=== PATIENT | female | born 1955 | race Hispanic/Latino ===

== ENCOUNTER 2017-02-28 07:44 | Inpatient (IN) | payer MEDICAID, OTHER ==
--- NOTE | 2017-02-28 08:20 | ED PDOC ---
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 Patient reports she has been experiencing intermittent vision changes in right eye for the past 2 weeks. Patient describes it as her vision getting dark and seeing "flashing lights". States that she has been under a great deal of stress taking care of her mother and vision "comes and goes". Only states to right eye. Denies trauma. Denies pain with eye movements. DENIES PAIN. Denies nausea or vomiting. Denies "floaters". Patient denies any eye pain, fever, chills, nausea, vomiting, diarrhea, abdominal pain, urinary symptoms, chest pain , shortness of breath or any other complaints. Patient reports she has not been compliant with her medication for the past few weeks. PMD: Dr. Barrow 02/28/17 18:14 Time/Duration: Other (2 weeks) Symptom Course: Worsening (this morning) Quality: Other Context: Home Past Medical History - Provider Review Nursing Documentation Reviewed: Yes - Tetanus Immunization Tetanus Immunization: Unknown - Cardiac Hx Hypertension: Yes - Endocrine/Metabolic Hx Hypothyroidism: Yes - Integumentary Other/Comment: redness around right eye and swelling, hematoma right skull, bruising swelling nose/face, abrasion and bruises right knee, multiple small bruises to back and arms - Musculoskeletal/Rheumatological Hx Falls: No - Psychiatric Hx Substance Use: No - Surgical History Hx Orthopedic Surgery: Yes (pin in pelvis) Family/Social History - Physician Review Nursing Documentation Reviewed: Yes Family/Social History: No Known Family HX Smoking Status: Never Smoked Hx Alcohol Use: Yes Hx Substance Use: No Allergies/Home Meds Allergies/Adverse Reactions: Allergies fruit Allergy (Uncoded 02/28/17 07:51) ITCHING Review of Systems - Review of Systems Constitutional: absent: Fatigue, Fevers, Night Sweats Eyes: Vision Changes. absent: Eye Pain ENT: absent: Hearing Changes, Sore Throat Respiratory: absent: SOB Cardiovascular: absent: Chest Pain Gastrointestinal: absent: Abdominal Pain, Diarrhea, Nausea, Vomiting Genitourinary Female: absent: Dysuria, Frequency, Hematuria, Urine Output Changes Musculoskeletal: absent: Back Pain Neurological: absent: Headache, Dizziness, Focal Weakness Endocrine: absent: Polyuria, Polydipsia Hemo/Lymphatic: absent: Easy Bleeding Physical Exam - Physical Exam Narrative Physical Exam (Text): Head: Atraumatic. Normocephalic. Eyes: Normal light reflex. Pupils are equal round and reactive to light. Visual acuity diminished to right eye, is able to distinguish light, intact corneal reflex. She is able to move her eyes in all directions. No proptosis. No pain with eye movements. Intraocular pressure is 16 in right eye, 18 in left eye. Visual acuity intact in left eye. No lid lag. Fundoscopic exam with no obvious hemorrhage. ENT: Mucous membranes are moist and intact. Oropharynx is clear and symmetric. Neck: Supple. Full ROM. No JVD. No lymphadenopathy. Cardiovascular: Regular rate. Regular rhythm. No murmurs, rubs, or gallops. Distal pulses are 2+ and symmetric. Pulmonary/Chest: No evidence of respiratory distress. Clear to auscultation bilaterally. No wheezing, rales or rhonchi. Abdominal: Soft and non-distended. There is no tenderness. No rebound, guarding, or rigidity. No organomegaly. Good bowel sounds. Back: No CVA tenderness. Extremities: No edema. No cyanosis. No clubbing. Full range of motion in all extremities. No calf tenderness. Skin: Skin is warm and dry. No petechiae. No purpura. Neurological: Alert, awake, and oriented. Motor and sensory exam reveals no facial droop, no pronator drift. No motor or sensory deficits. Psychiatric: Reports anxiety and "stress". Denies suicidal or homicidal ideation. 02/28/17 18:07 Vital Signs Temp Pulse Resp BP Pulse Ox 02/28/17 09:50 78 18 149/91 H 98 02/28/17 08:50 82 18 151/88 H 98 02/28/17 07:58 97.8 F 71 16 154/94 H 100 Appearance: Positive for: Well-Appearing, Non-Toxic, Comfortable Pain Distress: None Mental Status: Positive for: Alert and Oriented X 3 Medical Decision Making ED Course and Treatment: 02/28/17 07:58 Impression: a 61 year old female with vision loss in right eye. Patient reports she has been experiencing intermittent vision in changes in right eye for 2 weeks. She denies pain. She denies fever. Differential Diagnosis included but are not limited to: Intracranial hemorrhage vs. CVA vs. Hysterical blindness vs. Retinal detachment vs. Optic neuritis vs. Glaucoma Plan: -- Head CT -- Chest xray -- EKG -- Labs -- Urinalysis -- Reassess and disposition Progress Notes: Patient reports "hysterical blindness" in past. She states it has been several years but cannot specify being evaluated by medical laboratory scientist when this occurs, stating that "my vision usually comes back" and is associated with stress. Based on diminished visual acuity on exam, for SEVERAL WEEKS, I am suspicious of underyling opthalmic disease, ddx retinal detachment, optic nerve disorder, glacoma, hemorrhage. On-call opthamology consulted based on initial exam, case d /w Dr. Isael Moore. She has history of head injury in October of this year. CT head ordered to evaluate for neurologic pathology. Report Date : 02/28/2017 09:11:03 PROCEDURE: CT HEAD WITHOUT CONTRAST. Dictator : Rico Velázquez MD IMPRESSION: No intracranial mass, hemorrhage or evidence of acute infarct. Report Date : 02/28/2017 09:13:24 PROCEDURE: CHEST RADIOGRAPH, 1 VIEW Dictator : Rico Velázquez MD IMPRESSION: No active disease. 02/28/17 09:44 Patient noted to be hyponatremic. Etiology unclear at this point. Cannot exclude this as possible etiology of symptoms although no headache or change in mental status noted, no focal neuro deficits. Hypertonic saline ordered to correct hyponatremia as symptomatic hyponatremia considered. Will admit to ICU for serial exams and monitoring of symptoms, visual symptoms, and sodium levels. Patient with elevated etoh level but alert and oriented with no slurred speech. Although component of anxiety/stress, suspicion for underyling opthalmic issue. Patient to be admitted to ICU for serial exams and monitoring of symptoms as etoh level improves and electrolyte disturbance corrected. Dr. Moore updated on patient's disposition to ICU and associated exam and lab findings, as well as persistence of symptoms. Aware of consultation and admission. Patient endorsed to ICU team for further follow-up of symptoms. 02/28/17 09:[address] Que Shaw, who accepts patient admission under her service. - Lab Interpretations Lab Results: 02/28/17 08:26 02/28/17 08:26 Lab Results 02/28/17 08:30: Serum Osmolality 285 02/28/17 08:26: PT 10.0, INR 0.93, APTT 27.6 02/28/17 08:26: WBC 4.3 L, RBC 4.07, Hgb 12.9, Hct 35.4 L, MCV 87.0, MCH 31.7, MCHC 36.4, RDW 11.7, Plt Count 217, MPV 8.0, Gran % 61.5, Lymph % (Auto) 19.9 L , [place] % (Auto) 13.3 H, Eos % (Auto) 3.7, Baso % (Auto) 1.6, Gran # 2.62, Lymph # 0.9 L, [place] # 0.6, Eos # 0.2, Baso # 0.07 02/28/17 08:26: Acetaminophen < 10.0 L 02/28/17 08:26: Alcohol, Quantitative 163 H 02/28/17 08:26: Sodium 119 L*, Potassium 3.8, Chloride 83 L D, Carbon Dioxide 23 , Anion Gap 17, BUN 9, Creatinine 0.6, Est GFR ( Amer) > 60, Est GFR (Non -Af Amer) > 60, Random Glucose 83, Calcium 8.9, Total Bilirubin 0.7, AST 136 H, ALT 64 H, Alkaline Phosphatase 111, Lactate Dehydrogenase 313 L, Total Creatine Kinase 402 H, CK-MB (CK-2) 9.5 H, CK-MB (CK-2) % 2.4 L, Troponin I < 0.01, Total Protein 7.3, Albumin 4.2, Globulin 3.1, Albumin/Globulin Ratio 1.4 02/28/17 08:25: POC Glucose (mg/dL) 71 I have reviewed the lab results: Yes - RAD Interpretation Radiology Orders: 02/28/17 08:01 HEAD W/O CONTRAST [CT] Stat 02/28/17 08:02 CHEST ONE VIEW [RAD] Stat - EKG Interpretation EKG Interpretation (Text): 02/28/17 18:10 EKG at 08:18 normal sinus rhythm rate of [address] elevations Interpreted by ED Physician: Yes Type: 12 lead EKG - Medication Orders Current Medication Orders: Enoxaparin Sodium (Lovenox) 40 mg SC DAILY [facility] PRN Reason: Protocol Famotidine (Pepcid) 20 mg PO DAILY [facility] Folic Acid (Folic Acid) 1 mg PO DAILY [facility] Last Admin: 02/28/17 14:41 Dose: 1 mg Sodium Chloride (Sodium Chloride 0.9%) 1,000 mls @ 50 mls/hr IV .Q20H [facility] Last Admin: 02/28/17 14:41 Dose: 50 mls/hr Lorazepam (Ativan) 1 mg IVP Q6H PRN; Protocol PRN Reason: Anxiety Multivitamins/Minerals (Therapeutic-M Tab) 1 tab PO DAILY [facility] Last Admin: 02/28/17 14:41 Dose: 1 tab Ondansetron HCl (Zofran Inj) 4 mg IVP Q6H PRN PRN Reason: Nausea/Vomiting Thiamine HCl (Vitamin B1 Tab) 100 mg PO DAILY [facility] Last Admin: 02/28/17 14:41 Dose: 100 mg Discontinued Medications Sodium Chloride (Hypertonic Saline 3%) 75 mls @ 75 mls/hr IV ONCE ONE Stop: 02/28/17 11:14 Last Admin: 02/28/17 10:18 Dose: 75 mls/hr Sodium Chloride (Sodium Chloride 0.9%) 100 mls @ 100 mls/hr IV .Q1H JOSSE Sodium Chloride (Sodium Chloride 0.9%) 1,000 mls @ 100 mls/hr IV .Q10H [facility] Last Admin: 02/28/17 14:11 Dose: 100 mls/hr Sodium Chloride (Hypertonic Saline 3%) 75 ml IV STAT STA Stop: 02/28/17 09:59 Last Admin: 02/28/17 14:11 Dose: - Scribe Statement The provider has reviewed the documentation as recorded by the José Miguel Manning Provider Scribe Attestation: All medical record entries made by the Scribe were at my direction and personally dictated by me. I have reviewed the chart and agree that the record accurately reflects my personal performance of the history, physical exam, medical decision making, and the department course for this patient. I have also personally directed, reviewed, and agree with the discharge instructions and disposition. Disposition/Present on Arrival - Present on Arrival Any Indicators Present on Arrival: No History of DVT/PE: No History of Uncontrolled Diabetes: No Urinary Catheter: No History of Decub. Ulcer: No History Surgical Site Infection Following: None - Disposition Have Diagnosis and Disposition been Completed?: Yes Diagnosis: Visual disturbance, Hyponatremia, Alcohol intoxication Disposition: HOSPITALIZED Disposition Time: 10:35 Patient Plan: Admission Patient Problems: Current Active Problems Problem Status Onset Alcohol intoxication Acute Hyponatremia Acute Visual disturbance Acute Condition: CRITICAL
[2017-02-28 08:27] LABS: ADD MANUAL DIFF? NO
[2017-02-28 08:41] LABS: BASO # 0.07 K/mm3 (0.0-2.0); BASO % 1.6 % (0.0-3.0); EOS # 0.2 (0.0-0.7); EOS % 3.7 % (1.5-5.0); GRAN # 2.62 (1.4-6.5); GRAN % 61.5 % (50.0-68.0); HEMATOCRIT 35.4 % (36.0-48.0); LYMPH # 0.9 (1.2-3.4); LYMPH % 19.9 % (22.0-35.0); MEAN CORPUSCULAR HEMOGLOBIN 31.7 pg (25.0-35.0); MEAN CORPUSCULAR HGB CONC 36.4 g/dl (31.0-37.0); MONO # 0.6 (0.1-0.6); MONO % 13.3 % (1.0-6.0); PLATELET COUNT 217 10^3/uL (120.0-450.0); RED CELL DISTRIBUTION WIDTH 11.7 % (11.5-14.5); WHITE BLOOD COUNT 4.3 10^3/ul (4.5-11.0)
[2017-02-28 08:55] LABS: ALB/GLOB RATIO 1.4 (1.1-1.8); ALKALINE PHOSPHATASE 111 U/L (38-133); ALT/SGPT 64 U/L (7-56); AST/SGOT 136 U/L (15-39); BILIRUBIN,TOTAL 0.7 mg/dL (0.2-1.3); BLOOD UREA NITROGEN 9 mg/dL (7-21); CALCIUM 8.9 mg/dL (8.4-10.5); CARBON DIOXIDE 23 mmol/L (21-33); CHLORIDE 83 mmol/L (98-107); GFR AFRICAN-AMERICAN > 60; GLUCOSE,RANDOM 83 mg/dL (70-110); POTASSIUM 3.8 mmol/L (3.6-5.0); TOTAL PROTEIN 7.3 g/dL (5.8-8.3)
[2017-02-28 08:57] LABS: INR 0.93 (0.93-1.08); PARTIAL THROMBOPLASTIN TIME 27.6 Seconds (23.7-30.8)
[2017-02-28 09:04] LABS: SODIUM 119 mmol/L (132-148)
[2017-02-28 09:11] LABS: TROPONIN I < 0.01 ng/mL
--- NOTE | 2017-02-28 09:12 | CT ---
PROCEDURE: CT HEAD WITHOUT CONTRAST. HISTORY: hx of ICH COMPARISON: None available. TECHNIQUE: Axial computed tomography images were obtained through the head/brain without intravenous contrast. Radiation dose: Total exam DLP = 2043.98 mGy-cm. This CT exam was performed using one or more of the following dose reduction techniques: Automated exposure control, adjustment of the mA and/or kV according to patient size, and/or use of iterative reconstruction technique. FINDINGS: HEMORRHAGE: No intracranial hemorrhage. BRAIN: No mass effect or edema. Mild periventricular white matter lucency consistent with chronic microvascular ischemic change. No evidence of acute infarct. VENTRICLES: Unremarkable. No hydrocephalus. CALVARIUM: Unremarkable. PARANASAL SINUSES: Unremarkable as visualized. No significant inflammatory changes. MASTOID AIR CELLS: Unremarkable as visualized. No inflammatory changes. OTHER FINDINGS: None. IMPRESSION: No intracranial mass, hemorrhage or evidence of acute infarct.
--- NOTE | 2017-02-28 09:14 | RAD ---
PROCEDURE: CHEST RADIOGRAPH, 1 VIEW HISTORY: ams COMPARISON: 10/27/2016 FINDINGS: LUNGS: Clear. PLEURA: No pneumothorax or pleural fluid seen. CARDIOVASCULAR: Normal. OSSEOUS STRUCTURES: No significant abnormalities. VISUALIZED UPPER ABDOMEN: Normal. OTHER FINDINGS: None. IMPRESSION: No active disease.
[2017-02-28] MEDS ORDERED: Sodium Chloride 0.9% 500 ML IV STA (09:35)
[2017-02-28] MEDS ORDERED: SODIUM CHLORIDE 3% IV ONE (10:15)
--- NOTE | 2017-02-28 11:55 | CP.PCM.HP ---
Addendum entered and electronically signed by Francoise Crews DO 02/28/17 13:57: Called patient's pharmacy ([facility] in [facility]) for patient's home medications. Patient's home meds include: Paxil 10 mg po QD last filled on Feb 15 2017 and Toprol 25 mg PO QD last filled on 01/27/17. Patient denies taking any regular home medications though. Patient also denies using ETOH regularly. She states that she used ot drink heavily in past. If patient does take the Paxil, hyponatremia may be a side effect of the medication. Original Note: <Francoise Crews - Last Filed: 02/28/17 13:28> History of Present Illness - History of Present Illness History of Present Illness: CC: right eye blindness 61 year old female with past medical history of hyperthyroidism, subdural hemorrhage in 10/2016 and retinal hemorrhage 10/2016 presents to hospital after experiencing blindness in right eye. Patient states that in last 2 weeks, patient had 2 episodes of vision changes in her right eye. She states that there was a "darkness" that came over her right eye and improved within 15 minutes. Both times, she states that she was not doing anything specific. Both times, she did not do anything specific to help her vision. Patient states that about 30 years ago, she experienced B/L vision blindness that resolved within an hour after placing cold compresses over her eyes. At that time she was stressed about her new born son. Now, she states that she is stressed about living with her mother. She moved back in with her mother about 14 months ago though. On blood work done in ED, patient is found to be hyponatremic at 119. Patient states that she has been restricting her salt intake due to having high blood pressure. Patient denies having any CP, SOB, abd pain, D/C, dysuria. Patient does state that she feels nauseous and has felt this way since her hospital admission in October. PMHx: stated above Sx: Pelvic sx after pelvic trauma with metal object in place NKDA Social: former ETOH abuse, occasional smoker. No drug use PMD: Dr. Lopes Present on Admission - Present on Admission Any Indicators Present on Admission: No Review of Systems - Review of Systems All systems: reviewed and no additional remarkable complaints except Past Patient History - Tetanus Immunizations Tetanus Immunization: Unknown - Past Medical History & Family History Past Medical History?: Yes - Past Social History Smoking Status: Light Smoker < 10 Cigarettes Daily Chewing Tobacco Use: No Cigar Use: No Alcohol: Occasional Drugs: Denies Home Situation {Lives}: With Family - CARDIAC Hx Hypertension: Yes - ENDOCRINE/METABOLIC Hx Hypothyroidism: Yes - INTEGUMENTARY Other/Comment: redness around right eye and swelling, hematoma right skull, bruising swelling nose/face, abrasion and bruises right knee, multiple small bruises to back and arms - MUSCULOSKELETAL/RHEUMATOLOGICAL Hx Falls: No - PSYCHIATRIC Hx Substance Use: No - SURGICAL HISTORY Hx Orthopedic Surgery: Yes (pin in pelvis) Meds Allergies/Adverse Reactions: Allergies Allergy/AdvReac Type Severity Reaction Status Date / Time fruit Allergy ITCHING Uncoded 02/28/17 07:51 Physical Exam - Constitutional Appears: Non-toxic, No Acute Distress - Head Exam Head Exam: ATRAUMATIC - Eye Exam Additional comments: decreased vision in right eye. Barely able to make out number of fingers. Normal vision in left eye - ENT Exam ENT Exam: Mucous Membranes Moist - Respiratory Exam Respiratory Exam: Clear to Auscultation Bilateral, NORMAL BREATHING PATTERN. absent: Rales, Rhonchi, Wheezes - Cardiovascular Exam Cardiovascular Exam: REGULAR RHYTHM, +S1, +S2. absent: Diastolic murmur, Gallop , Rubs, Systolic Murmur - GI/Abdominal Exam GI & Abdominal Exam: Normal Bowel Sounds, Soft. absent: Distended, Firm, Guarding, Rigid, Tenderness - Extremities Exam Extremities exam: Negative for: pedal edema, tenderness - Neurological Exam Neurological exam: Alert, CN II-XII Intact, Oriented x3, Reflexes Normal - Psychiatric Exam Psychiatric exam: Normal Affect, Normal Mood - Skin Skin Exam: Dry, Intact, Normal Color, Warm Results - Vital Signs Recent Vital Signs: Last Vital Signs Temp 97.8 F 02/28/17 07:58 Pulse 78 02/28/17 09:50 Resp 18 02/28/17 09:50 BP 149/91 H 02/28/17 09:50 Pulse Ox 98 02/28/17 09:50 - Labs Result Diagrams: 02/28/17 08:26 02/28/17 08:26 - EKG Data EKG Interpreted by: Myself EKG shows normal: Sinus rhythm Assessment & Plan - Assessment and Plan (Free Text) Assessment: 61 year old female with past medical history of hyperthyroidism, subdural hemorrhage and retinal hemorrhage is admitted for right eye vision loss and hyponatremia. On admission, Na is 119. Patient is given 1 bolus of hypertonic saline 3% 75mL. CT of head is negative. EKG showed NSR with QT of 464 and left atrial enlargement 1. Hyponatremia - Patient will be started on NS .9% at 100 cc/hr with goal of correction of Na to be no faster than .5/hr -Will check urine osmolarity, serum osmolarity, urine electrolytes, lipid panel , uric acid level. - Will do BMP q 4 hours 2. Right eye blindness - Ophthomology, Dr. Hobson is consulted -Will continue to monitor 3. ETOH abuse - ETOH level is 163 - [facility] protocol - Ativan 1 mg q6 prn - UDS ordered - Will get ECHO 4. Transaminitis - AST 136, ALT 64 - Will check hep panel - will get abdominal US Prophylaxis Pepcid SCDs, Lovenox Case discussed with attending, Dr. Shaw - Date & Time Date: 02/28/17 Time: 13:37 <Que Shaw - Last Filed: 03/01/17 17:10> Results - Vital Signs Recent Vital Signs: Last Vital Signs Temp 98.6 F 03/01/17 12:00 Pulse 62 03/01/17 12:00 Resp 18 03/01/17 12:00 BP 154/91 H 03/01/17 12:00 Pulse Ox 95 03/01/17 06:00 - Labs Result Diagrams: 03/01/17 08:00 03/01/17 16:28 Labs: Laboratory Results - last 24 hr 02/28/17 02/28/17 02/28/17 11:50 12:25 14:00 WBC RBC Hgb Hct MCV MCH MCHC RDW Plt Count MPV Gran % Lymph % (Auto) [place] % (Auto) Eos % (Auto) Baso % (Auto) Gran # Lymph # [place] # Eos # Baso # APTT Sodium Potassium Chloride Carbon Dioxide Anion Gap BUN Creatinine Est GFR ( Amer) Est GFR (Non-Af Amer) POC Glucose (mg/dL) Random Glucose Uric Acid Calcium Phosphorus Magnesium Total Bilirubin AST ALT Alkaline Phosphatase Total Protein Albumin Globulin Albumin/Globulin Ratio Triglycerides Cholesterol LDL Cholesterol Direct HDL Cholesterol Free T4 TSH 3rd Generation Cortisol AM Sample 17.3 Ur Random Sodium 5 Ur Random Potassium 9.3 Hepatitis A IgM Ab Negative Hep Bs Antigen Negative Hep B Core IgM Ab Negative Hepatitis C Antibody Negative 02/28/17 02/28/17 03/01/17 15:46 21:53 01:00 WBC RBC Hgb Hct MCV MCH MCHC RDW Plt Count MPV Gran % Lymph % (Auto) [place] % (Auto) Eos % (Auto) Baso % (Auto) Gran # Lymph # [place] # Eos # Baso # APTT Sodium 122 L 124 L Potassium 4.3 4.2 Chloride 90 L 94 L Carbon Dioxide 22 22 Anion Gap 14 12 BUN 7 13 Creatinine 0.6 0.6 Est GFR ( Amer) > 60 > 60 Est GFR (Non-Af Amer) > 60 > 60 POC Glucose (mg/dL) 88 Random Glucose 84 79 Uric Acid Calcium 9.3 8.8 Phosphorus Magnesium Total Bilirubin AST ALT Alkaline Phosphatase Total Protein Albumin Globulin Albumin/Globulin Ratio Triglycerides Cholesterol LDL Cholesterol Direct HDL Cholesterol Free T4 TSH 3rd Generation Cortisol AM Sample Ur Random Sodium Ur Random Potassium Hepatitis A IgM Ab Hep Bs Antigen Hep B Core IgM Ab Hepatitis C Antibody 03/01/17 03/01/17 03/01/17 08:00 08:00 08:00 WBC 3.0 L D RBC 3.93 Hgb 12.4 Hct 35.2 L MCV 89.6 MCH 31.6 MCHC 35.2 RDW 12.0 Plt Count 182 MPV 8.1 Gran % 54.4 Lymph % (Auto) 27.7 [place] % (Auto) 14.2 H Eos % (Auto) 3.0 Baso % (Auto) 0.7 Gran # 1.61 Lymph # 0.8 L [place] # 0.4 Eos # 0.1 Baso # 0.02 APTT 26.3 Sodium 128 L Potassium 4.0 Chloride 95 L Carbon Dioxide 27 Anion Gap 10 BUN 12 Creatinine 0.7 Est GFR ( Amer) > 60 Est GFR (Non-Af Amer) > 60 POC Glucose (mg/dL) Random Glucose 94 Uric Acid 4.1 Calcium 9.1 Phosphorus 3.8 Magnesium 1.7 Total Bilirubin 1.3 AST 88 H ALT 56 Alkaline Phosphatase 93 Total Protein 6.4 Albumin 3.7 Globulin 2.7 Albumin/Globulin Ratio 1.4 Triglycerides 36 Cholesterol 162 LDL Cholesterol Direct 55 HDL Cholesterol 91 H Free T4 TSH 3rd Generation Cortisol AM Sample Ur Random Sodium Ur Random Potassium Hepatitis A IgM Ab Hep Bs Antigen Hep B Core IgM Ab Hepatitis C Antibody 03/01/17 08:00 WBC RBC Hgb Hct MCV MCH MCHC RDW Plt Count MPV Gran % Lymph % (Auto) [place] % (Auto) Eos % (Auto) Baso % (Auto) Gran # Lymph # [place] # Eos # Baso # APTT Sodium Potassium Chloride Carbon Dioxide Anion Gap BUN Creatinine Est GFR ( Amer) Est GFR (Non-Af Amer) POC Glucose (mg/dL) Random Glucose Uric Acid Calcium Phosphorus Magnesium Total Bilirubin AST ALT Alkaline Phosphatase Total Protein Albumin Globulin Albumin/Globulin Ratio Triglycerides Cholesterol LDL Cholesterol Direct HDL Cholesterol Free T4 1.08 TSH 3rd Generation 0.58 Cortisol AM Sample Ur Random Sodium Ur Random Potassium Hepatitis A IgM Ab Hep Bs Antigen Hep B Core IgM Ab Hepatitis C Antibody Attending/Attestation - Attestation I have personally seen and examined this patient.: Yes I have fully participated in the care of the patient.: Yes I have reviewed all pertinent clinical information: Yes Notes (Text): I have seen and examined patient at bedside. Agree with the above note with the following additions/ exceptions: Briefly this is 61 year old female with history of hyperthyroidism, SDH (10/2016) due to trauma, retinal hemorrhage in 2016 who got admitted for sudden loss of vision in her right eye. Upon admission , also found to have hyponatremia and transaminitis. There is no pain, redness or neurological deficits. No signs of increased IOP or trauma to eye or head. There is no erythema, tearing, light sensitivity, ptsosis or proptosis. EOMI intact. She feels that there is darkness that came over the eye. CT scan negative. Will consult neuro and opthalmologist. Hyponatremia can be due to alcohol abuse vs paxil or any other cause. Na 119. Work up ordered including urine/serum osmolarity, urine sodium, lipid panel, uric acid, BAL and UDS. In the ED, hypertonic NS was started. Will start CIWA protocol and ativan prn. Will check echo. Patient will be closely monitored in ICU. Will consult nephro. For transaminitis, will check hep panel and liver ultrasound. Upon discharge patient will follow up with Dr Hogan. Dr Que Shaw
[2017-02-28 12:10] LABS: URINE APPEARANCE CLEAR (CLEAR); URINE BILIRUBIN NEGATIVE (NEGATIVE); URINE BLOOD TRACE-LYSED (NEGATIVE); URINE COLOR YELLOW (YELLOW); URINE GLUCOSE (UA) NEGATIVE (NEGATIVE); URINE KETONE NEGATIVE (NEGATIVE); URINE LEUKOCYTE ESTERASE NEGATIVE Leu/uL (NEGATIVE); URINE PROTEIN NEGATIVE mg/dL (<30 mg/dL); URINE UROBILINOGEN 0.2 E.U./dL (<1 E.U./dL)
[2017-02-28 12:19] LABS: URINE BACTERIA FEW (NEG); URINE EPITHELIAL CELLS 0 - 2 /hpf (0-5); URINE RBC 0 - 2 /hpf (0-2); URINE WBC 0 - 2 /hpf (0-6)
--- NOTE | 2017-02-28 12:38 | CARD ---
APPROVED REPORT EKG Measurement Heart [id number] <Conclusion> Normal sinus rhythm Possible Left atrial enlargement Borderline ECG
--- NOTE | 2017-02-28 13:15 | CON ---
DATE: 02/28/2017 This is a 61-year-old lady with history of alcohol abuse and retinal hemorrhage in the past, who presented this time with a chief complaint of blindness in the right eye. The patient stated that these findings were fluctuating in severity over the time she has been in Emergency Room and at the same time, she was found to have sodium 119. ER doctor suspected that fluctuating sightseeing acuity of her right eye could be related to symptomatic hyponatremia and gave a 75 mL bolus of hypertonic saline. ICU was called and accepted patient to the unit. No nausea, no vomiting, no diarrhea, no constipation. The patient is alert, awake, comfortable and no clinical signs of seizures. Of note, patient is on Paxil and has a history of hyperthyroidism, which was treated in the past with PTU. PAST MEDICAL HISTORY: Hyperthyroidism, subdural hemorrhage, retinal hemorrhage , hypertension, depression. FAMILY HISTORY: Noncontributory. SOCIAL HISTORY: History of alcohol abuse and tobacco smoking. No illicit drug abuse. MEDICATIONS AT HOME: Thiamine, nitrofurantoin, multivitamin, folic acid, eyedrops. REVIEW OF SYSTEMS: Review of 12 organ systems, other than mentioned in history of present illness, is negative. PHYSICAL EXAMINATION: VITAL SIGNS: Blood pressure 150/94, heart rate 68, oxygen saturation 98%, respiratory rate 18. HEAD AND NECK: Atraumatic. LUNGS: Clear to auscultation bilaterally. HEART: Regular rate and rhythm. S1, S2 normal. ABDOMEN: Soft, nontender, nondistended. MUSCULOSKELETAL: No C/C/E. NEUROLOGIC: The patient moves all extremities spontaneously. SKIN: Moist. PSYCHIATRIC: The patient is alert and oriented x 3. LABORATORIES: WBC 4.3, hemoglobin 12.9, platelet count 217. INR 0.93. Sodium 119, potassium 3.8, chloride 83, carbon dioxide 23, BUN 9, creatinine 0.6, glucose 83. Serum osmolarity 285. Troponin less than 0.01. AST 136, ALT 64. Alcohol level 163. Otherwise, U-tox screen is negative. Head CT showed no intracranial mass, no hemorrhage, and no evidence of acute or subacute infarct. EKG showed no signs of acute ischemia. Chest x-ray showed no acute pulmonary disease. ASSESSMENT AND PLAN: This is a 61-year-old lady who presented with hyponatremia which thought to be symptomatic by ER physician. The patient received a bolus of 3% hypertonic saline. At present time, we are waiting for another sodium level. We will not exceed 6 mEq per liter increment of Na over the first 24 hours. The patient does not have clinical seizures and she appears to be asymptomatic from that regard. We will get urine and serum osmolarity. We will get urine sodium. If na osm low and Na urine low--will proceed with NS and BMP q4h. I will also get TSH, T4 level. I will get echocardiogram and proBNP. LFTs slightly elevated and liver insufficiency let alone end-stage liver disease may be an etiology for hyponatremia as well. The patient making urine and she has normal creatinine level, which argues against nephrotic syndrome. Will stop SSRI. Also, urine is negative for protein and gross blood. We will continue to target euvolemia, euglycemia, normothermia and oxygen saturation more than 90%. We will continue with deep venous thrombosis and gastrointestinal prophylaxis. We will get nephrology consult. Ophthalmology, Dr. Moore, was consulted and is aware about the patient. Addendum: Na returned 121, Uosm 131, Na 5-->will continue NS at 50 cc/hr and BMP q 6 hrs. Nephro and neuro consult were called. Ophthalmo consult was called by ER ccm time 40 min Shravan Gorman MD cc: [id number] TT: 02/28/2017 13:15:10 Confirmation # [id number] Dictation # [id number] en MTDD
[2017-02-28 13:28] LABS: BLOOD UREA NITROGEN 8 mg/dL (7-21); CALCIUM 9.1 mg/dL (8.4-10.5); CARBON DIOXIDE 22 mmol/L (21-33); CHLORIDE 90 mmol/L (95-110); GFR AFRICAN-AMERICAN > 60; GLUCOSE,RANDOM 84 mg/dL (70-110); POTASSIUM 5.3 mmol/L (3.6-5.0); SODIUM 121 mmol/L (132-148)
[2017-02-28] MEDS ORDERED: Sodium Chloride 0.9% 100 ML IV SCH (13:38)
[2017-02-28] MEDS ORDERED: Sodium Chloride 0.9% 1,000 ML IV SCH (14:00)
[2017-02-28] MEDS: Sodium Chloride 0.9% 1,000 ML IV SCH (14:41)
[2017-02-28] MEDS: Multivitamin With Minerals Tab PO SCH (14:41)
[2017-02-28 15:56] VITALS: BMI 21.3
[2017-02-28 15:59] LABS: BLOOD UREA NITROGEN 7 mg/dL (7-21); CALCIUM 9.3 mg/dL (8.4-10.5); CARBON DIOXIDE 22 mmol/L (21-33); CHLORIDE 90 mmol/L (98-107); GFR AFRICAN-AMERICAN > 60; GLUCOSE,RANDOM 84 mg/dL (70-110); POTASSIUM 4.3 mmol/L (3.6-5.0); SODIUM 122 mmol/L (132-148)
[2017-03-01 01:34] LABS: BLOOD UREA NITROGEN 13 mg/dL (7-21); CALCIUM 8.8 mg/dL (8.4-10.5); CARBON DIOXIDE 22 mmol/L (21-33); CHLORIDE 94 mmol/L (95-110); GFR AFRICAN-AMERICAN > 60; GLUCOSE,RANDOM 79 mg/dL (70-110); POTASSIUM 4.2 mmol/L (3.6-5.0); SODIUM 124 mmol/L (132-148)
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
--- NOTE | 2017-03-01 08:15 | CON ---
DATE: 02/28/2017 This is a 61-year-old female with a past medical history of alcohol abuse and retinal hemorrhage, who presented with a complaint of right eye vision loss and the findings have been fluctuating. In the ER, sodium was found to be 119 and light comes and goes, and called to evaluate the patient. PAST MEDICAL HISTORY: Hypothyroidism, subdural and retinal hemorrhage, hypertension, depression. SOCIAL HISTORY: Alcohol abuse, smokes. REVIEW OF SYSTEMS: A 10-point was negative except as noted above. PHYSICAL EXAMINATION: VITAL SIGNS: Blood pressure 150/94. HEENT: Normocephalic, atraumatic. NECK: Supple. NEUROLOGIC: Alert, awake, oriented x 3. No aphasia. Cranial nerves II-XII were tested. Pupils kahlil ctive. EOM intact. Visual merritt full. No facial asymmetry. Tongue midline. Motor examination: Moves all the extremities equally. Tone normal. Deep tendon reflexes 1+. Both plantars are downgoi ng. Sensory appears intact. Cerebellar, gait deferred. IMPRESSION: Sudden visual loss in the right eye and is a 61-year-old who presented to the hospital w [facility] hyponatremia and patient received bolus of 3% hypersaline and workup in progress and we will find out and will do the MRI and MRA and ophthalmology consult. Will follow up. Parker Matos MD cc: [id number] TT: 03/01/2017 08:14:33 Confirmation # [id number] Dictation # [id number]
[2017-03-01 08:37] LABS: ADD MANUAL DIFF? NO
[2017-03-01 08:41] LABS: BASO # 0.02 K/mm3 (0.0-2.0); BASO % 0.7 % (0.0-3.0); EOS # 0.1 (0.0-0.7); GRAN # 1.61 (1.4-6.5); GRAN % 54.4 % (50.0-68.0); HEMATOCRIT 35.2 % (36.0-48.0); LYMPH # 0.8 (1.2-3.4); LYMPH % 27.7 % (22.0-35.0); MEAN CELL VOLUME 89.6 fL (80.0-105.0); MEAN CORPUSCULAR HEMOGLOBIN 31.6 pg (25.0-35.0); MEAN CORPUSCULAR HGB CONC 35.2 g/dl (31.0-37.0); MEAN PLATELET VOLUME 8.1 fl (7.0-11.0); MONO # 0.4 (0.1-0.6); MONO % 14.2 % (1.0-6.0); PLATELET COUNT 182 10^3/uL (120.0-450.0)
[2017-03-01 08:55] LABS: ALB/GLOB RATIO 1.4 (1.1-1.8); ALKALINE PHOSPHATASE 93 U/L (38-133); ALT/SGPT 56 U/L (7-56); AST/SGOT 88 U/L (15-39); BILIRUBIN,TOTAL 1.3 mg/dL (0.2-1.3); BLOOD UREA NITROGEN 12 mg/dL (7-21); CALCIUM 9.1 mg/dL (8.4-10.5); CARBON DIOXIDE 27 mmol/L (21-33); CHLORIDE 95 mmol/L (98-107); CHOLESTEROL 162 mg/dL (130-200); GFR AFRICAN-AMERICAN > 60; GLUCOSE,RANDOM 94 mg/dL (70-110); MAGNESIUM 1.7 mg/dL (1.7-2.2); PHOSPHOROUS 3.8 mg/dL (2.5-4.5); SODIUM 128 mmol/L (132-148); TOTAL PROTEIN 6.4 g/dL (5.8-8.3); URIC ACID 4.1 mg/dL (2.5-6.2)
[2017-03-01 09:15] LABS: FREE T4 1.08 ng/dL (0.78-2.19)
[2017-03-01 09:29] LABS: THYROID STIMULATING HORMONE 0.58 mIU/mL (0.46-4.68)
[2017-03-01] MEDS ORDERED: Phenylephrine 10% Opht (5 ml) OU ONE (10:00)
[2017-03-01] MEDS ORDERED: Tropicamide 1% Opht SOLUTION OU ONE (10:00)
[2017-03-01] MEDS: Sodium Chloride 0.9% 1,000 ML IV SCH (10:04)
[2017-03-01] MEDS: Enoxaparin 40 mg Syringe SC SCH (10:04)
[2017-03-01] MEDS: Multivitamin With Minerals Tab PO SCH (10:04)
--- NOTE | 2017-03-01 11:45 | US ---
HISTORY: transaminitis COMPARISON: None available. TECHNIQUE: Sonographic evaluation of the abdomen. FINDINGS: LIVER: Measures 12.6 cm in sagittal dimension. Echogenic liver may be seen in setting of hepatic parenchymal disease or fatty infiltration. The main portal vein appears patent with normal directional flow. No intrahepatic bile duct dilatation. GALLBLADDER: No gallstones. No gallbladder wall thickening. Negative sonographic Reese's sign as assessed by the energy trader. COMMON BILE DUCT: Measures 3 mm. PANCREAS: Not well visualized. RIGHT KIDNEY: Measures 10.3 x 4.4 x 5.1cm. No obstructing calculus or hydronephrosis identified. LEFT KIDNEY: Measures 9.4 x 5.5 x 5.1cm. No obstructing calculus or hydronephrosis identified. 1.9 x 1.8 x 1.3 cm probable cyst. SPLEEN: Measures approximately 8.7 cm. AORTA: Limited views appear unremarkable. IVC: Limited views appear unremarkable. OTHER FINDINGS: None. IMPRESSION: Echogenic liver may be seen in setting of hepatic parenchymal disease or fatty infiltration. 1.9 cm probable left renal cyst.
[2017-03-01 12:03] LABS: CORTISOL AM 17.3 ug/dL (4.46-22.7)
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
[2017-03-01 16:53] LABS: BLOOD UREA NITROGEN 15 mg/dL (7-21); CARBON DIOXIDE 24 mmol/L (21-33); CHLORIDE 96 mmol/L (95-110); GFR AFRICAN-AMERICAN > 60; GLUCOSE,RANDOM 117 mg/dL (70-110); SODIUM 126 mmol/L (132-148)
--- NOTE | 2017-03-01 19:37 | CON ---
DATE: 03/01/2017 The patient is a 61-year-old white female admitted to the [facility] for sudden loss of vision in her right eye. PHYSICAL EXAMINATION: Her visual acuity is count fingers at 2 feet in the right eye, 20/60 in the le ft eye. Corneal exam is normal. Lens exam is normal. Dilated fundus exam reveals an optic neuritis in the right eye with optic nerve pallor. The rest of the exam is normal. My assessment is that th e patient has optic neuritis in the right eye. I spoke to the hospitalist and I recommended a course of steroid treatment. I put her on prednisone 20 mg one 3 times a day. I instructed the patient to come see me when she is discharged. Fitz Moore MD cc: [id number] TT: 03/01/2017 19:36:38 Confirmation # [id number] Dictation # [id number] ln
[2017-03-01 22:59] LABS: BLOOD UREA NITROGEN 15 mg/dL (7-21); CALCIUM 8.8 mg/dL (8.4-10.5); CARBON DIOXIDE 23 mmol/L (21-33); CHLORIDE 98 mmol/L (98-107); GFR AFRICAN-AMERICAN > 60; GLUCOSE,RANDOM 176 mg/dL (70-110); POTASSIUM 4.2 mmol/L (3.6-5.0); SODIUM 127 mmol/L (132-148)
[2017-03-02 06:33] LABS: ADD MANUAL DIFF? NO
[2017-03-02 06:49] LABS: BASO # 0.01 K/mm3 (0.0-2.0); BASO % 0.3 % (0.0-3.0); EOS % 0.3 % (1.5-5.0); GRAN # 2.45 (1.4-6.5); GRAN % 65.1 % (50.0-68.0); HEMATOCRIT 32.7 % (36.0-48.0); LYMPH # 0.8 (1.2-3.4); LYMPH % 21.3 % (22.0-35.0); MEAN CELL VOLUME 90.8 fL (80.0-105.0); MEAN CORPUSCULAR HEMOGLOBIN 31.9 pg (25.0-35.0); MEAN CORPUSCULAR HGB CONC 35.2 g/dl (31.0-37.0); MEAN PLATELET VOLUME 8.8 fl (7.0-11.0); MONO # 0.5 (0.1-0.6); PLATELET COUNT 184 10^3/uL (120.0-450.0); WHITE BLOOD COUNT 3.8 10^3/ul (4.5-11.0)
[2017-03-02 07:15] LABS: BLOOD UREA NITROGEN 12 mg/dL (7-21); CALCIUM 9.1 mg/dL (8.4-10.5); CARBON DIOXIDE 23 mmol/L (21-33); CHLORIDE 101 mmol/L (98-107); GFR AFRICAN-AMERICAN > 60; GLUCOSE,RANDOM 104 mg/dL (70-110); SODIUM 130 mmol/L (132-148)
[2017-03-02] MEDS: Sodium Chloride 0.9% 1,000 ML IV SCH (09:25)
[2017-03-02] MEDS: Enoxaparin 40 mg Syringe SC SCH (09:27)
[2017-03-02] MEDS: Multivitamin With Minerals Tab PO SCH (09:29)
--- NOTE | 2017-03-02 14:42 | CP.PCM.PN ---
Addendum entered and electronically signed by Francoise Crews DO 03/02/17 14:42: Assessment: HTN. Patient is started on Lisinopril 5 mg po qd Original Note: <Francoise Crews - Last Filed: 03/02/17 14:37> Subjective - Date & Time of Evaluation Date of Evaluation: 03/02/17 Time of Evaluation: 14:37 - Subjective Subjective: hHOSPITALISTS PROGRESS NOTE Pt is seen and examined at bedside. No acute events overnight. Patient states that there is no vision change in right eye since time of admission. She denies having any change in vision on left eye. She denies having any CP, SOB, abd pain, N/V/D/C, dyrusia. Objective - Vital Signs/Intake and Output Vital Signs (last 24 hours): Temp Pulse Resp BP Pulse Ox 98 F 66 20 175/103 H 99 03/02/17 12:00 03/02/17 13:33 03/02/17 12:00 03/02/17 13:33 03/02/17 06:00 Intake and Output: 03/02/17 03/02/17 06:59 18:59 Intake Total 900 Output Total 500 Balance 400 - Medications Medications: Current Medications Enoxaparin Sodium (Lovenox) 40 mg SC DAILY [facility] PRN Reason: Protocol Last Admin: 03/02/17 09:27 Dose: 40 mg Famotidine (Pepcid) 40 mg PO DAILY [facility] Last Admin: 03/02/17 09:21 Dose: 40 mg Folic Acid (Folic Acid) 1 mg PO DAILY [facility] Last Admin: 03/02/17 09:21 Dose: 1 mg Sodium Chloride (Sodium Chloride 0.9%) 1,000 mls @ 50 mls/hr IV .Q20H [facility] Last Admin: 03/02/17 09:25 Dose: 50 mls/hr Lisinopril (Zestril) 5 mg PO DAILY [facility] Last Admin: 03/02/17 13:33 Dose: 5 mg Lorazepam (Ativan) 1 mg IVP Q6H PRN; Protocol PRN Reason: Anxiety Last Admin: 03/01/17 18:26 Dose: 1 mg Multivitamins/Minerals (Therapeutic-M Tab) 1 tab PO DAILY [facility] Last Admin: 03/02/17 09:29 Dose: 1 tab Ondansetron HCl (Zofran Inj) 4 mg IVP Q6H PRN PRN Reason: Nausea/Vomiting Last Admin: 02/28/17 20:10 Dose: 4 mg Prednisone (Prednisone Tab) 60 mg PO DAILY [facility] Last Admin: 03/02/17 09:30 Dose: Not Given Prednisone (Prednisone Tab) 20 mg PO TID [facility] Last Admin: 03/02/17 13:38 Dose: 20 mg Thiamine HCl (Vitamin B1 Tab) 100 mg PO DAILY [facility] Last Admin: 03/02/17 09:21 Dose: 100 mg - Labs Labs: 03/02/17 05:30 03/02/17 05:30 PT 10.0 Seconds (9.9-11.8) 02/28/17 08:26 INR 0.93 (0.93-1.08) 02/28/17 08:26 APTT 26.3 Seconds (23.7-30.8) 03/01/17 08:00 - Constitutional Appears: Non-toxic, No Acute Distress - Head Exam Head Exam: ATRAUMATIC - Eye Exam Eye Exam: EOMI - ENT Exam ENT Exam: Mucous Membranes Moist - Respiratory Exam Respiratory Exam: Clear to Ausculation Bilateral. absent: Rales, Rhonchi, Wheezes - Cardiovascular Exam Cardiovascular Exam: REGULAR RHYTHM, +S1, +S2. absent: Gallop, Rubs, Murmur - GI/Abdominal Exam GI & Abdominal Exam: Soft, Normal Bowel Sounds. absent: Distended, Firm, Guarding, Rigid, Tenderness - Extremities Exam Extremities Exam: absent: Pedal Edema, Tenderness - Neurological Exam Neurological Exam: Alert, Awake, Oriented x3 - Psychiatric Exam Psychiatric exam: Normal Affect, Normal Mood - Skin Skin Exam: Dry, Intact, Normal Color, Warm Assessment and Plan - Assessment and Plan (Free Text) Assessment: 61 year old female with past medical history of hyperthyroidism, subdural hemorrhage and retinal hemorrhage is admitted for right eye vision loss and hyponatremia. CT of head is negative. EKG showed NSR with QT of 464 and left atrial enlargement 1. Hyponatremia - Pt is a symptomatic - Na is slowly improving -Will continue NS 50 cc and will continue to monitor 2. Right eye blindness - Patient will have MRI/MRA today - Prednisone 60 mg po qd for 10 days - Ophthomology, Dr. Hobson is consulted - Will continue to monitor 3. ETOH abuse - ETOH level is 163 - CIWA protocol - Ativan 1 mg q6 prn - UDS is negative 4. Transaminitis - Trending down - Hep panel negative - Abd US showed echogenic liver and left renal cyst Prophylaxis Pepcid SCDs, Lovenox Case discussed with attending, Dr. Shaw <Que Shaw B - Last Filed: 03/02/17 17:23> Objective - Vital Signs/Intake and Output Vital Signs (last 24 hours): Temp Pulse Resp BP Pulse Ox 98 F 66 20 173/103 H 99 03/02/17 12:00 03/02/17 13:33 03/02/17 12:00 03/02/17 15:46 03/02/17 06:00 Intake and Output: 03/02/17 03/02/17 06:59 18:59 Intake Total 900 Output Total 500 Balance 400 - Medications Medications: Current Medications Enoxaparin Sodium (Lovenox) 40 mg SC DAILY [facility] PRN Reason: Protocol Last Admin: 03/02/17 09:27 Dose: 40 mg Famotidine (Pepcid) 40 mg PO DAILY [facility] Last Admin: 03/02/17 09:21 Dose: 40 mg Folic Acid (Folic Acid) 1 mg PO DAILY [facility] Last Admin: 03/02/17 09:21 Dose: 1 mg Hydralazine HCl (Apresoline) 25 mg PO Q6 PRN PRN Reason: Other Last Admin: 03/02/17 15:46 Dose: 25 mg Sodium Chloride (Sodium Chloride 0.9%) 1,000 mls @ 50 mls/hr IV .Q20H [facility] Last Admin: 03/02/17 09:25 Dose: 50 mls/hr Lisinopril (Zestril) 5 mg PO DAILY [facility] Last Admin: 03/02/17 13:33 Dose: 5 mg Lorazepam (Ativan) 1 mg IVP Q6H PRN; Protocol PRN Reason: Anxiety Last Admin: 03/01/17 18:26 Dose: 1 mg Multivitamins/Minerals (Therapeutic-M Tab) 1 tab PO DAILY [facility] Last Admin: 03/02/17 09:29 Dose: 1 tab Ondansetron HCl (Zofran Inj) 4 mg IVP Q6H PRN PRN Reason: Nausea/Vomiting Last Admin: 05/23/17 20:10 Dose: 4 mg Prednisone (Prednisone Tab) 60 mg PO DAILY [facility] Last Admin: 03/02/17 09:30 Dose: Not Given Prednisone (Prednisone Tab) 20 mg PO TID [facility] Last Admin: 03/02/17 13:38 Dose: 20 mg Thiamine HCl (Vitamin B1 Tab) 100 mg PO DAILY [facility] Last Admin: 03/02/17 09:21 Dose: 100 mg - Labs Labs: 03/02/17 05:30 03/02/17 05:30 PT 10.0 Seconds (9.9-11.8) 02/28/17 08:26 INR 0.93 (0.93-1.08) 02/28/17 08:26 APTT 26.3 Seconds (23.7-30.8) 03/01/17 08:00 Attending/Attestation - Attestation I have personally seen and examined this patient.: Yes I have fully participated in the care of the patient.: Yes I have reviewed all pertinent clinical information, including history, physical exam and plan: Yes Notes (Text): I have seen and examined patient at bedside. Agree with the above note with the following additions/ exceptions: Briefly this is 61 year old female with history of hyperthyroidism, SDH (10/2016) due to trauma, retinal hemorrhage in 2016 who got admitted for acute persistent loss of vision in her right eye. Upon admission, also found to have hyponatremia and transaminitis. There is no pain, redness or neurological deficits. No signs of increased IOP or trauma to eye or head. There is no erythema, tearing, light sensitivity, ptsosis or proptosis. EOMI intact. She feels that there is darkness that came over the eye. CT scan head is negative. Neuro recommended MRI/MRA which is pending at this time. Service Superintendent examined and thinks that she has optic neuritis and recommended prednisone 60 mg daily for atleast 10 days. She also needs to follow up with him in his office. MS needs to be ruled out given diagnosis of optic neuritis. Hyponatremia is most likely due to alcohol abuse. Paxil stopped. Uosm 134 ruled out primary polydipsia. Serum osm is 285. Usama is 5 suggestive of hypovolemic hyponatremia which can be due to chronic alcohol use and low dietary intake. Sodium 130. Echo pending. For transaminitis, hep panel is negative. Liver ultrasound revealed fatty liver. Upon discharge patient will follow up with Dr Hogan. Dr Que Shaw
--- NOTE | 2017-03-02 15:22 | CP.PCM.PN ---
Subjective - Date & Time of Evaluation Date of Evaluation: 03/02/17 Time of Evaluation: 11:55 - Subjective Subjective: Follow up Nephrology Consultation: Assessment: Hypo-osmolar hyponatremia, euvolemia: likely beer potomania, excess water intake and low solute intake as evident by hypotonic dilute urine and low urine Na elevated BP Optic Neuritis Plan Na improved with IVF and hypertonic saline february d/c IVF pt to limit oral water intake monitor BP: started on lisinopril and prn hydralazine abstain from alcohol pt started on steroids for optic neuritis. seen by opthal and neuro. Further work up for vision impairment as per primary team Thanks for allowing me to participate in care of your patient. Will follow patient with you. Please call if any Qs Dr Sean Mejia Office: [phone] ROS: denies chest pain/SOB/nausea. reports visual impairment. Physical Examination: General Appearance: Comfortable, in no acute respiratory distress, co-operative . Vitals reviewed and noted as below Lungs: Normal respiratory rate/effort. Breath sounds bilateral equal and clear Heart: Normal rate. s1s2 normal. No rub or gallop. Extremities: no edema. No varicose veins Neurological: Patient is alert, awake and oriented to person, place and time. No focal deficit. Strength bilateral appropriate and equal Skin: Warm and dry. Normal turgor. No rash. Palpitation: Normal elasticity for age Abdomen: Abdomen is soft. Bowel sounds +. There is no abdominal tenderness, no guarding/rigidity or organomegaly : kidney or bladder not palpable Labs/imaging reviewed. Past medical history, past surgical history, family history, social history, allergy reviewed work up: Srum osmo 275, previous normal due to Etoh level 163 triglyeride 36 TSH 0.5 BNP 80 UA: SG <1.005 Na 5 osmol 134 Objective - Vital Signs/Intake and Output Vital Signs (last 24 hours): Temp Pulse Resp BP Pulse Ox 98 F 66 20 175/103 H 99 03/02/17 12:00 03/02/17 13:33 03/02/17 12:00 03/02/17 13:33 03/02/17 06:00 Intake and Output: 03/02/17 03/02/17 06:59 18:59 Intake Total 900 Output Total 500 Balance 400 - Medications Medications: Current Medications Enoxaparin Sodium (Lovenox) 40 mg SC DAILY [facility] PRN Reason: Protocol Last Admin: 03/02/17 09:27 Dose: 40 mg Famotidine (Pepcid) 40 mg PO DAILY [facility] Last Admin: 03/02/17 09:21 Dose: 40 mg Folic Acid (Folic Acid) 1 mg PO DAILY [facility] Last Admin: 03/02/17 09:21 Dose: 1 mg Hydralazine HCl (Apresoline) 25 mg PO Q6 PRN PRN Reason: Other Sodium Chloride (Sodium Chloride 0.9%) 1,000 mls @ 50 mls/hr IV .Q20H [facility] Last Admin: 03/02/17 09:25 Dose: 50 mls/hr Lisinopril (Zestril) 5 mg PO DAILY [facility] Last Admin: 03/02/17 13:33 Dose: 5 mg Lorazepam (Ativan) 1 mg IVP Q6H PRN; Protocol PRN Reason: Anxiety Last Admin: 03/01/17 18:26 Dose: 1 mg Multivitamins/Minerals (Therapeutic-M Tab) 1 tab PO DAILY [facility] Last Admin: 03/02/17 09:29 Dose: 1 tab Ondansetron HCl (Zofran Inj) 4 mg IVP Q6H PRN PRN Reason: Nausea/Vomiting Last Admin: 02/28/17 20:10 Dose: 4 mg Prednisone (Prednisone Tab) 60 mg PO DAILY [facility] Last Admin: 03/02/17 09:30 Dose: Not Given Prednisone (Prednisone Tab) 20 mg PO TID [facility] Last Admin: 03/02/17 13:38 Dose: 20 mg Thiamine HCl (Vitamin B1 Tab) 100 mg PO DAILY [facility] Last Admin: 03/02/17 09:21 Dose: 100 mg - Labs Labs: 03/02/17 05:30 03/02/17 05:30 PT 10.0 Seconds (9.9-11.8) 02/28/17 08:26 INR 0.93 (0.93-1.08) 02/28/17 08:26 APTT 26.3 Seconds (23.7-30.8) 03/01/17 08:00
[2017-03-03 07:27] LABS: ADD MANUAL DIFF? NO
[2017-03-03 07:33] LABS: BASO # 0.01 K/mm3 (0.0-2.0); BASO % 0.2 % (0.0-3.0); EOS % 0.3 % (1.5-5.0); GRAN # 3.88 (1.4-6.5); GRAN % 67.6 % (50.0-68.0); HEMATOCRIT 33.6 % (36.0-48.0); LYMPH # 1.3 (1.2-3.4); LYMPH % 21.8 % (22.0-35.0); MEAN CELL VOLUME 91.8 fL (80.0-105.0); MEAN CORPUSCULAR HEMOGLOBIN 31.4 pg (25.0-35.0); MEAN CORPUSCULAR HGB CONC 34.2 g/dl (31.0-37.0); MEAN PLATELET VOLUME 8.7 fl (7.0-11.0); MONO # 0.6 (0.1-0.6); MONO % 10.1 % (1.0-6.0); PLATELET COUNT 185 10^3/uL (120.0-450.0); RED CELL DISTRIBUTION WIDTH 11.9 % (11.5-14.5); WHITE BLOOD COUNT 5.7 10^3/ul (4.5-11.0)
[2017-03-03 07:39] LABS: BLOOD UREA NITROGEN 15 mg/dL (7-21); CALCIUM 9.2 mg/dL (8.4-10.5); CARBON DIOXIDE 27 mmol/L (21-33); CHLORIDE 99 mmol/L (95-110); GFR AFRICAN-AMERICAN > 60; GLUCOSE,RANDOM 91 mg/dL (70-110); SODIUM 131 mmol/L (132-148)
[2017-03-03] MEDS: Enoxaparin 40 mg Syringe SC SCH (09:17)
[2017-03-03] MEDS: Multivitamin With Minerals Tab PO SCH (09:18)
[2017-03-03] MEDS ORDERED: Gadodiamide 287 MG/ML VIAL (15ML) IV ONE (10:49)
--- NOTE | 2017-03-03 13:00 | MRI ---
PROCEDURE: MRI BRAIN WITH AND WITHOUT CONTRAST HISTORY: right eye visual loss COMPARISON: None. TECHNIQUE: Multiplanar, multisequence MR images of the brain were obtained with and without intravenous contrast enhancement. 15 cc of Omniscan FINDINGS: HEMORRHAGE: None DWI: No evidence of an acute or early subacute infarction. BRAIN PARENCHYMA: No mass,mass effect or edema. No atrophy or chronic microvascular ischemic changes. ENHANCEMENT: No abnormal intracranial enhancement. VENTRICLES: Unremarkable. No hydrocephalus. CRANIUM: Unremarkable. ORBITS: Grossly unremarkable. PARANASAL SINUSES/MASTOIDS: Clear VASCULAR SYSTEM: Skull base flow voids intact. OTHER FINDINGS: None . IMPRESSION: No acute findings
--- NOTE | 2017-03-03 13:02 | MRI ---
PROCEDURE: Magnetic Resonance Angiography Brain HISTORY: right eye visual loss COMPARISON: None available. TECHNIQUE: 3D time of flight MR angiography of the intracranial arteries was performed. Rotating maximum intensity projection images were generated. FINDINGS: INTERNAL CEREBRAL ARTERIES: Unremarkable. The skull base, petrous, cavernous and supraclinoid segments are bilaterally widely patient. ANTERIOR CEREBRAL ARTERIES: Unremarkable. A1 and A2 segments are widely patent. Smaller distal branches unremarkable, as visualized. MIDDLE CEREBRAL ARTERIES: Unremarkable. M1 and M2 segments are widely patent. Perisylvian branches grossly symmetric. POSTERIOR CIRCULATION: Basilar Artery: Unremarkable. Distal Vertebral Arteries: Unremarkable. Posterior Cerebral Arteries: Unremarkable. Posterior Inferior Cerebellar Arteries: Unremarkable. ANEURYSM/ VASCULAR MALFORMATIONS: None. OTHER FINDINGS: None. IMPRESSION: Unremarkable MR angiography of the brain.
--- NOTE | 2017-03-03 13:06 | MRI ---
PROCEDURE: MR Angiography of the neck with and without contrast HISTORY: right eye visual loss COMPARISON: None available. TECHNIQUE: Contrast enhanced and [id number] angiography of the neck was performed. Rotating 3D maximum intensity projection images of the cervical carotid and vertebral arteries were generated. 15 cc of Omniscan FINDINGS: RIGHT CAROTID ARTERIES: Common Carotid Artery: Normal. Carotid Bifurcation: Normal. Internal Carotid Artery:Tortuosity but no stenosis External Carotid Artery (proximal branches): Normal. LEFT CAROTID ARTERIES: Common Carotid Artery: Normal. Carotid Bifurcation: Normal. Internal Carotid Artery:Tortuosity but no stenosis External Carotid Artery (proximal branches): Normal. VERTEBRAL ARTERIES: Right Vertebral Artery: Normal. Left Vertebral Artery: Larger than right side OTHER FINDINGS: None. IMPRESSION: Normal MR Angiography of the neck.
--- NOTE | 2017-03-03 15:31 | CP.PCM.DIS ---
Provider - Provider Date of Admission: 02/28/17 09:51 Attending physician: Que Shaw MD Primary care physician: Melida Lopes MD Consults: Renal: Dr Mejia Neuro: Dr Matos Opth: Dr Moore Time Spent in preparation of Discharge (in minutes): 45 Hospital Course - Lab Results Lab Results: Micro Results 02/28/17 11:00 Nose MRSA Culture (Admit) - Final MRSA NOT DETECTED 02/28/17 13:30 Urine,Random Urine Culture - Final No Growth (<1,000 CFU/ML) Most Recent Lab Values WBC 5.7 10^3/ul (4.5-11.0) D 03/03/17 07:00 RBC 3.66 10^6/uL (3.5-6.1) 03/03/17 07:00 Hgb 11.5 gm/dL (12.0-16.0) L 03/03/17 07:00 Hct 33.6 % (36.0-48.0) L 03/03/17 07:00 MCV 91.8 fL (80.0-105.0) 03/03/17 07:00 MCH 31.4 pg (25.0-35.0) 03/03/17 07:00 MCHC 34.2 g/dl (31.0-37.0) 03/03/17 07:00 RDW 11.9 % (11.5-14.5) 03/03/17 07:00 Plt Count 185 10^3/uL (120.0-450.0) 03/03/17 07:00 MPV 8.7 fl (7.0-11.0) 03/03/17 07:00 Gran % 67.6 % (50.0-68.0) 03/03/17 07:00 Lymph % (Auto) 21.8 % (22.0-35.0) L 03/03/17 07:00 [place] % (Auto) 10.1 % (1.0-6.0) H 03/03/17 07:00 Eos % (Auto) 0.3 % (1.5-5.0) L 03/03/17 07:00 Baso % (Auto) 0.2 % (0.0-3.0) 03/03/17 07:00 Gran # 3.88 (1.4-6.5) 03/03/17 07:00 Lymph # 1.3 (1.2-3.4) 03/03/17 07:00 [place] # 0.6 (0.1-0.6) 03/03/17 07:00 Eos # 0.0 (0.0-0.7) 03/03/17 07:00 Baso # 0.01 K/mm3 (0.0-2.0) 03/03/17 07:00 PT 10.0 Seconds (9.9-11.8) 02/28/17 08:26 INR 0.93 (0.93-1.08) 02/28/17 08:26 APTT 26.3 Seconds (23.7-30.8) 03/01/17 08:00 Sodium 131 mmol/L (132-148) L 03/03/17 07:00 Potassium 4.0 mmol/L (3.6-5.0) 03/03/17 07:00 Chloride 99 mmol/L (95-110) 03/03/17 07:00 Carbon Dioxide 27 mmol/L (21-33) 03/03/17 07:00 Anion Gap 9 (10-20) L 03/03/17 07:00 BUN 15 mg/dL (7-21) 03/03/17 07:00 Creatinine 0.7 mg/dL (0.5-1.4) 03/03/17 07:00 Est GFR ( Amer) > 60 03/03/17 07:00 Est GFR (Non-Af Amer) > 60 03/03/17 07:00 POC Glucose (mg/dL) 83 mg/dL (65-110) 03/03/17 07:26 Random Glucose 91 mg/dL (70-110) 03/03/17 07:00 Serum Osmolality 275 mosm/kg (271-296) 02/28/17 12:25 Uric Acid 4.1 mg/dL (2.5-6.2) 03/01/17 08:00 Calcium 9.2 mg/dL (8.4-10.5) 03/03/17 07:00 Phosphorus 3.8 mg/dL (2.5-4.5) 03/01/17 08:00 Magnesium 1.7 mg/dL (1.7-2.2) 03/01/17 08:00 Total Bilirubin 1.3 mg/dL (0.2-1.3) 03/01/17 08:00 AST 88 U/L (15-39) H 03/01/17 08:00 ALT 56 U/L (7-56) 03/01/17 08:00 Alkaline Phosphatase 93 U/L (38-133) 03/01/17 08:00 Lactate Dehydrogenase 313 U/L (333-699) L 02/28/17 08:26 Total Creatine Kinase 402 U/L (35-230) H 02/28/17 08:26 CK-MB (CK-2) 9.5 ng/mL (0.0-3.6) H 02/28/17 08:26 CK-MB (CK-2) % 2.4 % (2.5-3.0) L 02/28/17 08:26 Troponin I < 0.01 ng/mL 02/28/17 08:26 NT-Pro-B Natriuret Pep 80.8 pg/mL (0-450) 02/28/17 12:25 Total Protein 6.4 g/dL (5.8-8.3) 03/01/17 08:00 Albumin 3.7 g/dL (3.0-4.8) 03/01/17 08:00 Globulin 2.7 gm/dL 03/01/17 08:00 Albumin/Globulin Ratio 1.4 (1.1-1.8) 03/01/17 08:00 Triglycerides 36 mg/dL (35-160) 03/01/17 08:00 Cholesterol 162 mg/dL (130-200) 03/01/17 08:00 LDL Cholesterol Direct 55 mg/dL (0-129) 03/01/17 08:00 HDL Cholesterol 91 mg/dL (29-60) H 03/01/17 08:00 Free T4 1.08 ng/dL (0.78-2.19) 03/01/17 08:00 TSH 3rd Generation 0.58 mIU/mL (0.46-4.68) 03/01/17 08:00 Cortisol AM Sample 17.3 ug/dL (4.46-22.7) 02/28/17 12:25 Urine Color Yellow (YELLOW) 02/28/17 12:00 Urine Appearance Clear (CLEAR) 02/28/17 12:00 Urine pH 6.0 (4.7-8.0) 02/28/17 12:00 Ur Specific [place] <= 1.005 (1.005-1.035) 02/28/17 12:00 Urine Protein Negative mg/dL (<30 mg/dL) 02/28/17 12:00 Urine Glucose (UA) Negative mg/dL (NEGATIVE) 02/28/17 12:00 Urine Ketones Negative mg/dL (NEGATIVE) 02/28/17 12:00 Urine Blood Trace-lysed (NEGATIVE) H 02/28/17 12:00 Urine Nitrate Negative (NEGATIVE) 02/28/17 12:00 Urine Bilirubin Negative (NEGATIVE) 02/28/17 12:00 Urine Urobilinogen 0.2 E.U./dL (<1 E.U./dL) 02/28/17 12:00 Ur Leukocyte Esterase Negative Joseph/uL (NEGATIVE) 02/28/17 12:00 Urine RBC 0 - 2 /hpf (0-2) 02/28/17 12:00 Urine WBC 0 - 2 /hpf (0-6) 02/28/17 12:00 Ur Epithelial Cells 0 - 2 /hpf (0-5) 02/28/17 12:00 Urine Bacteria Few (NEG) 02/28/17 12:00 Urine Osmolality 134 mosm/kg (50-645) 02/28/17 12:00 Ur Random Sodium 166 meq/L 03/03/17 06:15 Ur Random Potassium 9.3 meq/L 02/28/17 11:50 Urine Opiates Screen Negative (NEGATIVE) 02/28/17 12:00 Urine Methadone Screen Negative (NEGATIVE) 02/28/17 12:00 Acetaminophen < 10.0 ug/ml (10.0-20.0) L 02/28/17 08:26 Ur Barbiturates Screen Negative (NEGATIVE) 02/28/17 12:00 Ur Phencyclidine Scrn Negative (NEGATIVE) 02/28/17 12:00 Ur Amphetamines Screen Negative (NEGATIVE) 02/28/17 12:00 U Benzodiazepines Scrn Negative (NEGATIVE) 02/28/17 12:00 U Oth Cocaine Metabols Negative (NEGATIVE) 02/28/17 12:00 U Cannabinoids Screen Negative (NEGATIVE) 02/28/17 12:00 Alcohol, Quantitative 163 mg/dL (0-10) H 02/28/17 08:26 Hepatitis A IgM Ab Negative (NEGATIVE) 02/28/17 14:00 Hep Bs Antigen Negative (NEGATIVE) 02/28/17 14:00 Hep B Core IgM Ab Negative (NEGATIVE) 02/28/17 14:00 Hepatitis C Antibody Negative (NEGATIVE) 02/28/17 14:00 - Hospital Course Hospital Course: I have seen and examined patient at bedside. This is 61 year old female with history of hyperthyroidism, SDH (10/2016) due to trauma, retinal hemorrhage in 2016 who got admitted for acute persistent loss of vision in her right eye. Upon admission, also found to have hyponatremia and transaminitis. There is no pain, redness or neurological deficits. No signs of increased IOP or trauma to eye or head. There is no erythema, tearing, light sensitivity, ptsosis or proptosis. EOMI intact. She feels that there is darkness that came over the eye. CT scan head is negative. Neuro recommended MRI/MRA which is negative. Sustainability Coach examined and thinks that she has optic neuritis and recommended prednisone 20 TID for atleast 10 days. She also needs to follow up with him in his office. Hyponatremia is most likely due to alcohol abuse. Paxil stopped. Uosm 134 ruled out primary polydipsia. Serum osm is 285. Usama is 5 suggestive of hypovolemic hyponatremia which can be due to chronic alcohol use and low dietary intake. Sodium 131. Renal cleared the patient for discharge. She was noted to have hypertension. Lisinopril was started. For transaminitis, hep panel is negative. Liver ultrasound revealed fatty liver. Upon discharge patient will follow up with Dr Hogan, Dr Moore and Dr Mejia. Dr Que Shaw Discharge Exam - Head Exam Head Exam: ATRAUMATIC, NORMAL INSPECTION, NORMOCEPHALIC - Eye Exam Eye Exam: EOMI, Normal appearance - ENT Exam ENT Exam: Mucous Membranes Moist, Normal Oropharynx - Neck Exam Neck exam: Full Rom, Normal Inspection - Respiratory Exam Respiratory Exam: Clear to PA & Lateral, NORMAL BREATHING PATTERN. absent: Accessory Muscle Use, Chest Wall Tenderness, Prolonged Expiratory Phase, Rales, Rhonchi - Cardiovascular Exam Cardiovascular Exam: REGULAR RHYTHM, +S1, +S2 - GI/Abdominal Exam GI & Abdominal Exam: Normal Bowel Sounds, Soft. absent: Distended, Tenderness - Rectal Exam Rectal Exam: Deferred - Extremities Exam Extremities exam: full ROM, normal capillary refill, normal inspection - Back Exam Back exam: FULL ROM, NORMAL INSPECTION. absent: CVA tenderness (L), CVA tenderness (R) - Neurological Exam Neurological exam: Alert, CN II-XII Intact, Normal Gait, Oriented x3, Reflexes Normal - Psychiatric Exam Psychiatric exam: Normal Affect, Normal Mood - Skin Skin Exam: Dry, Intact, Normal Color, Warm Discharge Plan - Discharge Medications Prescriptions: Lisinopril [Zestril] 20 mg PO DAILY #30 tab Pantoprazole Sodium [Protonix] 40 mg PO DAILY #30 ect predniSONE [predniSONE Tab] 20 mg PO TID #30 tab - Follow Up Plan Condition: CRITICAL Disposition: HOME/ ROUTINE Patient education suggested?: Yes Instructions: Hyponatremia (DC) Additional Instructions: Patient is to follow up with PMD melida Lopes upon discharge. Patient is to follow up with Opthomologist, Dr. Moore and Dr Mejia upon discharge. Patient is discharged with the following medication: Lisinopril 5 mg po qd Referrals: Melida Lopes MD [Primary Care Provider] - Fitz Moore MD [Staff Provider] -
--- NOTE | 2017-03-03 16:23 | CP.PCM.PN ---
Subjective - Date & Time of Evaluation Date of Evaluation: 03/03/17 Time of Evaluation: 15:00 - Subjective Subjective: Follow up Nephrology Consultation: Assessment: Hypo-osmolar hyponatremia, euvolemia: likely beer potomania, excess water intake and low solute intake as evident by hypotonic dilute urine and low urine Na elevated BP Optic Neuritis Plan Na improved with IVF and hypertonic saline pt to limit oral fluid intake 40 ounces/day monitor BP: started on lisinopril and prn hydralazine: increase Lisinopril to 20 mg pt to abstain from alcohol pt started on steroids for optic neuritis. seen by opthal and neuro. Further work up for vision impairment as per primary team Thanks for allowing me to participate in care of your patient. pt planned for d/ c. follow up in office post discharge. Please call if any Qs Dr Sean Mejia Office: [phone] ROS: denies chest pain/SOB/nausea. reports visual impairment better. Physical Examination: General Appearance: Comfortable, in no acute respiratory distress, co-operative . Vitals reviewed and noted as below. BP 130/90 when seen bedside Lungs: Normal respiratory rate/effort. Breath sounds bilateral equal and clear Heart: Normal rate. s1s2 normal. No rub or gallop. Extremities: no edema. No varicose veins Neurological: Patient is alert, awake and oriented to person, place and time. No focal deficit. Strength bilateral appropriate and equal Skin: Warm and dry. Normal turgor. No rash. Palpitation: Normal elasticity for age Abdomen: Abdomen is soft. Bowel sounds +. There is no abdominal tenderness, no guarding/rigidity or organomegaly : kidney or bladder not palpable Labs/imaging reviewed. Past medical history, past surgical history, family history, social history, allergy reviewed work up: Srum osmo 275, previous normal due to Etoh level 163 triglyeride 36 TSH 0.5 BNP 80 UA: SG <1.005 Na 5 osmol 134 Objective - Vital Signs/Intake and Output Vital Signs (last 24 hours): Temp Pulse Resp BP Pulse Ox 97 F L 69 18 172/111 H 98 03/03/17 08:10 03/03/17 14:21 03/03/17 08:10 03/03/17 14:21 03/03/17 08:10 Intake and Output: 03/03/17 03/03/17 06:59 18:59 Intake Total 600 573 Balance 600 573 - Medications Medications: Current Medications Enoxaparin Sodium (Lovenox) 40 mg SC DAILY [facility] PRN Reason: Protocol Last Admin: 03/03/17 09:17 Dose: 40 mg Famotidine (Pepcid) 40 mg PO DAILY [facility] Last Admin: 03/03/17 09:18 Dose: 40 mg Folic Acid (Folic Acid) 1 mg PO DAILY [facility] Last Admin: 03/03/17 09:17 Dose: 1 mg Hydralazine HCl (Apresoline) 25 mg PO Q6 PRN PRN Reason: Other Last Admin: 03/03/17 14:21 Dose: 25 mg Lisinopril (Zestril) 20 mg PO DAILY [facility] Last Admin: 03/03/17 12:22 Dose: 20 mg Lorazepam (Ativan) 1 mg IVP Q6H PRN; Protocol PRN Reason: Anxiety Last Admin: 03/01/17 18:26 Dose: 1 mg Multivitamins/Minerals (Therapeutic-M Tab) 1 tab PO DAILY [facility] Last Admin: 03/03/17 09:18 Dose: 1 tab Ondansetron HCl (Zofran Inj) 4 mg IVP Q6H PRN PRN Reason: Nausea/Vomiting Last Admin: 02/28/17 20:10 Dose: 4 mg Prednisone (Prednisone Tab) 20 mg PO TID [facility] Last Admin: 03/03/17 14:09 Dose: 20 mg Thiamine HCl (Vitamin B1 Tab) 100 mg PO DAILY [facility] Last Admin: 03/03/17 09:18 Dose: 100 mg - Labs Labs: 03/03/17 07:00 03/03/17 07:00 PT 10.0 Seconds (9.9-11.8) 02/28/17 08:26 INR 0.93 (0.93-1.08) 02/28/17 08:26 APTT 26.3 Seconds (23.7-30.8) 03/01/17 08:00
[2017-03-03 17:02] VITALS: BP 135/90; PULSE 78; RESP 20; TEMP 98.6; O2SAT 97
== END 2017-03-03 17:38 | disposition home or self-care (01) | DRG 296 ==
LOC: ED 07:44 → ERH 09:51 → CCU 10:34 → 2RNO 03-01 05:30 → 5RSO 03-02 15:05
PROVIDERS: ADMIT Hospitalist; ATTEND Hospitalist
DX: E87.1 Hypo-osmolality and hyponatremia (principal); H46.9 Unspecified optic neuritis; E05.90 Thyrotoxicosis, unspecified without thyrotoxic crisis or storm; F10.129 Alcohol abuse with intoxication, unspecified; Y90.6 Blood alcohol level of 120-199 mg/100 ml; K76.0 Fatty (change of) liver, not elsewhere classified; I10 Essential (primary) hypertension; R74.0 Nonspecific elevation of levels of transaminase and lactic acid dehydrogenase [LDH]; F32.9 Major depressive disorder, single episode, unspecified; N28.1 Cyst of kidney, acquired; F41.9 Anxiety disorder, unspecified; Z91.14 Patient's other noncompliance with medication regimen

== ENCOUNTER 2017-06-08 23:03 | Inpatient (IN) | payer MEDICAID ==
[2017-06-08 23:06] VITALS: BMI 19.8
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
[2017-06-09 00:11] LABS: BASO # 0.01 K/mm3 (0.0-2.0); BASO % 0.2 % (0.0-3.0); EOS # 0.1 (0.0-0.7); EOS % 1.1 % (1.5-5.0); GRAN # 3.03 (1.4-6.5); GRAN % 56.7 % (50.0-68.0); HEMATOCRIT 35.5 % (36.0-48.0); LYMPH # 1.6 (1.2-3.4); LYMPH % 29.9 % (22.0-35.0); MEAN CORPUSCULAR HEMOGLOBIN 31.8 pg (25.0-35.0); MEAN CORPUSCULAR HGB CONC 35.8 g/dl (31.0-37.0); MONO # 0.7 (0.1-0.6); MONO % 12.1 % (1.0-6.0); RED CELL DISTRIBUTION WIDTH 12.1 % (11.5-14.5); WHITE BLOOD COUNT 5.4 10^3/ul (4.5-11.0)
[2017-06-09 00:18] LABS: ALB/GLOB RATIO 1.4 (1.1-1.8); ALKALINE PHOSPHATASE 77 U/L (38-126); ALT/SGPT 40 U/L (7-56); AST/SGOT 73 U/L (14-36); BILIRUBIN,TOTAL 0.4 mg/dL (0.2-1.3); BLOOD UREA NITROGEN 3 mg/dL (7-21); CALCIUM 9.1 mg/dL (8.4-10.5); CARBON DIOXIDE 22 mmol/L (21-33); CHLORIDE 82 mmol/L (98-107); GFR AFRICAN-AMERICAN > 60; GLUCOSE,RANDOM 96 mg/dL (70-110); POTASSIUM 3.5 mmol/L (3.6-5.0); TOTAL PROTEIN 7.3 g/dL (5.8-8.3)
[2017-06-09 00:22] LABS: SODIUM 118 mmol/L (132-148)
[2017-06-09] MEDS ORDERED: Iohexol 350 MG/100 ML VIAL ONE (00:33)
[2017-06-09 00:50] LABS: TROPONIN I < 0.01 ng/mL
[2017-06-09] MEDS ORDERED: Morphine 4 mg/ml ISec IVP STA (00:58)
[2017-06-09] MEDS ORDERED: Sodium Chloride 0.9% 1,000 ML IV STA (00:58)
--- NOTE | 2017-06-09 01:28 | CT ---
EXAM: CT Angiography Chest With Intravenous Contrast CLINICAL HISTORY: 61 years old, female; Pain; Chest pain; Additional info: Cp +ddimer TECHNIQUE: Axial computed tomographic angiography images of the chest with intravenous contrast using pulmonary embolism protocol. All CT scans at this facility use one or more dose reduction techniques, viz.: automated exposure control; ma/kV adjustment per patient size (including targeted exams where dose is matched to indication; i.e. head); or iterative reconstruction technique. MIP reconstructed images were created and reviewed. Coronal and sagittal reformatted images were created and reviewed. CONTRAST: 96 mL of OMNI 350 administered intravenously. COMPARISON: CR - CHEST ONE VIEW 02/28/2017 8:31:44 AM FINDINGS: Pulmonary arteries: No evidence of pulmonary embolism. Aorta: At the level of the main pulmonary artery, the ascending aorta measures 3.8 cm and the descending aorta measures 2.8 cm. Atherosclerosis. Lungs: Nodular apical scarring. Atelectasis. Respiratory motion limits evaluation. Patchy groundglass opacity in the bilateral lung merritt, greatest in the left upper lobe. Nonspecific. Correlate clinically to exclude infection. Pleural space: No significant effusion. No pneumothorax. Heart: No cardiomegaly. No significant pericardial effusion. Bones: Compression deformity of T8 with greater than 50% height loss anteriorly. Multilevel degenerative changes. Lymph nodes: Shotty nodes. Esophageal wall is thickened. Small hiatal hernia. Calcified nodule in the left thyroid lobe measuring approximately 1.8 mm. IMPRESSION: No pulmonary embolism visualized. Subsegmental artery evaluation limited. Nodular apical scarring. Atelectasis. Respiratory motion limits evaluation. Patchy groundglass opacity in the bilateral lung merritt, greatest in the left upper lobe. Nonspecific. Correlate clinically to exclude infection. Esophageal wall is thickened. Small hiatal hernia. Followup evaluation is recommended. Calcified nodule in the left thyroid lobe measuring approximately 1.8 mm. Compression deformity of T8 with greater than 50% height loss anteriorly. Multilevel degenerative changes. At the level of the main pulmonary artery, the ascending aorta measures 3.8 cm and the descending aorta measures 2.8 cm. Atherosclerosis.
[2017-06-09] MEDS ORDERED: Potassium Chloride 20 mEq/15 ml LIQ UD PO STA (03:12)
[2017-06-09] MEDS ORDERED: Sodium Chloride 0.9% 1,000 ML IV SCH ×3 (03:15→20:00)
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
[2017-06-09 04:48] LABS: ALB/GLOB RATIO 1.3 (1.1-1.8); ALKALINE PHOSPHATASE 65 U/L (38-126); ALT/SGPT 35 U/L (7-56); AST/SGOT 59 U/L (14-36); BILIRUBIN,TOTAL 0.3 mg/dL (0.2-1.3); BLOOD UREA NITROGEN 3 mg/dL (7-21); CALCIUM 8.3 mg/dL (8.4-10.5); CARBON DIOXIDE 21 mmol/L (21-33); CHLORIDE 88 mmol/L (98-107); CHOLESTEROL 148 mg/dL (130-200); GFR AFRICAN-AMERICAN > 60; GLUCOSE,RANDOM 78 mg/dL (70-110); POTASSIUM 3.3 mmol/L (3.6-5.0); SODIUM 120 mmol/L (132-148)
[2017-06-09 05:03] LABS: T4 6.2 ug/dL (5.5-11.0)
[2017-06-09 05:17] LABS: THYROID STIMULATING HORMONE 0.31 mIU/mL (0.46-4.68)
[2017-06-09] MEDS: Pantoprazole 40 mg Susp UD PO SCH ×2 (05:42→18:18)
[2017-06-09] MEDS ORDERED: Potassium Chloride 40 mEq/30 ml LIQ UD PO STA (06:00)
[2017-06-09 06:53] LABS: ALB/GLOB RATIO 1.2 (1.1-1.8); ALKALINE PHOSPHATASE 61 U/L (38-126); ALT/SGPT 34 U/L (7-56); AST/SGOT 55 U/L (14-36); BILIRUBIN,TOTAL 0.3 mg/dL (0.2-1.3); BLOOD UREA NITROGEN 4 mg/dL (7-21); CALCIUM 8.5 mg/dL (8.4-10.5); CARBON DIOXIDE 21 mmol/L (21-33); CHLORIDE 93 mmol/L (98-107); GFR AFRICAN-AMERICAN > 60; GLUCOSE,RANDOM 78 mg/dL (70-110); MAGNESIUM 1.3 mg/dL (1.7-2.2); PHOSPHOROUS 3.6 mg/dL (2.5-4.5); POTASSIUM 4.1 mmol/L (3.6-5.0); SODIUM 124 mmol/L (132-148); TOTAL PROTEIN 5.9 g/dL (5.8-8.3)
[2017-06-09 07:29] LABS: TROPONIN I < 0.01 ng/mL
--- NOTE | 2017-06-09 07:54 | RAD ---
HISTORY: cp COMPARISON: Frontal chest radiograph 02/28/2017 FINDINGS: LUNGS: No active pulmonary disease. PLEURA: No significant pleural effusion identified, no pneumothorax apparent. CARDIOVASCULAR: Normal. OSSEOUS STRUCTURES: No significant abnormalities. VISUALIZED UPPER ABDOMEN: Normal. OTHER FINDINGS: None. IMPRESSION: No interval acute cardiopulmonary disease appreciated.
[2017-06-09] MEDS ORDERED: Magnesium Sulfate 2 GM in Sodium Chloride 0.9% 100 ML IVPB ONE (07:58)
[2017-06-09] MEDS ORDERED: Magnesium Oxide 400 mg Tab UD PO ONE (10:00)
[2017-06-09] MEDS: Multi Vitamins 15 mL UD Oral Solution PO SCH (10:43)
[2017-06-09 11:25] LABS: ALB/GLOB RATIO 1.3 (1.1-1.8); ALKALINE PHOSPHATASE 69 U/L (38-126); ALT/SGPT 38 U/L (7-56); AST/SGOT 54 U/L (14-36); BILIRUBIN,TOTAL 0.5 mg/dL (0.2-1.3); BLOOD UREA NITROGEN 6 mg/dL (7-21); CALCIUM 8.7 mg/dL (8.4-10.5); CARBON DIOXIDE 21 mmol/L (21-33); CHLORIDE 96 mmol/L (98-107); GFR AFRICAN-AMERICAN > 60; GLUCOSE,RANDOM 83 mg/dL (70-110); POTASSIUM 5.5 mmol/L (3.6-5.0); SODIUM 125 mmol/L (132-148); TOTAL PROTEIN 6.3 g/dL (5.8-8.3)
--- NOTE | 2017-06-09 11:33 | CARD ---
APPROVED REPORT EKG Measurement Heart [id number] DC [id number] [id number] <Conclusion> Normal sinus rhythm Minimal voltage criteria for LVH, may be normal variant Borderline ECG
[2017-06-09 11:44] LABS: TROPONIN I < 0.01 ng/mL
[2017-06-09] MEDS ORDERED: Sod Polystyrene Sulf 15 gm/60 ml Susp PO ONE (12:09)
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
[2017-06-09 15:38] LABS: BLOOD UREA NITROGEN 7 mg/dL (7-21); GFR AFRICAN-AMERICAN > 60; GLUCOSE,RANDOM 94 mg/dL (70-110)
[2017-06-09 15:39] LABS: ALB/GLOB RATIO 1.2 (1.1-1.8); ALKALINE PHOSPHATASE 60 U/L (38-126); ALT/SGPT 39 U/L (7-56); AST/SGOT 43 U/L (14-36); BILIRUBIN,TOTAL 0.5 mg/dL (0.2-1.3); CALCIUM 8.3 mg/dL (8.4-10.5); CARBON DIOXIDE 20 mmol/L (21-33); CHLORIDE 97 mmol/L (98-107); POTASSIUM 4.8 mmol/L (3.6-5.0); SODIUM 125 mmol/L (132-148); TOTAL PROTEIN 5.7 g/dL (5.8-8.3)
[2017-06-09 18:18] LABS: ALB/GLOB RATIO 1.3 (1.1-1.8); ALKALINE PHOSPHATASE 61 U/L (38-126); ALT/SGPT 37 U/L (7-56); AST/SGOT 50 U/L (14-36); BILIRUBIN,TOTAL 0.4 mg/dL (0.2-1.3); BLOOD UREA NITROGEN 8 mg/dL (7-21); CALCIUM 8.6 mg/dL (8.4-10.5); CARBON DIOXIDE 22 mmol/L (21-33); CHLORIDE 97 mmol/L (98-107); GFR AFRICAN-AMERICAN > 60; GLUCOSE,RANDOM 120 mg/dL (70-110); POTASSIUM 4.5 mmol/L (3.6-5.0); SODIUM 126 mmol/L (132-148)
--- NOTE | 2017-06-09 22:27 | CT ---
EXAM: CT Abdomen and Pelvis Without Intravenous Contrast CLINICAL HISTORY: 61 years old, female; Signs and symptoms; Other: Suspected pancreatitis/ abdominal pain TECHNIQUE: Axial computed tomography images of the abdomen and pelvis without intravenous contrast. Oral contrast was utilized. All CT scans at this facility use one or more dose reduction techniques, viz.: automated exposure control; ma/kV adjustment per patient size (including targeted exams where dose is matched to indication; i.e. head); or iterative reconstruction technique. Coronal and sagittal reformatted images were created and reviewed. COMPARISON: Reference is made to an ultrasound examination of the abdomen performed 02/28/2017 FINDINGS: Lower thorax: Small left-sided pleural effusion, with adjacent compressive atelectasis. ABDOMEN: Liver: Fatty infiltration of the liver is identified, similar to ultrasound examination performed 02/28/2017. Gallbladder and bile ducts: The gallbladder is decompressed, without calcified stones. No intra-extrahepatic biliary ductal dilation. Pancreas: Limited evaluation secondary to the lack of intravenous contrast. Fatty lobulation persists, without surrounding inflammatory change to suspect the presence of acute pancreatitis. Spleen: No acute findings. Adrenals: No acute findings. Kidneys and ureters: No obstructing stones. No hydronephrosis. Rounded focus of decreased attenuation within the left kidney, measuring 18 mm in greatest dimension, consistent with a simple cyst on prior ultrasound examination. PELVIS: Bladder: Opacified with contrast, prior examination is suspected. Reproductive: No acute findings. Appendix: The appendix is of normal caliber (series 2, image 109). ABDOMEN and PELVIS: Stomach and bowel: Oral contrast extends to the level of the colon, without obstruction. Rectosigmoid diverticulosis, without CT evidence of diverticulitis. Peritoneum: No acute findings. Lymph nodes: Limited evaluation without intravenous contrast. Vasculature: No aortic aneurysm. Calcified atherosclerotic disease. Bones: Compression of the superior endplate of L1, with endplate changes and sclerosis, for which chronic finding is suspected. Fixation hardware within the left sacrum. IMPRESSION: Small left-sided pleural effusion with adjacent compressive atelectasis. No findings to suggest the presence of acute pancreatitis, but given the patient's history. Normal appendix. No obstruction. Compression of the superior endplate of L1, for which a chronic finding is suspected.
[2017-06-09 22:37] LABS: ALB/GLOB RATIO 1.2 (1.1-1.8); ALKALINE PHOSPHATASE 64 U/L (38-126); ALT/SGPT 34 U/L (7-56); AST/SGOT 51 U/L (14-36); BILIRUBIN,TOTAL 0.3 mg/dL (0.2-1.3); BLOOD UREA NITROGEN 9 mg/dL (7-21); CALCIUM 8.6 mg/dL (8.4-10.5); CARBON DIOXIDE 22 mmol/L (21-33); CHLORIDE 97 mmol/L (98-107); GFR AFRICAN-AMERICAN > 60; GLUCOSE,RANDOM 123 mg/dL (70-110); SODIUM 127 mmol/L (132-148)
[2017-06-10 01:26] LABS: BLOOD UREA NITROGEN 10 mg/dL (7-21); CALCIUM 8.4 mg/dL (8.4-10.5); CARBON DIOXIDE 23 mmol/L (21-33); CHLORIDE 99 mmol/L (98-107); GFR AFRICAN-AMERICAN > 60; GLUCOSE,RANDOM 100 mg/dL (70-110); SODIUM 128 mmol/L (132-148)
[2017-06-10 03:35] LABS: ALB/GLOB RATIO 1.2 (1.1-1.8); ALKALINE PHOSPHATASE 57 U/L (38-126); ALT/SGPT 32 U/L (7-56); AST/SGOT 40 U/L (14-36); BILIRUBIN,TOTAL 0.3 mg/dL (0.2-1.3); BLOOD UREA NITROGEN 10 mg/dL (7-21); CALCIUM 8.6 mg/dL (8.4-10.5); CARBON DIOXIDE 25 mmol/L (21-33); CHLORIDE 99 mmol/L (98-107); GFR AFRICAN-AMERICAN > 60; GLUCOSE,RANDOM 98 mg/dL (70-110); POTASSIUM 4.5 mmol/L (3.6-5.0); SODIUM 131 mmol/L (132-148); TOTAL PROTEIN 5.6 g/dL (5.8-8.3)
[2017-06-10] MEDS: Pantoprazole 40 mg Susp UD PO SCH (06:35)
--- NOTE | 2017-06-10 09:40 | CP.PCM.PN ---
Subjective - Date & Time of Evaluation Date of Evaluation: 06/10/17 Time of Evaluation: 09:38 - Subjective Subjective: Follow up Nephrology Consultation: Assessment: Stable Hypo-osmolar euvolemic hyponatremia likely due to beer potomania, low solute intake (tea/toast diet as evident by such low BUN) and Polydipsia HTN (I12.9) hx of optic neuritis Hypokalemia, hypomagnesemia Plan Hypertension control with meds as ordered. Patient not on ACEI/ARB but may be added if needed. pt is non compliant to meds Serum Na much improved. pt educated to abstain from alcohol. improved protein diet intake and follow oral fluid restriction 40 ounces/day Glycemic control Further work up/management as per primary team Thanks for allowing me to participate in care of your patient. Pt stable for d/ c from renal perspective. f/up in office 1-2 weeks post d/c Please call if any Qs. Dr Sean Mejia Office: [phone] Chief Complaint; left rib cage pain Reason for consult: hyponatremia HPI: Pt is a 61 y/o F with hx of hypertension but non compliant to meds, optic neuritis, chronic alcohol abuse, hyponatremia due to beer potomania and polydipsia came with left rib cage pain with nausea x 3 weeks and also found to have hyponatremia hence renal consulted for further management Pt says ribcage pain feels better but still there Denies palpitation, shortness of breath, leg swelling Denies blood or bubbles in urine says drank few beers only recently but not usually. she also c/o nausea for last 3 weeks now resolved ROS: Constitutional Symptoms: Denies fever. No chills. No Recent Weight Changes Eyes: denies change in vision, denies watery eyes, denies double vision Ears/Nose/Mouth/Throat: Denies Abnormal Taste. No Bad breath no Bad Taste. Cardiovascular: c/o left rib cage/chest pain. There is no shortness of breath. No palpitations. Pulmonary: No shortness of breath no cough. Gastrointestinal: denies abdominal pain no further c/o nausea. No vomiting. Denies change in bowel habits. Denies Bleeding Genitourinary: No Change in force of strain when urinating. No increase in urinary frequency. No pain while urinating. Denies blood in urine. Neurological: Denies headaches. No dizziness. Denies loss of balance. Denies weakness, denies tingling/numbness Dermatological: No Rash or Bruising or ulcers. Psychiatric: Denies Anxiety. No depression. Denies hallucinations. Rheumatological: No joint pain. Denies Joint swelling Endocrine: Denies tiredness/Fatigue denies Heat/Cold Intolerance. All other negative Physical Examination: General Appearance: Comfortable, in no acute respiratory distress, co-operative . Vitals reviewed and noted as below Head; Atraumatic, normocephalic ENT: no ulcers no thrush. Tongue is midline. Oropharynx: no rash or ulcers. EYES: Pupils are equal, round and reactive to light accommodation. Eye muscles and extraocular movement intact. Sclera is anicteric. Neck; supple no lymphadenopathy, no thyromegaly or bruit Lungs: Normal respiratory rate/effort. Breath sounds bilateral equal and clear Heart: Normal rate. s1s2 normal. No rub or gallop. has left rib cage tenderness Extremities: no edema. No varicose veins Neurological: Patient is alert, awake and oriented to person, place and time. No focal deficit. Strength bilateral appropriate and equal Skin: Warm and dry. Normal turgor. No rash. Palpitation: Normal elasticity for age Abdomen: Abdomen is soft. Bowel sounds +. There is no abdominal tenderness, no guarding/rigidity no organomegaly Psych: normal insight and normal affect/mood MSK: no joint tenderness or swelling. Digits and nails normal, no deformity : kidney or bladder not palpable Labs/imaging/EKG reviewed. Past medical history, past surgical history, family history, social history, allergy reviewed and noted as below Family hx: no hx of CKD. Rest non-contributory Work up: alcohol level 34 uric acid 3 S.omsol 264 TSH 0.3 TGL 63 urina Na 9 urine osmol 203 Objective - Vital Signs/Intake and Output Vital Signs (last 24 hours): Temp Pulse Resp BP Pulse Ox 98.1 F 71 17 149/87 97 06/09/17 17:59 06/09/17 17:59 06/09/17 17:59 06/09/17 17:59 06/09/17 06:00 Intake and Output: 06/10/17 06/10/17 06:59 18:59 Intake Total 420 Balance 420 - Medications Medications: Current Medications Folic Acid (Folic Acid) 1 mg PO DAILY [facility] Last Admin: 06/09/17 10:39 Dose: 1 mg Lorazepam (Ativan) 1 mg IVP Q6H PRN; Protocol PRN Reason: alcohol withdrawal Multivitamins/Vitamin C (Multi-Delyn Liquid) 15 ml PO 0800 [facility] Last Admin: 06/09/17 10:43 Dose: 15 ml Pantoprazole Sodium (Protonix Susp) 40 mg PO 0600,1600 [facility] Last Admin: 06/10/17 06:35 Dose: 40 mg Thiamine HCl (Vitamin B1 Tab) 50 mg PO DAILY [facility] Last Admin: 06/09/17 10:39 Dose: 50 mg Tramadol HCl (Ultram) 50 mg PO Q6H [facility] Last Admin: 06/10/17 04:42 Dose: Not Given - Labs Labs: 06/10/17 03:23
[2017-06-10 09:51] VITALS: BP 150/70; PULSE 69; RESP 21; TEMP 98.6; O2SAT 98
[2017-06-10] MEDS: Multi Vitamins 15 mL UD Oral Solution PO SCH (10:25)
--- NOTE | 2017-06-10 12:22 | CP.PCM.DIS ---
<BROOK MONTOYA - Last Filed: 06/10/17 11:30> Provider - Provider Date of Admission: 06/09/17 01:38 Attending physician: Que Shaw MD Primary care physician: Fe Shah DO Consults: Nephro: Roberto Time Spent in preparation of Discharge (in minutes): 45 Diagnosis - Discharge Diagnosis (1) Alcohol intoxication Status: Acute Priority: Medium (2) Hyponatremia Status: Acute Priority: High (3) Atypical chest pain Status: Acute Priority: High Hospital Course - Lab Results Lab Results: Most Recent Lab Values WBC 5.4 10^3/ul (4.5-11.0) 06/08/17 23:47 RBC 3.99 10^6/uL (3.5-6.1) 06/08/17 23:47 Hgb 12.7 g/dL (12.0-16.0) 06/08/17 23:47 Hct 35.5 % (36.0-48.0) L 06/08/17 23:47 MCV 89.0 fl (80.0-105.0) 06/08/17 23:47 MCH 31.8 pg (25.0-35.0) 06/08/17 23:47 MCHC 35.8 g/dl (31.0-37.0) 06/08/17 23:47 RDW 12.1 % (11.5-14.5) 06/08/17 23:47 Plt Count 282 10^3/uL (120.0-450.0) 06/08/17 23:47 MPV 8.0 fl (7.0-11.0) 06/08/17 23:47 Gran % 56.7 % (50.0-68.0) 06/08/17 23:47 Lymph % (Auto) 29.9 % (22.0-35.0) 06/08/17 23:47 [place] % (Auto) 12.1 % (1.0-6.0) H 06/08/17 23:47 Eos % (Auto) 1.1 % (1.5-5.0) L 06/08/17 23:47 Baso % (Auto) 0.2 % (0.0-3.0) 06/08/17 23:47 Gran # 3.03 (1.4-6.5) 06/08/17 23:47 Lymph # 1.6 (1.2-3.4) 06/08/17 23:47 [place] # 0.7 (0.1-0.6) H 06/08/17 23:47 Eos # 0.1 (0.0-0.7) 06/08/17 23:47 Baso # 0.01 K/mm3 (0.0-2.0) 06/08/17 23:47 D-Dimer, Quantitative 0.69 mg/L FEU (0-0.50) H 06/08/17 23:47 Sodium 131 mmol/L (132-148) L 06/10/17 03:23 Potassium 4.5 mmol/L (3.6-5.0) 06/10/17 03:23 Chloride 99 mmol/L (98-107) 06/10/17 03:23 Carbon Dioxide 25 mmol/L (21-33) 06/10/17 03:23 Anion Gap 12 (10-20) 06/10/17 03:23 BUN 10 mg/dL (7-21) 06/10/17 03:23 Creatinine 0.7 mg/dL (0.5-1.4) 06/10/17 03:23 Est GFR ( Amer) > 60 06/10/17 03:23 Est GFR (Non-Af Amer) > 60 06/10/17 03:23 Random Glucose 98 mg/dL (70-110) 06/10/17 03:23 Serum Osmolality 264 mosm/kg (271-296) L 06/09/17 04:00 Uric Acid 3.0 mg/dL (2.5-6.2) 06/09/17 04:00 Calcium 8.6 mg/dL (8.4-10.5) 06/10/17 03:23 Phosphorus 3.6 mg/dL (2.5-4.5) 06/09/17 05:50 Magnesium 1.3 mg/dL (1.7-2.2) L 06/09/17 05:50 Total Bilirubin 0.3 mg/dL (0.2-1.3) 06/10/17 03:23 AST 40 U/L (14-36) H D 06/10/17 03:23 ALT 32 U/L (7-56) 06/10/17 03:23 Alkaline Phosphatase 57 U/L (38-126) 06/10/17 03:23 Troponin I < 0.01 ng/mL 06/09/17 11:00 Total Protein 5.6 g/dL (5.8-8.3) L 06/10/17 03:23 Albumin 3.0 g/dL (3.0-4.8) 06/10/17 03:23 Globulin 2.6 gm/dL 06/10/17 03:23 Albumin/Globulin Ratio 1.2 (1.1-1.8) 06/10/17 03:23 Triglycerides 63 mg/dL (35-160) 06/09/17 04:00 Cholesterol 148 mg/dL (130-200) 06/09/17 04:00 LDL Cholesterol Direct 84 mg/dL (0-129) 06/09/17 04:00 HDL Cholesterol 62 mg/dL (29-60) H 06/09/17 04:00 Lipase 752 U/L (23-300) H 06/08/17 23:47 Thyroxine (T4) 6.2 ug/dL (5.5-11.0) 06/09/17 04:00 TSH 3rd Generation 0.31 mIU/mL (0.46-4.68) L 06/09/17 04:00 Urine Osmolality 213 mosm/kg (50-645) 06/09/17 08:00 Ur Random Sodium 9 meq/L 06/09/17 08:00 Alcohol, Quantitative 34 mg/dL (0-10) H 06/09/17 04:00 - Hospital Course Hospital Course: 59 yo F with PMH of alcohol abuse and hyperthyroidism initially presented to ER complaining of left sided rib and chest pain for the past three weeks, associated with nausea and diffuse abdominal pain. Also c/o nausea, decreased appetite, poor oral intake (eunice liquids). She had tried mylanta at home with minimal relief. Patient has a history of alcohol abuse, reportedly quit 4 years ago, but admits to drinking 2 beers today. Patient had elevated D-dimer in the ED, but CTA was negative for PE. She was also noted to be hyponatremic, which was corrected slowly with NS, and nephrology was consulted. She had CT abd/pelv yesterday which was negative for signs of acute pancreatitis or obstruction. Small left sided pleural effusion was also noted, and patient was recommended to have outpatient echocardiogram with PMD or wheel braider. Today, patient is no longer nauseous or vomiting, but is still complaining of some left sided back and rib pain, reproducible with palpation and worse with deep inspiration. She denies abdominal pain, diarrhea, or constipation, F/C, CP. Her hyponatremia has improved from 125 on admission to 131, and she is tolerating PO intake. She was strongly encouraged to abstain from alcohol, limit fluid intake to 40oz daily, and to increase protein intake. All medications were discussed, and all questions were answered to her satisfaction , and she was discharged to home. Patient was seen, discussed, and reviewed with attending. Discharge Exam - Head Exam Head Exam: ATRAUMATIC, NORMOCEPHALIC - Eye Exam Eye Exam: EOMI, PERRL - ENT Exam ENT Exam: Mucous Membranes Moist - Neck Exam Neck exam: Normal Inspection - Respiratory Exam Respiratory Exam: NORMAL BREATHING PATTERN. absent: Rales, Rhonchi, Wheezes Additional comments: Point tenderness over ribs 7/8 posteriorly and 5/6 anteriorly. No ecchymoses - Cardiovascular Exam Cardiovascular Exam: RRR, +S1, +S2 - GI/Abdominal Exam GI & Abdominal Exam: Normal Bowel Sounds. absent: Soft, Tenderness - Extremities Exam Extremities exam: full ROM, normal inspection - Neurological Exam Neurological exam: Alert, Oriented x3 - Psychiatric Exam Psychiatric exam: Normal Affect, Normal Mood - Skin Skin Exam: Dry, Intact, Normal Color Discharge Plan - Discharge Medications Prescriptions: Folic Acid 1 mg PO DAILY #30 tab Multivitamin UD 15 mL Oral [Multi-Delyn Liquid] 15 ml PO 0800 30 Days Thiamine [Vitamin B1 Tab] 50 mg PO DAILY #30 tab - Follow Up Plan Condition: GOOD Disposition: HOME/ ROUTINE Instructions: Dehydration (DC), Seasoning Without Salt (DC), Hyponatremia (DC) Additional Instructions: 1. Avoid consuming any alcoholic beverages 2. Continue taking thiamine, folate, and multivitamin as prescribed ( prescriptions sent to [facility] pharmacy) 3. Balance fluid and food intake, limiting fluid intake to 40-50oz daily 4. Follow up with Dr. Mejia as indicated 5. Follow up with PMD Dr. Madera within 1 week 6. For any new or worsening concerns, contact PMD immediately, or return to ER Referrals: Fe Shah DO [Primary Care Provider] - Sean Mejia MD [Staff Provider] - <Yolanda Moore - Last Filed: 06/10/17 18:00> Provider - Provider Date of Admission: 06/09/17 01:38 Attending physician: Que Shaw MD Primary care physician: Fe Shah [facility] Course - Lab Results Lab Results: Most Recent Lab Values WBC 5.4 10^3/ul (4.5-11.0) 06/08/17 23:47 RBC 3.99 10^6/uL (3.5-6.1) 06/08/17 23:47 Hgb 12.7 g/dL (12.0-16.0) 06/08/17 23:47 Hct 35.5 % (36.0-48.0) L 06/08/17 23:47 MCV 89.0 fl (80.0-105.0) 06/08/17 23:47 MCH 31.8 pg (25.0-35.0) 06/08/17 23:47 MCHC 35.8 g/dl (31.0-37.0) 06/08/17 23:47 RDW 12.1 % (11.5-14.5) 06/08/17 23:47 Plt Count 282 10^3/uL (120.0-450.0) 06/08/17 23:47 MPV 8.0 fl (7.0-11.0) 06/08/17 23:47 Gran % 56.7 % (50.0-68.0) 06/08/17 23:47 Lymph % (Auto) 29.9 % (22.0-35.0) 06/08/17 23:47 [place] % (Auto) 12.1 % (1.0-6.0) H 06/08/17 23:47 Eos % (Auto) 1.1 % (1.5-5.0) L 06/08/17 23:47 Baso % (Auto) 0.2 % (0.0-3.0) 06/08/17 23:47 Gran # 3.03 (1.4-6.5) 06/08/17 23:47 Lymph # 1.6 (1.2-3.4) 06/08/17 23:47 [place] # 0.7 (0.1-0.6) H 06/08/17 23:47 Eos # 0.1 (0.0-0.7) 06/08/17 23:47 Baso # 0.01 K/mm3 (0.0-2.0) 06/08/17 23:47 D-Dimer, Quantitative 0.69 mg/L FEU (0-0.50) H 06/08/17 23:47 Sodium 131 mmol/L (132-148) L 06/10/17 12:30 Potassium 3.4 mmol/L (3.6-5.0) L 06/10/17 12:30 Chloride 96 mmol/L (98-107) L 06/10/17 12:30 Carbon Dioxide 24 mmol/L (21-33) 06/10/17 12:30 Anion Gap 14 (10-20) 06/10/17 12:30 BUN 8 mg/dL (7-21) 06/10/17 12:30 Creatinine 0.7 mg/dL (0.5-1.4) 06/10/17 12:30 Est GFR ( Amer) > 60 06/10/17 12:30 Est GFR (Non-Af Amer) > 60 06/10/17 12:30 Random Glucose 83 mg/dL (70-110) 06/10/17 12:30 Serum Osmolality 264 mosm/kg (271-296) L 06/09/17 04:00 Uric Acid 3.0 mg/dL (2.5-6.2) 06/09/17 04:00 Calcium 8.9 mg/dL (8.4-10.5) 06/10/17 12:30 Phosphorus 3.6 mg/dL (2.5-4.5) 06/09/17 05:50 Magnesium 1.3 mg/dL (1.7-2.2) L 06/09/17 05:50 Total Bilirubin 0.3 mg/dL (0.2-1.3) 06/10/17 03:23 AST 40 U/L (14-36) H D 06/10/17 03:23 ALT 32 U/L (7-56) 06/10/17 03:23 Alkaline Phosphatase 57 U/L (38-126) 06/10/17 03:23 Troponin I < 0.01 ng/mL 06/09/17 11:00 Total Protein 5.6 g/dL (5.8-8.3) L 06/10/17 03:23 Albumin 3.0 g/dL (3.0-4.8) 06/10/17 03:23 Globulin 2.6 gm/dL 06/10/17 03:23 Albumin/Globulin Ratio 1.2 (1.1-1.8) 06/10/17 03:23 Triglycerides 63 mg/dL (35-160) 06/09/17 04:00 Cholesterol 148 mg/dL (130-200) 06/09/17 04:00 LDL Cholesterol Direct 84 mg/dL (0-129) 06/09/17 04:00 HDL Cholesterol 62 mg/dL (29-60) H 06/09/17 04:00 Lipase 752 U/L (23-300) H 06/08/17 23:47 Thyroxine (T4) 6.2 ug/dL (5.5-11.0) 06/09/17 04:00 TSH 3rd Generation 0.31 mIU/mL (0.46-4.68) L 06/09/17 04:00 Urine Osmolality 213 mosm/kg (50-645) 06/09/17 08:00 Ur Random Sodium 9 meq/L 06/09/17 08:00 Alcohol, Quantitative 34 mg/dL (0-10) H 06/09/17 04:00 Attending/Attestation - Attestation I have personally seen and examined this patient.: Yes I have fully participated in the care of the patient.: Yes I have reviewed all pertinent clinical information, including history, physical exam and plan: Yes Notes (Text): 06/10/17 17:58 Patient seen and examined at bedside. She feels better with improvement in symptoms and able to tolerate her diet. Imaging unremarkable for acute changes. Sodium levels have improved. Labs, vitals, orders and notes reviewed and agree with the plan of care as outlined by the resident.
[2017-06-10 13:19] LABS: BLOOD UREA NITROGEN 8 mg/dL (7-21); CALCIUM 8.9 mg/dL (8.4-10.5); CARBON DIOXIDE 24 mmol/L (21-33); CHLORIDE 96 mmol/L (98-107); GFR AFRICAN-AMERICAN > 60; GLUCOSE,RANDOM 83 mg/dL (70-110); POTASSIUM 3.4 mmol/L (3.6-5.0); SODIUM 131 mmol/L (132-148)
== END 2017-06-10 14:03 | disposition home or self-care (01) | DRG 296 ==
LOC: ED 23:03 → ERH 06-09 01:38 → 2RNO 06-09 03:01 → 3RNO 06-09 18:52
PROVIDERS: ADMIT Hospitalist; ATTEND Hospitalist
DX: E87.1 Hypo-osmolality and hyponatremia (principal); E05.90 Thyrotoxicosis, unspecified without thyrotoxic crisis or storm; F10.129 Alcohol abuse with intoxication, unspecified; E83.42 Hypomagnesemia; I10 Essential (primary) hypertension; R07.81 Pleurodynia; H54.41 Blindness, right eye, normal vision left eye; E87.6 Hypokalemia; H46.9 Unspecified optic neuritis; Y90.1 Blood alcohol level of 20-39 mg/100 ml; Z91.14 Patient's other noncompliance with medication regimen

== ENCOUNTER 2018-03-28 11:19 | Inpatient (IN) | payer MEDICAID ==
[2018-03-28 11:19] VITALS: BMI 19.8
--- NOTE | 2018-03-28 12:09 | RAD ---
HISTORY: Generalized Weakness COMPARISON: 06/09/2017 FINDINGS: LUNGS: No active pulmonary disease. PLEURA: No significant pleural effusion identified, no pneumothorax apparent. CARDIOVASCULAR: Normal. OSSEOUS STRUCTURES: No significant abnormalities. VISUALIZED UPPER ABDOMEN: Normal. OTHER FINDINGS: None. IMPRESSION: No active disease.
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
[2018-03-28 12:23] LABS: VENOUS BLOOD GAS PO2 67 mm/Hg (30-55); VENOUS BLOOD PH 7.45 (7.32-7.43)
[2018-03-28 12:27] LABS: BASO # 0.03 K/mm3 (0.0-2.0); BASO % 0.7 % (0.0-3.0); GRAN # 3.13 (1.4-6.5); GRAN % 76.2 % (50.0-68.0); HEMOGLOBIN 13.3 g/dL (12.0-16.0); LYMPH # 0.5 (1.2-3.4); LYMPH % 11.4 % (22.0-35.0); MEAN CELL VOLUME 90.8 fl (80.0-105.0); MEAN CORPUSCULAR HEMOGLOBIN 32.9 pg (25.0-35.0); MEAN CORPUSCULAR HGB CONC 36.2 g/dl (31.0-37.0); MEAN PLATELET VOLUME 8.7 fl (7.0-11.0); MONO # 0.5 (0.1-0.6); MONO % 11.7 % (1.0-6.0); RBC 4.04 10^6/uL (3.5-6.1); RED CELL DISTRIBUTION WIDTH 12.4 % (11.5-14.5); WHITE BLOOD COUNT 4.1 10^3/ul (4.5-11.0)
--- NOTE | 2018-03-28 12:41 | CT ---
PROCEDURE: CT HEAD WITHOUT CONTRAST. HISTORY: Frequent Falls, Racoon Eyes COMPARISON: None available. TECHNIQUE: Axial computed tomography images were obtained through the head/brain without intravenous contrast. Radiation dose: Total exam DLP = 947 mGy-cm. This CT exam was performed using one or more of the following dose reduction techniques: Automated exposure control, adjustment of the mA and/or kV according to patient size, and/or use of iterative reconstruction technique. FINDINGS: HEMORRHAGE: There is a large acute hemorrhage in the right basal ganglia measuring 2.3 x 5.1 cm. There is a moderate amount of surrounding edema. BRAIN: There is 6 mm of midline shift VENTRICLES: Unremarkable. No hydrocephalus. CALVARIUM: Unremarkable. PARANASAL SINUSES: Unremarkable as visualized. No significant inflammatory changes. MASTOID AIR CELLS: Unremarkable as visualized. No inflammatory changes. OTHER FINDINGS: Dr. Zaragoza was notified at 12:30 p.m. IMPRESSION: There is a large acute hemorrhage in the right basal ganglia measuring 2.3 x 5.1 cm. There is a moderate amount of surrounding edema. 6 mm of midline shift to the left
--- NOTE | 2018-03-28 12:47 | CT ---
PROCEDURE: CT MAXILLOFACIAL BONES WITHOUT CONTRAST HISTORY: Frequent Falls, Racoon Eyes COMPARISON: None TECHNIQUE: Contiguous axial CT images of the maxillofacial bones were obtained. Coronal and sagittal reformats were generated. Radiation dose: Total exam DLP = 754 mGy-cm. This CT exam was performed using one or more of the following dose reduction techniques: Automated exposure control, adjustment of the mA and/or kV according to patient size, and/or use of iterative reconstruction technique. FINDINGS: NASAL BONES: Unremarkable. ORBITS: Unremarkable. PARANASAL SINUSES/ MASTOIDS: Clear. MAXILLA: Unremarkable. MANDIBLE/ TEMPOROMANDIBULAR JOINTS: Unremarkable. SKULL BASE: Unremarkable. TEMPORAL BONES: Middle ears and mastoid grossly unremarkable. OTHER FINDINGS: Hematoma in the right basal ganglia as noted on head CT IMPRESSION: No evidence of fracture.
[2018-03-28 12:49] LABS: ALB/GLOB RATIO 1.5 (1.1-1.8); ALBUMIN 4.4 g/dL (3.0-4.8); ALT/SGPT 119 U/L (7-56); AST/SGOT 223 U/L (14-36); BLOOD UREA NITROGEN 10 mg/dL (7-21); CALCIUM 9.4 mg/dL (8.4-10.5); GFR NON-AFRICAN AMERICAN > 60; INR 0.94 (0.93-1.08); PROTHROMBIN TIME 10.8 SECONDS (9.4-12.5)
[2018-03-28 13:05] LABS: B-TYPE NATRIURETIC PEPTIDE 763 pg/mL (0-450); CK MB% 1.3 % (2.5-3.0); CK-MB 16.1 ng/mL (0.0-3.6); TROPONIN I 0.16 ng/mL
[2018-03-28 13:48] LABS: URINE BILIRUBIN NEGATIVE (NEGATIVE); URINE BLOOD SMALL (NEGATIVE); URINE GLUCOSE (UA) NEGATIVE (NEGATIVE); URINE LEUKOCYTE ESTERASE SMALL Leu/uL (NEGATIVE); URINE PROTEIN NEGATIVE mg/dL (<30 mg/dL); URINE UROBILINOGEN 0.2 E.U./dL (<1 E.U./dL)
[2018-03-28 13:49] LABS: URINE APPEARANCE TURBID (CLEAR); URINE COLOR YELLOW (YELLOW)
[2018-03-28 13:53] LABS: URINE BACTERIA MANY (NEG)
[2018-03-28 14:11] LABS: BARBITURATES, UR NEGATIVE (NEGATIVE); BENZODIAZEPINES, UR NEGATIVE (NEGATIVE); OPIATES, UR NEGATIVE (NEGATIVE); PHENCYCLIDINE, UR NEGATIVE (NEGATIVE)
[2018-03-28] MEDS ORDERED: Multivitamin (MVI) 10 ML, Thiamine 100 MG, Folic Acid 1 MG in Sodium Chloride 0.9% 1,00... IV ONE (14:15)
[2018-03-28] MEDS ORDERED: cefTRIAXone 2 GM IN NS 2 GM/100 ML BAG IVPB STA (14:26)
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
--- NOTE | 2018-03-28 17:54 | CARD ---
APPROVED REPORT EKG Measurement Heart [id number] FL [id number] [id number] <Conclusion> Normal sinus rhythm Prolonged QT Abnormal ECG
[2018-03-28 20:01] LABS: BLOOD UREA NITROGEN 9 mg/dL (7-21); CALCIUM 8.5 mg/dL (8.4-10.5); GFR NON-AFRICAN AMERICAN > 60
[2018-03-28] MEDS: Dexamethasone 4 mg/1 ml IVP SCH (20:11)
[2018-03-28 20:12] LABS: FREE T4 1.04 ng/dL (0.78-2.19)
[2018-03-28 20:16] LABS: CK MB% 1.2 % (2.5-3.0); CK-MB 10.7 ng/mL (0.0-3.6); TROPONIN I 0.16 ng/mL
[2018-03-28] MEDS: Multivitamin (MVI) 10 ML, Thiamine 100 MG, Folic Acid 1 MG in Sodium Chloride 0.9% 1,00... IV SCH (20:16)
[2018-03-28] MEDS ORDERED: Pneumococcal 23-Valent Vaccine IM ONE (22:24)
[2018-03-29 01:44] LABS: BLOOD UREA NITROGEN 10 mg/dL (7-21); GFR NON-AFRICAN AMERICAN > 60
[2018-03-29 01:55] LABS: TROPONIN I 0.12 ng/mL
[2018-03-29 02:01] LABS: CK MB% 1.1 % (2.5-3.0); CK-MB 8.8 ng/mL (0.0-3.6)
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
[2018-03-29] MEDS: Multivitamin (MVI) 10 ML, Thiamine 100 MG, Folic Acid 1 MG in Sodium Chloride 0.9% 1,00... IV SCH (05:27)
[2018-03-29] MEDS: Dexamethasone 4 mg/1 ml IVP SCH ×2 (06:00→18:01)
[2018-03-29 07:08] LABS: GRAN # 1.19 (1.4-6.5); GRAN % 74.9 % (50.0-68.0); LYMPH # 0.3 (1.2-3.4); LYMPH % 15.7 % (22.0-35.0); MEAN CELL VOLUME 92.6 fl (80.0-105.0); MEAN CORPUSCULAR HEMOGLOBIN 32.7 pg (25.0-35.0); MEAN CORPUSCULAR HGB CONC 35.4 g/dl (31.0-37.0); MEAN PLATELET VOLUME 8.6 fl (7.0-11.0); MONO # 0.2 (0.1-0.6); MONO % 9.4 % (1.0-6.0); RBC 3.36 10^6/uL (3.5-6.1); RED CELL DISTRIBUTION WIDTH 12.5 % (11.5-14.5)
[2018-03-29 07:17] LABS: ALB/GLOB RATIO 1.4 (1.1-1.8); ALBUMIN 3.5 g/dL (3.0-4.8); ALT/SGPT 81 U/L (7-56); AST/SGOT 111 U/L (14-36); BLOOD UREA NITROGEN 9 mg/dL (7-21); CALCIUM 8.5 mg/dL (8.4-10.5); GFR NON-AFRICAN AMERICAN > 60; HDL CHOLESTEROL > 110 mg/dL (29-60)
[2018-03-29 07:27] LABS: INR 0.97 (0.93-1.08); PROTHROMBIN TIME 11.2 SECONDS (9.4-12.5)
[2018-03-29 07:28] LABS: LDL CHOLESTEROL 39 mg/dL (0-129)
[2018-03-29 07:34] LABS: CK MB% 1.1 % (2.5-3.0); CK-MB 6.2 ng/mL (0.0-3.6)
[2018-03-29 07:49] LABS: WHITE BLOOD COUNT 1.6 10^3/ul (4.5-11.0)
--- NOTE | 2018-03-29 08:56 | CT ---
PROCEDURE: CT HEAD WITHOUT CONTRAST. HISTORY: intraparenchymal hemmorhage COMPARISON: 03/28/2018 CT TECHNIQUE: Axial computed tomography images were obtained through the head/brain without intravenous contrast. Radiation dose: Total exam DLP = 833 mGy-cm. This CT exam was performed using one or more of the following dose reduction techniques: Automated exposure control, adjustment of the mA and/or kV according to patient size, and/or use of iterative reconstruction technique. FINDINGS: HEMORRHAGE: There is no change in the appearance of the acute hemorrhage in the right basal ganglia. This measures 2.2 x 4.8 cm. There is a moderate amount of surrounding edema. There is 6 mm of midline shift to the left. BRAIN: As above VENTRICLES: Unremarkable. No hydrocephalus. CALVARIUM: Unremarkable. PARANASAL SINUSES: Unremarkable as visualized. No significant inflammatory changes. MASTOID AIR CELLS: Unremarkable as visualized. No inflammatory changes. OTHER FINDINGS: None. IMPRESSION: There is no change in the appearance of the acute hemorrhage in the right basal ganglia. This measures 2.2 x 4.8 cm. There is a moderate amount of surrounding edema. There is 6 mm of midline shift to the left.
[2018-03-29] MEDS ORDERED: cefTRIAXone 1 gm 1 GM/100 ML BAG IVPB SCH (10:00)
[2018-03-29] MEDS ORDERED: Multivitamin (MVI) 10 ML, Thiamine 100 MG, Folic Acid 1 MG in Sodium Chloride 0.9% 1,00... IV SCH (10:09)
[2018-03-29] MEDS: cefTRIAXone 1 gm 1 GM/100 ML BAG IVPB SCH (11:22)
--- NOTE | 2018-03-29 11:22 | CARD ---
APPROVED REPORT EKG Measurement Heart [id number] <Conclusion> Normal sinus rhythm Prolonged QT Abnormal ECG
--- NOTE | 2018-03-29 11:42 | CP.PCM.PN ---
Subjective - Date & Time of Evaluation Date of Evaluation: 03/29/18 Time of Evaluation: 11:41 - Subjective Subjective: no change in ct further tx as per neurology call if any changes Objective - Vital Signs/Intake and Output Vital Signs (last 24 hours): Temp Pulse Resp BP Pulse Ox 98.3 F 111 H 15 163/101 H 96 03/29/18 08:00 03/29/18 11:23 03/29/18 10:43 03/29/18 11:23 03/29/18 02:40 Intake and Output: 03/29/18 03/29/18 06:59 18:59 Intake Total 1400 Output Total 1670 Balance -270 - Medications Medications: Current Medications Dexamethasone (Decadron Inj) 8 mg IVP Q12H [facility] Last Admin: 03/29/18 06:00 Dose: 8 mg Hydralazine HCl (Apresoline) 10 mg IVP Q4 PRN PRN Reason: Systolic Blood Pressure Last Admin: 03/29/18 08:33 Dose: 10 mg Ceftriaxone Sodium (Rocephin 1 Gram Ivpb) 1 gm in 100 mls @ 100 mls/hr IVPB DAILY JOSSE PRN Reason: Protocol Last Admin: 03/29/18 11:22 Dose: 100 mls/hr Lorazepam (Ativan) 1 mg IVP Q2H PRN; Protocol PRN Reason: Seizure activity Metoprolol Tartrate (Lopressor) 25 mg PO BID [facility] Last Admin: 03/29/18 11:23 Dose: 25 mg Pantoprazole Sodium (Protonix Inj) 40 mg IVP DAILY [facility] Last Admin: 03/29/18 09:07 Dose: 40 mg - Labs Labs: 03/29/18 05:50 03/29/18 05:50 PT 11.2 SECONDS (9.4-12.5) 03/29/18 05:50 INR 0.97 (0.93-1.08) 03/29/18 05:50
[2018-03-29] MEDS ORDERED: Potassium Chloride 40 mEq/30 ml LIQ UD PO ONE (12:15)
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
--- NOTE | 2018-03-29 12:39 | CP.CCUPN ---
<Dustin Savage - Last Filed: 03/29/18 12:28> CCU Subjective - Physician Review Events Since Last Encounter (Free Text): 03/29/18 08:30A Patient seen and examined at bedside. No acute events overnight. Patient states she is feeling better and would like to eat something. Per nursing, patient has passed bedside swallow. CCU Objective - Vital Signs / Intake & Output Vital Signs (Last 4 hours): Vital Signs Pulse Resp BP 03/29/18 11:23 111 H 163/101 H 03/29/18 10:43 102 H 15 163/101 H 03/29/18 10:00 94 H 17 03/29/18 09:00 106 H 35 H 03/29/18 08:33 68 164/113 H Intake and Output (Last 8hrs): Intake & Output 03/28/18 03/29/18 03/29/18 22:59 06:59 14:59 Intake Total 200 1200 Output Total 920 750 Balance -720 450 Weight 58.967 kg 61.19 kg Intake: IV 200 1200 Left Hand 200 banana 1200 Output: Urine 920 750 Urethral (Squires) 920 750 Other: Voiding Method Indwelling Catheter - Physical Exam Head: Positive for: Atraumatic, Normocephalic, Other (Bruising, Raccoon eyes) Pupils: Positive for: PERRL Extroacular Muscles: Positive for: EOMI Conjunctiva: Positive for: Normal Mouth: Positive for: Moist Mucous Membranes Neck: Positive for: Normal Range of Motion Respiratory/Chest: Positive for: Clear to Auscultation, Good Air Exchange. Negative for: Respiratory Distress, Accessory Muscle Use Cardiovascular: Positive for: Regular Rate and Rhythm, Normal S1, S2. Negative for: Murmurs Abdomen: Negative for: Tenderness, Distention, Peritoneal Signs Back: Positive for: Normal Inspection Upper Extremity: Positive for: Normal Inspection. Negative for: Cyanosis, Edema Lower Extremity: Positive for: Normal Inspection. Negative for: Edema Neurological: Positive for: GCS=15, CN II-XII Intact, Speech Normal, Other ( Resting tremors) Skin: Positive for: Warm, Dry, Normal Color. Negative for: Rashes Psychiatric: Positive for: Alert, Oriented x 3, Normal Insight, Normal Concentration - Medications Active Medications: Active Medications Generic Name Dose Route Start Last Admin Trade Name Freq PRN Reason Stop Dose Admin Dexamethasone 8 mg 03/28/18 19:00 03/29/18 06:00 Decadron Inj IVP 8 mg Q12H JOSSE Administration Hydralazine HCl 10 mg 03/28/18 16:22 03/29/18 08:33 Apresoline IVP 10 mg Q4 PRN Administration Systolic Blood Pressure Ceftriaxone Sodium 1 gm in 100 mls @ 100 mls/hr 03/29/18 10:00 03/29/18 11:22 Rocephin 1 Gram Ivpb IVPB 100 mls/hr DAILY JOSSE Administration Protocol Lorazepam 1 mg 03/28/18 15:32 Ativan IVP Q2H PRN Seizure activity Protocol Metoprolol Tartrate 25 mg 03/29/18 11:15 03/29/18 11:23 Lopressor PO 25 mg BID JOSSE Administration Pantoprazole Sodium 40 mg 03/29/18 10:00 03/29/18 09:07 Protonix Inj IVP 40 mg DAILY JOSSE Administration - Patient Studies Lab Studies: Lab Studies 03/29/18 03/29/18 03/29/18 Range/Units 05:50 05:50 05:50 WBC 1.6 L* D (4.5-11.0) 10^3/ul RBC 3.36 L (3.5-6.1) 10^6/uL Hgb 11.0 L D (12.0-16.0) g/dL Hct 31.1 L (36.0-48.0) % MCV 92.6 (80.0-105.0) fl MCH 32.7 (25.0-35.0) pg MCHC 35.4 (31.0-37.0) g/dl RDW 12.5 (11.5-14.5) % Plt Count 131 (120.0-450.0) 10^3/uL MPV 8.6 (7.0-11.0) fl Gran % 74.9 H (50.0-68.0) % Lymph % (Auto) 15.7 L (22.0-35.0) % Ralls % (Auto) 9.4 H (1.0-6.0) % Eos % (Auto) 0.0 L (1.5-5.0) % Baso % (Auto) 0.0 (0.0-3.0) % Gran # 1.19 L (1.4-6.5) Lymph # (Auto) 0.3 L (1.2-3.4) Ralls # (Auto) 0.2 (0.1-0.6) Eos # (Auto) 0.0 (0.0-0.7) Baso # (Auto) 0.00 (0.0-2.0) K/mm3 PT 11.2 (9.4-12.5) SECONDS INR 0.97 (0.93-1.08) Sodium 131 L (132-148) mmol/L Potassium 3.7 (3.6-5.0) mmol/L Chloride 100 (98-107) mmol/L Carbon Dioxide 20 L (21-33) mmol/L Anion Gap 15 (10-20) BUN 9 (7-21) mg/dL Creatinine 0.5 L (0.7-1.2) mg/dl Est GFR ( Amer) > 60 Est GFR (Non-Af Amer) > 60 Random Glucose 108 (70-110) mg/dL Serum Osmolality (272-300) mosm/kg Calcium 8.5 (8.4-10.5) mg/dL Total Bilirubin 0.8 (0.2-1.3) mg/dL AST 111 H D (14-36) U/L ALT 81 H (7-56) U/L Alkaline Phosphatase 61 (38-126) U/L Lactate Dehydrogenase (333-699) U/L Total Creatine Kinase 544 H (35-230) U/L CK-MB (CK-2) 6.2 H (0.0-3.6) ng/mL CK-MB (CK-2) % 1.1 L (2.5-3.0) % Troponin I ng/mL Total Protein 6.0 (5.8-8.3) g/dL Albumin 3.5 (3.0-4.8) g/dL Globulin 2.6 gm/dL Albumin/Globulin Ratio 1.4 (1.1-1.8) Triglycerides 41 (35-160) mg/dL Cholesterol 166 (130-200) mg/dL LDL Cholesterol Direct 39 (0-129) mg/dL HDL Cholesterol > 110 H (29-60) mg/dL Free T4 (0.78-2.19) ng/dL Free T3 pg/mL (2.77-5.27) pg/mL TSH 3rd Generation (0.46-4.68) mIU/mL 03/29/18 03/28/18 03/28/18 Range/Units 01:10 19:03 19:03 WBC (4.5-11.0) 10^3/ul RBC (3.5-6.1) 10^6/uL Hgb (12.0-16.0) g/dL Hct (36.0-48.0) % MCV (80.0-105.0) fl MCH (25.0-35.0) pg MCHC (31.0-37.0) g/dl RDW (11.5-14.5) % Plt Count (120.0-450.0) 10^3/uL MPV (7.0-11.0) fl Gran % (50.0-68.0) % Lymph % (Auto) (22.0-35.0) % Ralls % (Auto) (1.0-6.0) % Eos % (Auto) (1.5-5.0) % Baso % (Auto) (0.0-3.0) % Gran # (1.4-6.5) Lymph # (Auto) (1.2-3.4) Ralls # (Auto) (0.1-0.6) Eos # (Auto) (0.0-0.7) Baso # (Auto) (0.0-2.0) K/mm3 PT (9.4-12.5) SECONDS INR (0.93-1.08) Sodium 132 (132-148) mmol/L Potassium 4.0 (3.6-5.0) mmol/L Chloride 98 (98-107) mmol/L Carbon Dioxide 18 L (21-33) mmol/L Anion Gap 20 (10-20) BUN 10 (7-21) mg/dL Creatinine 0.5 L (0.7-1.2) mg/dl Est GFR ( Amer) > 60 Est GFR (Non-Af Amer) > 60 Random Glucose 108 (70-110) mg/dL Serum Osmolality (272-300) mosm/kg Calcium 9.0 (8.4-10.5) mg/dL Total Bilirubin (0.2-1.3) mg/dL AST (14-36) U/L ALT (7-56) U/L Alkaline Phosphatase (38-126) U/L Lactate Dehydrogenase 383 (333-699) U/L Total Creatine Kinase 783 H (35-230) U/L CK-MB (CK-2) 8.8 H (0.0-3.6) ng/mL CK-MB (CK-2) % 1.1 L (2.5-3.0) % Troponin I 0.12 D ng/mL Total Protein (5.8-8.3) g/dL Albumin (3.0-4.8) g/dL Globulin gm/dL Albumin/Globulin Ratio (1.1-1.8) Triglycerides (35-160) mg/dL Cholesterol (130-200) mg/dL LDL Cholesterol Direct (0-129) mg/dL HDL Cholesterol (29-60) mg/dL Free T4 (0.78-2.19) ng/dL Free T3 pg/mL 2.49 L (2.77-5.27) pg/mL TSH 3rd Generation 0.57 (0.46-4.68) mIU/mL 03/28/18 03/28/18 Range/Units 19:03 19:03 WBC (4.5-11.0) 10^3/ul RBC (3.5-6.1) 10^6/uL Hgb (12.0-16.0) g/dL Hct (36.0-48.0) % MCV (80.0-105.0) fl MCH (25.0-35.0) pg MCHC (31.0-37.0) g/dl RDW (11.5-14.5) % Plt Count (120.0-450.0) 10^3/uL MPV (7.0-11.0) fl Gran % (50.0-68.0) % Lymph % (Auto) (22.0-35.0) % Ralls % (Auto) (1.0-6.0) % Eos % (Auto) (1.5-5.0) % Baso % (Auto) (0.0-3.0) % Gran # (1.4-6.5) Lymph # (Auto) (1.2-3.4) Ralls # (Auto) (0.1-0.6) Eos # (Auto) (0.0-0.7) Baso # (Auto) (0.0-2.0) K/mm3 PT (9.4-12.5) SECONDS INR (0.93-1.08) Sodium 132 (132-148) mmol/L Potassium 3.9 (3.6-5.0) mmol/L Chloride 97 L (98-107) mmol/L Carbon Dioxide 21 (21-33) mmol/L Anion Gap 18 (10-20) BUN 9 (7-21) mg/dL Creatinine 0.5 L (0.7-1.2) mg/dl Est GFR ( Amer) > 60 Est GFR (Non-Af Amer) > 60 Random Glucose 74 (70-110) mg/dL Serum Osmolality 263 L (272-300) mosm/kg Calcium 8.5 (8.4-10.5) mg/dL Total Bilirubin (0.2-1.3) mg/dL AST (14-36) U/L ALT (7-56) U/L Alkaline Phosphatase (38-126) U/L Lactate Dehydrogenase 345 (333-699) U/L Total Creatine Kinase 884 H (35-230) U/L CK-MB (CK-2) 10.7 H (0.0-3.6) ng/mL CK-MB (CK-2) % 1.2 L (2.5-3.0) % Troponin I 0.16 H* ng/mL Total Protein (5.8-8.3) g/dL Albumin (3.0-4.8) g/dL Globulin gm/dL Albumin/Globulin Ratio (1.1-1.8) Triglycerides (35-160) mg/dL Cholesterol (130-200) mg/dL LDL Cholesterol Direct (0-129) mg/dL HDL Cholesterol (29-60) mg/dL Free T4 1.04 (0.78-2.19) ng/dL Free T3 pg/mL (2.77-5.27) pg/mL TSH 3rd Generation (0.46-4.68) mIU/mL Laboratory Results - last 24 hr 03/28/18 03/28/18 03/28/18 19:03 19:03 19:03 WBC RBC Hgb Hct MCV MCH MCHC RDW Plt Count MPV Gran % Lymph % (Auto) Ralls % (Auto) Eos % (Auto) Baso % (Auto) Gran # Lymph # (Auto) Ralls # (Auto) Eos # (Auto) Baso # (Auto) PT INR Sodium 132 Potassium 3.9 Chloride 97 L Carbon Dioxide 21 Anion Gap 18 BUN 9 Creatinine 0.5 L Est GFR ( Amer) > 60 Est GFR (Non-Af Amer) > 60 Random Glucose 74 Serum Osmolality 263 L Calcium 8.5 Total Bilirubin AST ALT Alkaline Phosphatase Lactate Dehydrogenase 345 Total Creatine Kinase 884 H CK-MB (CK-2) 10.7 H CK-MB (CK-2) % 1.2 L Troponin I 0.16 H* Total Protein Albumin Globulin Albumin/Globulin Ratio Triglycerides Cholesterol LDL Cholesterol Direct HDL Cholesterol Free T4 1.04 Free T3 pg/mL TSH 3rd Generation 0.57 03/28/18 03/29/18 03/29/18 19:03 01:10 05:50 WBC 1.6 L* D RBC 3.36 L Hgb 11.0 L D Hct 31.1 L MCV 92.6 MCH 32.7 MCHC 35.4 RDW 12.5 Plt Count 131 MPV 8.6 Gran % 74.9 H Lymph % (Auto) 15.7 L Ralls % (Auto) 9.4 H Eos % (Auto) 0.0 L Baso % (Auto) 0.0 Gran # 1.19 L Lymph # (Auto) 0.3 L Ralls # (Auto) 0.2 Eos # (Auto) 0.0 Baso # (Auto) 0.00 PT INR Sodium 132 Potassium 4.0 Chloride 98 Carbon Dioxide 18 L Anion Gap 20 BUN 10 Creatinine 0.5 L Est GFR ( Amer) > 60 Est GFR (Non-Af Amer) > 60 Random Glucose 108 Serum Osmolality Calcium 9.0 Total Bilirubin AST ALT Alkaline Phosphatase Lactate Dehydrogenase 383 Total Creatine Kinase 783 H CK-MB (CK-2) 8.8 H CK-MB (CK-2) % 1.1 L Troponin I 0.12 D Total Protein Albumin Globulin Albumin/Globulin Ratio Triglycerides Cholesterol LDL Cholesterol Direct HDL Cholesterol Free T4 Free T3 pg/mL 2.49 L TSH 3rd Generation 03/29/18 03/29/18 05:50 05:50 WBC RBC Hgb Hct MCV MCH MCHC RDW Plt Count MPV Gran % Lymph % (Auto) Ralls % (Auto) Eos % (Auto) Baso % (Auto) Gran # Lymph # (Auto) Ralls # (Auto) Eos # (Auto) Baso # (Auto) PT 11.2 INR 0.97 Sodium 131 L Potassium 3.7 Chloride 100 Carbon Dioxide 20 L Anion Gap 15 BUN 9 Creatinine 0.5 L Est GFR ( Amer) > 60 Est GFR (Non-Af Amer) > 60 Random Glucose 108 Serum Osmolality Calcium 8.5 Total Bilirubin 0.8 AST 111 H D ALT 81 H Alkaline Phosphatase 61 Lactate Dehydrogenase Total Creatine Kinase 544 H CK-MB (CK-2) 6.2 H CK-MB (CK-2) % 1.1 L Troponin I Total Protein 6.0 Albumin 3.5 Globulin 2.6 Albumin/Globulin Ratio 1.4 Triglycerides 41 Cholesterol 166 LDL Cholesterol Direct 39 HDL Cholesterol > 110 H Free T4 Free T3 pg/mL TSH 3rd Generation EKG/Cardiology Studies: Cardiology / EKG Studies 03/29/18 EKG [ELECTROCARDIOGRAM] Routine Comment: Reason For Exam: bradycardia, cva Critical Care Progress Note - Nutrition Nutrition: Nutrition Category Date Time Status Heart Healthy Diet [DIET] Diets 03/29/18 Lunch Active Assessment/Plan - Assessment and Plan (Free Text) Assessment: 62 year old female under ICU Management for 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 Cardenas on consult - no further recommendations at this time - Maintain normothermia Cardio - Monitor tropes - Maintain MAP > 65; Maintain SBP < 140 in light of Hemorrhage - Stop all Blood thinners Pulm - Maintain sats > 92%; continue NC PRN - Monitor patient for airway stabilization GI - DVT PPX - pepcid - HHD - Maintain euvolemia - Thiamine, MVI, Folate po; d/c'd Banana Bag ID - Rocephin for gram neg rods Heme - Hold DVT PPX Endo - No home medications for hypothyroidism PPX -DVT prophylaxis with SCD <Arvind Alvarado - Last Filed: 03/29/18 13:03> CCU Objective - Vital Signs / Intake & Output Vital Signs (Last 4 hours): Vital Signs Pulse Resp BP 03/29/18 11:23 111 H 163/101 H 03/29/18 10:43 102 H 15 163/101 H 03/29/18 10:00 94 H 17 Intake and Output (Last 8hrs): Intake & Output 03/28/18 03/29/18 03/29/18 22:59 06:59 14:59 Intake Total 200 1200 Output Total 920 750 Balance -720 450 Weight 130 lb 134 lb 14.4 oz Intake: IV 200 1200 Left Hand 200 banana 1200 Output: Urine 920 750 Urethral (Squires) 920 750 Other: Voiding Method Indwelling Catheter - Medications Active Medications: Active Medications Generic Name Dose Route Start Last Admin Trade Name Freq PRN Reason Stop Dose Admin Dexamethasone 8 mg 03/28/18 19:00 03/29/18 06:00 Decadron Inj IVP 8 mg Q12H JOSSE Administration Hydralazine HCl 10 mg 03/28/18 16:22 03/29/18 08:33 Apresoline IVP 10 mg Q4 PRN Administration Systolic Blood Pressure Ceftriaxone Sodium 1 gm in 100 mls @ 100 mls/hr 03/29/18 10:00 03/29/18 11:22 Rocephin 1 Gram Ivpb IVPB 100 mls/hr DAILY JOSSE Administration Protocol Lorazepam 1 mg 03/28/18 15:32 Ativan IVP Q2H PRN Seizure activity Protocol Metoprolol Tartrate 25 mg 03/29/18 11:15 03/29/18 11:23 Lopressor PO 25 mg BID JOSSE Administration Pantoprazole Sodium 40 mg 03/29/18 10:00 03/29/18 09:07 Protonix Inj IVP 40 mg DAILY JOSSE Administration - Patient Studies Lab Studies: Lab Studies 03/29/18 03/29/18 03/29/18 Range/Units 05:50 05:50 05:50 WBC 1.6 L* D (4.5-11.0) 10^3/ul RBC 3.36 L (3.5-6.1) 10^6/uL Hgb 11.0 L D (12.0-16.0) g/dL Hct 31.1 L (36.0-48.0) % MCV 92.6 (80.0-105.0) fl MCH 32.7 (25.0-35.0) pg MCHC 35.4 (31.0-37.0) g/dl RDW 12.5 (11.5-14.5) % Plt Count 131 (120.0-450.0) 10^3/uL MPV 8.6 (7.0-11.0) fl Gran % 74.9 H (50.0-68.0) % Lymph % (Auto) 15.7 L (22.0-35.0) % Ralls % (Auto) 9.4 H (1.0-6.0) % Eos % (Auto) 0.0 L (1.5-5.0) % Baso % (Auto) 0.0 (0.0-3.0) % Gran # 1.19 L (1.4-6.5) Lymph # (Auto) 0.3 L (1.2-3.4) Ralls # (Auto) 0.2 (0.1-0.6) Eos # (Auto) 0.0 (0.0-0.7) Baso # (Auto) 0.00 (0.0-2.0) K/mm3 PT 11.2 (9.4-12.5) SECONDS INR 0.97 (0.93-1.08) Sodium 131 L (132-148) mmol/L Potassium 3.7 (3.6-5.0) mmol/L Chloride 100 (98-107) mmol/L Carbon Dioxide 20 L (21-33) mmol/L Anion Gap 15 (10-20) BUN 9 (7-21) mg/dL Creatinine 0.5 L (0.7-1.2) mg/dl Est GFR ( Amer) > 60 Est GFR (Non-Af Amer) > 60 Random Glucose 108 (70-110) mg/dL Serum Osmolality (272-300) mosm/kg Calcium 8.5 (8.4-10.5) mg/dL Total Bilirubin 0.8 (0.2-1.3) mg/dL AST 111 H D (14-36) U/L ALT 81 H (7-56) U/L Alkaline Phosphatase 61 (38-126) U/L Lactate Dehydrogenase (333-699) U/L Total Creatine Kinase 544 H (35-230) U/L CK-MB (CK-2) 6.2 H (0.0-3.6) ng/mL CK-MB (CK-2) % 1.1 L (2.5-3.0) % Troponin I ng/mL Total Protein 6.0 (5.8-8.3) g/dL Albumin 3.5 (3.0-4.8) g/dL Globulin 2.6 gm/dL Albumin/Globulin Ratio 1.4 (1.1-1.8) Triglycerides 41 (35-160) mg/dL Cholesterol 166 (130-200) mg/dL LDL Cholesterol Direct 39 (0-129) mg/dL HDL Cholesterol > 110 H (29-60) mg/dL Free T4 (0.78-2.19) ng/dL Free T3 pg/mL (2.77-5.27) pg/mL TSH 3rd Generation (0.46-4.68) mIU/mL 03/29/18 03/28/18 03/28/18 Range/Units 01:10 19:03 19:03 WBC (4.5-11.0) 10^3/ul RBC (3.5-6.1) 10^6/uL Hgb (12.0-16.0) g/dL Hct (36.0-48.0) % MCV (80.0-105.0) fl MCH (25.0-35.0) pg MCHC (31.0-37.0) g/dl RDW (11.5-14.5) % Plt Count (120.0-450.0) 10^3/uL MPV (7.0-11.0) fl Gran % (50.0-68.0) % Lymph % (Auto) (22.0-35.0) % Ralls % (Auto) (1.0-6.0) % Eos % (Auto) (1.5-5.0) % Baso % (Auto) (0.0-3.0) % Gran # (1.4-6.5) Lymph # (Auto) (1.2-3.4) Ralls # (Auto) (0.1-0.6) Eos # (Auto) (0.0-0.7) Baso # (Auto) (0.0-2.0) K/mm3 PT (9.4-12.5) SECONDS INR (0.93-1.08) Sodium 132 (132-148) mmol/L Potassium 4.0 (3.6-5.0) mmol/L Chloride 98 (98-107) mmol/L Carbon Dioxide 18 L (21-33) mmol/L Anion Gap 20 (10-20) BUN 10 (7-21) mg/dL Creatinine 0.5 L (0.7-1.2) mg/dl Est GFR ( Amer) > 60 Est GFR (Non-Af Amer) > 60 Random Glucose 108 (70-110) mg/dL Serum Osmolality (272-300) mosm/kg Calcium 9.0 (8.4-10.5) mg/dL Total Bilirubin (0.2-1.3) mg/dL AST (14-36) U/L ALT (7-56) U/L Alkaline Phosphatase (38-126) U/L Lactate Dehydrogenase 383 (333-699) U/L Total Creatine Kinase 783 H (35-230) U/L CK-MB (CK-2) 8.8 H (0.0-3.6) ng/mL CK-MB (CK-2) % 1.1 L (2.5-3.0) % Troponin I 0.12 D ng/mL Total Protein (5.8-8.3) g/dL Albumin (3.0-4.8) g/dL Globulin gm/dL Albumin/Globulin Ratio (1.1-1.8) Triglycerides (35-160) mg/dL Cholesterol (130-200) mg/dL LDL Cholesterol Direct (0-129) mg/dL HDL Cholesterol (29-60) mg/dL Free T4 (0.78-2.19) ng/dL Free T3 pg/mL 2.49 L (2.77-5.27) pg/mL TSH 3rd Generation 0.57 (0.46-4.68) mIU/mL 03/28/18 03/28/18 Range/Units 19:03 19:03 WBC (4.5-11.0) 10^3/ul RBC (3.5-6.1) 10^6/uL Hgb (12.0-16.0) g/dL Hct (36.0-48.0) % MCV (80.0-105.0) fl MCH (25.0-35.0) pg MCHC (31.0-37.0) g/dl RDW (11.5-14.5) % Plt Count (120.0-450.0) 10^3/uL MPV (7.0-11.0) fl Gran % (50.0-68.0) % Lymph % (Auto) (22.0-35.0) % Ralls % (Auto) (1.0-6.0) % Eos % (Auto) (1.5-5.0) % Baso % (Auto) (0.0-3.0) % Gran # (1.4-6.5) Lymph # (Auto) (1.2-3.4) Ralls # (Auto) (0.1-0.6) Eos # (Auto) (0.0-0.7) Baso # (Auto) (0.0-2.0) K/mm3 PT (9.4-12.5) SECONDS INR (0.93-1.08) Sodium 132 (132-148) mmol/L Potassium 3.9 (3.6-5.0) mmol/L Chloride 97 L (98-107) mmol/L Carbon Dioxide 21 (21-33) mmol/L Anion Gap 18 (10-20) BUN 9 (7-21) mg/dL Creatinine 0.5 L (0.7-1.2) mg/dl Est GFR ( Amer) > 60 Est GFR (Non-Af Amer) > 60 Random Glucose 74 (70-110) mg/dL Serum Osmolality 263 L (272-300) mosm/kg Calcium 8.5 (8.4-10.5) mg/dL Total Bilirubin (0.2-1.3) mg/dL AST (14-36) U/L ALT (7-56) U/L Alkaline Phosphatase (38-126) U/L Lactate Dehydrogenase 345 (333-699) U/L Total Creatine Kinase 884 H (35-230) U/L CK-MB (CK-2) 10.7 H (0.0-3.6) ng/mL CK-MB (CK-2) % 1.2 L (2.5-3.0) % Troponin I 0.16 H* ng/mL Total Protein (5.8-8.3) g/dL Albumin (3.0-4.8) g/dL Globulin gm/dL Albumin/Globulin Ratio (1.1-1.8) Triglycerides (35-160) mg/dL Cholesterol (130-200) mg/dL LDL Cholesterol Direct (0-129) mg/dL HDL Cholesterol (29-60) mg/dL Free T4 1.04 (0.78-2.19) ng/dL Free T3 pg/mL (2.77-5.27) pg/mL TSH 3rd Generation (0.46-4.68) mIU/mL Laboratory Results - last 24 hr 03/28/18 03/28/18 03/28/18 19:03 19:03 19:03 WBC RBC Hgb Hct MCV MCH MCHC RDW Plt Count MPV Gran % Lymph % (Auto) Ralls % (Auto) Eos % (Auto) Baso % (Auto) Gran # Lymph # (Auto) Ralls # (Auto) Eos # (Auto) Baso # (Auto) PT INR Sodium 132 Potassium 3.9 Chloride 97 L Carbon Dioxide 21 Anion Gap 18 BUN 9 Creatinine 0.5 L Est GFR ( Amer) > 60 Est GFR (Non-Af Amer) > 60 Random Glucose 74 Serum Osmolality 263 L Calcium 8.5 Total Bilirubin AST ALT Alkaline Phosphatase Lactate Dehydrogenase 345 Total Creatine Kinase 884 H CK-MB (CK-2) 10.7 H CK-MB (CK-2) % 1.2 L Troponin I 0.16 H* Total Protein Albumin Globulin Albumin/Globulin Ratio Triglycerides Cholesterol LDL Cholesterol Direct HDL Cholesterol Free T4 1.04 Free T3 pg/mL TSH 3rd Generation 0.57 03/28/18 03/29/18 03/29/18 19:03 01:10 05:50 WBC 1.6 L* D RBC 3.36 L Hgb 11.0 L D Hct 31.1 L MCV 92.6 MCH 32.7 MCHC 35.4 RDW 12.5 Plt Count 131 MPV 8.6 Gran % 74.9 H Lymph % (Auto) 15.7 L Ralls % (Auto) 9.4 H Eos % (Auto) 0.0 L Baso % (Auto) 0.0 Gran # 1.19 L Lymph # (Auto) 0.3 L Ralls # (Auto) 0.2 Eos # (Auto) 0.0 Baso # (Auto) 0.00 PT INR Sodium 132 Potassium 4.0 Chloride 98 Carbon Dioxide 18 L Anion Gap 20 BUN 10 Creatinine 0.5 L Est GFR ( Amer) > 60 Est GFR (Non-Af Amer) > 60 Random Glucose 108 Serum Osmolality Calcium 9.0 Total Bilirubin AST ALT Alkaline Phosphatase Lactate Dehydrogenase 383 Total Creatine Kinase 783 H CK-MB (CK-2) 8.8 H CK-MB (CK-2) % 1.1 L Troponin I 0.12 D Total Protein Albumin Globulin Albumin/Globulin Ratio Triglycerides Cholesterol LDL Cholesterol Direct HDL Cholesterol Free T4 Free T3 pg/mL 2.49 L TSH 3rd Generation 03/29/18 03/29/18 05:50 05:50 WBC RBC Hgb Hct MCV MCH MCHC RDW Plt Count MPV Gran % Lymph % (Auto) Ralls % (Auto) Eos % (Auto) Baso % (Auto) Gran # Lymph # (Auto) Ralls # (Auto) Eos # (Auto) Baso # (Auto) PT 11.2 INR 0.97 Sodium 131 L Potassium 3.7 Chloride 100 Carbon Dioxide 20 L Anion Gap 15 BUN 9 Creatinine 0.5 L Est GFR ( Amer) > 60 Est GFR (Non-Af Amer) > 60 Random Glucose 108 Serum Osmolality Calcium 8.5 Total Bilirubin 0.8 AST 111 H D ALT 81 H Alkaline Phosphatase 61 Lactate Dehydrogenase Total Creatine Kinase 544 H CK-MB (CK-2) 6.2 H CK-MB (CK-2) % 1.1 L Troponin I Total Protein 6.0 Albumin 3.5 Globulin 2.6 Albumin/Globulin Ratio 1.4 Triglycerides 41 Cholesterol 166 LDL Cholesterol Direct 39 HDL Cholesterol > 110 H Free T4 Free T3 pg/mL TSH 3rd Generation EKG/Cardiology Studies: Cardiology / EKG Studies 03/29/18 EKG [ELECTROCARDIOGRAM] Routine Comment: Reason For Exam: bradycardia, cva Critical Care Progress Note - Nutrition Nutrition: Nutrition Category Date Time Status Heart Healthy Diet [DIET] Diets 03/29/18 Lunch Active Attending/Attestation - Attestation I have personally seen and examined this patient.: Yes I have fully participated in the care of the patient.: Yes I have reviewed all pertinent clinical information: Yes Notes (Text): 03/29/18 13:01 The patient was seen and examined at the bedside. Patient care was discussed with resident Medical records, lab studies, and imaging were reviewed and management issues were discussed and formulated. Agree with above treatment plans as outlined in 's note with addition of the following: Basal Ganglia Hemorrhage \ Hyponatremia \ Elevated LFT \ Rhabdomyolisis\ UTI \ ho ETOH abuse -hemodynamic monitoring to maintain MAP>65 -o2 supplementation to maintain Spo2>90 Pao2>60; currently comfortable on NC -CT head shows acute right basal ganglia bleed with midline shift; f\u CTA brain -neurosurgery following and recommends no acute interventions at this time -neurology team consult appreciated -continue ABX and f\u cultures -f\u Bun\Cr and U\o; monitor serial Na+ level; f\u CPK -Thiamine, folic acid and MVI; monitor for ETOH withdrawal -PO diet and aspiration precautions; dysphagia eval -f\u serial LFT -PT\OT eval -DVT prophylaxis with SCD CCM time 25min
--- NOTE | 2018-03-29 13:22 | CP.PCM.PN ---
<Robert Lynch - Last Filed: 03/29/18 13:30> Subjective - Date & Time of Evaluation Date of Evaluation: 03/29/18 Time of Evaluation: 07:10 - Subjective Subjective: Skylar Lynch PGY-1: Hospitalist Service Patient seen and examined at bedside in ICU. Patient c/o of inability to sleep overnight; denies any nausea, vomiting, headache, or seizure like activity. No adverse events noted overnight. Objective - Vital Signs/Intake and Output Vital Signs (last 24 hours): Temp Pulse Resp BP Pulse Ox 98.3 F 111 H 15 163/101 H 96 03/29/18 08:00 03/29/18 11:23 03/29/18 10:43 03/29/18 11:23 03/29/18 02:40 Intake and Output: 03/29/18 03/29/18 06:59 18:59 Intake Total 1400 Output Total 1670 Balance -270 - Medications Medications: Current Medications Dexamethasone (Decadron Inj) 8 mg IVP Q12H REPLACED BY [facility] Last Admin: 03/29/18 06:00 Dose: 8 mg Hydralazine HCl (Apresoline) 10 mg IVP Q4 PRN PRN Reason: Systolic Blood Pressure Last Admin: 03/29/18 08:33 Dose: 10 mg Ceftriaxone Sodium (Rocephin 1 Gram Ivpb) 1 gm in 100 mls @ 100 mls/hr IVPB DAILY REPLACED BY [facility] PRN Reason: Protocol Last Admin: 03/29/18 11:22 Dose: 100 mls/hr Lorazepam (Ativan) 1 mg IVP Q2H PRN; Protocol PRN Reason: Seizure activity Metoprolol Tartrate (Lopressor) 25 mg PO BID REPLACED BY [facility] Last Admin: 03/29/18 11:23 Dose: 25 mg Pantoprazole Sodium (Protonix Inj) 40 mg IVP DAILY REPLACED BY [facility] Last Admin: 03/29/18 09:07 Dose: 40 mg - Labs Labs: 03/29/18 05:50 03/29/18 05:50 PT 11.2 SECONDS (9.4-12.5) 03/29/18 05:50 INR 0.97 (0.93-1.08) 03/29/18 05:50 - Constitutional Appears: Chronically Ill - Head Exam Additional comments: racoon eyes, blackened-bruised nose - Eye Exam Additional comments: blind in right eye, left eye normal-constricts to light and EOMI - ENT Exam ENT Exam: Mucous Membranes Moist Additional comments: tongue midline - Respiratory Exam Respiratory Exam: Clear to Ausculation Bilateral, NORMAL BREATHING PATTERN. absent: Accessory Muscle Use - Cardiovascular Exam Cardiovascular Exam: RRR, +S1, +S2 - GI/Abdominal Exam GI & Abdominal Exam: Soft, Normal Bowel Sounds - Extremities Exam Additional comments: legs have multiple abrasions - Neurological Exam Neurological Exam: Awake, Oriented x3 Neuro motor strength exam: Left Upper Extremity: 2/1, Left Lower Extremity: 2/1 , Right Lower Extremity: 5 - Psychiatric Exam Psychiatric exam: Depressed, Flat Affect - Skin Additional comments: racoon eyes, blackened-bruised nose, right lateral arm has 3 inch by 2 inch black bruises, left pelvis has some ecchymosis, bilateral legs have multiple abrasions Assessment and Plan - Assessment and Plan (Free Text) Assessment: 62 year old female with a past medical history of thyroidism, hypertension, alcohol abuse, who presents to [facility] [place] [facility] after sustaining multiple falls in the past ten days and was found by EMS in her residence unable to stand from the couch and with urinary incontinent. CT of the head in the ED revealed an acute 2.3 x 5.1 cm acute hemorrhage in the right basal ganglia with a moderate amount of surrounding edema with 6 mm of midline shift to the left. Plan: 1) Intracranial hemorrhage warranting ICU admission and monitoring - Repeat CT shows there is no change in the appearance of the acute hemorrhage in the right basal ganglia. This measures 2.2 x 4.8 cm. There is a moderate amount of surrounding edema. There is 6 mm of midline shift to the left. - Neurochecks q1h - Fall precautions - Seizure precautions - Speech and swallow evaluation - NPO until patient passes swallow evaluation - HOB at 45 degrees - CIWA protocol - Ativan 1 mg q2h PRN for seizure like activity, not patient's baseline tremor - Neurology, Neurosurgery, Cardiology, and ICU consulted - ICU team has ordered angiography of the head - Dexamethasone 8 mg q12h - Neurosurgery defers any surgical intervention at this time 2) UTI - Ceftriaxone 1 gram daily intravenously 3) Hyponatremia: 131, resolved - Urine creatinine, urine Na, urine osmolality - NS 100 ml/hr - Continue to monitor 4) Rhabdomyolysis with CPK of 1201--> 544 - NS 100 ml/hr - CPK repeat tomorrow 5) Elevated LFT's - 2:1 ratio of AST:ALT, trending down from 223:119 to 111:81 6) History of hypothyroidism - TSH 0.57 - Free T4 1.04 - T3 2.49 7) Elevated troponin - 0.16, 0.16, 0.12 - Echocardiogram ordered - Cardiology consulted, Dr. Browne 8) Potential for Alcohol withdrawal - CIWA protocol - Ativan 1 mg q2h PRN for LISSETTE 9) Hypertension - Hydralazine 10 mg q4h PRN - Metoprolol tartarate 25 mg BID 10) DVT/GI prophylaxis - SCD - Protonix 40 mg IVP Case reviewed and discussed with attending physician, Dr. Coello <Nicole Coello - Last Filed: 03/29/18 17:07> Objective - Vital Signs/Intake and Output Vital Signs (last 24 hours): Temp Pulse Resp BP Pulse Ox 98.1 F 69 25 H 139/80 95 03/29/18 12:00 03/29/18 14:00 03/29/18 14:00 03/29/18 14:00 03/29/18 14:00 Intake and Output: 03/29/18 03/29/18 06:59 18:59 Intake Total 1400 Output Total 1670 Balance -270 - Medications Medications: Current Medications Dexamethasone (Decadron Inj) 8 mg IVP Q12H REPLACED BY [facility] Last Admin: 03/29/18 06:00 Dose: 8 mg Hydralazine HCl (Apresoline) 10 mg IVP Q4 PRN PRN Reason: Systolic Blood Pressure Last Admin: 03/29/18 08:33 Dose: 10 mg Ceftriaxone Sodium (Rocephin 1 Gram Ivpb) 1 gm in 100 mls @ 100 mls/hr IVPB DAILY [facility] PRN Reason: Protocol Last Admin: 03/29/18 11:22 Dose: 100 mls/hr Lorazepam (Ativan) 1 mg IVP Q2H PRN; Protocol PRN Reason: Seizure activity Metoprolol Tartrate (Lopressor) 25 mg PO BID REPLACED BY [facility] Last Admin: 03/29/18 11:23 Dose: 25 mg Pantoprazole Sodium (Protonix Inj) 40 mg IVP DAILY REPLACED BY [facility] Last Admin: 03/29/18 09:07 Dose: 40 mg - Labs Labs: 03/29/18 05:50 03/29/18 05:50 PT 11.2 SECONDS (9.4-12.5) 03/29/18 05:50 INR 0.97 (0.93-1.08) 03/29/18 05:50 Attending/Attestation - Attestation I have personally seen and examined this patient.: Yes I have fully participated in the care of the patient.: Yes I have reviewed all pertinent clinical information, including history, physical exam and plan: Yes Notes (Text): 03/29/18 17:02 62 year old female with past medical history of hyperthyroidism, hypertension, chronic alcohol abuse and chronic hyponatremia who presented with complaint of frequent falls. CT head showed acute hemorrhage in the right basal ganglia with surrounding edema and midline shift. Repeat CT head this morning shows stable findings without acute changes. Neurosurgery is following and recommended close monitoring without acute acute neurosurgical intervention at this time. Neurology evaluation was appreciated as well and CTA head/neck is ordered. She was also found to have hyponatremia and mild troponin elevation which have improved. Nephrology is following and cardiology evaluation was also requested. Echocardiogram is pending. Continue with banana bag and ativan prn. Watch for alcohol withdrawal symptoms. She was counselled on alcohol abstinence. Leukopenia noted this morning; may be secondary to chronic ETOH vs medication ( abx). Will monitor closely for now. She is on ceftriaxone for UTI while awaiting UCx. Elevated LFTs likely secondary to chronic ETOH abuse. Will continue to monitor closely. PT evaluation was also requested which she decline for today. Nicole Coello MD Hospitalist.
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
[2018-03-29] MEDS ORDERED: Iohexol 350 MG/100 ML VIAL ONE ×2 (13:39→14:26)
[2018-03-29] MEDS ORDERED: Sodium Chloride 0.9% 1,000 ML IV SCH (14:30)
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
--- NOTE | 2018-03-30 05:39 | CP.PCM.PN ---
Subjective - Date & Time of Evaluation Date of Evaluation: 03/30/18 Time of Evaluation: 05:36 - Subjective Subjective: Ms. Luther was seen and examined at the bedside in ICU. She is alert, oriented with multiple echymosis noted in her body including bilateral periorbital area. She denies any headache, dizziness. She is able to follow simple commands with left facial droop, left side neglect. left side paraplegia. She claims of symmetrical sensation between her right and left side. She remains with head and neck tremors. There was no untoward events overnight. Objective - Vital Signs/Intake and Output Vital Signs (last 24 hours): Temp Pulse Resp BP Pulse Ox 98.2 F 65 23 137/81 94 L 03/29/18 16:00 03/30/18 02:00 03/30/18 02:00 03/30/18 02:00 03/30/18 02:00 Intake and Output: 03/29/18 03/30/18 18:59 06:59 Intake Total 1120 Output Total 650 Balance 470 - Medications Medications: Current Medications Dexamethasone (Decadron Inj) 8 mg IVP Q12H [facility] Last Admin: 03/29/18 18:01 Dose: 8 mg Hydralazine HCl (Apresoline) 10 mg IVP Q4 PRN PRN Reason: Systolic Blood Pressure Last Admin: 03/30/18 00:20 Dose: 10 mg Ceftriaxone Sodium (Rocephin 1 Gram Ivpb) 1 gm in 100 mls @ 100 mls/hr IVPB DAILY [facility] PRN Reason: Protocol Last Admin: 03/29/18 11:22 Dose: 100 mls/hr Lorazepam (Ativan) 1 mg IVP Q2H PRN; Protocol PRN Reason: Seizure activity Metoprolol Tartrate (Lopressor) 25 mg PO BID [facility] Last Admin: 03/29/18 18:00 Dose: 25 mg Pantoprazole Sodium (Protonix Inj) 40 mg IVP DAILY [facility] Last Admin: 03/29/18 09:07 Dose: 40 mg - Labs Labs: 03/29/18 05:50 03/29/18 05:50 PT 11.2 SECONDS (9.4-12.5) 03/29/18 05:50 INR 0.97 (0.93-1.08) 03/29/18 05:50 - Constitutional Appears: No Acute Distress - Head Exam Additional comments: periorbital ecchymosis - Eye Exam Pupil Exam: Mydriatic, PERRL Additional comments: 4 mm bilaterally. - Neurological Exam Neurological Exam: Alert, Awake, Oriented x3 Neuro motor strength exam: Left Upper Extremity: 0, Right Upper Extremity: 4, Left Lower Extremity: 0, Right Lower Extremity: 4 Additional comments: alert, oriented , follows commands, with left side paraplegia, sensation is intact. Assessment and Plan (1) Intracranial bleed Assessment & Plan: Case discussed with Dr. Cardenas, continue all current medical, physical, occupational, and speech therapies. pending CTA of the head and neck, echocardiogram. Recommend keep head of bed elevated at least 30 degrees, blood pressure control, acute rehab for discharge planning, continue CIWA protocol, treat any underlying electrolyte abnormalities, hematology consult for her low WBC, lipid panel, and HgbA1C. Status: Acute
[2018-03-30 06:57] LABS: GRAN # 3.85 (1.4-6.5); GRAN % 78.6 % (50.0-68.0); HEMOGLOBIN 10.8 g/dL (12.0-16.0); LYMPH # 0.5 (1.2-3.4); MEAN CELL VOLUME 93.8 fl (80.0-105.0); MEAN CORPUSCULAR HEMOGLOBIN 32.1 pg (25.0-35.0); MEAN CORPUSCULAR HGB CONC 34.3 g/dl (31.0-37.0); MEAN PLATELET VOLUME 9.1 fl (7.0-11.0); MONO # 0.6 (0.1-0.6); MONO % 11.4 % (1.0-6.0); RBC 3.36 10^6/uL (3.5-6.1); RED CELL DISTRIBUTION WIDTH 12.6 % (11.5-14.5); WHITE BLOOD COUNT 4.9 10^3/ul (4.5-11.0)
[2018-03-30 07:20] LABS: INR 0.91 (0.93-1.08); PROTHROMBIN TIME 10.4 SECONDS (9.4-12.5)
[2018-03-30 07:22] LABS: HDL CHOLESTEROL 100 mg/dL (29-60)
[2018-03-30 07:24] LABS: ALB/GLOB RATIO 1.2 (1.1-1.8); ALBUMIN 3.3 g/dL (3.0-4.8); ALT/SGPT 67 U/L (7-56); AST/SGOT 73 U/L (14-36); BLOOD UREA NITROGEN 13 mg/dL (7-21); GFR NON-AFRICAN AMERICAN > 60
[2018-03-30 07:33] LABS: LDL CHOLESTEROL 44 mg/dL (0-129)
[2018-03-30] MEDS: Dexamethasone 4 mg/1 ml IVP SCH ×2 (08:12→21:13)
[2018-03-30] MEDS ORDERED: Potassium Chloride 40 mEq/30 ml LIQ UD PO ONE (09:20)
[2018-03-30] MEDS: cefTRIAXone 1 gm 1 GM/100 ML BAG IVPB SCH (09:22)
[2018-03-30] MEDS ORDERED: Potassium Chloride 20 mEq ER Tab PO ONE (09:57)
--- NOTE | 2018-03-30 10:52 | CT ---
PROCEDURE: CT Angiography of the neck with contrast HISTORY: r/o aneursym as cause of hem stroke COMPARISON: None available. TECHNIQUE: Contiguous axial images of the neck were obtained from the level of the skull-base to the superior mediastinum in the arteriographic phase of enhancement. Coronal and sagittal reformats or also generated. IV contrast dose: Radiation Dose - DLP: mGy-cm This CT exam was performed using one or more of the following dose reduction techniques: Automated exposure control, adjustment of the mA and/or kV according to patient size, and/or use of iterative reconstruction technique. FINDINGS: RIGHT CAROTID ARTERIES: There is a large calcified plaque in the right internal carotid artery producing a moderate degree of stenosis LEFT CAROTID ARTERIES: Calcified plaque at the bifurcation without stenosis VERTEBRAL ARTERIES: Right Vertebral Artery: Normal. Left Vertebral Artery: Dominant OTHER FINDINGS: None. IMPRESSION: Large calcified plaque in the right internal carotid producing a moderate degree of stenosis Calcified plaque at the left bifurcation without stenosis CT Angiography of the Brain. HISTORY: r/o aneursym as cause of hem stroke COMPARISON: None available. TECHNIQUE: CT angiography of the intracranial arteries was performed. Coronal and sagittal maximum intensity projection reformated images were generated. This CT exam was performed using one or more of the following dose reduction techniques: Automated exposure control, adjustment of the mA and/or kV according to patient size, and/or use of iterative reconstruction technique. FINDINGS: INTERNAL CEREBRAL ARTERIES: Unremarkable. The skull base, petrous, cavernous and supraclinoid segments are bilaterally widely patent. ANTERIOR CEREBRAL ARTERIES: Unremarkable. A1 and A2 segments are widely patent. Smaller distal branches unremarkable, as visualized. MIDDLE CEREBRAL ARTERIES: Unremarkable. M1 and M2 segments are widely patent. Perisylvian branches grossly symmetric. POSTERIOR CIRCULATION: Basilar Artery: Unremarkable. Distal Vertebral Arteries: Unremarkable. Posterior Cerebral Arteries: Unremarkable. Posterior Inferior Cerebellar Arteries: Unremarkable. ANEURYSM/ VASCULAR MALFORMATIONS: None. OTHER FINDINGS: None. IMPRESSION: No evidence of aneurysm
--- NOTE | 2018-03-30 11:11 | CP.PCM.PN ---
Subjective - Date & Time of Evaluation Date of Evaluation: 03/30/18 Time of Evaluation: 11:09 - Subjective Subjective: Nephrology Consultation Note: Assessment: critical Basal ganglia hemorrhage Hypo-osmolar euvolemic hyponatremia likely due to beer potomania, low solute intake and Polydipsia HTN (I12.9) hx of optic neuritis UTI, fall, rhabdomyolysis, pancytopenia chronic etoh abuse Plan Hypertension control with meds as ordered. Re; targets of BP will defer to neurology and ICU. pt started on norvasc. if BP remains elevated consider to add ACEI or ARB as next choice. avoid thiazide diuretics no need for hypertonic saline at this time from hyponatremia perspective. avoid rise is serum Na >6-8 meq over 24 hrs. pt to abstain from alcohol. improve protein diet intake and follow oral fluid restriction to 1200 mL/day Glycemic control check urine Na and urine osmol supplement KCL 40 meq today dose meds for GFR >60 Further work up/management as per primary team Thanks for allowing me to participate in care of your patient. Will follow patient with you. Please call if any Qs. d/w team. Dr Sean Mejia Office: [phone] Chief Complaint; fall and left side weakness Reason for consult: hyponatremia HPI: Pt is a 62 y/o F with hx of hypertension, optic neuritis, chronic alcohol abuse, hyponatremia due to beer potomania and polydipsia came with fall and left side weakness, found to have basal ganglia hemorrhage and also found to have hyponatremia hence renal consulted for further management Denies palpitation, shortness of breath, leg swelling Denies blood or bubbles in urine ROS: Constitutional Symptoms: Denies fever. No chills. Cardiovascular: no chest pain. There is no shortness of breath. Pulmonary: No shortness of breath no cough. Rest All other negative except as mentioned in HPI Physical Examination: General Appearance: Comfortable, in no acute respiratory distress, co-operative . ill appearing Vitals reviewed and noted as below Head; normocephalic, facial periorbital echymoses + ENT: no ulcers no thrush. Tongue is midline. Oropharynx: no rash or ulcers. EYES: Pupils are equal, round and reactive to light accommodation. Eye muscles and extraocular movement intact. Sclera is anicteric. Neck; supple no lymphadenopathy, no thyromegaly or bruit Lungs: Normal respiratory rate/effort. Breath sounds bilateral equal and clear Heart: Normal rate. s1s2 normal. No rub or gallop. Extremities: no edema. No varicose veins Neurological: Patient is alert, awake and oriented to person, place and time. has left side weakness. facial tremors noted Skin: Warm and dry. Normal turgor. No rash. Palpitation: Normal elasticity for age Abdomen: Abdomen is soft. Bowel sounds +. There is no abdominal tenderness, no guarding/rigidity no organomegaly Psych: limited insight and flat affect/mood MSK: no joint tenderness or swelling. Digits and nails normal, no deformity : kidney or bladder not palpable Labs/imaging/EKG reviewed. Past medical history, past surgical history, family history, social history, allergy reviewed and noted as below Family hx: no hx of CKD. Rest non-contributory Work up: CT brain: basall ganglia hemorrhage Serum osmol 263 TSH 0.5 TGL 41 CK 540 Objective - Vital Signs/Intake and Output Vital Signs (last 24 hours): Temp Pulse Resp BP Pulse Ox 98.1 F 93 H 20 175/102 H 97 03/30/18 08:00 03/30/18 09:21 03/30/18 08:52 03/30/18 10:47 03/30/18 08:52 Intake and Output: 03/30/18 03/30/18 06:59 18:59 Intake Total 400 Output Total 500 Balance -100 - Medications Medications: Current Medications Amlodipine Besylate (Norvasc) 10 mg PO DAILY [facility] Last Admin: 03/30/18 10:47 Dose: 10 mg Dexamethasone (Decadron Inj) 8 mg IVP Q12H JOSSE Last Admin: 03/30/18 08:12 Dose: 8 mg Hydralazine HCl (Apresoline) 10 mg IVP Q4 PRN PRN Reason: Systolic Blood Pressure Last Admin: 03/30/18 00:20 Dose: 10 mg Ceftriaxone Sodium (Rocephin 1 Gram Ivpb) 1 gm in 100 mls @ 100 mls/hr IVPB DAILY JOSSE PRN Reason: Protocol Last Admin: 03/30/18 09:22 Dose: 100 mls/hr Latanoprost (Xalatan Opht) 0 ml OU HS JOSSE Lorazepam (Ativan) 1 mg IVP Q2H PRN; Protocol PRN Reason: Seizure activity Metoprolol Tartrate (Lopressor) 25 mg PO BID [facility] Last Admin: 03/30/18 09:21 Dose: 25 mg Pantoprazole Sodium (Protonix Ec Tab) 40 mg PO 0600 [facility] - Labs Labs: 03/30/18 06:35 03/30/18 06:35 PT 10.4 SECONDS (9.4-12.5) 03/30/18 06:35 INR 0.91 (0.93-1.08) L 03/30/18 06:35
--- NOTE | 2018-03-30 14:13 | CP.PCM.PN ---
<Robert Lynch - Last Filed: 03/30/18 19:53> Subjective - Date & Time of Evaluation Date of Evaluation: 03/30/18 Time of Evaluation: 07:10 - Subjective Subjective: Robert Lynch DO, PGY-1: Hospitalist Service Patient seen and examined at bedside. Patient reports another night of insomnia. Blood pressure is still not controlled per chart review. ICU teams input appreciated. Objective - Vital Signs/Intake and Output Vital Signs (last 24 hours): Temp Pulse Resp BP Pulse Ox 98.1 F 93 H 20 175/102 H 97 03/30/18 08:00 03/30/18 09:21 03/30/18 08:52 03/30/18 10:47 03/30/18 08:52 Intake and Output: 03/30/18 03/30/18 06:59 18:59 Intake Total 400 Output Total 500 Balance -100 - Medications Medications: Current Medications Amlodipine Besylate (Norvasc) 10 mg PO DAILY [facility] Last Admin: 03/30/18 10:47 Dose: 10 mg Dexamethasone (Decadron Inj) 8 mg IVP Q12H JOSSE Last Admin: 03/30/18 08:12 Dose: 8 mg Diazepam (Valium) 5 mg PO HS PRN; Protocol PRN Reason: Insomnia Hydralazine HCl (Apresoline) 10 mg IVP Q4 PRN PRN Reason: Systolic Blood Pressure Last Admin: 03/30/18 00:20 Dose: 10 mg Hydralazine HCl (Apresoline) 50 mg PO BID [facility] Ceftriaxone Sodium (Rocephin 1 Gram Ivpb) 1 gm in 100 mls @ 100 mls/hr IVPB DAILY JOSSE PRN Reason: Protocol Last Admin: 03/30/18 09:22 Dose: 100 mls/hr Latanoprost (Xalatan Opht) 0 ml OU HS JOSSE Lorazepam (Ativan) 1 mg IVP Q2H PRN; Protocol PRN Reason: Seizure activity Losartan Potassium (Cozaar) 25 mg PO DAILY [facility] Metoprolol Tartrate (Lopressor) 50 mg PO BID [facility] Pantoprazole Sodium (Protonix Ec Tab) 40 mg PO 0600 [facility] - Labs Labs: 03/30/18 06:35 03/30/18 06:35 PT 10.4 SECONDS (9.4-12.5) 03/30/18 06:35 INR 0.91 (0.93-1.08) L 03/30/18 06:35 Assessment and Plan - Assessment and Plan (Free Text) Assessment: 62 year old female with a past medical history of thyroidism, hypertension, alcohol abuse, who [place] [facility] multiple falls in the past ten days and was found by EMS in her residence unable to stand from the couch and with urinary incontinent. CT of the head in the ED revealed an acute 2.3 x 5.1 cm acute hemorrhage in the right basal ganglia with a moderate amount of surrounding edema with 6 mm of midline shift to the left. Plan: 1) Intracranial hemorrhage warranting ICU admission and monitoring - Repeat CT shows there is no change in the appearance of the acute hemorrhage in the right basal ganglia. This measures 2.2 x 4.8 cm. There is a moderate amount of surrounding edema. There is 6 mm of midline shift to the left. - CTA head and neck RIGHT CAROTID ARTERIES: There is a large calcified plaque in the right internal carotid artery producing a moderate degree of stenosis LEFT CAROTID ARTERIES: Calcified plaque at the bifurcation without stenosis VERTEBRAL ARTERIES: Right Vertebral Artery: Normal. Left Vertebral Artery: Dominant OTHER FINDINGS: None. IMPRESSION: Large calcified plaque in the right internal carotid producing a moderate degree of stenosis Calcified plaque at the left bifurcation without stenosis CT Angiography of the Brain. HISTORY: r/o aneursym as cause of hem stroke COMPARISON: None available. TECHNIQUE: CT angiography of the intracranial arteries was performed. Coronal and sagittal maximum intensity projection reformated images were generated. This CT exam was performed using one or more of the following dose reduction techniques: Automated exposure control, adjustment of the mA and/or kV according to patient size, and/or use of iterative reconstruction technique. FINDINGS: INTERNAL CEREBRAL ARTERIES: Unremarkable. The skull base, petrous, cavernous and supraclinoid segments are bilaterally widely patent. ANTERIOR CEREBRAL ARTERIES: Unremarkable. A1 and A2 segments are widely patent. Smaller distal branches unremarkable, as visualized. MIDDLE CEREBRAL ARTERIES: Unremarkable. M1 and M2 segments are widely patent. Perisylvian branches grossly symmetric. POSTERIOR CIRCULATION: Basilar Artery: Unremarkable. Distal Vertebral Arteries: Unremarkable. Posterior Cerebral Arteries: Unremarkable. Posterior Inferior Cerebellar Arteries: Unremarkable. ANEURYSM/ VASCULAR MALFORMATIONS: None. OTHER FINDINGS: None. IMPRESSION: No evidence of aneurysm - Neurochecks q1h - Fall precautions - Seizure precautions - Speech and swallow evaluation: recommend thin liquid - NPO until patient passes swallow evaluation - HOB at 30 degrees - [facility] protocol - Ativan 1 mg q2h PRN for seizure like activity, not patient's baseline tremor - Neurology, Neurosurgery, Cardiology, and ICU consulted - ICU team has ordered angiography of the head - Dexamethasone 8 mg q12h - Neurosurgery defers any surgical intervention at this time - Physical therapy recommends acute rehab center upon discharge 2) UTI - Vantin 200 mg PO q12h 3) Hyponatremia - Resolved, continue to monitor via serial CMP 4) Rhabdomyolysis -Resolved 5) Elevated LFT's - Resolved 6) History of hypothyroidism - TSH 0.57 - Free T4 1.04 - T3 2.49 7) Elevated troponin - 0.16, 0.16, 0.12 - Echocardiogram ordered - Cardiology consulted, Dr. Browne, appreciate recommendations 8) Potential for Alcohol withdrawal - [facility] protocol - Ativan 1 mg q2h PRN for LISSETTE 9) Hypertension - Hydralazine 10 mg q4h PRN - Metoprolol tartarate increased from 25 mg BID to 50 mg BID - Amlodipine 10 mg PO daily (added) 10) DVT/GI prophylaxis - SCD - Protonix 40 mg IVP Case reviewed and discussed with attending physician, Dr. Coello <Nicole Coello - Last Filed: 03/31/18 07:42> Objective - Vital Signs/Intake and Output Vital Signs (last 24 hours): Temp Pulse Resp BP Pulse Ox 97.8 F 67 21 166/102 H 94 L 03/30/18 16:00 03/31/18 02:00 03/31/18 02:00 03/31/18 02:00 03/31/18 02:00 - Medications Medications: Current Medications Amlodipine Besylate (Norvasc) 5 mg PO DAILY [facility] Cefpodoxime Proxetil (Vantin) 200 mg PO Q12 [facility] Dexamethasone (Decadron Inj) 8 mg IVP Q12H JOSSE Last Admin: 03/31/18 07:25 Dose: 8 mg Diazepam (Valium) 5 mg PO HS PRN; Protocol PRN Reason: Insomnia Hydralazine HCl (Apresoline) 10 mg IVP Q4 PRN PRN Reason: Systolic Blood Pressure Last Admin: 03/30/18 00:20 Dose: 10 mg Latanoprost (Xalatan Opht) 0 ml OU HS [facility] Last Admin: 03/30/18 21:14 Dose: 2.5 ml Lorazepam (Ativan) 1 mg IVP Q2H PRN; Protocol PRN Reason: Seizure activity Metoprolol Tartrate (Lopressor) 50 mg PO BID [facility] Last Admin: 03/30/18 17:09 Dose: 50 mg Pantoprazole Sodium (Protonix Ec Tab) 40 mg PO 0600 [facility] Last Admin: 03/31/18 05:36 Dose: 40 mg - Labs Labs: 03/31/18 05:30 03/31/18 05:30 PT 10.4 SECONDS (9.4-12.5) 03/30/18 06:35 INR 0.91 (0.93-1.08) L 03/30/18 06:35 Attending/Attestation - Attestation I have personally seen and examined this patient.: Yes I have fully participated in the care of the patient.: Yes I have reviewed all pertinent clinical information, including history, physical exam and plan: Yes Notes (Text): 03/30/18 62 year old female with past medical history of hyperthyroidism, hypertension, chronic alcohol abuse and chronic hyponatremia who presented with complaint of frequent falls. CT head showed acute hemorrhage in the right basal ganglia with surrounding edema and midline shift. Repeat CT head this morning showed stable findings without acute changes. CTA head and neck was reviewed as above. Neurosurgery is following and recommended close monitoring without acute acute neurosurgical intervention at this time. Patient is on decadron. Neurology is following as well. She was also found to have hyponatremia and mild troponin elevation which have improved. Nephrology and cardiology are following. Echocardiogram was reviewed. Continue with banana bag and ativan prn. Watch for alcohol withdrawal symptoms. She was counselled on alcohol abstinence. Leukopenia has improved. She is on vantin for E coli UTI. Elevated LFTs likely secondary to chronic ETOH abuse. Will continue to monitor closely. Continue with physical therapy. Nicole Coello MD Hospitalist.
--- NOTE | 2018-03-30 17:37 | CARD ---
APPROVED REPORT EXAM: Two-dimensional and M-mode echocardiogram with Doppler and color Doppler. INDICATION LVFX/CEREBRAL BLEED 2D DIMENSIONS Left Atrium (2D)4.9 (1.6-4.0cm)IVSd1.1 (0.7-1.1cm) LVDd4.5 (3.9-5.9cm)PWd1.1 (0.7-1.1cm) LVDs3.2 (2.5-4.0cm)FS (%) 29.1 % LVEF (%)56.1 (>50%) M-Mode DIMENSIONS Aortic Root3.30 (2.2-3.7cm)Aortic Cusp Exc.1.70 (1.5-2.0cm) Aortic Valve AoV Peak Gnpcrdxb400.0cm/Eliza Peak GR.11mmHgLVOT Peak Hgndaljb407.0cm/s LVOT VTI29.00cm Mitral Valve MV E Ytxzebtc39.7cm/sMV A Xfpotqdl52.9cm/sE/A ratio0.7 TDI Lateral E' Peak V7.51cm/sMedial E' Peak V5.95cm/sE/Lateral E'8.6 E/Medial E'10.9 Pulmonary Valve PV Peak Ciwyfjkx76.0cm/sPV Peak Grad.2mmHg Tricuspid Valve TR Peak Tpdnbcgd924dj/sRAP NNUQQAAS22tqJoYW Peak Gr.17mmHg [id number] LEFT VENTRICLE The left ventricle is normal size. There is normal left ventricular wall thickness. The left ventricular function is normal. The left ventricular ejection fraction is within the normal range. There is normal LV segmental wall motion. Transmitral Doppler flow pattern is Grade I-abnormal relaxation pattern. RIGHT VENTRICLE The right ventricle is normal size. There is normal right ventricular wall thickness. The right ventricular systolic function is normal. ATRIA The left atrium is moderately dilated. The right atrium size is normal. AORTIC VALVE The aortic valve is mildly thickened. No aortic regurgitation is present. There is no aortic valvular stenosis. MITRAL VALVE The mitral valve is mildly thickened. Mitral regurgitation is moderate. TRICUSPID VALVE The tricuspid valve is normal in structure. There is no tricuspid valve regurgitation noted. PULMONIC VALVE The pulmonary valve is normal in structure. There is no pulmonic valvular regurgitation. PERICARDIAL EFFUSION There is no pleural effusion. <Conclusion> The left ventricle is normal size. There is normal left ventricular wall thickness. The left ventricular function is normal. The left ventricular ejection fraction is within the normal range. There is normal LV segmental wall motion. Transmitral Doppler flow pattern is Grade I-abnormal relaxation pattern. Mitral regurgitation is moderate.
[2018-03-30] MEDS: Latanoprost 2.5 ml Opht Soln OU SCH (21:14)
--- NOTE | 2018-03-30 22:09 | PN ---
DATE: 03/30/2018 SUBJECTIVE: The patient is oriented to place. She is experiencing weakness in her left arm. PHYSICAL EXAMINATION VITAL SIGNS: Blood pressure 165/93, heart rate 63, temperature 97.8, respirations 27. HEENT: Significant periorbital ecchymosis bilaterally. HEART: S1 and S2 regular. LUNGS: Clear. ABDOMEN: Soft EXTREMITIES: No edema. LABORATORY DATA: Today's hemoglobin and hematocrit are 10.8 and 31.5; white count and platelet count are within normal limits. Today's SMA-7 is within normal limits except for creatinine 0.5 and glucose of 117. Head and neck CT angio revealed no evidence of aneurysm. Echocardiographic study done today at bedside revealed normal ventricular size, wall thickness, and systolic function, moderate mitral insufficiency. ASSESSMENT: 1. Right basal ganglia hemorrhage measuring 2.2 x 4.8 cm. 2. Improved leukopenia and improved hyponatremia. 4. Borderline troponin elevation. RECOMMENDATIONS: Continue hydralazine 10 mg intravenously every 4 hours p.r.n., Decadron 8 mg intravenously twice a day, Lopressor 50 mg once a day, Norvasc 10 mg once a day. Junior Browne MD
[2018-03-31] MEDS: Pantoprazole 40 mg EC Tab PO SCH (05:36)
[2018-03-31 06:24] LABS: GRAN # 4.57 (1.4-6.5); GRAN % 85.7 % (50.0-68.0); HEMOGLOBIN 11.3 g/dL (12.0-16.0); LYMPH # 0.4 (1.2-3.4); LYMPH % 6.8 % (22.0-35.0); MEAN CORPUSCULAR HEMOGLOBIN 32.3 pg (25.0-35.0); MEAN CORPUSCULAR HGB CONC 34.3 g/dl (31.0-37.0); MONO # 0.4 (0.1-0.6); MONO % 7.5 % (1.0-6.0); RBC 3.5 10^6/uL (3.5-6.1); RED CELL DISTRIBUTION WIDTH 12.5 % (11.5-14.5); WHITE BLOOD COUNT 5.3 10^3/ul (4.5-11.0)
[2018-03-31 06:25] LABS: IRON 40 ug/dL (45-180)
[2018-03-31 06:28] LABS: ALB/GLOB RATIO 1.4 (1.1-1.8); ALBUMIN 3.9 g/dL (3.0-4.8); ALT/SGPT 67 U/L (7-56); AST/SGOT 74 U/L (14-36); BLOOD UREA NITROGEN 13 mg/dL (7-21); CALCIUM 9.2 mg/dL (8.4-10.5); GFR NON-AFRICAN AMERICAN > 60
[2018-03-31 06:35] LABS: % IRON SATURATION 14 % (20-55); TOTAL IRON BINDING CAPACITY 279 ug/dL (265-497)
[2018-03-31] MEDS: Dexamethasone 4 mg/1 ml IVP SCH (07:25)
[2018-03-31] MEDS: Cefpodoxime (Vantin) 200 mg Tab PO SCH ×2 (09:11→22:03)
[2018-03-31] MEDS ORDERED: DiphenhydrAMINE 50 mg/ml Inj IVP STA (14:01)
--- NOTE | 2018-03-31 14:11 | CP.PCM.PN ---
<Robert Lynch - Last Filed: 03/31/18 15:26> Subjective - Date & Time of Evaluation Date of Evaluation: 03/31/18 Time of Evaluation: 14:05 - Subjective Subjective: Robert Lynch DO, PGY-1: Hospitalist Service Patient seen and examined at bedside. Patient has become delirious and was hallucinating in the AM. The patient was able to re-directed and at times knew she was in the hospital, and was aware that she was seeing things that were not there; however, later on in the afternoon, the patient no longer was aware she was hallucinating and embraced the dream state she was already dissociating towards. At this point, a 1:1 was ordered and her Ativan dose was increased and kept as PRN. A multitude of factors could contribute to this, including, but not limited to sleep deprivation, ICU delirium, steroid-associated encephalopathy, alcohol withdrawal, cognitive condition. Case was discussed in detail with the transformation consultant(s) on the case. Objective - Vital Signs/Intake and Output Vital Signs (last 24 hours): Temp Pulse Resp BP Pulse Ox 97.2 F L 68 41 H 171/101 H 98 03/31/18 12:00 03/31/18 12:13 03/31/18 12:00 03/31/18 12:13 03/31/18 12:00 - Medications Medications: Current Medications Amlodipine Besylate (Norvasc) 5 mg PO DAILY [facility] Last Admin: 03/31/18 09:10 Dose: 5 mg Cefpodoxime Proxetil (Vantin) 200 mg PO Q12 [facility] Last Admin: 03/31/18 09:11 Dose: 200 mg Diazepam (Valium) 5 mg PO HS PRN; Protocol PRN Reason: Insomnia Hydralazine HCl (Apresoline) 10 mg IVP Q4 PRN PRN Reason: Systolic Blood Pressure Last Admin: 03/31/18 12:13 Dose: 10 mg Latanoprost (Xalatan Opht) 0 ml OU HS [facility] Last Admin: 03/30/18 21:14 Dose: 2.5 ml Lorazepam (Ativan) 2 mg IVP Q6H PRN; Protocol PRN Reason: Agitation Metoprolol Tartrate (Lopressor) 50 mg PO BID [facility] Last Admin: 03/31/18 09:09 Dose: 50 mg Pantoprazole Sodium (Protonix Ec Tab) 40 mg PO 0600 [facility] Last Admin: 03/31/18 05:36 Dose: 40 mg - Labs Labs: 03/31/18 05:30 03/31/18 05:30 PT 10.4 SECONDS (9.4-12.5) 03/30/18 06:35 INR 0.91 (0.93-1.08) L 03/30/18 06:35 - Constitutional Appears: Other (hallucinating) - Head Exam Additional comments: periorbital ecchymosis, blackened-bruised nose - Eye Exam Eye Exam: EOMI Additional comments: right lid lad, left facial droop - ENT Exam ENT Exam: Mucous Membranes Moist - Neck Exam Neck Exam: Normal Inspection - Respiratory Exam Respiratory Exam: Clear to Ausculation Bilateral, NORMAL BREATHING PATTERN. absent: Accessory Muscle Use - Cardiovascular Exam Cardiovascular Exam: RRR, +S1, +S2 - GI/Abdominal Exam GI & Abdominal Exam: Soft, Normal Bowel Sounds - Extremities Exam Extremities Exam: Normal Inspection - Neurological Exam Neurological Exam: Awake. absent: Oriented x3 Neuro motor strength exam: Left Upper Extremity: 2/1, Right Upper Extremity: 5, Left Lower Extremity: 2/1, Right Lower Extremity: 5 - Psychiatric Exam Additional comments: hallucinating - Skin Skin Exam: Dry, Intact, Normal Color, Warm Additional comments: multiple abrasions on legs Assessment and Plan - Assessment and Plan (Free Text) Assessment: 62 year old female with a past medical history of thyroidism, hypertension, alcohol abuse, who presents to [facility] after sustaining multiple falls in the past ten days and was found by EMS in her residence unable to stand from the couch and with urinary incontinent. CT of the head in the ED revealed an acute 2.3 x 5.1 cm acute hemorrhage in the right basal ganglia with a moderate amount of surrounding edema with 6 mm of midline shift to the left. Plan: 1) Intracranial hemorrhage warranting ICU admission and monitoring, now down- graded to telemetry - Repeat CT shows there is no change in the appearance of the acute hemorrhage in the right basal ganglia. This measures 2.2 x 4.8 cm. There is a moderate amount of surrounding edema. There is 6 mm of midline shift to the left. - CTA head and neck reveals that there is a large calcified plaque in the right internal carotid artery producing a moderate degree of stenosis and a calcified plaque at the bifurcation without stenosis with normal vertebral arteries with a normal left vertebral dominant circulation. No aneurysm identified - Neurochecks q1h - Fall precautions - Seizure precautions - Speech and swallow evaluation: recommend thin liquid - NPO until patient passes swallow evaluation - HOB at 30 degrees - CIWA protocol - Ativan 2 mg q6h PRN for seizure like activity or agitation - Librium 25 mg q8h [facility] - Dexamethasone 8 mg q12h discontinued - 2 mg of dexamethasone IVP to be given tomorrow per Neurology, recommendations appreciated - Neurosurgery defers any surgical intervention at this time - Physical therapy recommends acute rehab center upon discharge - Patient to get repeat CT scan of head today 1a) New onset Delirium, etiology multifactorial, and would include ICU-related delirium, alcohol withdrawal, sleep deprivation, and steroid induced encephalopathy - Stat 1:1 ordered - Ativan 2 mg q6h PRN for LISSETTE or agitation - Librium 25 mg q8h [facility] - Psychiatry consulted 2) UTI - Vantin 200 mg PO q12h - Microbiology cultures show E.coli mccauley-sensitive 3) Hyponatremia - Resolved, continue to monitor via serial CMP 4) Rhabdomyolysis - Resolved 5) Elevated LFT's - Resolved 6) History of hypothyroidism - TSH 0.57 - Free T4 1.04 - T3 2.49 7) Elevated troponin - 0.16, 0.16, 0.12 - Echocardiogram shows moderate mitral regurgitation with a Grade-I abnormal relaxation of the transmitral doppler flow pattern - Cardiology consulted, Dr. Browne, appreciate recommendations 8) Hypertension - Hydralazine 10 mg q4h PRN - Metoprolol tartarate increased from 25 mg BID to 50 mg BID - Amlodipine 5 mg PO daily - Losartan 25 mg PO daily 10) DVT/GI prophylaxis - SCD - Protonix 40 mg IVP Case reviewed and discussed with attending physician, Dr. Coello <Nicole Coello - Last Filed: 03/31/18 18:19> Objective - Vital Signs/Intake and Output Vital Signs (last 24 hours): Temp Pulse Resp BP Pulse Ox 97.2 F L 96 H 17 103/72 95 03/31/18 12:00 03/31/18 17:51 03/31/18 14:53 03/31/18 17:51 03/31/18 14:00 Intake and Output: 03/31/18 03/31/18 06:59 18:59 Intake Total 360 Output Total 600 Balance -240 - Medications Medications: Current Medications Amlodipine Besylate (Norvasc) 5 mg PO DAILY [facility] Last Admin: 03/31/18 09:10 Dose: 5 mg Cefpodoxime Proxetil (Vantin) 200 mg PO Q12 [facility] Last Admin: 03/31/18 09:11 Dose: 200 mg Chlordiazepoxide (Librium) 25 mg PO Q8 [facility] PRN Reason: Protocol Dexamethasone (Decadron Inj) 2 mg IVP ONCE ONE Stop: 04/01/18 07:01 Hydralazine HCl (Apresoline) 10 mg IVP Q4 PRN PRN Reason: Systolic Blood Pressure Last Admin: 03/31/18 12:13 Dose: 10 mg Sodium Chloride (Sodium Chloride 0.9%) 1,000 mls @ 100 mls/hr IV .Q10H [facility] Last Admin: 03/31/18 17:45 Dose: 100 mls/hr Latanoprost (Xalatan Opht) 0 ml OU HS [facility] Last Admin: 03/30/18 21:14 Dose: 2.5 ml Lorazepam (Ativan) 2 mg IVP Q3H PRN; Protocol PRN Reason: Agitation Last Admin: 03/31/18 17:52 Dose: 2 mg Losartan Potassium (Cozaar) 25 mg PO DAILY [facility] Last Admin: 03/31/18 17:51 Dose: 25 mg Metoprolol Tartrate (Lopressor) 50 mg PO BID [facility] Last Admin: 03/31/18 09:09 Dose: 50 mg Pantoprazole Sodium (Protonix Ec Tab) 40 mg PO 0600 [facility] Last Admin: 03/31/18 05:36 Dose: 40 mg Quetiapine Fumarate (Seroquel) 25 mg PO HS [facility] PRN Reason: Protocol - Labs Labs: 03/31/18 05:30 03/31/18 05:30 PT 10.4 SECONDS (9.4-12.5) 03/30/18 06:35 INR 0.91 (0.93-1.08) L 03/30/18 06:35 Attending/Attestation - Attestation I have personally seen and examined this patient.: Yes I have fully participated in the care of the patient.: Yes I have reviewed all pertinent clinical information, including history, physical exam and plan: Yes Notes (Text): 03/31/18 18:12 62 year old female with past medical history of hyperthyroidism, hypertension, chronic alcohol abuse and chronic hyponatremia who presented with complaint of frequent falls. CT head showed acute hemorrhage in the right basal ganglia with surrounding edema and midline shift. Repeat CT head showed stable findings without acute changes. CTA head and neck was reviewed as above. Neurosurgery recommended close monitoring without acute neurosurgical intervention at this time. Patient is on decadron. Neurology is following as well. Today upon examination her motor strength / left sided weakness has improved. However she did have hallucinations believing she is at home. Etiology is likely multifactorial including UTI vs ICU/hospital delirium vs steroid induced vs alcohol withdrawal. Will increase her ativan prn and add librium. She is on po vantin for E coli UTI. Case was discussed with neurology who recommended to repeat CT head and taper off her steroids. Will monitor mental status closely. Consider 1:1 sitter for safety and psychiatry evaluation if hallucination is persistent. Upon admission she also had hyponatremia and mild troponin elevation which have improved. Nephrology and cardiology are following. Echocardiogram was reviewed. Elevated LFTs likely secondary to chronic ETOH abuse. LFTs continue to improve. Will continue to monitor closely. Nicole Coello MD Hospitalist.
[2018-03-31 14:19] LABS: FOLATE 8.7 ng/mL
--- NOTE | 2018-03-31 16:10 | CT ---
PROCEDURE: CT HEAD WITHOUT CONTRAST. HISTORY: stroke COMPARISON: None available. TECHNIQUE: Axial computed tomography images were obtained through the head/brain without intravenous contrast. Radiation dose: Total exam DLP = 433.36 mGy-cm. This CT exam was performed using one or more of the following dose reduction techniques: Automated exposure control, adjustment of the mA and/or kV according to patient size, and/or use of iterative reconstruction technique. FINDINGS: HEMORRHAGE: Re- demonstrated is a large elliptical shaped hematoma within the right basal ganglia which has diminished in size only slightly. This hematoma measures approximately 4.7 cm in AP dimension whereas on the prior study 03/29/2018 this collection measured approximately 4.8 cm in AP dimension. Brain tissue there is a rim of low-attenuation edema and or necrotic brain tissue that has increased in size from prior exam. There is persistent mass effect with overlying sulcal effacement and compression of the right lateral ventricle and slight [id number] midline shift (with septum pellucidum shifted across midline to the left by approximately 7 mm. . BRAIN: Mild chronic periventricular white matter ischemic changes are present. VENTRICLES: No obstructive hydrocephalus. CALVARIUM: Unremarkable. PARANASAL SINUSES: Unremarkable as visualized. No significant inflammatory changes. MASTOID AIR CELLS: Unremarkable as visualized. No inflammatory changes. OTHER FINDINGS: None. IMPRESSION: Slight decrease in AP dimension right basal ganglia hematoma however surrounding low-attenuation edema and or necrotic brain tissue has increased in size slightly. Persistent [id number] midline shift estimated approximately 7 mm. Chronic white matter ischemic changes. Dr. Lux at approximately 3:55 p.m. with written down and read back verification. Maci
[2018-03-31] MEDS: Sodium Chloride 0.9% 1,000 ML IV SCH (17:45)
[2018-03-31 18:53] LABS: ARTERIAL BLOOD GAS HCO3 22.3 mmol/L (21-28); ARTERIAL BLOOD GAS O2 SAT 98.3 % (95-98); ARTERIAL BLOOD GAS PCO2 28 mm/Hg (35-45); ARTERIAL BLOOD GAS PH 7.51 (7.35-7.45); ARTERIAL BLOOD GAS TCO2 23.2 mmol.L (22-28)
--- NOTE | 2018-03-31 21:42 | PN ---
DATE: 03/31/2018 SUBJECTIVE: Patient is seen and examined at bedside. She is delirious, however, comfortable. She is not maintaining conversation and have fairly short attention span. She received several Ativan p.r.n. shots for agitation. CT head, however, revealed slightly decreased basal ganglia hemorrhage, however, persistent, approximately the same size mass effect and slightly increased hypoattenuation rim around the bleed, which may represent necrotic tissue or swelling. PHYSICAL EXAMINATION: VITAL SIGNS: Temperature 98, blood pressure 103/72, heart rate 43 (metoprolol was held), oxygen saturation 99% on room air. HEENT: Head and neck atraumatic. LUNGS: Clear to auscultation bilaterally. HEART: Regular rate and rhythm. S1, S2 normal. ABDOMEN: Soft, nontender, nondistended. MUSCULOSKELETAL: Trace bilateral pedal and ankle edema. NEUROLOGICAL: Patient was seen moving all extremities spontaneously. SKIN: Color moist. PSYCHIATRIC: Patient is confused, lethargic after receiving Ativan. LABORATORY DATA: Sodium 132, potassium 3.7, chloride 100, carbon dioxide 22, BUN 13, creatinine 0.5, glucose 134. AST 74, ALT 67. WBC 5.3, hemoglobin 11.3, platelet count 169. MEDICATIONS: Norvasc, Vantin, Librium, hydralazine p.r.n., Ativan p.r.n., Cozaar, Protonix, normal saline 100 mL/hour. ASSESSMENT AND PLAN: This is a 62-year-old lady who developed what appears to be alcohol withdrawal versus ICU delirium with confusion and some hallucinations requiring benzodiazepines. At the present time, patient is somewhat lethargic due to several p.r.n. shots of Ativan. CAT scan results were discussed with radiologist and I am waiting to discuss the CAT scan results with neurologist, Dr. Cardenas. Based on my conversation with the pipe fitter ammonia on case (Dr. Valadez), it appears that nsx and neuro team didnt want to start hypertonic saline in the past and I want to discuss with Neurology wether hypertonic saline should be started now or not. Meanwhile, I have started patient on normal saline at 100 mL per hour. I agree with tapering down/off steroids as this is predominantly cytotoxic edema predominantly and it is unlikely to be responsive to steroids. We will maintain euvolemia, euglycemia, normothermia, and oxygen saturation more than 90%. We will optimize patient's sleep and circadian patterns. Once discussed with Neurology, we will make decision whether to proceed with hypertonic saline and take patient back to ICU or continue monitoring on telemetry floor. We will continue with deep venous thrombosis and gastrointestinal prophylaxis. Addendum: discussed with neurologist (Dr. Cardenas): no hypertonic saline, continue tele, start seroquel, ok NS ccm time 40 min Shravan Gorman MD MTDD
[2018-03-31] MEDS: Latanoprost 2.5 ml Opht Soln OU SCH (22:03)
--- NOTE | 2018-04-01 00:37 | CP.PCM.PN ---
Subjective - Date & Time of Evaluation Date of Evaluation: 03/31/18 Time of Evaluation: 15:00 - Subjective Subjective: Miss Luther is having mild hallucinations, and is mildly agitated. Her repeat CT head shows improvement of hemorrhage but increasing edema. No headache, no new complaints. ON exam: Speech fluent. Can name and repeat. Tangential dialogue. moving all extremities equally. no facial asymmetry. Does not know date or year. Objective - Vital Signs/Intake and Output Vital Signs (last 24 hours): Temp Pulse Resp BP Pulse Ox 98 F 96 H 18 103/72 98 03/31/18 18:00 03/31/18 18:00 03/31/18 18:00 03/31/18 18:00 03/31/18 18:00 Intake and Output: 03/31/18 04/01/18 18:59 06:59 Intake Total 360 Output Total 600 Balance -240 - Medications Medications: Current Medications Amlodipine Besylate (Norvasc) 5 mg PO DAILY [facility] Last Admin: 03/31/18 09:10 Dose: 5 mg Cefpodoxime Proxetil (Vantin) 200 mg PO Q12 [facility] Last Admin: 03/31/18 22:03 Dose: 200 mg Chlordiazepoxide (Librium) 25 mg PO Q8 [facility] PRN Reason: Protocol Last Admin: 03/31/18 22:03 Dose: 25 mg Dexamethasone (Decadron Inj) 2 mg IVP ONCE ONE Stop: 04/01/18 07:01 Hydralazine HCl (Apresoline) 10 mg IVP Q4 PRN PRN Reason: Systolic Blood Pressure Last Admin: 03/31/18 12:13 Dose: 10 mg Sodium Chloride (Sodium Chloride 0.9%) 1,000 mls @ 100 mls/hr IV .Q10H [facility] Last Admin: 03/31/18 17:45 Dose: 100 mls/hr Latanoprost (Xalatan Opht) 0 ml OU HS [facility] Last Admin: 03/31/18 22:03 Dose: 2.5 ml Lorazepam (Ativan) 2 mg IVP Q3H PRN; Protocol PRN Reason: Agitation Last Admin: 03/31/18 17:52 Dose: 2 mg Losartan Potassium (Cozaar) 25 mg PO DAILY [facility] Last Admin: 03/31/18 17:51 Dose: 25 mg Metoprolol Tartrate (Lopressor) 50 mg PO BID [facility] Last Admin: 03/31/18 09:09 Dose: 50 mg Pantoprazole Sodium (Protonix Ec Tab) 40 mg PO 0600 [facility] Last Admin: 03/31/18 05:36 Dose: 40 mg Quetiapine Fumarate (Seroquel) 25 mg PO HS [facility] PRN Reason: Protocol Last Admin: 03/31/18 22:03 Dose: 25 mg - Labs Labs: 03/31/18 05:30 03/31/18 05:30 PT 10.4 SECONDS (9.4-12.5) 03/30/18 06:35 INR 0.91 (0.93-1.08) L 03/30/18 06:35 Assessment and Plan - Assessment and Plan (Free Text) Assessment: 62 yr old woman with delirium most likely secondary to steroids, who is now improving neurologically. PLan: 1. decrease decadron to 2mg IV tomorrow and then discontinue. 2. Seroquel 25 mg po qhs for agitation. DR. casiano
[2018-04-01] MEDS ORDERED: Dexamethasone 4 mg/1 ml IVP ONE (07:00)
[2018-04-01] MEDS: Pantoprazole 40 mg EC Tab PO SCH (07:02)
[2018-04-01] MEDS: Sodium Chloride 0.9% 1,000 ML IV SCH ×3 (07:04→22:04)
--- NOTE | 2018-04-01 07:41 | CP.PCM.PN ---
<Robert Lynch - Last Filed: 04/01/18 15:02> Subjective - Date & Time of Evaluation Date of Evaluation: 04/01/18 Time of Evaluation: 07:41 - Subjective Subjective: Patient is not hallucinating. She is awake and arousable. She was started on Librium and given a dose of Seroquel. Patient is with a 1:1. Objective - Vital Signs/Intake and Output Vital Signs (last 24 hours): Temp Pulse Resp BP Pulse Ox 98.3 F 52 L 18 104/74 97 04/01/18 00:01 04/01/18 05:59 04/01/18 00:01 04/01/18 00:01 04/01/18 00:01 - Medications Medications: Current Medications Amlodipine Besylate (Norvasc) 5 mg PO DAILY [facility] Last Admin: 03/31/18 09:10 Dose: 5 mg Cefpodoxime Proxetil (Vantin) 200 mg PO Q12 [facility] Last Admin: 03/31/18 22:03 Dose: 200 mg Chlordiazepoxide (Librium) 10 mg PO Q8 [facility] PRN Reason: Protocol Hydralazine HCl (Apresoline) 10 mg IVP Q4 PRN PRN Reason: Systolic Blood Pressure Last Admin: 03/31/18 12:13 Dose: 10 mg Sodium Chloride (Sodium Chloride 0.9%) 1,000 mls @ 100 mls/hr IV .Q10H [facility] Last Admin: 04/01/18 07:04 Dose: Not Given Latanoprost (Xalatan Opht) 0 ml OU HS [facility] Last Admin: 03/31/18 22:03 Dose: 2.5 ml Lorazepam (Ativan) 2 mg IVP Q3H PRN; Protocol PRN Reason: Agitation Last Admin: 03/31/18 17:52 Dose: 2 mg Losartan Potassium (Cozaar) 25 mg PO DAILY [facility] Last Admin: 03/31/18 17:51 Dose: 25 mg Metoprolol Tartrate (Lopressor) 50 mg PO BID [facility] Last Admin: 03/31/18 09:09 Dose: 50 mg Pantoprazole Sodium (Protonix Ec Tab) 40 mg PO 0600 [facility] Last Admin: 04/01/18 07:02 Dose: 40 mg Quetiapine Fumarate (Seroquel) 25 mg PO HS [facility] PRN Reason: Protocol Last Admin: 03/31/18 22:03 Dose: 25 mg - Labs Labs: 03/31/18 05:30 03/31/18 05:30 PT 10.4 SECONDS (9.4-12.5) 03/30/18 06:35 INR 0.91 (0.93-1.08) L 03/30/18 06:35 - Constitutional Appears: Non-toxic - Head Exam Additional comments: echymosis are healing - Eye Exam Eye Exam: EOMI, Normal appearance - ENT Exam ENT Exam: Mucous Membranes Moist - Neck Exam Neck Exam: Normal Inspection - Respiratory Exam Respiratory Exam: Clear to Ausculation Bilateral, NORMAL BREATHING PATTERN. absent: Accessory Muscle Use - Cardiovascular Exam Cardiovascular Exam: RRR, +S1, +S2 - GI/Abdominal Exam GI & Abdominal Exam: Soft, Normal Bowel Sounds - Extremities Exam Extremities Exam: Normal Inspection. absent: Calf Tenderness - Back Exam Back Exam: NORMAL INSPECTION. absent: CVA tenderness (L), CVA tenderness (R) - Neurological Exam Neurological Exam: Awake, Oriented x3 Neuro motor strength exam: Left Upper Extremity: 3, Right Upper Extremity: 5, Left Lower Extremity: 3, Right Lower Extremity: 5 - Psychiatric Exam Psychiatric exam: Normal Affect, Normal Mood - Skin Skin Exam: Dry, Intact, Normal Color, Warm Assessment and Plan - Assessment and Plan (Free Text) Assessment: 62 year old female with a past medical history of thyroidism, hypertension, alcohol abuse, who presents to [facility] after sustaining multiple falls in the past ten days and was found by EMS in her residence unable to stand from the couch and with urinary incontinence. CT of the head in the ED revealed an acute 2.3 x 5.1 cm acute hemorrhage in the right basal ganglia with a moderate amount of surrounding edema with 6 mm of midline shift to the left. Repeat CT showed decrease in bleed with some expansion of edema and 7 mm midline shift (03/31/18) . Plan: 1) Intracranial hemorrhage warranting ICU admission and monitoring, now down- graded to telemetry - Repeat CT shows there is no change in the appearance of the acute hemorrhage in the right basal ganglia. This measures 2.2 x 4.8 cm. There is a moderate amount of surrounding edema. There is 6 mm of midline shift to the left. - CTA head and neck reveals that there is a large calcified plaque in the right internal carotid artery producing a moderate degree of stenosis and a calcified plaque at the bifurcation without stenosis with normal vertebral arteries with a normal left vertebral dominant circulation. No aneurysm identified - Neurochecks q1h - Fall precautions - Seizure precautions - Speech and swallow evaluation appreciated - HOB at 30 degrees - Neurosurgery defers any surgical intervention at this time - Physical therapy recommends acute rehab center upon discharge - Neurology recommends no antiplatelet at this time 2) Delirium, etiology multifactorial, and would include ICU-related delirium, alcohol withdrawal, sleep deprivation, and steroid induced encephalopathy - 1:1 ordered - Ativan 2 mg q6h PRN for LISSETTE or agitation - Librium 10 mg q8h JOSSE - Psychiatry consulted, recommendations appreciated - [facility] protocol - Fall precautions and seizure precautions 3) UTI - Vantin 200 mg PO q12h - Microbiology cultures show E.coli mccauley-sensitive - Repeat UA ordered, will discontinue once obtain a clear catch without evidence of UTI 4) History of hypothyroidism - TSH 0.57 - Free T4 1.04 - T3 2.49 5) Elevated troponin - 0.16, 0.16, 0.12 - Echocardiogram shows moderate mitral regurgitation with a Grade-I abnormal relaxation of the transmitral doppler flow pattern - Cardiology consulted, Dr. Browne, appreciate recommendations 6) Hypertension - Hydralazine 10 mg q4h PRN - Metoprolol tartarate 25 mg BID - Amlodipine 5, increasing to 10 mg PO daily - Losartan 50 mg PO daily to start tomorrow (increased for tomorrow) 7) DVT/GI prophylaxis - SCD - Protonix 40 mg IVP Case reviewed and discussed with attending physician, Dr. Coello <Nicole Coello - Last Filed: 04/01/18 15:45> Objective - Vital Signs/Intake and Output Vital Signs (last 24 hours): Temp Pulse Resp BP Pulse Ox 98.3 F 45 L 20 122/73 95 04/01/18 12:00 04/01/18 15:00 04/01/18 12:00 04/01/18 12:00 04/01/18 06:00 Intake and Output: 04/01/18 04/01/18 06:59 18:59 Intake Total 1200 Balance 1200 - Medications Medications: Current Medications Amlodipine Besylate (Norvasc) 5 mg PO DAILY [facility] Cefpodoxime Proxetil (Vantin) 200 mg PO Q12 [facility] Last Admin: 04/01/18 11:15 Dose: Not Given Chlordiazepoxide (Librium) 10 mg PO Q8 [facility] Last Admin: 04/01/18 13:43 Dose: Not Given Hydralazine HCl (Apresoline) 10 mg IVP Q4 PRN PRN Reason: Systolic Blood Pressure Last Admin: 03/31/18 12:13 Dose: 10 mg Sodium Chloride (Sodium Chloride 0.9%) 1,000 mls @ 100 mls/hr IV .Q10H [facility] Last Admin: 04/01/18 12:30 Dose: 100 mls/hr Latanoprost (Xalatan Opht) 0 ml OU HS [facility] Last Admin: 03/31/18 22:03 Dose: 2.5 ml Lorazepam (Ativan) 2 mg IVP Q3H PRN; Protocol PRN Reason: Agitation Last Admin: 03/31/18 17:52 Dose: 2 mg Losartan Potassium (Cozaar) 50 mg PO DAILY [facility] Pantoprazole Sodium (Protonix Ec Tab) 40 mg PO 0600 [facility] Last Admin: 04/01/18 07:02 Dose: 40 mg Quetiapine Fumarate (Seroquel) 25 mg PO HS [facility] PRN Reason: Protocol Last Admin: 03/31/18 22:03 Dose: 25 mg - Labs Labs: 03/31/18 05:30 03/31/18 05:30 PT 10.4 SECONDS (9.4-12.5) 03/30/18 06:35 INR 0.91 (0.93-1.08) L 03/30/18 06:35 Attending/Attestation - Attestation I have personally seen and examined this patient.: Yes I have fully participated in the care of the patient.: Yes I have reviewed all pertinent clinical information, including history, physical exam and plan: Yes Notes (Text): 04/01/18 15:39 62 year old female with past medical history of hyperthyroidism, hypertension, chronic alcohol abuse and chronic hyponatremia who presented with complaint of frequent falls. CT head showed acute hemorrhage in the right basal ganglia with surrounding edema and midline shift. Repeat CT head following day showed stable findings without acute changes. CTA head and neck was reviewed as above. Neurosurgery recommended close monitoring without acute neurosurgical intervention at this time. Patient was on decadron which is being tapered as per neurology. Yesterday she has acute delirium with hallucinations. Etiology likely multifactorial including UTI vs ICU/hospital delirium vs steroid induced vs alcohol withdrawal. She was started on librium, seroquel prn and ativan was increased. Psychiatry evaluation was requested and 1:1 was requested for patient safety. No hallucinations noted today. Will begin to taper librium. Upon admission she also had hyponatremia and mild troponin elevation which have improved. Nephrology and cardiology are following. Echocardiogram was reviewed. She is on norvasc, losartan, metoprolol and hydralazine prn for hypertension. Blood pressure is fluctuant. Metoprolol is discontinued due to bradycardia and norvasc dose will be increased. Elevated LFTs likely secondary to chronic ETOH abuse. LFTs have improved. Will continue to monitor closely. Nicole Coello MD Hospitalist.
[2018-04-01] MEDS: Cefpodoxime (Vantin) 200 mg Tab PO SCH ×2 (11:15→21:55)
--- NOTE | 2018-04-01 15:07 | CP.PCM.PN ---
Subjective - Date & Time of Evaluation Date of Evaluation: 04/01/18 Time of Evaluation: 12:00 - Subjective Subjective: Nephrology Consultation Note: Assessment: critical Basal ganglia hemorrhage Hypo-osmolar euvolemic hyponatremia likely due to beer potomania, low solute intake and Polydipsia HTN (I12.9) hx of optic neuritis UTI, fall, rhabdomyolysis, pancytopenia chronic etoh abuse Plan Hypertension control with meds as ordered. Re; targets of BP will defer to neurology Na remains stable f/u Neuro and neurosurg plans k and mag stable S: seen and examined, sleeping but arousable Physical Examination: General Appearance: Comfortable, in no acute respiratory distress, co-operative . ill appearing Vitals reviewed and noted as below Head; normocephalic, facial periorbital echymoses + ENT: no ulcers no thrush. Tongue is midline. Oropharynx: no rash or ulcers. EYES: Pupils are equal, Sclera is anicteric. Neck; supple no lymphadenopathy, no thyromegaly or bruit Lungs: Normal respiratory rate/effort. Breath sounds bilateral equal and clear Heart: Normal rate. s1s2 normal. No rub or gallop. Extremities: no edema. No varicose veins Neurological: Patient is arousable w/ L sided weakness Skin: Warm and dry. Normal turgor. No rash. Palpitation: Normal elasticity for age Abdomen: Abdomen is soft. Bowel sounds +. There is no abdominal tenderness, no guarding/rigidity no organomegaly Psych:flat MSK: no joint tenderness or swelling. Digits and nails normal, no deformity : kidney or bladder not palpable Objective - Vital Signs/Intake and Output Vital Signs (last 24 hours): Temp Pulse Resp BP Pulse Ox 98.3 F 95 H 20 122/73 95 04/01/18 12:00 04/01/18 12:00 04/01/18 12:00 04/01/18 12:00 04/01/18 06:00 Intake and Output: 04/01/18 04/01/18 06:59 18:59 Intake Total 1200 Balance 1200 - Medications Medications: Current Medications Amlodipine Besylate (Norvasc) 5 mg PO DAILY [facility] Last Admin: 04/01/18 11:15 Dose: Not Given Cefpodoxime Proxetil (Vantin) 200 mg PO Q12 [facility] Last Admin: 04/01/18 11:15 Dose: Not Given Chlordiazepoxide (Librium) 10 mg PO Q8 [facility] Last Admin: 04/01/18 13:43 Dose: Not Given Hydralazine HCl (Apresoline) 10 mg IVP Q4 PRN PRN Reason: Systolic Blood Pressure Last Admin: 03/31/18 12:13 Dose: 10 mg Sodium Chloride (Sodium Chloride 0.9%) 1,000 mls @ 100 mls/hr IV .Q10H [facility] Last Admin: 04/01/18 12:30 Dose: 100 mls/hr Latanoprost (Xalatan Opht) 0 ml OU HS [facility] Last Admin: 03/31/18 22:03 Dose: 2.5 ml Lorazepam (Ativan) 2 mg IVP Q3H PRN; Protocol PRN Reason: Agitation Last Admin: 03/31/18 17:52 Dose: 2 mg Losartan Potassium (Cozaar) 25 mg PO DAILY [facility] Last Admin: 04/01/18 11:15 Dose: Not Given Metoprolol Tartrate (Lopressor) 25 mg PO BID [facility] Pantoprazole Sodium (Protonix Ec Tab) 40 mg PO 0600 [facility] Last Admin: 04/01/18 07:02 Dose: 40 mg Quetiapine Fumarate (Seroquel) 25 mg PO HS [facility] PRN Reason: Protocol Last Admin: 03/31/18 22:03 Dose: 25 mg - Labs Labs: 03/31/18 05:30 03/31/18 05:30 PT 10.4 SECONDS (9.4-12.5) 03/30/18 06:35 INR 0.91 (0.93-1.08) L 03/30/18 06:35
[2018-04-01] MEDS: Latanoprost 2.5 ml Opht Soln OU SCH (21:56)
[2018-04-02] MEDS: Pantoprazole 40 mg EC Tab PO SCH (05:33)
--- NOTE | 2018-04-02 08:20 | CON ---
DATE: 04/01/2018 HISTORY OF PRESENT ILLNESS: The patient is a 62-year-old female with unclear psychiatric history, though with a documented history of severe alcohol use disorder, who has been treated for multiple medical issues on the medical floor including a basal ganglion hemorrhage, which appears to be improving at this time and edema is being treated by steroids. Psychiatry was consulted due to the patient's hallucinations on the unit. I met with the patient at the bedside and the patient is quite lethargic and intermittently cooperative with my questioning. I questioned the credibility of responses as she has contradicted some of the information found in the progress note. She is a little irritable, indicates that she is sleepy. Denies any current discomfort. Denies any current hallucinations, will not elaborate on whether she had them. She states she is depressed and also wants to . It is unclear whether this is true or not as the patient presented today as a reliable historian and she also denies having any history of alcohol use and denies having any illicit the patient denies having any drug use. She is aware that she in [place], in a hospital, but cannot provide much more information regarding month, date, or year. The patient looks malnourished, tired, lethargic, and unkempt, and her thought process is scattered and disorganized. She is not actively hallucinating, though I trust that she has had intermittent hallucinations on the unit. Her behavior is unpredictable and her insight and judgement are considered poor at this time. Vital signs and labs were reviewed by this provider. MEDIATIONS: Relevant psychiatric medication include Librium 10 mg every 8 hours as scheduled, Seroquel 25 mg at night time scheduled as well as Ativan 2 mg IV every 3 hours p.r.n. PSYCHIATRIC HISTORY: The patient denies having any psychiatric history. Denies any history of suicide attempts or medication trials, though her focus is very poor and I questioned the probability of . SOCIAL HISTORY: The patient reports that she was born in [place]. She is not . She has no children. alcohol use disorder. IMPRESSION: Severe alcohol use disorder, likely contribution of delirium tremens as well as delirium secondary to medical issues. There is also a possibility of steroid-induced psychosis, all contributing to patient's presentation at this time. RECOMMENDATIONS: I will treat the patient conservatively. I agree with medical team in this respect. The patient indicates that she is tolerating Seroquel and it helps well. Denies any side effects from this medications thus far. She was able to sleep last night with this medication and thus far she has been in control tenuously today. I will continue Seroquel at 25 mg at bedtime and I will hold off on any further increase of this medication due to the patient's notable lethargy this morning. Medical team should taper the steroid dose as medically indicated. I am sure they are aware that this is felt to be linked to psychosis, depression as well as marco in certain patients. Continue to treat the patient's alcohol withdrawal. Benzos are very in this regard, however, they should be tapered as medically tolerated as having too many benzos can also worsen delirium. It does not appear that the patient has received excessive amounts in the last 24 hours. Psychiatry will continue to monitor the patient and follow up with her daily to gauge the progress of her mental status and tolerance to medication. Opal Corral MD
[2018-04-02] MEDS: Sodium Chloride 0.9% 1,000 ML IV SCH (08:44)
--- NOTE | 2018-04-02 09:19 | CARD ---
APPROVED REPORT EKG Measurement Heart [id number] [id number] <Conclusion> Marked sinus bradycardia Abnormal ECG
--- NOTE | 2018-04-02 09:20 | PN ---
DATE: 04/01/2018 REASON FOR DICTATION: Covering Dr. Browne, called to evaluate the patient because patient is very lethargic and variable heart block. SUBJECTIVE: Patient is sleepy; on waking up, denies any chest pain, shortness of breath, or any palpitation. EKG stat was done, it was found to be bradycardia, heart rate 43. Telemetry strip reviewed, did not find any significant arrhythmia or possible artifact. PHYSICAL EXAMINATION: As follows; VITAL SIGNS: Heart rate 45, blood pressure 120/73. HEENT: PERRLA. Extraocular muscles intact. NECK: Supple. No carotid bruit or thyromegaly. CHEST: Clear to auscultation. HEART: S1 and S2 regular. ABDOMEN: Soft. EXTREMITIES: Clubbing and cyanosis negative. LABORATORY DATA: Blood workup as follows: WBC 5.3, hemoglobin 11.3, hematocrit 32.9, platelet count 169. Chemistry shows sodium 130, potassium 3.7, chloride 100, carbon dioxide 32, anion gap of 13, BUN 13, creatinine 0.5. DIAGNOSTIC DATA: A stat EKG shows sinus bradycardia. IMPRESSION: Sinus bradycardia, history of cerebrovascular accident, hemorrhage, intracerebral bleed, leukopenia improved, hyponatremia improved, borderline troponin positive on admission with slight MB, possibly a central nervous system source. Patient is asymptomatic. Patient had echocardiography done, read by Dr. Browne that shows normal left ventricular function, moderate mitral regurgitation. RECOMMENDATION: Discontinue beta rowan. Repeat EKG in the morning and we will get Holter for 24 hours. We will follow with you. We will transfer care tomorrow to Dr. Browne. We will get the EKG in the morning. Rahel Rivera MD
[2018-04-02] MEDS: Cefpodoxime (Vantin) 200 mg Tab PO SCH (10:10)
--- NOTE | 2018-04-02 12:31 | CP.PCM.PN ---
Subjective - Date & Time of Evaluation Date of Evaluation: 04/02/18 Time of Evaluation: 12:31 - Subjective Subjective: Ms. Luther was seen and examined at the bedside. She is alert, oriented with multiple fading echymosis noted in her body including bilateral periorbital area. She denies any headache, dizziness. She is able to follow simple commands with left facial droop, left side paraplegia. She claims of symmetrical sensation between her right and left side. She remains with head and neck tremors. A holter monitor was just attached to the patient.She remains on telesitter for patient safety.There was no untoward events overnight. Objective - Vital Signs/Intake and Output Vital Signs (last 24 hours): Temp Pulse Resp BP Pulse Ox 97.7 F 64 19 166/96 H 93 L 04/02/18 12:00 04/02/18 12:00 04/02/18 12:00 04/02/18 12:00 04/02/18 06:00 Intake and Output: 04/02/18 04/02/18 06:59 18:59 Intake Total 1700 Balance 1700 - Medications Medications: Current Medications Amlodipine Besylate (Norvasc) 5 mg PO DAILY [facility] Last Admin: 04/02/18 10:10 Dose: 5 mg Cefpodoxime Proxetil (Vantin) 200 mg PO Q12 [facility] Last Admin: 04/02/18 10:10 Dose: 200 mg Hydralazine HCl (Apresoline) 10 mg IVP Q4 PRN PRN Reason: Systolic Blood Pressure Last Admin: 03/31/18 12:13 Dose: 10 mg Latanoprost (Xalatan Opht) 0 ml OU HS [facility] Last Admin: 04/01/18 21:56 Dose: 2.5 ml Lorazepam (Ativan) 2 mg IVP Q3H PRN; Protocol PRN Reason: Agitation Last Admin: 03/31/18 17:52 Dose: 2 mg Losartan Potassium (Cozaar) 50 mg PO DAILY [facility] Last Admin: 04/02/18 10:10 Dose: 50 mg Pantoprazole Sodium (Protonix Ec Tab) 40 mg PO 0600 [facility] Last Admin: 04/02/18 05:33 Dose: 40 mg Quetiapine Fumarate (Seroquel) 25 mg PO HS [facility] PRN Reason: Protocol Last Admin: 04/01/18 21:55 Dose: 25 mg - Labs Labs: 03/31/18 05:30 03/31/18 05:30 PT 10.4 SECONDS (9.4-12.5) 03/30/18 06:35 INR 0.91 (0.93-1.08) L 03/30/18 06:35 - Constitutional Appears: No Acute Distress - Head Exam Head Exam: NORMAL INSPECTION - Eye Exam Pupil Exam: PERRL - Neurological Exam Neurological Exam: Alert, Awake Neuro motor strength exam: Left Upper Extremity: 0, Right Upper Extremity: 5, Left Lower Extremity: 0, Right Lower Extremity: 5 Additional comments: neurological improved from previous examination, alert, follows simple commands Assessment and Plan (1) Intracranial bleed Assessment & Plan: Case discussed with Dr. Quintana, continue all current medical, physical, occupational, and speech therapies. pending CTA of the head and neck, echocardiogram. Recommend keep head of bed elevated at least 30 degrees, blood pressure control, acute rehab for discharge planning, continue CIWA protocol, treat any underlying electrolyte abnormalities. Status: Acute
--- NOTE | 2018-04-02 12:36 | CP.PCM.PN ---
Subjective - Date & Time of Evaluation Date of Evaluation: 04/02/18 Time of Evaluation: 12:34 - Subjective Subjective: Nephrology Consultation Note: Assessment: Stable Basal ganglia hemorrhage Hypo-osmolar euvolemic hyponatremia likely due to beer potomania, low solute intake and Polydipsia HTN (I12.9) hx of optic neuritis UTI, fall, rhabdomyolysis, pancytopenia chronic etoh abuse Plan Hypertension control with meds as ordered. pt started on norvasc and losartan, uptittrate dose as needed. pt to abstain from alcohol. improve protein diet intake and follow oral fluid restriction to 1200 mL/day Glycemic control Hyponatremia stable dose meds for GFR >60 Further work up/management as per primary team Thanks for allowing me to participate in care of your patient. Will follow patient with you. Please call if any Qs. had d/w team. Dr Sean Mejia Office: [phone] Chief Complaint; fall and left side weakness Reason for consult: hyponatremia HPI: Pt is a 62 y/o F with hx of hypertension, optic neuritis, chronic alcohol abuse, hyponatremia due to beer potomania and polydipsia came with fall and left side weakness, found to have basal ganglia hemorrhage and also found to have hyponatremia hence renal consulted for further management Denies palpitation, shortness of breath, leg swelling Denies blood or bubbles in urine ROS: Constitutional Symptoms: Denies fever. No chills. Cardiovascular: no chest pain. There is no shortness of breath. Pulmonary: No shortness of breath no cough. Rest All other negative except as mentioned in HPI Physical Examination: General Appearance: Comfortable, in no acute respiratory distress, co-operative . ill appearing Vitals reviewed and noted as below Head; normocephalic, facial periorbital echymoses + ENT: no ulcers no thrush. Tongue is midline. Oropharynx: no rash or ulcers. EYES: Pupils are equal, round and reactive to light accommodation. Eye muscles and extraocular movement intact. Sclera is anicteric. Neck; supple no lymphadenopathy, no thyromegaly or bruit Lungs: Normal respiratory rate/effort. Breath sounds bilateral equal and clear Heart: Normal rate. s1s2 normal. No rub or gallop. Extremities: no edema. No varicose veins Neurological: Patient is alert, awake and oriented to person, place and time. has left side weakness better. Skin: Warm and dry. Normal turgor. No rash. Palpitation: Normal elasticity for age Abdomen: Abdomen is soft. Bowel sounds +. There is no abdominal tenderness, no guarding/rigidity no organomegaly Psych: limited insight and flat affect/mood MSK: no joint tenderness or swelling. Digits and nails normal, no deformity : kidney or bladder not palpable Labs/imaging/EKG reviewed. Past medical history, past surgical history, family history, social history, allergy reviewed and noted as below Family hx: no hx of CKD. Rest non-contributory Work up: CT brain: basall ganglia hemorrhage Serum osmol 263 TSH 0.5 TGL 41 CK 540 Objective - Vital Signs/Intake and Output Vital Signs (last 24 hours): Temp Pulse Resp BP Pulse Ox 97.7 F 64 19 166/96 H 93 L 04/02/18 12:00 04/02/18 12:00 04/02/18 12:00 04/02/18 12:00 04/02/18 06:00 Intake and Output: 04/02/18 04/02/18 06:59 18:59 Intake Total 1700 Balance 1700 - Medications Medications: Current Medications Amlodipine Besylate (Norvasc) 5 mg PO DAILY [facility] Last Admin: 04/02/18 10:10 Dose: 5 mg Cefpodoxime Proxetil (Vantin) 200 mg PO Q12 [facility] Last Admin: 04/02/18 10:10 Dose: 200 mg Hydralazine HCl (Apresoline) 10 mg IVP Q4 PRN PRN Reason: Systolic Blood Pressure Last Admin: 03/31/18 12:13 Dose: 10 mg Latanoprost (Xalatan Opht) 0 ml OU HS [facility] Last Admin: 04/01/18 21:56 Dose: 2.5 ml Lorazepam (Ativan) 2 mg IVP Q3H PRN; Protocol PRN Reason: Agitation Last Admin: 03/31/18 17:52 Dose: 2 mg Losartan Potassium (Cozaar) 50 mg PO DAILY [facility] Last Admin: 04/02/18 10:10 Dose: 50 mg Pantoprazole Sodium (Protonix Ec Tab) 40 mg PO 0600 [facility] Last Admin: 04/02/18 05:33 Dose: 40 mg Quetiapine Fumarate (Seroquel) 25 mg PO HS [facility] PRN Reason: Protocol Last Admin: 04/01/18 21:55 Dose: 25 mg - Labs Labs: 03/31/18 05:30 03/31/18 05:30 PT 10.4 SECONDS (9.4-12.5) 03/30/18 06:35 INR 0.91 (0.93-1.08) L 03/30/18 06:35
--- NOTE | 2018-04-02 14:15 | PN ---
DATE: 04/02/2018 SUBJECTIVE: The patient denies any headache or dizziness and no retrosternal chest pain. PHYSICAL EXAMINATION: VITAL SIGNS: Blood pressure 128/54, heart rate 67, temperature 97.9, respirations 20. HEENT: Bilateral eye ecchymosis. CHEST: Clear. HEART: S1 and S2 regular. EXTREMITIES: No edema. LABORATORY DATA: Today's EKG revealed normal sinus rhythm at the rate of 65. A CT scan performed two days ago which is a third study during this admission revealed slight decrease in the AP dimension, right basal ganglia hematoma; however, surrounding low attenuation edema and a necrotic brain tissue has increased in size slightly. Persistent right to left midline shift estimated approximately 7 mm. Chronic white matter ischemic changes. ASSESSMENT: 1. Right basal ganglia hemorrhage. 2. Borderline troponin elevation. 3. Hypertension. The patient's blood pressure today is controlled. RECOMMENDATIONS: Continue hydralazine 10 mg intravenously every 4 hours p.r.n. Continue Ativan 2 mg intravenously every 3 hours p.r.n. Continue Cozaar 60 mg may discontinue Norvasc. Junior Browne MD
--- NOTE | 2018-04-02 14:49 | CP.PCM.PN ---
<Robert Lynch - Last Filed: 04/02/18 19:26> Subjective - Date & Time of Evaluation Date of Evaluation: 04/02/18 Time of Evaluation: 07:00 - Subjective Subjective: Robert Lynch DO, PGY-1: Hospitalist Service Patient seen and examined at bedside. Patient is arousable, comprehends the circumstance of her admission, and states that while she did sleep for most of yesterday- she is still tired. She does exhibit some element of left hemineglect. Patient is not hallucinating. Nurse reports no adverse events overnight. Case was discussed with patients family at bedside. Patient also denies any form of abuse at home or from any domestic partner. Objective - Vital Signs/Intake and Output Vital Signs (last 24 hours): Temp Pulse Resp BP Pulse Ox 97.7 F 82 19 166/96 H 93 L 04/02/18 12:00 04/02/18 14:00 04/02/18 12:00 04/02/18 12:00 04/02/18 06:00 Intake and Output: 04/02/18 04/02/18 06:59 18:59 Intake Total 1700 420 Balance 1700 420 - Medications Medications: Current Medications Amlodipine Besylate (Norvasc) 5 mg PO DAILY [facility] Last Admin: 04/02/18 10:10 Dose: 5 mg Cefpodoxime Proxetil (Vantin) 200 mg PO Q12 [facility] Last Admin: 04/02/18 10:10 Dose: 200 mg Hydralazine HCl (Apresoline) 10 mg IVP Q4 PRN PRN Reason: Systolic Blood Pressure Last Admin: 03/31/18 12:13 Dose: 10 mg Latanoprost (Xalatan Opht) 0 ml OU HS [facility] Last Admin: 04/01/18 21:56 Dose: 2.5 ml Lorazepam (Ativan) 2 mg IVP Q3H PRN; Protocol PRN Reason: Agitation Last Admin: 03/31/18 17:52 Dose: 2 mg Losartan Potassium (Cozaar) 50 mg PO DAILY [facility] Last Admin: 04/02/18 10:10 Dose: 50 mg Pantoprazole Sodium (Protonix Ec Tab) 40 mg PO 0600 [facility] Last Admin: 04/02/18 05:33 Dose: 40 mg Quetiapine Fumarate (Seroquel) 25 mg PO HS [facility] PRN Reason: Protocol Last Admin: 04/01/18 21:55 Dose: 25 mg - Labs Labs: 03/31/18 05:30 03/31/18 05:30 PT 10.4 SECONDS (9.4-12.5) 03/30/18 06:35 INR 0.91 (0.93-1.08) L 03/30/18 06:35 - Constitutional Appears: Non-toxic - Head Exam Additional comments: periorbital ecchymosis - Eye Exam Eye Exam: EOMI, Normal appearance - ENT Exam ENT Exam: Mucous Membranes Moist, Normal Oropharynx - Neck Exam Neck Exam: Normal Inspection - Respiratory Exam Respiratory Exam: Clear to Ausculation Bilateral, NORMAL BREATHING PATTERN - Cardiovascular Exam Cardiovascular Exam: RRR, +S1, +S2 - GI/Abdominal Exam GI & Abdominal Exam: Soft, Normal Bowel Sounds - Extremities Exam Extremities Exam: Normal Inspection. absent: Calf Tenderness - Neurological Exam Neurological Exam: Awake, Oriented x3 Neuro motor strength exam: Left Upper Extremity: 3, Right Upper Extremity: 5, Left Lower Extremity: 3, Right Lower Extremity: 5 - Psychiatric Exam Psychiatric exam: Normal Affect, Normal Mood - Skin Skin Exam: Dry, Intact, Normal Color, Warm Assessment and Plan - Assessment and Plan (Free Text) Assessment: 62 year old female with a past medical history of thyroidism, hypertension, alcohol abuse, who presents to [facility] after sustaining multiple falls in the past ten days and was found by EMS in her residence unable to stand from the couch and with urinary incontinence. CT of the head in the ED revealed an acute 2.3 x 5.1 cm acute hemorrhage in the right basal ganglia with a moderate amount of surrounding edema with 6 mm of midline shift to the left. Repeat CT showed decrease in bleed with some expansion of edema and 7 mm midline shift (03/31/18) . Plan: 1) Intracranial hemorrhage warranting ICU admission and monitoring, now down- graded to telemetry - Repeat CT shows there is no change in the appearance of the acute hemorrhage in the right basal ganglia. This measures 2.2 x 4.8 cm. There is a moderate amount of surrounding edema. There is 6 mm of midline shift to the left. - CTA head and neck reveals that there is a large calcified plaque in the right internal carotid artery producing a moderate degree of stenosis and a calcified plaque at the bifurcation without stenosis with normal vertebral arteries with a normal left vertebral dominant circulation. No aneurysm identified - Neurochecks q1h - Fall precautions - Seizure precautions - Speech and swallow evaluation appreciated - HOB at 30 degrees - Neurosurgery defers any surgical intervention at this time - Physical therapy recommends acute rehab center upon discharge - Neurology recommends no antiplatelet at this time 2) Delirium, etiology multifactorial, and would include ICU-related delirium, alcohol withdrawal, sleep deprivation, and steroid induced encephalopathy - 1:1 ordered and services appreciated and discontinued given patient is not delirious and has good mentationn for the larger part of the day - Ativan 2 mg q6h PRN for LISSETTE or agitation - Librium 10 mg q8h JOSSE - Psychiatry consulted, recommendations appreciated - [facility] protocol - Fall precautions and seizure precautions - Discontinued Seroquel 3) UTI - Antibiotic course completed - Microbiology cultures showed E.coli mccauley-sensitive 4) History of hypothyroidism - TSH 0.57 - Free T4 1.04 - T3 2.49 5) Elevated troponin - 0.16, 0.16, 0.12 - Echocardiogram shows moderate mitral regurgitation with a Grade-I abnormal relaxation of the transmitral doppler flow pattern. - Cardiology consulted, Dr. Browne, appreciate recommendations 6) Hypertension with an episode of heart block observed yesterday - Dr. Rivera ordered 24 hour holter monitor - Metoprolol 25 mg BID discontinued after the patient was bradycardic and had a degree of AV block - Amlodipine 5 mg PO daily (recommend increasing to ten given its long half and the patient's large fluctuations in blood pressure) will defer to specialists on board - Losartan 50 mg PO Daily 7) DVT/GI prophylaxis - SCD - Protonix 40 mg IVP Disposition: Physical therapy note states patient refuses therapy today. Social work is working on placement for Acute Rehabilitation for the patient. Case reviewed and discussed with attending physician, Dr. Nunn <Rodolfo Nunn - Last Filed: 04/04/18 14:30> Objective - Vital Signs/Intake and Output Vital Signs (last 24 hours): Temp Pulse Resp BP Pulse Ox 97.4 F L 75 20 137/96 H 96 04/04/18 06:00 04/04/18 06:00 04/04/18 06:00 04/04/18 10:03 04/04/18 06:00 Intake and Output: 04/04/18 04/04/18 06:59 18:59 Intake Total 480 0 Balance 480 0 - Medications Medications: Current Medications Amlodipine Besylate (Norvasc) 10 mg PO DAILY [facility] Last Admin: 04/04/18 10:03 Dose: 10 mg Hydralazine HCl (Apresoline) 10 mg IVP Q4 PRN PRN Reason: Systolic Blood Pressure Last Admin: 03/31/18 12:13 Dose: 10 mg Hydralazine HCl (Apresoline) 25 mg PO TID [facility] Latanoprost (Xalatan Opht) 0 ml OU HS [facility] Last Admin: 04/03/18 21:49 Dose: 2.5 ml Lorazepam (Ativan) 2 mg IVP Q3H PRN; Protocol PRN Reason: Agitation Last Admin: 03/31/18 17:52 Dose: 2 mg Losartan Potassium (Cozaar) 50 mg PO DAILY [facility] Last Admin: 04/03/18 10:03 Dose: 50 mg Pantoprazole Sodium (Protonix Ec Tab) 40 mg PO 0600 [facility] Last Admin: 04/04/18 06:34 Dose: 40 mg Potassium Chloride (K-Dur 20 Meq Er Tab) 40 meq PO ONCE ONE Stop: 04/04/18 15:01 Quetiapine Fumarate (Seroquel) 25 mg PO HS [facility] PRN Reason: Protocol - Labs Labs: 04/04/18 09:15 04/04/18 13:30 PT 10.4 SECONDS (9.4-12.5) 03/30/18 06:35 INR 0.91 (0.93-1.08) L 03/30/18 06:35 Attending/Attestation - Attestation I have personally seen and examined this patient.: Yes I have fully participated in the care of the patient.: Yes I have reviewed all pertinent clinical information, including history, physical exam and plan: Yes Notes (Text): 04/04/18 14:24 Attending note; Patient seen and examined with resident. Patient is a 62 year old female with past medical history of hyperthyroidism, hypertension, chronic alcohol abuse and chronic hyponatremia who presented with complaint of frequent falls. CT head showed acute hemorrhage in the right basal ganglia with surrounding edema and midline shift. Repeat CT head following day showed stable findings without acute changes. CTA head and neck was reviewed as above. Neurosurgery recommended close monitoring without acute neurosurgical intervention at this time. Patient was on decadron which is being tapered as per neurology. Patient is more alert and awake today. One-to-one discontinued. Case discussed with psychiatrist in detail. Monitor with AVYS system for now. Patient with significant left-sided weakness. Physical therapy evaluation requested. Need subacute rehabilitation placement. History of alcohol abuse; complete alcohol cessation is strongly advised. Continue Ativan when necessary. Hypertension; on norvasc, losartan, and hydralazine prn for hypertension. Blood pressure is fluctuant. Metoprolol is discontinued due to bradycardia. Patient is on Holter monitor. Heart rate is stable. Will follow-up with cardiology. Elevated LFTs likely secondary to chronic ETOH abuse. LFTs have improved. Previous hepatitis profile was negative. Upon discharge the patient will follow-up with PMD .
--- NOTE | 2018-04-02 19:18 | PN ---
DATE: 04/02/2018 SUBJECTIVE: In short, the patient is a 62-year-old female, not clear previous psychiatric history, but the patient most likely has history of alcohol use disorder. The patient was admitted on the medical site for evaluation and treatment of multiple medical issues including basal ganglion hemorrhage, which is improving. Psych consult was called for evaluation of delirium stage as well as possible alcohol withdrawal delirium and delirium tremens. Initially, the patient was seen by Dr. Corral, was started on Seroquel as well as Ativan and Librium were given to the patient over the weekend. Psych followup is taking place today to compare with the description of the patient for past couple of days, the patient presented much better. The patient was alert. The patient was able to give answers. The patient reported that she does not use alcohol or using any drugs. The patient is somewhat lethargic. The patient reported that she sees things last time was this morning. The patient is not in any distress during my evaluation. Vital signs seem to be stable. Temperature 99, pulse is 61, blood pressure 153/96, respirations 20. MEDICATIONS: Reviewed. Norvasc, hydralazine, Xalatan, Ativan 2 mg IV push every 3 hours as needed, Cozaar, Protonix as well as Seroquel 25 mg at the nighttime as scheduled. LABORATORY DATA: Reviewed. WBC 5.3, hemoglobin and hematocrit 11.3 and 32.9. Coagulation reviewed. Blood gas reviewed. Chemistry reviewed. AST and ALT are 74 and 67. Urinalysis showed leukocyte esterase. Toxicology is negative for any substances. MENTAL STATUS EXAMINATION: The patient is somewhat lethargic. Opening her eyes, was giving appropriate answers. Mood described "I feel better." Affect was flat. Thought process seems to be concrete. Thought content, the patient denies visual, auditory, or tactile hallucinations at the moment of the interview but morning time, the patient has some visual hallucinations. Insight and judgment seem to be limited. Impulses are well controlled. IMPRESSION: The patient is obviously in delirium stage, rule out alcohol withdrawal delirium, rule out delirium due to general medical condition. PLAN: Seroquel was started. Ativan was given. Monitor her mental status. Notes reviewed from Neurology as well as all labs reviewed. Physical therapy recommended, acute rehab recommended. We will follow up and advise accordingly. Thank you very much for letting me to participate in the care of your patient. Isabel Georges MD
[2018-04-02] MEDS: Latanoprost 2.5 ml Opht Soln OU SCH (21:12)
--- NOTE | 2018-04-02 22:43 | CARD ---
APPROVED REPORT EKG Measurement Heart [id number] <Conclusion> Normal sinus rhythm Normal ECG
[2018-04-03] MEDS: Pantoprazole 40 mg EC Tab PO SCH (05:24)
--- NOTE | 2018-04-03 10:29 | CP.PCM.PN ---
Subjective - Date & Time of Evaluation Date of Evaluation: 04/03/18 Time of Evaluation: 10:28 - Subjective Subjective: Nephrology Consultation Note: Assessment: Stable Basal ganglia hemorrhage Hypo-osmolar euvolemic hyponatremia likely due to beer potomania, low solute intake and Polydipsia HTN (I12.9) hx of optic neuritis UTI, fall, rhabdomyolysis, pancytopenia chronic etoh abuse Plan Hypertension control with meds as ordered. pt started on norvasc and losartan, Increased norvasc 10 mg/day. can increase losartan to 100 mg if needed. avoid thiazide diuretics pt to abstain from alcohol. improve protein diet intake and follow oral fluid restriction to 1200 mL/day Glycemic control Hyponatremia stable psychiatry and neuro following dose meds for GFR >60 Further work up/management as per primary team Thanks for allowing me to participate in care of your patient. Will follow patient with you. Please call if any Qs. had d/w team and bedside. Dr Sean Mejia Office: [phone] Chief Complaint; fall and left side weakness Reason for consult: hyponatremia HPI: Pt is a 62 y/o F with hx of hypertension, optic neuritis, chronic alcohol abuse, hyponatremia due to beer potomania and polydipsia came with fall and left side weakness, found to have basal ganglia hemorrhage and also found to have hyponatremia hence renal consulted for further management Denies palpitation, shortness of breath, leg swelling Denies blood or bubbles in urine ROS: Constitutional Symptoms: Denies fever. No chills. Cardiovascular: no chest pain. There is no shortness of breath. Pulmonary: No shortness of breath no cough. Rest All other negative except as mentioned in HPI Physical Examination: General Appearance: Comfortable, in no acute respiratory distress, co-operative . Vitals reviewed and noted as below Head; normocephalic, facial periorbital echymoses + ENT: no ulcers no thrush. Tongue is midline. Oropharynx: no rash or ulcers. EYES: Pupils are equal, round and reactive to light accommodation. Eye muscles and extraocular movement intact. Sclera is anicteric. Neck; supple no lymphadenopathy, no thyromegaly or bruit Lungs: Normal respiratory rate/effort. Breath sounds bilateral equal and clear Heart: Normal rate. s1s2 normal. No rub or gallop. Extremities: no edema. No varicose veins Neurological: Patient is alert, awake and oriented to person, place and time. has left side weakness better. Skin: Warm and dry. Normal turgor. No rash. Palpitation: Normal elasticity for age Abdomen: Abdomen is soft. Bowel sounds +. There is no abdominal tenderness, no guarding/rigidity no organomegaly Psych: limited insight and flat affect/mood MSK: no joint tenderness or swelling. Digits and nails normal, no deformity : kidney or bladder not palpable Labs/imaging/EKG reviewed. Past medical history, past surgical history, family history, social history, allergy reviewed and noted as below Family hx: no hx of CKD. Rest non-contributory Work up: CT brain: basall ganglia hemorrhage Serum osmol 263 TSH 0.5 TGL 41 CK 540 Objective - Vital Signs/Intake and Output Vital Signs (last 24 hours): Temp Pulse Resp BP Pulse Ox 97.8 F 76 18 153/98 H 98 04/03/18 06:00 04/03/18 06:00 04/03/18 06:00 04/03/18 10:02 04/03/18 06:00 Intake and Output: 04/03/18 04/03/18 06:59 18:59 Intake Total 480 Output Total 150 Balance 330 - Medications Medications: Current Medications Amlodipine Besylate (Norvasc) 10 mg PO DAILY [facility] Last Admin: 04/03/18 10:02 Dose: 10 mg Hydralazine HCl (Apresoline) 10 mg IVP Q4 PRN PRN Reason: Systolic Blood Pressure Last Admin: 03/31/18 12:13 Dose: 10 mg Latanoprost (Xalatan Opht) 0 ml OU HS [facility] Last Admin: 04/02/18 21:12 Dose: 2.5 ml Lorazepam (Ativan) 2 mg IVP Q3H PRN; Protocol PRN Reason: Agitation Last Admin: 03/31/18 17:52 Dose: 2 mg Losartan Potassium (Cozaar) 50 mg PO DAILY [facility] Last Admin: 04/03/18 10:03 Dose: 50 mg Pantoprazole Sodium (Protonix Ec Tab) 40 mg PO 0600 [facility] Last Admin: 04/03/18 05:24 Dose: 40 mg - Labs Labs: 03/31/18 05:30 03/31/18 05:30 PT 10.4 SECONDS (9.4-12.5) 03/30/18 06:35 INR 0.91 (0.93-1.08) L 03/30/18 06:35
--- NOTE | 2018-04-03 15:48 | CP.PCM.PN ---
<Robert Lynch - Last Filed: 04/03/18 17:15> Subjective - Date & Time of Evaluation Date of Evaluation: 04/03/18 Time of Evaluation: 15:47 - Subjective Subjective: Robert Lynch DO, PGY-1: Hospitalist Service Patient seen and examined at bedside. Patient will not acknowledge left arm, "states it isn't hers" it's a third appendage." " I do not know what that is." When I held her arm, and showed it to her and said you only have two arms, and she moved her rght arm, and looked at it and then I raised her left arm and placed it in her visual field told her that her brain pathways are failing to recognize that this is in fact her left arm, likely due to the disrupted pathways from the intracranial hemmorhage she in that instance miraculously understood. This was a sort of therapy for her. She can recognizes me by face and name. She remembers Dr. Cardenas. She says that though she knows she is in the hospital, for some there are elements of her old room. I would really like to hear Neurology' input in on this going forward, as does the patient. I also spoke to the Physical Therapist and if the patient continues to refuse physical therapy, I would like to be present and add compliance with the Physicalt therapist. During rounds, Dr. Nunn told the patient that Physical Therapy is really only on of the few ways she can regain strength, balance, and whatever functions she lost. I do think cognitive behavioral therapy would also benefit the patient. I will try to discuss the case with psychiatry as they may be able to help Samantha as well. Family member was contacted, older sister, lives in [place] and updated in regards to how the patient is. Objective - Vital Signs/Intake and Output Vital Signs (last 24 hours): Temp Pulse Resp BP Pulse Ox 98.5 F 59 L 18 153/94 H 98 04/03/18 12:00 04/03/18 14:00 04/03/18 12:00 04/03/18 12:00 04/03/18 06:00 Intake and Output: 04/03/18 04/03/18 06:59 18:59 Intake Total 480 Output Total 150 Balance 330 - Medications Medications: Current Medications Amlodipine Besylate (Norvasc) 10 mg PO DAILY [facility] Last Admin: 04/03/18 10:02 Dose: 10 mg Hydralazine HCl (Apresoline) 10 mg IVP Q4 PRN PRN Reason: Systolic Blood Pressure Last Admin: 03/31/18 12:13 Dose: 10 mg Hydrochlorothiazide (Hydrodiuril) 25 mg PO DAILY [facility] Last Admin: 04/03/18 12:29 Dose: 25 mg Latanoprost (Xalatan Opht) 0 ml OU HS [facility] Last Admin: 04/02/18 21:12 Dose: 2.5 ml Lorazepam (Ativan) 2 mg IVP Q3H PRN; Protocol PRN Reason: Agitation Last Admin: 03/31/18 17:52 Dose: 2 mg Losartan Potassium (Cozaar) 50 mg PO DAILY [facility] Last Admin: 04/03/18 10:03 Dose: 50 mg Pantoprazole Sodium (Protonix Ec Tab) 40 mg PO 0600 [facility] Last Admin: 04/03/18 05:24 Dose: 40 mg - Labs Labs: 03/31/18 05:30 03/31/18 05:30 PT 10.4 SECONDS (9.4-12.5) 03/30/18 06:35 INR 0.91 (0.93-1.08) L 03/30/18 06:35 - Constitutional Appears: Non-toxic - Head Exam Head Exam: ATRAUMATIC, NORMOCEPHALIC Additional comments: periorbital ecchymosis - Eye Exam Eye Exam: EOMI, Normal appearance - ENT Exam ENT Exam: Mucous Membranes Moist, Normal Oropharynx - Neck Exam Neck Exam: Normal Inspection - Respiratory Exam Respiratory Exam: Clear to Ausculation Bilateral, NORMAL BREATHING PATTERN. absent: Accessory Muscle Use - Cardiovascular Exam Cardiovascular Exam: RRR, +S1, +S2 - GI/Abdominal Exam GI & Abdominal Exam: Soft, Normal Bowel Sounds - Extremities Exam Extremities Exam: Normal Inspection. absent: Calf Tenderness - Back Exam Back Exam: NORMAL INSPECTION. absent: CVA tenderness (L), CVA tenderness (R) - Neurological Exam Neurological Exam: Alert, Awake, Oriented x3 Neuro motor strength exam: Left Upper Extremity: 0, Right Upper Extremity: 5, Left Lower Extremity: 3, Right Lower Extremity: 5 - Psychiatric Exam Psychiatric exam: Normal Affect, Normal Mood - Skin Skin Exam: Dry, Intact, Normal Color, Warm Assessment and Plan - Assessment and Plan (Free Text) Assessment: 62 year old female with a past medical history of thyroidism, hypertension, alcohol abuse, who [place] [facility] [place] multiple falls in the past ten days and was found by EMS in her residence unable to stand from the couch and with urinary incontinence. CT of the head in the ED revealed an acute 2.3 x 5.1 cm acute hemorrhage in the right basal ganglia with a moderate amount of surrounding edema with 6 mm of midline shift to the left. Repeat CT showed decrease in bleed with some expansion of edema and 7 mm midline shift (03/31/18) . Plan: 1) Intracranial hemorrhage warranting ICU admission and monitoring, now down- graded to telemetry - Repeat CT shows there is no change in the appearance of the acute hemorrhage in the right basal ganglia. This measures 2.2 x 4.8 cm. There is a moderate amount of surrounding edema. There is 6 mm of midline shift to the left. - CTA head and neck reveals that there is a large calcified plaque in the right internal carotid artery producing a moderate degree of stenosis and a calcified plaque at the bifurcation without stenosis with normal vertebral arteries with a normal left vertebral dominant circulation. No aneurysm identified - Neurochecks q1h - Fall precautions - Seizure precautions - Speech and swallow evaluation appreciated - HOB at 30 degrees - Neurosurgery defers any surgical intervention at this time - Physical therapy recommends acute rehab center upon discharge - Neurology recommends no antiplatelet at this time - 2) Residual effects of the hemmorhage: still hallucinatin, but aware - 1:1 ordered and services appreciated and discontinued given patient is not delirious and has good mentation for the larger part of the day - Ativan 2 mg q6h PRN for LISSETTE or agitation - Psychiatry consulted, recommendations appreciated - [facility] protocol - Fall precautions and seizure precautions - Discontinued Seroquel 3) History of hypothyroidism - TSH 0.57 - Free T4 1.04 - T3 2.49 4) Elevated troponin - 0.16, 0.16, 0.12 - Echocardiogram shows moderate mitral regurgitation with a Grade-I abnormal relaxation of the transmitral doppler flow pattern. - Cardiology consulted, Dr. Browne, appreciate recommendations 5) Hypertension with an episode of heart block observed yesterday - Dr. Rivera ordered 24 hour holter monitor - Metoprolol 25 mg BID discontinued after the patient was bradycardic and had a degree of AV block - Amlodipine 10 mg PO daily ( - Losartan 50 mg PO Daily - HCTZ 25 added, appreciate Dr. Browne's recommendations 7) DVT/GI prophylaxis - SCD - Protonix 40 mg IVP Disposition: Physical therapist persistence with the patient is sincerely appreciated. Notes appreciated and thank you for re-visiting my patient multiple times. Social work is working on placement for Acute Rehabilitation for the patient. Case reviewed and discussed with attending physician, Dr. Nunn <Rodolfo Nunn - Last Filed: 04/04/18 14:34> Objective - Vital Signs/Intake and Output Vital Signs (last 24 hours): Temp Pulse Resp BP Pulse Ox 97.4 F L 75 20 137/96 H 96 04/04/18 06:00 04/04/18 06:00 04/04/18 06:00 04/04/18 10:03 04/04/18 06:00 Intake and Output: 04/04/18 04/04/18 06:59 18:59 Intake Total 480 0 Balance 480 0 - Medications Medications: Current Medications Amlodipine Besylate (Norvasc) 10 mg PO DAILY [facility] Last Admin: 04/04/18 10:03 Dose: 10 mg Hydralazine HCl (Apresoline) 10 mg IVP Q4 PRN PRN Reason: Systolic Blood Pressure Last Admin: 03/31/18 12:13 Dose: 10 mg Hydralazine HCl (Apresoline) 25 mg PO TID [facility] Latanoprost (Xalatan Opht) 0 ml OU HS [facility] Last Admin: 04/03/18 21:49 Dose: 2.5 ml Lorazepam (Ativan) 2 mg IVP Q3H PRN; Protocol PRN Reason: Agitation Last Admin: 03/31/18 17:52 Dose: 2 mg Losartan Potassium (Cozaar) 50 mg PO DAILY [facility] Last Admin: 04/03/18 10:03 Dose: 50 mg Pantoprazole Sodium (Protonix Ec Tab) 40 mg PO 0600 [facility] Last Admin: 04/04/18 06:34 Dose: 40 mg Potassium Chloride (K-Dur 20 Meq Er Tab) 40 meq PO ONCE ONE Stop: 04/04/18 15:01 Quetiapine Fumarate (Seroquel) 25 mg PO HS [facility] PRN Reason: Protocol - Labs Labs: 04/04/18 09:15 04/04/18 13:30 PT 10.4 SECONDS (9.4-12.5) 03/30/18 06:35 INR 0.91 (0.93-1.08) L 03/30/18 06:35 Attending/Attestation - Attestation I have personally seen and examined this patient.: Yes I have fully participated in the care of the patient.: Yes I have reviewed all pertinent clinical information, including history, physical exam and plan: Yes Notes (Text): 04/04/18 14:30 Attending note; Patient seen and examined with resident. Patient is more alert and awake. Agreed to do physical therapy today. Still with significant left sided weakness. Patient is a 62 year old female with past medical history of hyperthyroidism, hypertension, chronic alcohol abuse and chronic hyponatremia who presented with complaint of frequent falls. CT head showed acute hemorrhage in the right basal ganglia with surrounding edema and midline shift. Repeat CT head following day showed stable findings without acute changes. CTA head and neck was reviewed as above. Neurosurgery recommended close monitoring without acute neurosurgical intervention at this time. Patient was on decadron which is being tapered as per neurology. Physical therapy evaluation requested. Need rehabilitation placement. History of alcohol abuse; complete alcohol cessation is strongly advised. Continue Ativan when necessary. Hypertension; on norvasc, losartan, and hydralazine prn for hypertension. Blood pressure is fluctuant. Metoprolol is discontinued due to bradycardia. Holter monitor without any acute events. Telemetry discontinued by cardiology. Bradycardia resolved. Elevated LFTs likely secondary to chronic ETOH abuse. LFTs have improved. Previous hepatitis profile was negative. Will discuss with cyanide case hardener for discharge planning. Upon discharge the patient will follow-up with PMD . 04/04/18 14:33
--- NOTE | 2018-04-03 17:12 | PN ---
DATE: 04/03/2018 SUBJECTIVE: The patient denies any chest pain or shortness of breath. PHYSICAL EXAMINATION VITAL SIGNS: Blood pressure 153/98, heart rate 73, temperature , and respirations 18. HEENT: Bilateral periorbital ecchymosis. CHEST: Clear. HEART: S1 and S2 regular. EXTREMITIES: No edema. LABORATORY DATA: Yesterday's EKG revealed normal sinus rhythm at the rate of 65. ASSESSMENT: 1. Right basal ganglion hemorrhage. 2. Uncontrolled hypertension. 3. Borderline troponin elevation. RECOMMENDATIONS: Continue current IV hydralazine 10 mg every 4 hours p.r.n. Continue Cozaar mg once a day, Norvasc 10 mg once a day. Start hydrochlorothiazide 25 mg orally once a day. Junior Browne MD
[2018-04-03] MEDS: Latanoprost 2.5 ml Opht Soln OU SCH (21:49)
[2018-04-04] MEDS: Pantoprazole 40 mg EC Tab PO SCH (06:34)
[2018-04-04 09:40] LABS: BASO # 0.02 K/mm3 (0.0-2.0); BASO % 0.4 % (0.0-3.0); EOS # 0.2 (0.0-0.7); EOS % 3.8 % (1.5-5.0); GRAN # 2.66 (1.4-6.5); HEMOGLOBIN 12.6 g/dL (12.0-16.0); LYMPH # 1.1 (1.2-3.4); MEAN CELL VOLUME 93.8 fl (80.0-105.0); MEAN CORPUSCULAR HEMOGLOBIN 32.5 pg (25.0-35.0); MEAN CORPUSCULAR HGB CONC 34.6 g/dl (31.0-37.0); MEAN PLATELET VOLUME 8.3 fl (7.0-11.0); MONO # 0.8 (0.1-0.6); MONO % 15.8 % (1.0-6.0); RBC 3.88 10^6/uL (3.5-6.1); RED CELL DISTRIBUTION WIDTH 12.3 % (11.5-14.5); WHITE BLOOD COUNT 4.8 10^3/ul (4.5-11.0)
[2018-04-04 09:46] LABS: ALB/GLOB RATIO 1.3 (1.1-1.8); ALBUMIN 3.6 g/dL (3.0-4.8); ALT/SGPT 67 U/L (7-56); AST/SGOT 46 U/L (14-36); BLOOD UREA NITROGEN 12 mg/dL (7-21); GFR NON-AFRICAN AMERICAN > 60
[2018-04-04] MEDS ORDERED: Potassium Chloride 20 mEq ER Tab PO ONE ×3 (10:02→15:00)
[2018-04-04] MEDS ORDERED: Magnesium Sulfate 1 gm in D5W 1 GM/100 ML BAG IVPB ONE (10:02)
--- NOTE | 2018-04-04 10:04 | CP.PCM.PN ---
Subjective - Date & Time of Evaluation Date of Evaluation: 04/04/18 Time of Evaluation: 09:58 - Subjective Subjective: Nephrology Consultation Note: Assessment: Stable Basal ganglia hemorrhage Hypo-osmolar euvolemic hyponatremia likely due to beer potomania, low solute intake and Polydipsia HTN (I12.9) hx of optic neuritis UTI, fall, rhabdomyolysis, pancytopenia chronic etoh abuse hypokalemia hypomag Plan Hypertension - given her predisposition to hyponatremia previously - would avoid HCTZ at this time. Would recc discontinue - and inc losartan to 100 mg daily instead. low k and mag - ordered 40 IV kcl and 20 po k dur and 1 gm iv mag- recc recheck later this afternoon replete further if necessary, likely hypoklaemic from diuretic being started pt to abstain from alcohol. improve protein diet intake and follow oral fluid restriction to 1200 mL/day Glycemic control Hyponatremia relatively stable psychiatry and neuro following S: seen ad e Physical Examination: General Appearance: Comfortable, in no acute respiratory distress, co-operative . Vitals reviewed and noted as below Head; normocephalic, facial periorbital echymoses + ENT: no ulcers no thrush. Tongue is midline. Oropharynx: no rash or ulcers. EYES: Pupils are equal, round and reactive to light accommodation. Eye muscles and extraocular movement intact. Sclera is anicteric. Neck; supple no lymphadenopathy, no thyromegaly or bruit Lungs: Normal respiratory rate/effort. Breath sounds bilateral equal and clear Heart: Normal rate. s1s2 normal. No rub or gallop. Extremities: no edema. No varicose veins Neurological: Patient is alert, awake and oriented to person, place and time. has left side weakness better. Skin: Warm and dry. Normal turgor. No rash. Palpitation: Normal elasticity for age Abdomen: Abdomen is soft. Bowel sounds +. There is no abdominal tenderness, no guarding/rigidity no organomegaly Psych: limited insight and flat affect/mood MSK: no joint tenderness or swelling. Digits and nails normal, no deformity : kidney or bladder not palpable Labs/imaging/EKG reviewed. Past medical history, past surgical history, family history, social history, allergy reviewed and noted as below Family hx: no hx of CKD. Rest non-contributory Work up: CT brain: basall ganglia hemorrhage Serum osmol 263 TSH 0.5 TGL 41 CK 540 Objective - Vital Signs/Intake and Output Vital Signs (last 24 hours): Temp Pulse Resp BP Pulse Ox 97.4 F L 75 20 137/96 H 96 04/04/18 06:00 04/04/18 06:00 04/04/18 06:00 04/04/18 06:00 04/04/18 06:00 Intake and Output: 04/04/18 04/04/18 06:59 18:59 Intake Total 480 0 Balance 480 0 - Medications Medications: Current Medications Amlodipine Besylate (Norvasc) 10 mg PO DAILY [facility] Last Admin: 04/03/18 10:02 Dose: 10 mg Hydralazine HCl (Apresoline) 10 mg IVP Q4 PRN PRN Reason: Systolic Blood Pressure Last Admin: 03/31/18 12:13 Dose: 10 mg Hydrochlorothiazide (Hydrodiuril) 50 mg PO DAILY [facility] Latanoprost (Xalatan Opht) 0 ml OU HS [facility] Last Admin: 04/03/18 21:49 Dose: 2.5 ml Lorazepam (Ativan) 2 mg IVP Q3H PRN; Protocol PRN Reason: Agitation Last Admin: 03/31/18 17:52 Dose: 2 mg Losartan Potassium (Cozaar) 50 mg PO DAILY [facility] Last Admin: 04/03/18 10:03 Dose: 50 mg Pantoprazole Sodium (Protonix Ec Tab) 40 mg PO 0600 [facility] Last Admin: 04/04/18 06:34 Dose: 40 mg - Labs Labs: 04/04/18 09:15 04/04/18 09:15 PT 10.4 SECONDS (9.4-12.5) 03/30/18 06:35 INR 0.91 (0.93-1.08) L 03/30/18 06:35
--- NOTE | 2018-04-04 12:08 | PN ---
DATE: 04/04/2018 FOLLOWUP SUBJECTIVE: The patient denies any headache or dizziness. PHYSICAL EXAMINATION: VITAL SIGNS: Blood pressure 137/96, heart rate 75, temperature 97.4, respirations 20. HEENT: Resolving bilateral periorbital ecchymosis. CHEST: Clear. HEART: S1 and S2 regular. EXTREMITIES: No edema. LABORATORY DATA: Today's potassium is 2.8. Today's hemoglobin and hematocrit, white count and platelet count are within normal limits. ASSESSMENT: 1. Right basal ganglia hemorrhage. 2. Uncontrolled hypertension. 3. elevation. RECOMMENDATIONS: Continue Cozaar at 50 mg once a day, hydralazine 10 mg intravenously every 4 hours p.r.n. Start hydralazine at 25 mg orally every 8 hours. The patient has received potassium replacement as well as magnesium sulfate replacement. Junior Browne MD
--- NOTE | 2018-04-04 12:14 | CP.PCM.PN ---
Subjective - Date & Time of Evaluation Date of Evaluation: 04/04/18 Time of Evaluation: 12:14 - Subjective Subjective: Ms. Luther was seen and examined at the bedside. She is alert, oriented x 3 with multiple fading echymosis noted in her body including bilateral periorbital area. She denies any headache, dizziness. She is able to follow simple commands with left facial droop, left side paraplegia. She claims of symmetrical sensation between her right and left side. She remains with head and neck tremors. CTA showed no aneuryms.There was no untoward events overnight. Objective - Vital Signs/Intake and Output Vital Signs (last 24 hours): Temp Pulse Resp BP Pulse Ox 97.4 F L 75 20 137/96 H 96 04/04/18 06:00 04/04/18 06:00 04/04/18 06:00 04/04/18 10:03 04/04/18 06:00 Intake and Output: 04/04/18 04/04/18 06:59 18:59 Intake Total 480 0 Balance 480 0 - Medications Medications: Current Medications Amlodipine Besylate (Norvasc) 10 mg PO DAILY [facility] Last Admin: 04/04/18 10:03 Dose: 10 mg Hydralazine HCl (Apresoline) 10 mg IVP Q4 PRN PRN Reason: Systolic Blood Pressure Last Admin: 03/31/18 12:13 Dose: 10 mg Hydralazine HCl (Apresoline) 25 mg PO TID [facility] Potassium Chloride (Potassium Chloride 20 Meq/100 Ml) 20 meq in 100 mls @ 50 mls/hr IVPB Q2H [facility] Stop: 04/04/18 14:14 Latanoprost (Xalatan Opht) 0 ml OU HS [facility] Last Admin: 04/03/18 21:49 Dose: 2.5 ml Lorazepam (Ativan) 2 mg IVP Q3H PRN; Protocol PRN Reason: Agitation Last Admin: 03/31/18 17:52 Dose: 2 mg Losartan Potassium (Cozaar) 50 mg PO DAILY [facility] Last Admin: 04/03/18 10:03 Dose: 50 mg Pantoprazole Sodium (Protonix Ec Tab) 40 mg PO 0600 [facility] Last Admin: 04/04/18 06:34 Dose: 40 mg - Labs Labs: 04/04/18 09:15 04/04/18 09:15 PT 10.4 SECONDS (9.4-12.5) 03/30/18 06:35 INR 0.91 (0.93-1.08) L 03/30/18 06:35 - Constitutional Appears: No Acute Distress - Head Exam Head Exam: NORMAL INSPECTION - Eye Exam Pupil Exam: PERRL - Neurological Exam Neurological Exam: Alert, Awake, Oriented x3 Neuro motor strength exam: Left Upper Extremity: 2/1, Right Upper Extremity: 5, Left Lower Extremity: 2/1, Right Lower Extremity: 5 Additional comments: neurological improved from previous examination Assessment and Plan (1) Intracranial bleed Assessment & Plan: Case discussed with Dr. Quintana, continue all current medical, physical, occupational, and speech therapies. Recommend keep head of bed elevated at least 30 degrees, blood pressure control, acute rehab for discharge planning, continue CIWA protocol, treat any underlying electrolyte abnormalities. Status: Acute
[2018-04-04 14:14] LABS: BLOOD UREA NITROGEN 15 mg/dL (7-21); GFR NON-AFRICAN AMERICAN > 60
--- NOTE | 2018-04-04 14:15 | CP.PCM.DIS ---
<Robert Lynch - Last Filed: 04/04/18 15:32> Provider - Provider Date of Admission: 03/28/18 14:20 Attending physician: Rodolfo Nunn MD Primary care physician: Fe Shah DO Consults: Dr. Quintana/Ronald Resendez/Susan Mejia/Rory Browne Time Spent in preparation of Discharge (in minutes): 55 Hospital Course - Lab Results Lab Results: Micro Results 03/28/18 16:45 Naris MRSA Culture (Admit) - Final MRSA NOT DETECTED Most Recent Lab Values WBC 4.8 10^3/ul (4.5-11.0) 04/04/18 09:15 RBC 3.88 10^6/uL (3.5-6.1) 04/04/18 09:15 Hgb 12.6 g/dL (12.0-16.0) 04/04/18 09:15 Hct 36.4 % (36.0-48.0) 04/04/18 09:15 MCV 93.8 fl (80.0-105.0) 04/04/18 09:15 MCH 32.5 pg (25.0-35.0) 04/04/18 09:15 MCHC 34.6 g/dl (31.0-37.0) 04/04/18 09:15 RDW 12.3 % (11.5-14.5) 04/04/18 09:15 Plt Count 156 10^3/uL (120.0-450.0) 04/04/18 09:15 MPV 8.3 fl (7.0-11.0) 04/04/18 09:15 Gran % 56.0 % (50.0-68.0) 04/04/18 09:15 Lymph % (Auto) 24.0 % (22.0-35.0) 04/04/18 09:15 [place] % (Auto) 15.8 % (1.0-6.0) H 04/04/18 09:15 Eos % (Auto) 3.8 % (1.5-5.0) 04/04/18 09:15 Baso % (Auto) 0.4 % (0.0-3.0) 04/04/18 09:15 Gran # 2.66 (1.4-6.5) 04/04/18 09:15 Lymph # (Auto) 1.1 (1.2-3.4) L 04/04/18 09:15 [place] # (Auto) 0.8 (0.1-0.6) H 04/04/18 09:15 Eos # (Auto) 0.2 (0.0-0.7) 04/04/18 09:15 Baso # (Auto) 0.02 K/mm3 (0.0-2.0) 04/04/18 09:15 PT 10.4 SECONDS (9.4-12.5) 03/30/18 06:35 INR 0.91 (0.93-1.08) L 03/30/18 06:35 pCO2 28 mm/Hg (35-45) L 03/31/18 18:45 pO2 76.0 mm/Hg (80-100) L 03/31/18 18:45 HCO3 22.3 mmol/L (21-28) 03/31/18 18:45 ABG pH 7.51 (7.35-7.45) H 03/31/18 18:45 ABG Total CO2 23.2 mmol.L (22-28) 03/31/18 18:45 ABG O2 Saturation 98.3 % (95-98) H 03/31/18 18:45 ABG Base Excess 0.4 mmol/L (-2.0-3.0) 03/31/18 18:45 ABG Potassium 3.3 mmol/L (3.6-5.2) L 03/31/18 18:45 VBG pH 7.45 (7.32-7.43) H 03/28/18 12:00 VBG pCO2 32.0 (40-60) L 03/28/18 12:00 VBG HCO3 22.2 mmol/l (21-28) 03/28/18 12:00 VBG Total CO2 23.2 mmol.L (22-28) 03/28/18 12:00 VBG O2 Sat (Calc) 95.7 % (40-65) H 03/28/18 12:00 VBG Base Excess -1.0 mmol/L (0.0-2.0) L 03/28/18 12:00 VBG Potassium 5.3 mmol/L (3.6-5.2) H 03/28/18 12:00 Sodium 133.0 mmol/L (132-148) 03/31/18 18:45 Chloride 102.0 mmol/L (98-107) 03/31/18 18:45 Glucose 119 mg/dl (65-105) H 03/31/18 18:45 Lactate 0.9 mmol/L (0.7-2.1) 03/31/18 18:45 FiO2 21.0 % 03/31/18 18:45 Sodium 131 mmol/L (132-148) L 04/04/18 13:30 Potassium 3.4 mmol/L (3.6-5.0) L 04/04/18 13:30 Chloride 97 mmol/L (98-107) L 04/04/18 13:30 Carbon Dioxide 24 mmol/L (21-33) 04/04/18 13:30 Anion Gap 14 (10-20) 04/04/18 13:30 BUN 15 mg/dL (7-21) 04/04/18 13:30 Creatinine 0.8 mg/dl (0.7-1.2) 04/04/18 13:30 Est GFR ( Amer) > 60 04/04/18 13:30 Est GFR (Non-Af Amer) > 60 04/04/18 13:30 Random Glucose 110 mg/dL (70-110) 04/04/18 13:30 Hemoglobin A1c 4.4 % (4.2-6.5) 03/30/18 05:50 Serum Osmolality 263 mosm/kg (272-300) L 03/28/18 19:03 Calcium 9.0 mg/dL (8.4-10.5) 04/04/18 13:30 Phosphorus 2.8 mg/dL (2.5-4.5) 03/30/18 06:35 Magnesium 1.5 mg/dL (1.7-2.2) L 04/04/18 09:15 Iron 40 ug/dL (45-180) L 03/31/18 05:30 TIBC 279 ug/dL (265-497) 03/31/18 05:30 % Saturation 14 % (20-55) L 03/31/18 05:30 Ferritin 263.0 ng/mL 03/31/18 05:30 Total Bilirubin 0.6 mg/dL (0.2-1.3) 04/04/18 09:15 AST 46 U/L (14-36) H D 04/04/18 09:15 ALT 67 U/L (7-56) H 04/04/18 09:15 Alkaline Phosphatase 58 U/L (38-126) 04/04/18 09:15 Lactate Dehydrogenase 383 U/L (333-699) 03/29/18 01:10 Total Creatine Kinase 46 U/L (35-230) 04/04/18 09:15 CK-MB (CK-2) 6.2 ng/mL (0.0-3.6) H 03/29/18 05:50 CK-MB (CK-2) % 1.1 % (2.5-3.0) L 03/29/18 05:50 Troponin I 0.12 ng/mL D 03/29/18 01:10 NT-Pro-B Natriuret Pep 763 pg/mL (0-450) H 03/28/18 12:00 Total Protein 6.5 g/dL (5.8-8.3) 04/04/18 09:15 Albumin 3.6 g/dL (3.0-4.8) 04/04/18 09:15 Globulin 2.9 gm/dL 04/04/18 09:15 Albumin/Globulin Ratio 1.3 (1.1-1.8) 04/04/18 09:15 Triglycerides 41 mg/dL (35-160) 03/30/18 05:50 Cholesterol 174 mg/dL (130-200) 03/30/18 05:50 LDL Cholesterol Direct 44 mg/dL (0-129) 03/30/18 05:50 HDL Cholesterol 100 mg/dL (29-60) H 03/30/18 05:50 Vitamin B12 578 pg/mL (239-931) 03/31/18 05:30 Folate 8.7 ng/mL 03/31/18 05:30 Free T4 1.04 ng/dL (0.78-2.19) 03/28/18 19:03 Free T3 pg/mL 2.49 pg/mL (2.77-5.27) L 03/28/18 19:03 TSH 3rd Generation 0.57 mIU/mL (0.46-4.68) 03/28/18 19:03 Arterial Blood Potassium 3.3 mmol/L (3.6-5.2) L 03/31/18 18:45 Venous Blood Potassium 5.3 mmol/L (3.6-5.2) H 03/28/18 12:00 Urine Color Yellow (YELLOW) 03/28/18 13:13 Urine Appearance Turbid (CLEAR) 03/28/18 13:13 Urine pH 6.0 (4.7-8.0) 03/28/18 13:13 Ur Specific [place] 1.020 (1.005-1.035) 03/28/18 13:13 Urine Protein Negative mg/dL (<30 mg/dL) 03/28/18 13:13 Urine Glucose (UA) Negative mg/dL (NEGATIVE) 03/28/18 13:13 Urine Ketones 15 mg/dL (NEGATIVE) H 03/28/18 13:13 Urine Blood Small (NEGATIVE) H 03/28/18 13:13 Urine Nitrate Positive (NEGATIVE) H 03/28/18 13:13 Urine Bilirubin Negative (NEGATIVE) 03/28/18 13:13 Urine Urobilinogen 0.2 E.U./dL (<1 E.U./dL) 03/28/18 13:13 Ur Leukocyte Esterase Small Joseph/uL (NEGATIVE) H 03/28/18 13:13 Urine RBC 2 - 5 /hpf (0-2) 03/28/18 13:13 Urine WBC 1 - 3 /hpf (0-6) 03/28/18 13:13 Urine Bacteria Many (NEG) 03/28/18 13:13 Urine Opiates Screen Negative (NEGATIVE) 03/28/18 13:13 Urine Methadone Screen Negative (NEGATIVE) 03/28/18 13:13 Ur Barbiturates Screen Negative (NEGATIVE) 03/28/18 13:13 Ur Phencyclidine Scrn Negative (NEGATIVE) 03/28/18 13:13 Ur Amphetamines Screen Negative (NEGATIVE) 03/28/18 13:13 U Benzodiazepines Scrn Negative (NEGATIVE) 03/28/18 13:13 U Oth Cocaine Metabols Negative (NEGATIVE) 03/28/18 13:13 U Cannabinoids Screen Negative (NEGATIVE) 03/28/18 13:13 Alcohol, Quantitative < 10 mg/dL (0-10) 03/28/18 12:00 - Hospital Course Hospital Course: 62 year old female with a past medical history of thyroid issues, hypertension, alcohol abuse, who [place] [facility] [place] perior[place] ecchymosis after sustaining multiple falls in the past ten days and was found by EMS in her residence unable to stand from the couch and with urinary incontinence. CT of the head in the ED revealed an acute 2.3 x 5.1 cm acute hemorrhage in the right basal ganglia with a moderate amount of surrounding edema with 6 mm of midline shift to the left. She had left sided hemiplegia, left sided hemianalgesia sparing the medial thigh, and left-sided hemineglect. Through-out the patient's hospital course her motor deficits improved, but her left hemianalgesia and left robbie-neglect persists. She was also treated for a UTI of E. coli with IV and then PO antibiotics. Her hospital course was complicated by delirium in the ICU (likely multifactorial, possibly from alcohol withdrawal, ICU delirium, steroid-induced encephalopathy,etc.) and was subsequently placed on a 1:1, Librium for LISSETTE, Seroquel for agitation. The patient also had an episode of bradycardia with some degree of AV marly block prompting a holter monitor to be placed and discontinuing her beta-rowan. The patient was asymptomatic at this time of the bradycardia. Repeat CT performed on 03/31/18 showed a decrease in size of the blood with some expansion of edema and 7 mm midline shift . Neurosurgery, neurology, cardiology, nephrology, psychiatry were consulted. The patient was closely monitored in the ICU and underwent with serial neurologic exams and a complete neurologic and cardiac work-up, including, but not limited to, echocardiogram, CTA of the head and neck and an echocardiogram. Echocardiogram showed moderate mitral regurgitation with a Grade-I abnormal relaxation of the transmitral doppler flow pattern. CTA did reveal that there is a large calcified plaque in the right internal carotid artery producing a moderate degree of stenosis and a calcified plaque at the bifurcation without stenosis with normal vertebral arteries with a normal left vertebral dominant circulation and no aneurysm. Statin therapy was not indicated in this patient given she had an HDL above 100 and an LDL of 33. Furthermore, statins increase the risk of hemorrhagic stroke (per neurology).The patient's weakness improved gradually through-out her hospital stay as did her delirium. Physical therapy and occupational therapy continuously evaluated the patient and noted her progress. With the help of case management social worker and case management, the patient was accepted to an acute rehabilitation facility that had the appropriate level of care for her condition. The patient was discharged with the below written instructions and recommendations. 1) Patient to take any medications as directed, unless otherwise indicated. 2) Patient to abstain from alcohol, tobacco, or any illicit drugs. 3) During rehabilitation, patient's blood pressure goal is to maintain a systolic blood pressure less than 160 and diastolic blood pressure below 90. 4) Patient to follow up with neurology and psychiatry as an outpatient. 5) Patient to eat a diet high in protein and have fluid restriction of 1200 cc a day. 6) Patient to follow up with PMD within one week of discharge from Acute Rehabilitation. - Date & Time of H&P Date of H&P: 04/04/18 Time of H&P: 15:04 Discharge Exam - Head Exam Head Exam: NORMAL INSPECTION, NORMOCEPHALIC - Eye Exam Eye Exam: EOMI, Normal appearance Additional comments: periorbital ecchymosis - ENT Exam ENT Exam: Mucous Membranes Moist, Normal Oropharynx - Neck Exam Neck exam: Normal Inspection - Respiratory Exam Respiratory Exam: Clear to PA & Lateral, NORMAL BREATHING PATTERN. absent: Accessory Muscle Use - Cardiovascular Exam Cardiovascular Exam: RRR, +S1, +S2 - GI/Abdominal Exam GI & Abdominal Exam: Normal Bowel Sounds - Extremities Exam Extremities exam: normal inspection - Neurological Exam Neurological exam: Alert, Oriented x3 - Psychiatric Exam Psychiatric exam: Normal Affect, Normal Mood - Skin Skin Exam: Dry, Intact, Normal Color, Warm Discharge Plan - Discharge Medications Prescriptions: QUEtiapine [SEROquel] 25 mg PO HS #30 tab - Follow Up Plan Condition: CRITICAL Disposition: REHAB FACILITY/REHAB UNIT Instructions: Preventing Falls, Alcohol Abuse and Alcoholism (DC), Hypertension (DC), Hypertension (GEN) Additional Instructions: 1) Patient to take any medications as directed, unless otherwise indicated. 2) Patient to abstain from alcohol, tobacco, or any illicit drugs. 3) During rehabilitation, patient's blood pressure goal is to maintain a systolic blood pressureless than 160 and diastolic blood pressure below 90. 4) Patient to follow up with neurology and psychiatry as an outpatient. 5) Patient to eat a diet high in protein and have fluid restriction of 1200 cc a day. 6) Patient to follow up with PMD within one week of discharge from Acute Rehabilitation. Referrals: Fe Shah DO [Primary Care Provider] - Codie Cardenas MD [Staff Provider] - 1 Week <Rodolfo Nunn - Last Filed: 04/05/18 15:28> Provider - Provider Date of Admission: 03/28/18 14:20 Attending physician: Rodolfo Nunn MD Primary care physician: Fe Shah DO Hospital Course - Lab Results Lab Results: Micro Results 03/28/18 16:45 Naris MRSA Culture (Admit) - Final MRSA NOT DETECTED Most Recent Lab Values WBC 4.8 10^3/ul (4.5-11.0) 04/04/18 09:15 RBC 3.88 10^6/uL (3.5-6.1) 04/04/18 09:15 Hgb 12.6 g/dL (12.0-16.0) 04/04/18 09:15 Hct 36.4 % (36.0-48.0) 04/04/18 09:15 MCV 93.8 fl (80.0-105.0) 04/04/18 09:15 MCH 32.5 pg (25.0-35.0) 04/04/18 09:15 MCHC 34.6 g/dl (31.0-37.0) 04/04/18 09:15 RDW 12.3 % (11.5-14.5) 04/04/18 09:15 Plt Count 156 10^3/uL (120.0-450.0) 04/04/18 09:15 MPV 8.3 fl (7.0-11.0) 04/04/18 09:15 Gran % 56.0 % (50.0-68.0) 04/04/18 09:15 Lymph % (Auto) 24.0 % (22.0-35.0) 04/04/18 09:15 [place] % (Auto) 15.8 % (1.0-6.0) H 04/04/18 09:15 Eos % (Auto) 3.8 % (1.5-5.0) 04/04/18 09:15 Baso % (Auto) 0.4 % (0.0-3.0) 04/04/18 09:15 Gran # 2.66 (1.4-6.5) 04/04/18 09:15 Lymph # (Auto) 1.1 (1.2-3.4) L 04/04/18 09:15 [place] # (Auto) 0.8 (0.1-0.6) H 04/04/18 09:15 Eos # (Auto) 0.2 (0.0-0.7) 04/04/18 09:15 Baso # (Auto) 0.02 K/mm3 (0.0-2.0) 04/04/18 09:15 PT 10.4 SECONDS (9.4-12.5) 03/30/18 06:35 INR 0.91 (0.93-1.08) L 03/30/18 06:35 pCO2 28 mm/Hg (35-45) L 03/31/18 18:45 pO2 76.0 mm/Hg (80-100) L 03/31/18 18:45 HCO3 22.3 mmol/L (21-28) 03/31/18 18:45 ABG pH 7.51 (7.35-7.45) H 03/31/18 18:45 ABG Total CO2 23.2 mmol.L (22-28) 03/31/18 18:45 ABG O2 Saturation 98.3 % (95-98) H 03/31/18 18:45 ABG Base Excess 0.4 mmol/L (-2.0-3.0) 03/31/18 18:45 ABG Potassium 3.3 mmol/L (3.6-5.2) L 03/31/18 18:45 VBG pH 7.45 (7.32-7.43) H 03/28/18 12:00 VBG pCO2 32.0 (40-60) L 03/28/18 12:00 VBG HCO3 22.2 mmol/l (21-28) 03/28/18 12:00 VBG Total CO2 23.2 mmol.L (22-28) 03/28/18 12:00 VBG O2 Sat (Calc) 95.7 % (40-65) H 03/28/18 12:00 VBG Base Excess -1.0 mmol/L (0.0-2.0) L 03/28/18 12:00 VBG Potassium 5.3 mmol/L (3.6-5.2) H 03/28/18 12:00 Sodium 133.0 mmol/L (132-148) 03/31/18 18:45 Chloride 102.0 mmol/L (98-107) 03/31/18 18:45 Glucose 119 mg/dl (65-105) H 03/31/18 18:45 Lactate 0.9 mmol/L (0.7-2.1) 03/31/18 18:45 FiO2 21.0 % 03/31/18 18:45 Sodium 131 mmol/L (132-148) L 04/04/18 13:30 Potassium 3.4 mmol/L (3.6-5.0) L 04/04/18 13:30 Chloride 97 mmol/L (98-107) L 04/04/18 13:30 Carbon Dioxide 24 mmol/L (21-33) 04/04/18 13:30 Anion Gap 14 (10-20) 04/04/18 13:30 BUN 15 mg/dL (7-21) 04/04/18 13:30 Creatinine 0.8 mg/dl (0.7-1.2) 04/04/18 13:30 Est GFR ( Amer) > 60 04/04/18 13:30 Est GFR (Non-Af Amer) > 60 04/04/18 13:30 Random Glucose 110 mg/dL (70-110) 04/04/18 13:30 Hemoglobin A1c 4.4 % (4.2-6.5) 03/30/18 05:50 Serum Osmolality 263 mosm/kg (272-300) L 03/28/18 19:03 Calcium 9.0 mg/dL (8.4-10.5) 04/04/18 13:30 Phosphorus 2.8 mg/dL (2.5-4.5) 03/30/18 06:35 Magnesium 1.5 mg/dL (1.7-2.2) L 04/04/18 09:15 Iron 40 ug/dL (45-180) L 03/31/18 05:30 TIBC 279 ug/dL (265-497) 03/31/18 05:30 % Saturation 14 % (20-55) L 03/31/18 05:30 Ferritin 263.0 ng/mL 03/31/18 05:30 Total Bilirubin 0.6 mg/dL (0.2-1.3) 04/04/18 09:15 AST 46 U/L (14-36) H D 04/04/18 09:15 ALT 67 U/L (7-56) H 04/04/18 09:15 Alkaline Phosphatase 58 U/L (38-126) 04/04/18 09:15 Lactate Dehydrogenase 383 U/L (333-699) 03/29/18 01:10 Total Creatine Kinase 46 U/L (35-230) 04/04/18 09:15 CK-MB (CK-2) 6.2 ng/mL (0.0-3.6) H 03/29/18 05:50 CK-MB (CK-2) % 1.1 % (2.5-3.0) L 03/29/18 05:50 Troponin I 0.12 ng/mL D 03/29/18 01:10 NT-Pro-B Natriuret Pep 763 pg/mL (0-450) H 03/28/18 12:00 Total Protein 6.5 g/dL (5.8-8.3) 04/04/18 09:15 Albumin 3.6 g/dL (3.0-4.8) 04/04/18 09:15 Globulin 2.9 gm/dL 04/04/18 09:15 Albumin/Globulin Ratio 1.3 (1.1-1.8) 04/04/18 09:15 Triglycerides 41 mg/dL (35-160) 03/30/18 05:50 Cholesterol 174 mg/dL (130-200) 03/30/18 05:50 LDL Cholesterol Direct 44 mg/dL (0-129) 03/30/18 05:50 HDL Cholesterol 100 mg/dL (29-60) H 03/30/18 05:50 Vitamin B12 578 pg/mL (239-931) 03/31/18 05:30 Folate 8.7 ng/mL 03/31/18 05:30 Free T4 1.04 ng/dL (0.78-2.19) 03/28/18 19:03 Free T3 pg/mL 2.49 pg/mL (2.77-5.27) L 03/28/18 19:03 TSH 3rd Generation 0.57 mIU/mL (0.46-4.68) 03/28/18 19:03 Arterial Blood Potassium 3.3 mmol/L (3.6-5.2) L 03/31/18 18:45 Venous Blood Potassium 5.3 mmol/L (3.6-5.2) H 03/28/18 12:00 Urine Color Yellow (YELLOW) 03/28/18 13:13 Urine Appearance Turbid (CLEAR) 03/28/18 13:13 Urine pH 6.0 (4.7-8.0) 03/28/18 13:13 Ur Specific [place] 1.020 (1.005-1.035) 03/28/18 13:13 Urine Protein Negative mg/dL (<30 mg/dL) 03/28/18 13:13 Urine Glucose (UA) Negative mg/dL (NEGATIVE) 03/28/18 13:13 Urine Ketones 15 mg/dL (NEGATIVE) H 03/28/18 13:13 Urine Blood Small (NEGATIVE) H 03/28/18 13:13 Urine Nitrate Positive (NEGATIVE) H 03/28/18 13:13 Urine Bilirubin Negative (NEGATIVE) 03/28/18 13:13 Urine Urobilinogen 0.2 E.U./dL (<1 E.U./dL) 03/28/18 13:13 Ur Leukocyte Esterase Small Joseph/uL (NEGATIVE) H 03/28/18 13:13 Urine RBC 2 - 5 /hpf (0-2) 03/28/18 13:13 Urine WBC 1 - 3 /hpf (0-6) 03/28/18 13:13 Urine Bacteria Many (NEG) 03/28/18 13:13 Urine Opiates Screen Negative (NEGATIVE) 03/28/18 13:13 Urine Methadone Screen Negative (NEGATIVE) 03/28/18 13:13 Ur Barbiturates Screen Negative (NEGATIVE) 03/28/18 13:13 Ur Phencyclidine Scrn Negative (NEGATIVE) 03/28/18 13:13 Ur Amphetamines Screen Negative (NEGATIVE) 03/28/18 13:13 U Benzodiazepines Scrn Negative (NEGATIVE) 03/28/18 13:13 U Oth Cocaine Metabols Negative (NEGATIVE) 03/28/18 13:13 U Cannabinoids Screen Negative (NEGATIVE) 03/28/18 13:13 Alcohol, Quantitative < 10 mg/dL (0-10) 03/28/18 12:00 Attending/Attestation - Attestation I have personally seen and examined this patient.: Yes I have fully participated in the care of the patient.: Yes I have reviewed all pertinent clinical information, including history, physical exam and plan: Yes Notes (Text): 04/05/18 15:26 Attending note; Patient seen and examined with resident. Patient is more alert and awake. Still with significant left sided weakness. Patient is a 62 year old female with past medical history of hyperthyroidism, hypertension, chronic alcohol abuse and chronic hyponatremia who presented with complaint of frequent falls. CT head showed acute hemorrhage in the right basal ganglia with surrounding edema and midline shift. Repeat CT head following day showed stable findings without acute changes. CTA head and neck was reviewed as above. Neurosurgery recommended close monitoring without acute neurosurgical intervention at this time. Patient was on decadron which is being tapered as per neurology. Physical therapy evaluation appreciated. Need rehabilitation placement. Transfer to rehabilitation today. Upon discharge the patient will follow-up with PMD .
[2018-04-04 17:22] VITALS: BP 115/83; PULSE 59; RESP 18; TEMP 97.8; O2SAT 98
--- NOTE | 2018-04-04 19:51 | PN ---
DATE: 04/04/2018 SUBJECTIVE: The patient is 62-year-old female with multiple medical issues. The patient also has history of alcohol use disorder. The patient was admitted on the medical site for evaluation of altered mental status. The patient was found to have 2.3 x 5.1 cm acute hemorrhage in the right basal ganglia with moderate amount of surrounding edema. She also had left-sided hemiplegia and left-sided robbie-neglect. The patient was seen by this bond writer and psychiatrist on-call for evaluation of change in mental status. Most likely, the patient had delirium tremens as well as delirium stage. The patient was improving. The patient was followed up today. The patient presented to be alert, oriented. The patient remembered this bond writer. The patient knows what hospital she is in and date. At the same time, the patient presented to be happier with her next to her. The patient and her both look like has alcohol addiction habits. The patient and her were making inappropriate jokes, but was not aggressive, not agitated. The patient reported that she feels much better. Right now, she is ready to go to acute rehab. The patient denied being depressed, denied thoughts of harming herself or others, denied intents or plan. Vital signs are stable. The patient denied any hallucinations. Labs reviewed. MENTAL STATUS EXAMINATION: The patient presented to be alert, oriented, wears a baseball cap, intermittent eye contact. Mood described "I feel much better." Affect was happy. Mood congruent. Thought process seems to be coherent and goal directed. Thought content: The patient denied visual, auditory, tactile hallucinations. Denied paranoid ideation. The patient reported no hallucinations. Insight and judgment seems to be improving. Impulses are well controlled. IMPRESSION: Delirium tremens improved. The patient did not have any Ativan. Seroquel was discontinued. The patient most likely has alcohol use disorder history. PLAN: The patient was ready to be discharged and transferred to acute rehab. The patient denied being depressed, denied thoughts of harming herself or others, denied being psychotic. The patient not in any imminent danger to self or others. This bond writer would suggest follow up with neurologist as well as psychiatrist in acute rehab. Psychiatrist need to follow up on this patient within 48-72 hours. The patient not in any imminent danger to self or others. We will sign off. The patient was educated to stay away from alcohol and complete treatment in rehab. Isabel Georges MD
--- NOTE | 2018-04-16 15:29 | CARD ---
APPROVED REPORT Reason for Test: BRADYCARDIA Hookup date: 2018-04-02 Scan date: 2018-04-03 Recording time: 23 HR 59 MIN Heart Rate Data Total Beats: [id number] Min HR: 52 BPM at 12:27PM Avg HR: 73 BPM Max HR: 105 BPM at 8:29PM Ventricular Ectopy Total VE Beats: 258 (0.2%) Couplets: 1 Events Single/Interp PVC: 249/0 Single/Late VE's: 7/0 Supraventricular Ectopy Total VE Beats: 14 (0.0%) Drop/Late: 0/5 Longest R-R: 1.4 sec at 5:54 AM Single PAC's: 9 Conclusion SINUS RHYTHM / SINUS BRADYCARDIA / SINUS TACHYCARDIA MINIMUM HR 52 BPM MAXIMUM HR 105 BPM ISOLATED APC'S, ABERRANT, BLOCKED VERY RARE VPC'S, ISOLATED PAIRED THERE WERE NO DIARY ENTRIES.
== END 2018-04-04 22:30 | DRG 533 ==
LOC: ED 11:19 → ERH 14:20 → CCU 16:11 → 2RNO 03-31 15:19 → 5RNO 04-03 18:51
PROVIDERS: ADMIT Internal Medicine; ATTEND Internal Medicine
DX: S06.340A Traumatic hemorrhage of right cerebrum without loss of consciousness, initial encounter (principal); F10.231 Alcohol dependence with withdrawal delirium; N39.0 Urinary tract infection, site not specified; E87.1 Hypo-osmolality and hyponatremia; G81.94 Hemiplegia, unspecified affecting left nondominant side; I65.21 Occlusion and stenosis of right carotid artery; D61.818 Other pancytopenia; E87.6 Hypokalemia; M62.82 Rhabdomyolysis; I10 Essential (primary) hypertension; S06.1X0A Traumatic cerebral edema without loss of consciousness, initial encounter; E05.90 Thyrotoxicosis, unspecified without thyrotoxic crisis or storm; R41.4 Neurologic neglect syndrome; B96.20 Unspecified Escherichia coli [E. coli] as the cause of diseases classified elsewhere; I34.0 Nonrheumatic mitral (valve) insufficiency; E03.9 Hypothyroidism, unspecified; S05.12XA Contusion of eyeball and orbital tissues, left eye, initial encounter; S05.11XA Contusion of eyeball and orbital tissues, right eye, initial encounter; R00.1 Bradycardia, unspecified; F32.9 Major depressive disorder, single episode, unspecified; E83.42 Hypomagnesemia; H46.9 Unspecified optic neuritis; R29.6 Repeated falls; R29.810 Facial weakness; H54.61 Unqualified visual loss, right eye, normal vision left eye; G47.00 Insomnia, unspecified; Z91.19 Patient's noncompliance with other medical treatment and regimen; W10.9XXA Fall (on) (from) unspecified stairs and steps, initial encounter; Y92.9 Unspecified place or not applicable

== ENCOUNTER 2018-09-10 12:12 | Inpatient (IN) | payer MEDICAID ==
[2018-09-10 14:30] LABS: BASO # 0.04 K/mm3 (0.0-2.0); BASO % 0.8 % (0.0-3.0); EOS # 0.1 (0.0-0.7); EOS % 1.4 % (1.5-5.0); GRAN # 3.67 (1.4-6.5); GRAN % 74.9 % (50.0-68.0); LYMPH # 0.7 (1.2-3.4); LYMPH % 14.5 % (22.0-35.0); MEAN CORPUSCULAR HEMOGLOBIN 30.7 pg (25.0-35.0); MEAN CORPUSCULAR HGB CONC 33.7 g/dl (31.0-37.0); MEAN PLATELET VOLUME 8.5 fl (7.0-11.0); MONO # 0.4 (0.1-0.6); MONO % 8.4 % (1.0-6.0); RBC 3.91 10^6/uL (3.5-6.1); RED CELL DISTRIBUTION WIDTH 13.4 % (11.5-14.5); URINE APPEARANCE CLEAR (CLEAR); URINE BILIRUBIN NEGATIVE (NEGATIVE); URINE BLOOD NEGATIVE (NEGATIVE); URINE COLOR YELLOW (YELLOW); URINE GLUCOSE (UA) NEGATIVE (NEGATIVE); URINE LEUKOCYTE ESTERASE TRACE Leu/uL (NEGATIVE); URINE PROTEIN NEGATIVE mg/dL (<30 mg/dL); URINE UROBILINOGEN 0.2 E.U./dL (<1 E.U./dL); WHITE BLOOD COUNT 4.9 10^3/uL (4.5-11.0)
[2018-09-10 14:38] LABS: URINE BACTERIA LARGE (NEG); URINE RBC NEGATIVE /hpf (0-2)
[2018-09-10] MEDS ORDERED: Iohexol 350 MG/100 ML VIAL ONE (14:42)
[2018-09-10 14:59] LABS: BLOOD UREA NITROGEN 4 mg/dL (7-21); CALCIUM 9.2 mg/dL (8.4-10.5); GFR NON-AFRICAN AMERICAN > 60
[2018-09-10 15:00] LABS: ALB/GLOB RATIO 1.2 (1.1-1.8); ALT/SGPT 36 U/L (7-56); AST/SGOT 65 U/L (14-36)
[2018-09-10 15:01] LABS: TROPONIN I 0.01 ng/mL
--- NOTE | 2018-09-10 15:15 | CT ---
Date of service: 09/10/2018 PROCEDURE: CT HEAD WITHOUT CONTRAST. HISTORY: headache COMPARISON: None available. TECHNIQUE: Axial computed tomography images were obtained through the head/brain without intravenous contrast. Radiation dose: Total exam DLP = 908.88 mGy-cm. This CT exam was performed using one or more of the following dose reduction techniques: Automated exposure control, adjustment of the mA and/or kV according to patient size, and/or use of iterative reconstruction technique. FINDINGS: HEMORRHAGE: No intracranial hemorrhage. BRAIN: No mass effect or edema. Chronic periventricular white matter ischemic disease. VENTRICLES: Unremarkable. No hydrocephalus. CALVARIUM: Unremarkable. PARANASAL SINUSES: Unremarkable as visualized. No significant inflammatory changes. MASTOID AIR CELLS: Unremarkable as visualized. No inflammatory changes. OTHER FINDINGS: None. IMPRESSION: No acute hemorrhage.
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
--- NOTE | 2018-09-10 15:23 | CT ---
Date of service: 09/10/2018 PROCEDURE: CT Cervical Spine without contrast HISTORY: neck pain COMPARISON: None available. TECHNIQUE: Axial computed tomography images were obtained of the cervical spine without the use of intravenous contrast. Coronal and sagittal reformatted images were created and reviewed. Radiation dose: Total exam DLP = 306.15 mGy-cm. This CT exam was performed using one or more of the following dose reduction techniques: Automated exposure control, adjustment of the mA and/or kV according to patient size, and/or use of iterative reconstruction technique. FINDINGS: VERTEBRAE: No fracture. Normal alignment. No destructive bony lesion. DISCS/SPINAL CANAL/NEURAL FORAMINA: Disc ridge complex at C5-6 with central canal stenosis and bilateral foraminal stenosis. Multilevel degenerative disc disease. PARASPINAL SOFT TISSUES: Calcified nodule, nonspecific in the left thyroid gland. OTHER FINDINGS: None. IMPRESSION: No acute fracture.
--- NOTE | 2018-09-10 15:44 | CT ---
Date of service: 09/10/2018 PROCEDURE: CT Abdomen and Pelvis with and without intravenous contrast HISTORY: abd pain/ nausea COMPARISON: None. TECHNIQUE: Axial images of the abdomen were obtained in the pre contrast, portal venous and delayed phases of enhancement. Coronal and sagittal reformats were generated. Contrast dose: Radiation dose: Total exam DLP = 248.44 mGy-cm. This CT exam was performed using one or more of the following dose reduction techniques: Automated exposure control, adjustment of the mA and/or kV according to patient size, and/or use of iterative reconstruction technique. FINDINGS: LOWER THORAX: Unremarkable. LIVER: Unremarkable. No gross lesion or ductal dilatation. GALLBLADDER AND BILE DUCTS: Unremarkable. PANCREAS: Unremarkable. No gross lesion or ductal dilatation. SPLEEN: Unremarkable. ADRENALS: Unremarkable. No mass. KIDNEYS AND URETERS: 1.9 centimeter left renal cyst. No hydronephrosis. No solid mass. VASCULATURE: Unremarkable. No aortic aneurysm. No aortic atherosclerotic calcification or mural plaque present. BOWEL: Unremarkable. No obstruction. No gross mural thickening. APPENDIX: Normal appendix. PERITONEUM: Unremarkable. No free fluid. No free air. LYMPH NODES: Unremarkable. No enlarged lymph nodes. BLADDER: Unremarkable. REPRODUCTIVE: Unremarkable. BONES: No acute fracture. OTHER FINDINGS: Fixation screw through the left sacroiliac joint. IMPRESSION: No acute pathology.
[2018-09-10] MEDS ORDERED: cefTRIAXone 1 gm 1 GM/100 ML BAG IVPB STA (16:58)
[2018-09-10 19:04] LABS: BARBITURATES, UR NEGATIVE (NEGATIVE); BENZODIAZEPINES, UR NEGATIVE (NEGATIVE); OPIATES, UR NEGATIVE (NEGATIVE); PHENCYCLIDINE, UR NEGATIVE (NEGATIVE)
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
--- NOTE | 2018-09-10 20:20 | CARD ---
APPROVED REPORT Date of service: 09/10/2018 EKG Measurement Heart [id number] <Conclusion> Poor data quality, interpretation may be adversely affected Normal sinus rhythm Normal ECG
[2018-09-10 22:54] LABS: TROPONIN I < 0.01 ng/mL
[2018-09-11 02:56] VITALS: BMI 21.3
[2018-09-11] MEDS: Pantoprazole 40 mg EC Tab PO SCH (05:04)
[2018-09-11 06:28] LABS: HEMOGLOBIN 11.1 g/dL (12.0-16.0); MEAN CELL VOLUME 92.4 fl (80.0-105.0); MEAN CORPUSCULAR HEMOGLOBIN 30.1 pg (25.0-35.0); MEAN CORPUSCULAR HGB CONC 32.6 g/dl (31.0-37.0); MEAN PLATELET VOLUME 8.8 fl (7.0-11.0); RBC 3.69 10^6/uL (3.5-6.1); RED CELL DISTRIBUTION WIDTH 13.6 % (11.5-14.5); WHITE BLOOD COUNT 3.2 10^3/uL (4.5-11.0)
[2018-09-11 06:32] LABS: INR 1.03; PARTIAL THROMBOPLASTIN TIME 26.3 Seconds (25.1-36.5); PROTHROMBIN TIME 11.8 SECONDS (9.4-12.5)
[2018-09-11 06:58] LABS: TROPONIN I < 0.01 ng/mL
[2018-09-11 07:08] LABS: ALB/GLOB RATIO 1.1 (1.1-1.8); ALBUMIN 3.4 g/dL (3.0-4.8); ALT/SGPT 36 U/L (7-56); AST/SGOT 46 U/L (14-36); BLOOD UREA NITROGEN 13 mg/dL (7-21); GFR NON-AFRICAN AMERICAN > 60; HDL CHOLESTEROL 92 mg/dL (29-60)
[2018-09-11 07:35] LABS: LDL CHOLESTEROL 79 mg/dL (0-129); T4 6.8 ug/dL (5.5-11.0)
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
[2018-09-11] MEDS: Multivitamin Therapeutic Tab PO SCH (09:58)
--- NOTE | 2018-09-11 13:12 | CP.PCM.PN ---
<Davonte Dubois - Last Filed: 09/11/18 13:03> Subjective - Date & Time of Evaluation Date of Evaluation: 09/11/18 Time of Evaluation: 07:30 - Subjective Subjective: Davonte Dubois PGY-1 Progress Note for Hospitalist Service Patient seen and evaluated at bedside. No acute complaints overnight. Reports chronic L sided UE and LE pain and blurry vision in R eye from hemorrhagic stroke. Denies chest pain, palpitations, shortness of breath. Objective - Vital Signs/Intake and Output Vital Signs (last 24 hours): Temp Pulse Resp BP Pulse Ox 98.2 F 71 19 136/92 H 95 09/11/18 08:59 09/11/18 08:59 09/11/18 08:59 09/11/18 08:59 09/11/18 08:59 - Medications Medications: Current Medications Folic Acid (Folic Acid) 1 mg PO DAILY [facility] Lorazepam (Ativan) 1 mg IVP Q6H JOSSE; Protocol Lorazepam (Ativan) 1 mg IVP Q2H PRN; Protocol PRN Reason: Anxiety Multivitamins (Thera Tab) 1 tab PO 0800 [facility] Last Admin: 09/11/18 09:58 Dose: 1 tab Pantoprazole Sodium (Protonix Ec Tab) 40 mg PO 0600 [facility] Last Admin: 09/11/18 05:04 Dose: 40 mg Thiamine HCl (Vitamin B1 Tab) 100 mg PO DAILY [facility] Last Admin: 09/11/18 09:58 Dose: 100 mg - Labs Labs: 09/11/18 06:00 09/11/18 06:00 PT 11.8 SECONDS (9.4-12.5) 09/11/18 06:00 INR 1.03 09/11/18 06:00 APTT 26.3 Seconds (25.1-36.5) 09/11/18 06:00 - Additional Findings Additional findings: - Constitutional Appears: No Acute Distress - Head Exam Head Exam: NORMAL INSPECTION - Eye Exam Eye Exam: Normal appearance, PERRL Additional comments: decreased visual acuity right eye - ENT Exam ENT Exam: Mucous Membranes Moist - Neck Exam Neck exam: Positive for: Normal Inspection - Respiratory Exam Respiratory Exam: Clear to Auscultation Bilateral, NORMAL BREATHING PATTERN - Cardiovascular Exam Cardiovascular Exam: REGULAR RHYTHM - GI/Abdominal Exam GI & Abdominal Exam: Normal Bowel Sounds, Soft - Extremities Exam Extremities exam: Positive for: normal inspection - Back Exam Back exam: NORMAL INSPECTION - Neurological Exam Neurological exam: Alert, CN II-XII Intact, Oriented x3 Additional comments: Strength: LUE/LLE 4/5, RLE/RUE 5/5 Sensation grossly intact Minor left sided facial droop Left pronator drift No dysmetria, dysarthria Position sense intact Ataxic gait - Psychiatric Exam Psychiatric exam: Normal Affect, Normal Mood - Skin Skin Exam: Normal Color Assessment and Plan - Assessment and Plan (Free Text) Assessment: 63F w/ PMHx significant for multiple falls at home, HTN, Hyperthyroidism, ETOH abuse, and hx of intracranial hemorrhage with difficulty standing after falling and chest pain. Plan: Recurrent Falls and weakness Rule out stroke/ seizure/ syncope CT Head/ Neck negative for acute hemmorhage; CT Neck shows no acute fracture Follow up B12/ Folic Acid Level F/u Orthostatic Vitals Neuro consult - Dr. Quintana - recs appreciated PT Eval + Treat - f/u recs B12 / Folic acid level UDS negative Chest Pain/ Tightness Trops neg x3 EKG in ED shows no ischemic changes Follow up AM EKG Hx EtOH Withdrawal CIWA scores Seizure precautions Ativan 1 q2 scheduled and 1 q6 prn multivit thiamine EtOH level 28 Hx Hyperthyroid TSH 0.64 and T4 level 6.8 Hx HTN BP wnl at this time, f/u orthostatics Address as necessary DVT/GI PPX: SCD / Protonix Dispo: PT recs Patient seen, case reviewed and plan approved by Dr. Coello. Davonte Dubois, PGY-1 <Nicole Coello - Last Filed: 09/11/18 15:00> Objective - Vital Signs/Intake and Output Vital Signs (last 24 hours): Temp Pulse Resp BP Pulse Ox 98.2 F 71 19 136/92 H 95 09/11/18 08:59 09/11/18 08:59 09/11/18 08:59 09/11/18 08:59 09/11/18 08:59 - Medications Medications: Current Medications Aspirin (Ecotrin) 81 mg PO DAILY [facility] Folic Acid (Folic Acid) 1 mg PO DAILY [facility] Last Admin: 09/11/18 13:14 Dose: 1 mg Lorazepam (Ativan) 1 mg IVP Q6H [facility]OS[facility]; Protocol Last Admin: 09/11/18 13:13 Dose: 1 mg Lorazepam (Ativan) 1 mg IVP Q2H PRN; Protocol PRN Reason: Anxiety Multivitamins (Thera Tab) 1 tab PO 0800 [facility] Last Admin: 09/11/18 09:58 Dose: 1 tab Pantoprazole Sodium (Protonix Ec Tab) 40 mg PO 0600 [facility] Last Admin: 09/11/18 05:04 Dose: 40 mg Thiamine HCl (Vitamin B1 Tab) 100 mg PO DAILY [facility] Last Admin: 09/11/18 09:58 Dose: 100 mg - Labs Labs: 09/11/18 06:00 09/11/18 06:00 PT 11.8 SECONDS (9.4-12.5) 09/11/18 06:00 INR 1.03 09/11/18 06:00 APTT 26.3 Seconds (25.1-36.5) 09/11/18 06:00 Attending/Attestation - Attestation I have personally seen and examined this patient.: Yes I have fully participated in the care of the patient.: Yes I have reviewed all pertinent clinical information, including history, physical exam and plan: Yes Notes (Text): 09/11/18 14:57 63 year old female with past medical history of ETOH abuse, hypertension, hyperthyroidism and history of intracranial hemorrhage who presented with complaint of generalized weakness and recurrent falls at home. CT head and cervical neck were negative for acute findings. Neurology evaluation was appreciated; recommended aspirin and PT evaluation which is pending. Orthostatics were positive today; will hold BP meds for now; continue with iv fluids and repeat orthostatics tomorrow. Alcohol level was positive; although patient denied recent use of. Continue with ativan josse/prn for withdrawal symptoms. Continue with multivitamin, folic acid and thiamine. She was counselled on alcohol abstinence. Chest pain has resolved. Serial cardiac enzymes were negative and ACS was ruled out. Will follow up with PT recommendations for possible rehab vs home services upon discharge. Nicole Coello MD Hospitalist.
--- NOTE | 2018-09-11 18:49 | CARD ---
APPROVED REPORT Date of service: 09/11/2018 EKG Measurement Heart [id number] <Conclusion> Normal sinus rhythm Normal ECG
[2018-09-12] MEDS: Pantoprazole 40 mg EC Tab PO SCH (05:03)
[2018-09-12 06:27] LABS: MEAN CELL VOLUME 94.3 fl (80.0-105.0); MEAN CORPUSCULAR HEMOGLOBIN 30.1 pg (25.0-35.0); MEAN CORPUSCULAR HGB CONC 31.9 g/dl (31.0-37.0); MEAN PLATELET VOLUME 8.9 fl (7.0-11.0); RBC 3.66 10^6/uL (3.5-6.1); RED CELL DISTRIBUTION WIDTH 13.7 % (11.5-14.5); WHITE BLOOD COUNT 3.9 10^3/uL (4.5-11.0)
[2018-09-12 07:13] LABS: ALB/GLOB RATIO 1.1 (1.1-1.8); ALBUMIN 3.4 g/dL (3.0-4.8); ALT/SGPT 34 U/L (7-56); AST/SGOT 35 U/L (14-36); BLOOD UREA NITROGEN 14 mg/dL (7-21); GFR NON-AFRICAN AMERICAN > 60
[2018-09-12] MEDS: Multivitamin Therapeutic Tab PO SCH (09:00)
[2018-09-12 16:38] VITALS: BP 140/99; RESP 18; TEMP 98.7; O2SAT 98
--- NOTE | 2018-09-12 16:53 | CP.PCM.PN ---
<Davonte Dubois - Last Filed: 09/12/18 16:46> Subjective - Date & Time of Evaluation Date of Evaluation: 09/12/18 Time of Evaluation: 09:00 - Subjective Subjective: Davonte Dubois PGY-1 Progress Note for Hospitalist Service Patient seen and evaluated at bedside. No acute complaints overnight. Reports chronic L sided UE and LE pain. Denies chest pain, palpitations, shortness of breath. Objective - Vital Signs/Intake and Output Vital Signs (last 24 hours): Temp Pulse Resp BP Pulse Ox 98.7 F 75 18 140/99 H 98 09/12/18 16:37 09/12/18 16:37 09/12/18 16:37 09/12/18 16:37 09/12/18 16:37 - Medications Medications: Current Medications Aspirin (Ecotrin) 81 mg PO DAILY [facility] Last Admin: 09/12/18 09:47 Dose: 81 mg Folic Acid (Folic Acid) 1 mg PO DAILY [facility] Last Admin: 09/12/18 09:47 Dose: 1 mg Lorazepam (Ativan) 1 mg IVP Q6H JOSSE; Protocol Last Admin: 09/12/18 12:00 Dose: 1 mg Lorazepam (Ativan) 1 mg IVP Q2H PRN; Protocol PRN Reason: Anxiety Multivitamins (Thera Tab) 1 tab PO 0800 [facility] Last Admin: 09/12/18 09:00 Dose: 1 tab Pantoprazole Sodium (Protonix Ec Tab) 40 mg PO 0600 [facility] Last Admin: 09/12/18 05:03 Dose: 40 mg Thiamine HCl (Vitamin B1 Tab) 100 mg PO DAILY [facility] Last Admin: 09/12/18 09:47 Dose: 100 mg - Labs Labs: 09/12/18 05:45 09/12/18 05:45 PT 11.8 SECONDS (9.4-12.5) 09/11/18 06:00 INR 1.03 09/11/18 06:00 APTT 26.3 Seconds (25.1-36.5) 09/11/18 06:00 - Additional Findings Additional findings: - Constitutional Appears: No Acute Distress - Head Exam Head Exam: NORMAL INSPECTION - Eye Exam Eye Exam: Normal appearance, PERRL Additional comments: decreased visual acuity right eye - ENT Exam ENT Exam: Mucous Membranes Moist - Neck Exam Neck exam: Positive for: Normal Inspection - Respiratory Exam Respiratory Exam: Clear to Auscultation Bilateral, NORMAL BREATHING PATTERN - Cardiovascular Exam Cardiovascular Exam: REGULAR RHYTHM - GI/Abdominal Exam GI & Abdominal Exam: Normal Bowel Sounds, Soft - Extremities Exam Extremities exam: Positive for: normal inspection - Back Exam Back exam: NORMAL INSPECTION - Neurological Exam Neurological exam: Alert, CN II-XII Intact, Oriented x3 Additional comments: Strength: LUE/LLE 4/5, RLE/RUE 5/5 Sensation grossly intact Minor left sided facial droop Left pronator drift No dysmetria, dysarthria Position sense intact Ataxic gait - Psychiatric Exam Psychiatric exam: Normal Affect, Normal Mood - Skin Skin Exam: Normal Color Assessment and Plan - Assessment and Plan (Free Text) Assessment: 63F w/ PMHx significant for multiple falls at home, HTN, Hyperthyroidism, ETOH abuse, and hx of intracranial hemorrhage with difficulty standing after falling and chest pain. Plan: Recurrent Falls and weakness Rule out stroke/ seizure/ syncope CT Head/ Neck negative for acute hemmorhage; CT Neck shows no acute fracture Follow up B12/ Folic Acid Level F/u Orthostatic Vitals Neuro consult - Dr. Quintana - ASA daily, PT/OT PT Eval + Treat - f/u recs B12 / Folic acid level UDS negative Chest Pain/ Tightness Trops neg x3 EKG shows no ischemic changes Asymptomatic UTI Urine cx growing Klebsiella Patient continues to deny symptoms, so no treatment warranted at this time Hx EtOH Withdrawal CIWA scores Seizure precautions Ativan 1 q2 scheduled and 1 q6 prn multivit thiamine EtOH level 28 Hx Hyperthyroid TSH 0.64 and T4 level 6.8 Hx HTN BP wnl at this time, f/u orthostatics DVT/GI PPX: SCD / Protonix Dispo: PT/OT recs. [facility] vs [facility] Patient seen, case reviewed and plan approved by Dr. Coello. Davonte Dubois, PGY-1 <Nicole Coello - Last Filed: 09/12/18 18:04> Objective - Vital Signs/Intake and Output Vital Signs (last 24 hours): Temp Pulse Resp BP Pulse Ox 98.7 F 75 18 140/99 H 98 09/12/18 16:37 09/12/18 16:37 09/12/18 16:37 09/12/18 16:37 09/12/18 16:37 - Medications Medications: Current Medications Aspirin (Ecotrin) 81 mg PO DAILY [facility] Last Admin: 09/12/18 09:47 Dose: 81 mg Folic Acid (Folic Acid) 1 mg PO DAILY [facility] Last Admin: 09/12/18 09:47 Dose: 1 mg Lorazepam (Ativan) 1 mg IVP Q6H JOSSE; Protocol Last Admin: 09/12/18 12:00 Dose: 1 mg Lorazepam (Ativan) 1 mg IVP Q2H PRN; Protocol PRN Reason: Anxiety Multivitamins (Thera Tab) 1 tab PO 0800 [facility] Last Admin: 09/12/18 09:00 Dose: 1 tab Pantoprazole Sodium (Protonix Ec Tab) 40 mg PO 0600 [facility] Last Admin: 09/12/18 05:03 Dose: 40 mg Thiamine HCl (Vitamin B1 Tab) 100 mg PO DAILY [facility] Last Admin: 09/12/18 09:47 Dose: 100 mg - Labs Labs: 09/12/18 05:45 09/12/18 05:45 PT 11.8 SECONDS (9.4-12.5) 09/11/18 06:00 INR 1.03 09/11/18 06:00 APTT 26.3 Seconds (25.1-36.5) 09/11/18 06:00 Attending/Attestation - Attestation I have personally seen and examined this patient.: Yes I have fully participated in the care of the patient.: Yes I have reviewed all pertinent clinical information, including history, physical exam and plan: Yes Notes (Text): 09/12/18 18:01 63 year old female with past medical history of ETOH abuse, hypertension, hyperthyroidism and history of intracranial hemorrhage who presented with co mplaint of generalized weakness and recurrent falls at home. CT head and cervical neck were negative for acute findings. Neurology evaluation was appreciated; recommended aspirin and PT evaluation. Orthostatics were positive yesterday but improved today. PT is recommending [facility]. Alcohol level was positive; although patient denied recent use of. Continue with ativan prn in case of withdrawal symptoms. Continue with multivitamin, folic acid and thiamine. She was counselled on alcohol abstinence. Chest pain has resolved. Serial cardiac enzymes were negative and ACS was ruled out. UCX grew klebsiella, however she denies UTI complaints. Monitor off antibiotics for asymptomatic bacteruria. D/c planning to [facility] once accepted. Nicole Coello MD Hospitalist.
[2018-09-13] MEDS: Pantoprazole 40 mg EC Tab PO SCH (06:16)
[2018-09-13 06:35] LABS: HEMOGLOBIN 10.5 g/dL (12.0-16.0); MEAN CELL VOLUME 95.3 fl (80.0-105.0); MEAN CORPUSCULAR HEMOGLOBIN 31.1 pg (25.0-35.0); MEAN CORPUSCULAR HGB CONC 32.6 g/dl (31.0-37.0); MEAN PLATELET VOLUME 8.9 fl (7.0-11.0); RBC 3.38 10^6/uL (3.5-6.1); RED CELL DISTRIBUTION WIDTH 13.8 % (11.5-14.5)
[2018-09-13 06:49] LABS: ALB/GLOB RATIO 1.1 (1.1-1.8); ALBUMIN 3.3 g/dL (3.0-4.8); ALT/SGPT 27 U/L (7-56); AST/SGOT 31 U/L (14-36); BLOOD UREA NITROGEN 14 mg/dL (7-21); CALCIUM 8.7 mg/dL (8.4-10.5); GFR NON-AFRICAN AMERICAN > 60
[2018-09-13] MEDS: Multivitamin Therapeutic Tab PO SCH (09:47)
--- NOTE | 2018-09-13 14:15 | CP.PCM.DIS ---
<Davonte Dubois - Last Filed: 09/13/18 14:54> Provider - Provider Date of Admission: 09/10/18 17:20 Attending physician: Nicole Coello MD Primary care physician: Dr. Shah Consults: 09/10/18 19:13 Neurology Consult Stat Comment: Consulting Provider: Neno Quintana Consulting Physician: Neno Quintana Reason for Consult: Recurrent Falls + Weakness 09/11/18 02:53 Social Work Referral Routine Comment: lives alone Physician Instructions: Reason For Exam: lives alone 09/11/18 02:56 Inpatient [facility] Core Measures Referral Routine Comment: Physician Instructions: Reason For Exam: chest tightness Transition In Care/Readmission Reduction Routine Comment: Physician Instructions: Reason For Exam: chest tightness 09/11/18 03:04 Case Management Referral Routine Comment: Physician Instructions: Reason For Exam: lives alone Reason for Referral: Hospice Eval Nursing Referral for Wound Care Routine Comment: Physician Instructions: Reason For Exam: mult abrasion BLE/BUE extrem, SKin tear sacrum 09/11/18 03:10 Nursing Referral for Wound Care Routine Comment: Physician Instructions: Reason For Exam: multiple abrasions 09/11/18 20:38 Nursing Referral for Wound Care Routine Comment: Physician Instructions: Reason For Exam: SACRAL REDNESS, PREVENTION Time Spent in preparation of Discharge (in minutes): 35 Hospital Course - Lab Results Lab Results: Micro Results 09/10/18 19:09 Blood Blood Culture - Preliminary NO GROWTH AFTER 48 HOURS 09/10/18 17:36 Blood Blood Culture - Preliminary NO GROWTH AFTER 48 HOURS 09/10/18 14:10 Urine Urine Culture - Final Klebsiella Pneumoniae Ssp Pneu Most Recent Lab Values WBC 4.0 10^3/uL (4.5-11.0) L 09/13/18 06:00 RBC 3.38 10^6/uL (3.5-6.1) L 09/13/18 06:00 Hgb 10.5 g/dL (12.0-16.0) L 09/13/18 06:00 Hct 32.2 % (36.0-48.0) L 09/13/18 06:00 MCV 95.3 fl (80.0-105.0) 09/13/18 06:00 MCH 31.1 pg (25.0-35.0) 09/13/18 06:00 MCHC 32.6 g/dl (31.0-37.0) 09/13/18 06:00 RDW 13.8 % (11.5-14.5) 09/13/18 06:00 Plt Count 255 10^3/uL (120.0-450.0) 09/13/18 06:00 MPV 8.9 fl (7.0-11.0) 09/13/18 06:00 Gran % 74.9 % (50.0-68.0) H 09/10/18 14:10 Lymph % (Auto) 14.5 % (22.0-35.0) L 09/10/18 14:10 [place] % (Auto) 8.4 % (1.0-6.0) H 09/10/18 14:10 Eos % (Auto) 1.4 % (1.5-5.0) L 09/10/18 14:10 Baso % (Auto) 0.8 % (0.0-3.0) 09/10/18 14:10 Gran # 3.67 (1.4-6.5) 09/10/18 14:10 Lymph # (Auto) 0.7 (1.2-3.4) L 09/10/18 14:10 [place] # (Auto) 0.4 (0.1-0.6) 09/10/18 14:10 Eos # (Auto) 0.1 (0.0-0.7) 09/10/18 14:10 Baso # (Auto) 0.04 K/mm3 (0.0-2.0) 09/10/18 14:10 PT 11.8 SECONDS (9.4-12.5) 09/11/18 06:00 INR 1.03 09/11/18 06:00 APTT 26.3 Seconds (25.1-36.5) 09/11/18 06:00 Sodium 138 mmol/L (132-148) 09/13/18 06:00 Potassium 3.6 mmol/L (3.6-5.0) 09/13/18 06:00 Chloride 108 mmol/L (98-107) H 09/13/18 06:00 Carbon Dioxide 24 mmol/L (21-33) 09/13/18 06:00 Anion Gap 9 (10-20) L 09/13/18 06:00 BUN 14 mg/dL (7-21) 09/13/18 06:00 Creatinine 0.6 mg/dl (0.7-1.2) L 09/13/18 06:00 Est GFR ( Amer) > 60 09/13/18 06:00 Est GFR (Non-Af Amer) > 60 09/13/18 06:00 Random Glucose 97 mg/dL (70-110) 09/13/18 06:00 Calcium 8.7 mg/dL (8.4-10.5) 09/13/18 06:00 Phosphorus 3.8 mg/dL (2.5-4.5) 09/11/18 06:00 Magnesium 1.9 mg/dL (1.7-2.2) 09/11/18 06:00 Total Bilirubin 0.4 mg/dL (0.2-1.3) 09/13/18 06:00 AST 31 U/L (14-36) 09/13/18 06:00 ALT 27 U/L (7-56) 09/13/18 06:00 Alkaline Phosphatase 65 U/L (38-126) 09/13/18 06:00 Lactate Dehydrogenase 206 U/L (333-699) L 09/11/18 06:00 Total Creatine Kinase 26 U/L (35-230) L 09/11/18 06:00 Troponin I < 0.01 ng/mL 09/11/18 06:00 Total Protein 6.3 g/dL (5.8-8.3) 09/13/18 06:00 Albumin 3.3 g/dL (3.0-4.8) 09/13/18 06:00 Globulin 3.0 gm/dL 09/13/18 06:00 Albumin/Globulin Ratio 1.1 (1.1-1.8) 09/13/18 06:00 Triglycerides 44 mg/dL (35-160) 09/11/18 06:00 Cholesterol 177 mg/dL (130-200) 09/11/18 06:00 LDL Cholesterol Direct 79 mg/dL (0-129) 09/11/18 06:00 HDL Cholesterol 92 mg/dL (29-60) H 09/11/18 06:00 Thyroxine (T4) 6.8 ug/dL (5.5-11.0) 09/11/18 06:00 TSH 3rd Generation 0.64 mIU/mL (0.46-4.68) 09/11/18 06:00 Urine Color Yellow (YELLOW) 09/10/18 14:10 Urine Appearance Clear (CLEAR) 09/10/18 14:10 Urine pH 6.0 (4.7-8.0) 09/10/18 14:10 Ur Specific [place] 1.010 (1.005-1.035) 09/10/18 14:10 Urine Protein Negative mg/dL (<30 mg/dL) 09/10/18 14:10 Urine Glucose (UA) Negative mg/dL (NEGATIVE) 09/10/18 14:10 Urine Ketones Negative mg/dL (NEGATIVE) 09/10/18 14:10 Urine Blood Negative (NEGATIVE) 09/10/18 14:10 Urine Nitrate Positive (NEGATIVE) H 09/10/18 14:10 Urine Bilirubin Negative (NEGATIVE) 09/10/18 14:10 Urine Urobilinogen 0.2 E.U./dL (<1 E.U./dL) 09/10/18 14:10 Ur Leukocyte Esterase Trace Joseph/uL (NEGATIVE) H 09/10/18 14:10 Urine RBC Negative /hpf (0-2) 09/10/18 14:10 Urine WBC 1 - 3 /hpf (0-6) 09/10/18 14:10 Ur Epithelial Cells 3 - 4 /hpf (0-5) 09/10/18 14:10 Urine Bacteria Large (NEG) 09/10/18 14:10 Urine Opiates Screen Negative (NEGATIVE) 09/10/18 18:00 Urine Methadone Screen Negative (NEGATIVE) 09/10/18 18:00 Ur Barbiturates Screen Negative (NEGATIVE) 09/10/18 18:00 Ur Phencyclidine Scrn Negative (NEGATIVE) 09/10/18 18:00 Ur Amphetamines Screen Negative (NEGATIVE) 09/10/18 18:00 U Benzodiazepines Scrn Negative (NEGATIVE) 09/10/18 18:00 U Oth Cocaine Metabols Negative (NEGATIVE) 09/10/18 18:00 U Cannabinoids Screen Negative (NEGATIVE) 09/10/18 18:00 Alcohol, Quantitative 28 mg/dL (0-10) H 09/10/18 17:00 - Hospital Course Hospital Course: Davonte Zeffren, PGY-1 Discharge Summary for Hospitalist Service 63 F with past medical history of HTN, hyperthyroidism, depression, ETOH abuse, right retinal detachment, and intracranial hemmorhage with residual L sided weakness back in 03/26 who presented 2/2 multiple falls at home, chest pain and abdominal pain. Patient denied having any ETOH in advance of falls. Head CT was ordered and was negative for new bleed. Cervical CT was negative as well. Abdominal CT was ordered and was negative for acute pathology. ETOH level was found to be elevated, so Ativan was given as a scheduled and as needed dose for withdrawal symptoms. Ativan was then tapered as CIWA scores were low and no clinical withdrawal symptoms (tremors, confusion) were appreciated. Dr. Quintana (Neuro) was consulted for falls, and recommended ASA 81 mg daily as well as physical therapy and occupational therapy evaluations. PT recommended [facility] for rehab. Chest pain has resolved and troponins were negative x3. Patient had asymptomatic bacteriuria. Urine culture came back positive for Klebsiella. As patient denies any urinary symptoms, including dysuria, polyuria, and suprapubic pain, no acute therapy is warranted at this time. Results discussed with patient. Course was complicated by asymptomatic bradycardic episode on morning of discharge. Heart rate was sinus rhythm in the 40's. Patient was found to be resting at the time. A stat EKG was ordered which showed NSR at [address] or T wave changes. Patient awaited placement and later in hospital course got a placement in [facility] subacute rehab. Patient is to continue current medications in addition to his aspirin. Patient to receive aspirin in addition to multivitamin, folate, and thiamine in addition to continuing current medications. Patient's cousin Landy Mae was called and notified regarding patient discharge status per patient wishes. Patient is set for discharge and is in agreement for transfer. Patient seen, case reviewed and plan approved by Dr. Coello. Discharge Exam - Head Exam Head Exam: NORMAL INSPECTION - Additional Findings Additional findings: - Constitutional Appears: No Acute Distress - Head Exam Head Exam: NORMAL INSPECTION - Eye Exam Eye Exam: Normal appearance, PERRL Additional comments: decreased visual acuity right eye - ENT Exam ENT Exam: Mucous Membranes Moist - Neck Exam Neck exam: Positive for: Normal Inspection - Respiratory Exam Respiratory Exam: Clear to Auscultation Bilateral, NORMAL BREATHING PATTERN - Cardiovascular Exam Cardiovascular Exam: REGULAR RHYTHM - GI/Abdominal Exam GI & Abdominal Exam: Normal Bowel Sounds, Soft - Extremities Exam Extremities exam: Positive for: normal inspection - Back Exam Back exam: NORMAL INSPECTION - Neurological Exam Neurological exam: Alert, CN II-XII Intact, Oriented x3 Additional comments: Strength: LUE/LLE 4/5, RLE/RUE 5/5 Sensation grossly intact Minor left sided facial droop Left pronator drift No dysmetria, dysarthria Position sense intact Ataxic gait - Psychiatric Exam Psychiatric exam: Normal Affect, Normal Mood - Skin Skin Exam: Normal Color Discharge Plan - Discharge Medications Prescriptions: Aspirin [Ecotrin] 81 mg PO DAILY #30 tabec Folic Acid 1 mg PO DAILY #30 tab Multivitamin Therapeutic Tab [Thera Tab] 1 tab PO 0800 #30 tab Thiamine [Vitamin B1 Tab] 100 mg PO DAILY #30 tab - Follow Up Plan Condition: FAIR Disposition: HOME/ ROUTINE Instructions: Urinary Tract Infection, Adult (DC), Alcohol Withdrawal (DC), Weakness (GEN) Additional Instructions: Patient continue to take all medications as directed, unless otherwise indicated. Please also continue to take your Aspirin, Folate, Thiamine and multivitamin daily daily. Patient to abstain from alcohol, tobacco, or any illicit drugs. During rehabilitation, patient's blood pressure goal is to maintain a systolic blood pressureless than 160 and diastolic blood pressure below 90. Patient to follow up with neurology (Dr. Quintana) as an outpatient. Please follow up with Dr. Shah your PCP within one week. Should symptoms worsen or recur, please visit nearest emergency department. <Nicole Coello - Last Filed: 09/13/18 15:21> Provider - Provider Date of Admission: 09/10/18 17:20 Attending physician: Nicole Coello MD Consults: 09/10/18 19:13 Neurology Consult Stat Comment: Consulting Provider: Neno Quintana Consulting Physician: Neno Quintana Reason for Consult: Recurrent Falls + Weakness 09/11/18 02:53 Social Work Referral Routine Comment: lives alone Physician Instructions: Reason For Exam: lives alone 09/11/18 02:56 Inpatient [facility] [facility] [facility] Core Measures Referral Routine Comment: Physician Instructions: Reason For Exam: chest tightness Transition In Care/Readmission Reduction Routine Comment: Physician Instructions: Reason For Exam: chest tightness 09/11/18 03:04 Case Management Referral Routine Comment: Physician Instructions: Reason For Exam: lives alone Reason for Referral: Hospice Eval Nursing Referral for Wound Care Routine Comment: Physician Instructions: Reason For Exam: mult abrasion BLE/BUE extrem, SKin tear sacrum 09/11/18 03:10 Nursing Referral for Wound Care Routine Comment: Physician Instructions: Reason For Exam: multiple abrasions 09/11/18 20:38 Nursing Referral for Wound Care Routine Comment: Physician Instructions: Reason For Exam: SACRAL REDNESS, PREVENTION Hospital Course - Lab Results Lab Results: Micro Results 09/10/18 19:09 Blood Blood Culture - Preliminary NO GROWTH AFTER 48 HOURS 09/10/18 17:36 Blood Blood Culture - Preliminary NO GROWTH AFTER 48 HOURS 09/10/18 14:10 Urine Urine Culture - Final Klebsiella Pneumoniae Ssp Pneu Most Recent Lab Values WBC 4.0 10^3/uL (4.5-11.0) L 09/13/18 06:00 RBC 3.38 10^6/uL (3.5-6.1) L 09/13/18 06:00 Hgb 10.5 g/dL (12.0-16.0) L 09/13/18 06:00 Hct 32.2 % (36.0-48.0) L 09/13/18 06:00 MCV 95.3 fl (80.0-105.0) 09/13/18 06:00 MCH 31.1 pg (25.0-35.0) 09/13/18 06:00 MCHC 32.6 g/dl (31.0-37.0) 09/13/18 06:00 RDW 13.8 % (11.5-14.5) 09/13/18 06:00 Plt Count 255 10^3/uL (120.0-450.0) 09/13/18 06:00 MPV 8.9 fl (7.0-11.0) 09/13/18 06:00 Gran % 74.9 % (50.0-68.0) H 09/10/18 14:10 Lymph % (Auto) 14.5 % (22.0-35.0) L 09/10/18 14:10 [place] % (Auto) 8.4 % (1.0-6.0) H 09/10/18 14:10 Eos % (Auto) 1.4 % (1.5-5.0) L 09/10/18 14:10 Baso % (Auto) 0.8 % (0.0-3.0) 09/10/18 14:10 Gran # 3.67 (1.4-6.5) 09/10/18 14:10 Lymph # (Auto) 0.7 (1.2-3.4) L 09/10/18 14:10 [place] # (Auto) 0.4 (0.1-0.6) 09/10/18 14:10 Eos # (Auto) 0.1 (0.0-0.7) 09/10/18 14:10 Baso # (Auto) 0.04 K/mm3 (0.0-2.0) 09/10/18 14:10 PT 11.8 SECONDS (9.4-12.5) 09/11/18 06:00 INR 1.03 09/11/18 06:00 APTT 26.3 Seconds (25.1-36.5) 09/11/18 06:00 Sodium 138 mmol/L (132-148) 09/13/18 06:00 Potassium 3.6 mmol/L (3.6-5.0) 09/13/18 06:00 Chloride 108 mmol/L (98-107) H 09/13/18 06:00 Carbon Dioxide 24 mmol/L (21-33) 09/13/18 06:00 Anion Gap 9 (10-20) L 09/13/18 06:00 BUN 14 mg/dL (7-21) 09/13/18 06:00 Creatinine 0.6 mg/dl (0.7-1.2) L 09/13/18 06:00 Est GFR ( Amer) > 60 09/13/18 06:00 Est GFR (Non-Af Amer) > 60 09/13/18 06:00 Random Glucose 97 mg/dL (70-110) 09/13/18 06:00 Calcium 8.7 mg/dL (8.4-10.5) 09/13/18 06:00 Phosphorus 3.8 mg/dL (2.5-4.5) 09/11/18 06:00 Magnesium 1.9 mg/dL (1.7-2.2) 12/04/18 06:00 Total Bilirubin 0.4 mg/dL (0.2-1.3) 09/13/18 06:00 AST 31 U/L (14-36) 09/13/18 06:00 ALT 27 U/L (7-56) 09/13/18 06:00 Alkaline Phosphatase 65 U/L (38-126) 09/13/18 06:00 Lactate Dehydrogenase 206 U/L (333-699) L 09/11/18 06:00 Total Creatine Kinase 26 U/L (35-230) L 09/11/18 06:00 Troponin I < 0.01 ng/mL 09/11/18 06:00 Total Protein 6.3 g/dL (5.8-8.3) 09/13/18 06:00 Albumin 3.3 g/dL (3.0-4.8) 09/13/18 06:00 Globulin 3.0 gm/dL 09/13/18 06:00 Albumin/Globulin Ratio 1.1 (1.1-1.8) 09/13/18 06:00 Triglycerides 44 mg/dL (35-160) 09/11/18 06:00 Cholesterol 177 mg/dL (130-200) 09/11/18 06:00 LDL Cholesterol Direct 79 mg/dL (0-129) 09/11/18 06:00 HDL Cholesterol 92 mg/dL (29-60) H 09/11/18 06:00 Thyroxine (T4) 6.8 ug/dL (5.5-11.0) 09/11/18 06:00 TSH 3rd Generation 0.64 mIU/mL (0.46-4.68) 09/11/18 06:00 Urine Color Yellow (YELLOW) 09/10/18 14:10 Urine Appearance Clear (CLEAR) 09/10/18 14:10 Urine pH 6.0 (4.7-8.0) 09/10/18 14:10 Ur Specific [place] 1.010 (1.005-1.035) 09/10/18 14:10 Urine Protein Negative mg/dL (<30 mg/dL) 09/10/18 14:10 Urine Glucose (UA) Negative mg/dL (NEGATIVE) 09/10/18 14:10 Urine Ketones Negative mg/dL (NEGATIVE) 09/10/18 14:10 Urine Blood Negative (NEGATIVE) 09/10/18 14:10 Urine Nitrate Positive (NEGATIVE) H 09/10/18 14:10 Urine Bilirubin Negative (NEGATIVE) 09/10/18 14:10 Urine Urobilinogen 0.2 E.U./dL (<1 E.U./dL) 09/10/18 14:10 Ur Leukocyte Esterase Trace Joseph/uL (NEGATIVE) H 09/10/18 14:10 Urine RBC Negative /hpf (0-2) 09/10/18 14:10 Urine WBC 1 - 3 /hpf (0-6) 09/10/18 14:10 Ur Epithelial Cells 3 - 4 /hpf (0-5) 09/10/18 14:10 Urine Bacteria Large (NEG) 09/10/18 14:10 Urine Opiates Screen Negative (NEGATIVE) 09/10/18 18:00 Urine Methadone Screen Negative (NEGATIVE) 09/10/18 18:00 Ur Barbiturates Screen Negative (NEGATIVE) 09/10/18 18:00 Ur Phencyclidine Scrn Negative (NEGATIVE) 09/10/18 18:00 Ur Amphetamines Screen Negative (NEGATIVE) 09/10/18 18:00 U Benzodiazepines Scrn Negative (NEGATIVE) 09/10/18 18:00 U Oth Cocaine Metabols Negative (NEGATIVE) 09/10/18 18:00 U Cannabinoids Screen Negative (NEGATIVE) 09/10/18 18:00 Alcohol, Quantitative 28 mg/dL (0-10) H 09/10/18 17:00 Attending/Attestation - Attestation I have personally seen and examined this patient.: Yes I have fully participated in the care of the patient.: Yes I have reviewed all pertinent clinical information, including history, physical exam and plan: Yes Notes (Text): 09/13/18 15:20 63 year old female with past medical history of ETOH abuse, hypertension, hyperthyroidism and history of intracranial hemorrhage who presented with complaint of generalized weakness and recurrent falls at home. CT head and cervical neck were negative for acute findings. She was seen by neurology who recommended aspirin and PT evaluation. PT recommended [facility]. Alcohol level was positive; although patient denied recent use of. She was on multivitamin, folic acid and thiamine and counselled on alcohol abstinence. She initially complained of chest pain which resolved. Serial cardiac enzymes were negative and ACS was ruled out. UCX grew klebsiella, however she denied UTI complaints. Monitor off antibiotics for asymptomatic bacteruria. Patient is accepted to [facility]. Follow up with pmd. Counselled on alcohol abstinence. Nicole Coello MD Hospitalist.
--- NOTE | 2018-09-13 14:26 | CARD ---
APPROVED REPORT Date of service: 09/13/2018 EKG Measurement Heart [id number] <Conclusion> Normal sinus rhythm Normal ECG
[2018-09-13 16:45] VITALS: PULSE 73
== END 2018-09-13 18:07 | DRG 143 ==
LOC: ED 12:12 → ERH 17:20 → 3RSO 21:00
PROVIDERS: ADMIT Internal Medicine; ATTEND Internal Medicine
DX: R07.89 Other chest pain (principal); N39.0 Urinary tract infection, site not specified; E05.90 Thyrotoxicosis, unspecified without thyrotoxic crisis or storm; B96.1 Klebsiella pneumoniae [K. pneumoniae] as the cause of diseases classified elsewhere; R32 Unspecified urinary incontinence; I10 Essential (primary) hypertension; F41.0 Panic disorder [episodic paroxysmal anxiety]; G25.0 Essential tremor; R29.6 Repeated falls; G89.29 Other chronic pain; H54.61 Unqualified visual loss, right eye, normal vision left eye; I69.154 Hemiplegia and hemiparesis following nontraumatic intracerebral hemorrhage affecting left non-dominant side; M48.02 Spinal stenosis, cervical region; N28.1 Cyst of kidney, acquired; W19.XXXA Unspecified fall, initial encounter; Z79.82 Long term (current) use of aspirin; F17.200 Nicotine dependence, unspecified, uncomplicated; S80.12XA Contusion of left lower leg, initial encounter; S80.11XA Contusion of right lower leg, initial encounter; S80.02XA Contusion of left knee, initial encounter; S80.01XA Contusion of right knee, initial encounter

== ENCOUNTER 2018-10-10 21:47 | Inpatient (IN) | payer MEDICAID ==
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
[2018-10-10] MEDS ORDERED: Oxycodone/Acetaminophen 5/325 mg Tab PO STA (23:28)
[2018-10-10 23:50] LABS: BASO # 0.03 K/mm3 (0.0-2.0); BASO % 0.4 % (0.0-3.0); EOS # 0.2 (0.0-0.7); EOS % 2.9 % (1.5-5.0); GRAN # 4.79 (1.4-6.5); GRAN % 70.5 % (50.0-68.0); HEMOGLOBIN 10.1 g/dL (12.0-16.0); LYMPH # 1.1 (1.2-3.4); LYMPH % 16.5 % (22.0-35.0); MEAN CORPUSCULAR HEMOGLOBIN 28.4 pg (25.0-35.0); MEAN CORPUSCULAR HGB CONC 31.4 g/dl (31.0-37.0); MEAN PLATELET VOLUME 10.7 fl (7.0-11.0); MONO # 0.7 (0.1-0.6); MONO % 9.7 % (1.0-6.0); RBC 3.56 10^6/uL (3.5-6.1); RED CELL DISTRIBUTION WIDTH 13.3 % (11.5-14.5); WHITE BLOOD COUNT 6.8 10^3/uL (4.5-11.0)
[2018-10-10 23:53] LABS: URINE BILIRUBIN NEGATIVE (NEGATIVE); URINE BLOOD NEGATIVE (NEGATIVE); URINE GLUCOSE (UA) NEGATIVE (NEGATIVE); URINE LEUKOCYTE ESTERASE NEGATIVE Leu/uL (NEGATIVE); URINE PROTEIN NEGATIVE mg/dL (<30 mg/dL); URINE UROBILINOGEN 0.2 E.U./dL (<1 E.U./dL)
[2018-10-10 23:54] LABS: MEAN CELL VOLUME 90.4 fl (80.0-105.0)
[2018-10-10 23:56] LABS: URINE APPEARANCE SL CLOUDY (CLEAR); URINE COLOR YELLOW (YELLOW)
[2018-10-11] MEDS ORDERED: Morphine 4 mg/ml ISec IVP STA ×2 (02:39)
[2018-10-11 02:40] VITALS: BMI 20.7
[2018-10-11 03:06] LABS: URINE BACTERIA MANY /hpf; URINE EPITHELIAL CELLS 0 - 2 /hpf (0-5); URINE RBC 0 - 2 /hpf (0-2); URINE WBC 0 - 2 /hpf (0-6)
[2018-10-11 03:13] LABS: ALBUMIN 4.1 g/dL (3.0-4.8); BLOOD UREA NITROGEN 20 mg/dL (7-21); CALCIUM 9.3 mg/dL (8.4-10.5); GFR NON-AFRICAN AMERICAN > 60
[2018-10-11 03:14] LABS: ALB/GLOB RATIO 1.3 (1.1-1.8); ALT/SGPT 30 U/L (7-56); AST/SGOT 31 U/L (14-36)
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
[2018-10-11] MEDS ORDERED: Sodium Chloride 0.9% 1,000 ML IV STA (05:31)
[2018-10-11 07:16] LABS: ALB/GLOB RATIO 1.2 (1.1-1.8); ALBUMIN 3.6 g/dL (3.0-4.8); ALT/SGPT 22 U/L (7-56); AST/SGOT 24 U/L (14-36); BLOOD UREA NITROGEN 19 mg/dL (7-21); CALCIUM 8.9 mg/dL (8.4-10.5); GFR NON-AFRICAN AMERICAN > 60
[2018-10-11 07:24] LABS: TROPONIN I < 0.01 ng/mL
[2018-10-11] MEDS: Morphine 2 mg/ml ISec IVP PRN ×4 (08:15→23:32)
--- NOTE | 2018-10-11 08:58 | RAD ---
Date of service: 10/11/2018 HISTORY: r/o infiltrate COMPARISON: 03/28/2018. FINDINGS: LUNGS: The lungs are well inflated and clear. PLEURA: No pleural effusions or pneumothorax. CARDIOVASCULAR: The heart is normal in size. There are aortic atherosclerotic calcifications present. OSSEOUS STRUCTURES: Within normal limits for the patient's age. VISUALIZED UPPER ABDOMEN: Normal. OTHER FINDINGS: None. IMPRESSION: No active pulmonary disease.
[2018-10-11] MEDS ORDERED: Magnesium Sulfate 2 gm/50 ml 2 GM/50 ML BAG IVPB ONE (09:06)
--- NOTE | 2018-10-11 09:15 | CARD ---
APPROVED REPORT Date of service: 10/11/2018 EKG Measurement Heart [id number] IN [id number] [id number] <Conclusion> Normal sinus rhythm Nonspecific T wave abnormality
[2018-10-11 09:17] LABS: BASO # 0.03 K/mm3 (0.0-2.0); BASO % 0.5 % (0.0-3.0); EOS # 0.1 (0.0-0.7); GRAN # 3.3 (1.4-6.5); GRAN % 59.3 % (50.0-68.0); HEMOGLOBIN 9.5 g/dL (12.0-16.0); LYMPH # 1.4 (1.2-3.4); LYMPH % 25.1 % (22.0-35.0); MEAN CELL VOLUME 89.7 fl (80.0-105.0); MEAN CORPUSCULAR HEMOGLOBIN 28.7 pg (25.0-35.0); MEAN PLATELET VOLUME 9.2 fl (7.0-11.0); MONO # 0.7 (0.1-0.6); MONO % 13.1 % (1.0-6.0); RBC 3.31 10^6/uL (3.5-6.1); RED CELL DISTRIBUTION WIDTH 13.1 % (11.5-14.5); WHITE BLOOD COUNT 5.6 10^3/uL (4.5-11.0)
--- NOTE | 2018-10-11 09:22 | RAD ---
PROCEDURE: Left Hip X-ray Radiographs. HISTORY: fall COMPARISON: None. FINDINGS: BONES: There is an acute comminuted impacted nondisplaced left intertrochanteric fracture. There is diffuse bone demineralization. Bone alignment is normal. JOINTS: The hip joint spaces are preserved. There is a metallic nessa across the left sacroiliac joint and left sacral ala. SOFT TISSUES: Normal. OTHER FINDINGS: None. IMPRESSION: Acute comminuted impacted nondisplaced left intertrochanteric fracture.
--- NOTE | 2018-10-11 09:24 | RAD ---
Date of service: 10/11/2018 PROCEDURE: Left Knee Radiographs. HISTORY: Pain. COMPARISON: None. FINDINGS: BONES: There is diffuse bone demineralization. There is no acute displaced fracture or bone destruction. Bone alignment is normal JOINTS: Normal. JOINT EFFUSION: None. OTHER FINDINGS: None. IMPRESSION: No acute displaced fracture or dislocation.
[2018-10-11 09:30] LABS: INR 1.09; PROTHROMBIN TIME 12.6 SECONDS (9.4-12.5)
[2018-10-11 10:04] LABS: PARTIAL THROMBOPLASTIN TIME 26.1 Seconds (25.1-36.5)
[2018-10-11] MEDS ORDERED: Influenza Vaccine 60 mcg/0.5 mL SYR (4YR UP) IM ONE (15:14)
[2018-10-11] MEDS ORDERED: Pneumococcal 23-Valent Vaccine IM ONE (15:14)
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
[2018-10-11 18:59] LABS: BARBITURATES, UR NEGATIVE (NEGATIVE); BENZODIAZEPINES, UR NEGATIVE (NEGATIVE); OPIATES, UR POSITIVE (NEGATIVE); PHENCYCLIDINE, UR NEGATIVE (NEGATIVE)
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
[2018-10-12] MEDS ORDERED: Sodium Chloride 0.9% 1,000 ML IV SCH (00:15)
[2018-10-12] MEDS: Morphine 2 mg/ml ISec IVP PRN ×3 (03:56→13:25)
[2018-10-12 07:10] LABS: HEMOGLOBIN 9.6 g/dL (12.0-16.0); MEAN CELL VOLUME 89.9 fl (80.0-105.0); MEAN CORPUSCULAR HEMOGLOBIN 27.8 pg (25.0-35.0); MEAN PLATELET VOLUME 9.1 fl (7.0-11.0); RBC 3.45 10^6/uL (3.5-6.1); RED CELL DISTRIBUTION WIDTH 13.1 % (11.5-14.5); WHITE BLOOD COUNT 4.3 10^3/uL (4.5-11.0)
[2018-10-12 07:26] LABS: ALB/GLOB RATIO 1.1 (1.1-1.8); ALBUMIN 3.3 g/dL (3.0-4.8); ALT/SGPT 27 U/L (7-56); AST/SGOT 20 U/L (14-36); BLOOD UREA NITROGEN 11 mg/dL (7-21); CALCIUM 8.5 mg/dL (8.4-10.5); GFR NON-AFRICAN AMERICAN > 60
--- NOTE | 2018-10-12 15:00 | CT ---
Date of service: 10/12/2018 PROCEDURE: CT HEAD WITHOUT CONTRAST. HISTORY: r/o CVA COMPARISON: Noncontrast head CT performed 09/10/18 TECHNIQUE: Axial computed tomography images were obtained through the head/brain without intravenous contrast. Radiation dose: Total exam DLP = 2030.25 mGy-cm. This CT exam was performed using one or more of the following dose reduction techniques: Automated exposure control, adjustment of the mA and/or kV according to patient size, and/or use of iterative reconstruction technique. FINDINGS: Examination limited by motion and streak artifact. HEMORRHAGE: No intracranial hemorrhage. BRAIN: Diffuse atrophy with prominence of the ventricles and sulci noted. No mass effect or edema. Intracranial atherosclerosis. Scattered periventricular and subcortical white matter hypodensities, which are nonspecific, but often seen with chronic microvascular ischemic disease; findings more prominent on the right as compared to the left.. Please note that MRI with diffusion imaging is more sensitive in the detection of acute ischemic event. VENTRICLES: No hydrocephalus. CALVARIUM: Unremarkable. PARANASAL SINUSES: Mucosal polyp/cyst within the right maxillary sinus. MASTOID AIR CELLS: Small fluid within the left mastoid air cells. The right mastoid air cells appear clear. OTHER FINDINGS: Partial opacification of the right external auditory canal, likely cerumen. IMPRESSION: Scattered nonspecific white matter changes as above. Small fluid within the left mastoid air cells. Correlate for mastoiditis. Additional incidental findings as above.
[2018-10-12] MEDS ORDERED: Propofol 10 mg/ml Inj (20 ML) ONE (17:30)
[2018-10-12] MEDS ORDERED: Midazolam 2 MG/2 ML VIAL ONE (17:30)
[2018-10-12] MEDS ORDERED: Rocuronium 10 mg/ml (5 ml) ONE (17:30)
[2018-10-12] MEDS ORDERED: Succinylcholine 200 mg/10 ml Inj IV ONE (17:30)
[2018-10-12] MEDS ORDERED: Lidocaine PF 2% (5 ml) Inj (For Cardiac Arrhy) ONE (17:32)
--- NOTE | 2018-10-12 18:20 | CP.PCM.PN ---
<DarielMatthias - Last Filed: 10/12/18 18:31> Subjective - Date & Time of Evaluation Date of Evaluation: 10/12/18 Time of Evaluation: 08:00 - Subjective Subjective: Pt seen and examined this morning at bedside. Pt reports right hip pain. Pt denies chest pain, SOB, nausea or vomiting. Objective - Vital Signs/Intake and Output Vital Signs (last 24 hours): Temp Pulse Resp BP Pulse Ox 98.6 F 68 20 161/100 H 100 10/12/18 16:42 10/12/18 16:42 10/12/18 16:42 10/12/18 16:42 10/12/18 16:42 Intake and Output: 10/12/18 10/12/18 06:59 18:59 Intake Total 2880 0 Output Total 700 Balance 2180 0 - Medications Medications: Current Medications Hydralazine HCl (Apresoline) 10 mg IVP Q6 PRN PRN Reason: Systolic Blood Pressure Sodium Chloride (Sodium Chloride 0.9%) 1,000 mls @ 100 mls/hr IV .Q10H JOSSE Morphine Sulfate (Morphine) 2 mg IVP Q4H PRN PRN Reason: Pain, severe (8-10) Last Admin: 10/12/18 13:25 Dose: 2 mg Pantoprazole Sodium (Protonix Inj) 40 mg IVP DAILY JOSSE Last Admin: 10/12/18 09:22 Dose: 40 mg - Labs Labs: 10/12/18 06:45 10/12/18 06:45 PT 12.6 SECONDS (9.4-12.5) H 10/11/18 05:00 INR 1.09 10/11/18 05:00 APTT 26.1 Seconds (25.1-36.5) 10/11/18 05:00 - Head Exam Head Exam: ATRAUMATIC, NORMOCEPHALIC - Eye Exam Eye Exam: EOMI - ENT Exam ENT Exam: Mucous Membranes Moist - Neck Exam Neck Exam: Full ROM - Respiratory Exam Respiratory Exam: Clear to Ausculation Bilateral, NORMAL BREATHING PATTERN. absent: Accessory Muscle Use - Cardiovascular Exam Cardiovascular Exam: +S1, +S2. absent: Diastolic murmur, Murmur - GI/Abdominal Exam GI & Abdominal Exam: Soft, Normal Bowel Sounds. absent: Tenderness - Extremities Exam Extremities Exam: absent: Pedal Edema Additional comments: pain to palpation of left hip - Neurological Exam Neurological Exam: Alert, Awake, Oriented x3 - Psychiatric Exam Psychiatric exam: Normal Affect, Normal Mood - Skin Skin Exam: Dry, Normal Color, Warm Assessment and Plan - Assessment and Plan (Free Text) Assessment: Pt is a 63 yo female with a PMH of HTN, hyperthyroidism, intracranial hemorrhage, alcohol abuse, depression, anxiety, who presented after a fall, pt was found to have a fractured left hip. Plan: Left Hip Fracture - pt went to OR today after having a screening head CT before undergoing anesthesia - orthopedic surgery, Dr Craig - Morphine for pain control Hypertension - hydralazine Hyperthyroidism -TSH 0.29 - Free T4 1.17 Anemia -Hgb: 9.6 - continue to monitor History of Depression and Anxiety -Hold home medications due to possible surgery Ppx protonix 40 mg daily Pt seen, examined, assessment and plan discussed with Dr Tiffany Vieira PGY1, Internal Medicine Resident <Tiffany Ortega R - Last Filed: 10/14/18 20:03> Objective - Vital Signs/Intake and Output Vital Signs (last 24 hours): Temp Pulse Resp BP Pulse Ox 97.7 F 90 18 166/96 H 96 10/14/18 14:00 10/14/18 14:00 10/14/18 14:00 10/14/18 14:00 10/14/18 14:00 - Medications Medications: Current Medications Enoxaparin Sodium (Lovenox) 40 mg SC DAILY JOSSE; Protocol Last Admin: 10/14/18 16:17 Dose: 40 mg Ceftriaxone Sodium (Rocephin 1 Gram Ivpb) 1 gm in 100 mls @ 100 mls/hr IVPB DAILY JOSSE; Protocol Stop: 10/16/18 10:01 Last Admin: 10/14/18 09:11 Dose: 100 mls/hr Metoprolol Succinate (Toprol Xl) 25 mg PO BRK JOSSE Last Admin: 10/14/18 11:56 Dose: 25 mg Morphine Sulfate (Morphine) 2 mg IVP Q4H PRN PRN Reason: Pain, severe (8-10) Last Admin: 10/14/18 12:04 Dose: 2 mg Pantoprazole Sodium (Protonix Ec Tab) 40 mg PO 0600 OJSSE Last Admin: 10/14/18 06:00 Dose: 40 mg - Labs Labs: 10/13/18 07:00 10/13/18 07:00 PT 12.6 SECONDS (9.4-12.5) H 10/11/18 05:00 INR 1.09 10/11/18 05:00 APTT 26.1 Seconds (25.1-36.5) 10/11/18 05:00 Attending/Attestation - Attestation I have personally seen and examined this patient.: Yes I have fully participated in the care of the patient.: Yes I have reviewed all pertinent clinical information, including history, physical exam and plan: Yes Notes (Text): Patient seen and examined by me with resident at 9:45AM on 10/12/18. Case including HPI, physical exam, and assessment and plan discussed with resident. Agree with above with following additions/corrections. Patient is a 63 year old female with past medical history significant for hypertension, hyperthyroidism not on medications, intracranial hemorrhage in March 2018, alcohol abuse, depression, and anxiety that presented to the emergency room after having a fall. Patient states she feels ok. Complains of left hip pain. States pain is throbbing in nature and constant. Patient has sharp pain with movement. Pain is a 10/10. Pain medications are helping. No chest pain or shortness of breath. No headaches or dizziness. No lightheadedness. No change in vision. No dysuria. No diarrhea or constipation. Physical exam: General: Awake and alert, lying in bed in no acute distress. HEENT: Normocephalic, atraumatic, Extraocular muscles intact, pupils equal and reactive, no scleral icterus. Oropharynx is pink and moist. No pharyngeal erythema or exudate appreciated. Neck is supple. Cardiovascular: Normal rhythm. Normal S1 and S2. No murmurs, rubs, or gallops appreciated. Pulmonary: Normal respiratory effort. No rhonchi, rales, or wheezing appreciated. Gastrointestinal: Soft. Nondistended No tenderness. Positive bowel sounds all 4 quadrants. No guarding. Musculoskeletal:Decreased range of motion left lower extremity. No calf tenderness. Positive left hip tenderness. No edema appreciated Central nervous system: AAO x3, CN2-12 grossly intact. Dermatologic: Skin warm and dry. Assessment and plan: Patient is a 63 year old female with past medical history significant for hypertension, hyperthyroidism not on medications, intracranial hemorrhage in March 2018, alcohol abuse, depression, and anxiety that presented to the emergency room after having a fall. 1. Left hip fracture s/p fall. Left hip xray per radiologist showed acute comminuted impacted nondisplaced left intertrochanteric fracture. Left knee xray per radiologist showed no acute displaced fracture or dislocation. Ortho following, recommendations appreciated. Patient for OR this evening. 2. Hypertension. Blood pressure likely elevated secondary to pain. Patient NPO. .Hydralazine prn as needed. 3. History of hyperthyroidism. Patient on no medications.TSH low but free T4 within normal limits. Patient to follow up with PMD for repeat blood work. 4. Anemia. H&H stable. Continue to monitor CBC. 5. Depression and anxiety. Not on any medications at home 6. Abnormal urinalysis. Follow up urine culture. Case was discussed in detail with patient regarding current diagnosis and treatment plan. All questions answered.
[2018-10-12] MEDS: Bupivacaine 0.5% 50 ML IJ ONE ×2 (18:21→18:40)
[2018-10-12] MEDS ORDERED: Glycopyrrolate 0.2 mg/ml (2ml vial) ONE (18:43)
[2018-10-12] MEDS ORDERED: HYDROmorphone 0.5 mg/0.5 ml ISec IVP PRN (19:01)
[2018-10-12] MEDS ORDERED: Lactated Ringer's 1,000 ML IV SCH (19:15)
[2018-10-12] MEDS ORDERED: HYDROmorphone 0.5 mg/0.5 ml ISec ONE ×2 (19:44→20:39)
[2018-10-13] MEDS: Morphine 2 mg/ml ISec IVP PRN ×5 (02:19→22:51)
--- NOTE | 2018-10-13 04:40 | OP ---
PROCEDURE DATE: 10/12/2018 PREOPERATIVE DIAGNOSIS: Left displaced intertrochanteric hip fracture. POSTOPERATIVE DIAGNOSIS: Left displaced intertrochanteric hip fracture. PROCEDURE: Left hip close reduction and intramedullary nail fixation using Synthes short TFN nail. ANESTHESIA: General. BLOOD LOSS: 50 mL. COMPLICATIONS: None. DISPOSITION: Stable to recovery room. DESCRIPTION OF PROCEDURE: The patient was brought to the operating room and placed supine on the operating room table. After general anesthesia was given and prophylactic antibiotics, the left lower extremity was placed into retraction. Close reduction was then performed with traction, adduction and internal rotation of leg. Fluoroscopic images confirmed well aligned anatomic reduction of the intertrochanteric fracture. The left lower extremity was then prepped and draped in standard surgical fashion. The proposed incision was outlined. This was a longitudinal incision proximal to the greater trochanteric area. The incision was made through the skin only. All superficial veins were cauterized. Dissection was carried down to identifying starting point at the greater trochanteric area. A guidewire was then advanced into the greater trochanteric bone into the medullary canal and confirmed good placement on both AP and lateral fluoroscopic images. Next, an opening reamer was used to open the medullary canal. After this, short TFN nail was advanced into the medullary canal of the femur and seated in appropriate position. Trocar for the helical blade was then advanced over the aiming guide. The skin was made over the trocar site and the trocar was advanced into the lateral cortex of the femur. A guidewire was then advanced into the femoral neck and confirmed in good anatomic position on both AP and lateral fluoroscopic images. Appropriate-size helical blade length was then selected. Reamer was used to open the medullary canal of the femoral neck. A 95 mm helical blade was then advanced over the guidewire with light hammer blows until fully seated. The helical blade was locked into the nail proximally with the screw deliver driver. Next, work was begun on locking the nail distally and trocar was used with the distal aiming guide. Skin incision was made. Dissection was carried down to the lateral cortex of the femur. The trocar was advanced to the lateral cortex. A drill was used then over the trocar. Appropriate-size screw was then selected and advanced into the nail locking it distally. The aiming guide was then removed. All wounds were irrigated copiously. The deep layers were closed with 2-0 Vicryl followed by 2-0 for subcutaneous level followed by maría for skin. A 25 mL of Marcaine was given over the wound sites. Sterile dressing was applied. The leg was removed from traction. The patient tolerated the procedure well and was returned to the recovery room in excellent condition. She will start weightbearing as tolerated and will follow up in 2 weeks in the office. Roe Black MD
[2018-10-13 07:38] LABS: HEMOGLOBIN 8.7 g/dL (12.0-16.0); MEAN CORPUSCULAR HGB CONC 31.1 g/dl (31.0-37.0); MEAN PLATELET VOLUME 9.6 fl (7.0-11.0); RBC 3.11 10^6/uL (3.5-6.1); RED CELL DISTRIBUTION WIDTH 13.3 % (11.5-14.5); WHITE BLOOD COUNT 6.8 10^3/uL (4.5-11.0)
[2018-10-13 08:09] LABS: ALB/GLOB RATIO 1.1 (1.1-1.8); ALBUMIN 3.1 g/dL (3.0-4.8); ALT/SGPT 21 U/L (7-56); AST/SGOT 22 U/L (14-36); BLOOD UREA NITROGEN 11 mg/dL (7-21); CALCIUM 8.6 mg/dL (8.4-10.5); GFR NON-AFRICAN AMERICAN > 60
[2018-10-13] MEDS: cefTRIAXone 1 gm 1 GM/100 ML BAG IVPB SCH (10:20)
--- NOTE | 2018-10-13 10:42 | CP.PCM.PN ---
<Reynaldo Nevarez - Last Filed: 10/13/18 10:38> Subjective - Date & Time of Evaluation Date of Evaluation: 10/13/18 Time of Evaluation: 09:00 - Subjective Subjective: Patient seen and examined at bedside. Patient admits to pain in left hip. Denies chest pain, shortness of breath, nausea, vomiting, diarrhea, fever, chills. Objective - Vital Signs/Intake and Output Vital Signs (last 24 hours): Temp Pulse Resp BP Pulse Ox 98.7 F 88 18 115/81 93 L 10/13/18 08:47 10/13/18 08:47 10/13/18 08:47 10/13/18 08:47 10/13/18 08:47 Intake and Output: 10/13/18 10/13/18 06:59 18:59 Intake Total 180 Output Total 100 Balance 80 - Medications Medications: Current Medications Hydralazine HCl (Apresoline) 10 mg IVP Q6 PRN PRN Reason: Systolic Blood Pressure Sodium Chloride (Sodium Chloride 0.9%) 1,000 mls @ 100 mls/hr IV .Q10H [facility] Last Admin: 10/13/18 10:21 Dose: 100 mls/hr Ceftriaxone Sodium (Rocephin 1 Gram Ivpb) 1 gm in 100 mls @ 100 mls/hr IVPB FLACA ROBERTO [facility]; Protocol Stop: 10/16/18 10:01 Last Admin: 10/13/18 10:20 Dose: 100 mls/hr Morphine Sulfate (Morphine) 2 mg IVP Q4H PRN PRN Reason: Pain, severe (8-10) Last Admin: 10/13/18 08:17 Dose: 2 mg Pantoprazole Sodium (Protonix Inj) 40 mg IVP DAILY [facility] Last Admin: 10/13/18 10:17 Dose: 40 mg - Labs Labs: 10/13/18 07:00 10/13/18 07:00 PT 12.6 SECONDS (9.4-12.5) H 10/11/18 05:00 INR 1.09 10/11/18 05:00 APTT 26.1 Seconds (25.1-36.5) 10/11/18 05:00 - Constitutional Appears: Non-toxic, No Acute Distress - Head Exam Head Exam: ATRAUMATIC, NORMAL INSPECTION, NORMOCEPHALIC - Respiratory Exam Respiratory Exam: Clear to Ausculation Bilateral, NORMAL BREATHING PATTERN - Cardiovascular Exam Cardiovascular Exam: RRR, +S1, +S2 - GI/Abdominal Exam GI & Abdominal Exam: Soft, Normal Bowel Sounds. absent: Tenderness - Extremities Exam Additional comments: S/p left hip ORIF. Surgical incisions bandaged. No discharge or erythema - Neurological Exam Neurological Exam: Alert, Awake, Oriented x3 - Psychiatric Exam Psychiatric exam: Normal Affect, Normal Mood - Skin Skin Exam: Intact, Normal Color, Warm Assessment and Plan - Assessment and Plan (Free Text) Plan: 63 year old female with past medical history of HTN, hyperthyroidism, intracranial hemorrhage, alcohol abuse, depression, anxiety presents with left hip intertrochanteric fracture. Left Intertrochanteric Hip Fracture Successful ORIF of left hip, POD #1 Morphine for pain Hypertension Continue hydralazine Subclinical hyperthyroidism Recheck TFTs in 4-6 weeks Prophylaxis Protonix SCDs Roque, PGY-3 <Tiffany Ortega R - Last Filed: 10/14/18 20:10> Objective - Vital Signs/Intake and Output Vital Signs (last 24 hours): Temp Pulse Resp BP Pulse Ox 97.7 F 90 18 166/96 H 96 10/14/18 14:00 10/14/18 14:00 10/14/18 14:00 10/14/18 14:00 10/14/18 14:00 - Medications Medications: Current Medications Enoxaparin Sodium (Lovenox) 40 mg SC DAILY [facility]; Protocol Last Admin: 10/14/18 16:17 Dose: 40 mg Ceftriaxone Sodium (Rocephin 1 Gram Ivpb) 1 gm in 100 mls @ 100 mls/hr IVPB DAILY [facility]; Protocol Stop: 10/16/18 10:01 Last Admin: 10/14/18 09:11 Dose: 100 mls/hr Metoprolol Succinate (Toprol Xl) 25 mg PO BRK [facility] Last Admin: 10/14/18 11:56 Dose: 25 mg Morphine Sulfate (Morphine) 2 mg IVP Q4H PRN PRN Reason: Pain, severe (8-10) Last Admin: 10/14/18 20:02 Dose: 2 mg Pantoprazole Sodium (Protonix Ec Tab) 40 mg PO 0600 [facility] Last Admin: 10/14/18 06:00 Dose: 40 mg - Labs Labs: 10/13/18 07:00 10/13/18 07:00 PT 12.6 SECONDS (9.4-12.5) H 10/11/18 05:00 INR 1.09 10/11/18 05:00 APTT 26.1 Seconds (25.1-36.5) 10/11/18 05:00 Attending/Attestation - Attestation I have personally seen and examined this patient.: Yes I have fully participated in the care of the patient.: Yes I have reviewed all pertinent clinical information, including history, physical exam and plan: Yes Notes (Text): Patient seen and examined by me with resident at 9:50AM on 10/13/18. Case including HPI, physical exam, and assessment and plan discussed with resident. Agree with above with following additions/corrections. Patient is a 63 year old female with past medical history significant for hypertension, hyperthyroidism not on medications, intracranial hemorrhage in March 2018, alcohol abuse, depression, and anxiety that presented to the emerg ency room after having a fall. Patient states she feels ok. Patient is post op and still with left hip pain. Pain medications are helping. No chest pain or shortness of breath. No headaches or dizziness. No lightheadedness. No change in vision. No diarrhea or constipation. Physical exam: General: Awake and alert, lying in bed in no acute distress. HEENT: Normocephalic, atraumatic, Extraocular muscles intact, pupils equal and reactive, no scleral icterus. Oropharynx is pink and moist. No pharyngeal erythema or exudate appreciated. Neck is supple. Cardiovascular: Normal rhythm. Normal S1 and S2. No murmus, rubs, or gallops appreciated. Pulmonary: Normal respiratory effort. No rhonchi, rales, or wheezing appreciated. Gastrointestinal: Soft. Nondistended No tenderness. Positive bowel sounds all 4 quadrants. No guarding. Musculoskeletal:Decreased range of motion left lower extremity. No calf tenderness. Positive left hip tenderness. Dressing with a little blood. No edema appreciated Central nervous system: AAO x3, CN2-12 grossly intact. Dermatologic: Skin warm and dry. Assessment and plan: Patient is a 63 year old female with past medical history significant for hypertension, hyperthyroidism not on medications, intracranial hemorrhage in March 2018, alcohol abuse, depression, and anxiety that presented to the emergency room after having a fall. 1. Left hip fracture s/p fall. S/P left hip close reduction and intramedullary nail fixation 10/12/18. Continue with pain management. Left hip xray post op per radiologist showed compression screw and nessa in left hip, there is anatomic alignment with no complicating factors. Left hip xray on admission per radiologist showed acute comminuted impacted nondisplaced left intertrochanteric fracture. Left knee xray per radiologist showed no acute displaced fracture or dislocation. Ortho following, recommendations appreciated. 2. Hypertension. Normotensive this morning. Will hold off on starting blood pressure medications. Monitor BP and add medications if needed. 3. History of hyperthyroidism. Patient on no medications.TSH low but free T4 within normal limits. Patient to follow up with PMD for repeat blood work. 4. Anemia. H&H downtrended likely secondary to blood loss during OR. Continue to monitor CBC. 5. Depression and anxiety. Not on any medications at home 6. Abnormal urinalysis. Urine culture positive for Klebsiella pneumoniae. Started on Rocephin. Case was discussed in detail with patient regarding current diagnosis and treatment plan. All questions answered.
--- NOTE | 2018-10-13 14:11 | RAD ---
Date of service: 10/12/2018 PROCEDURE: Fluoroscopy up to 1 hr HISTORY: O.R.I.F. OF LEFT HIP FX. COMPARISON: TECHNIQUE: Fluoroscopy was provided in the operating room. 75.5 sec of fluoro time. Cumulative dose 5.59 mGy. Two images were submitted FINDINGS: There is placement of a compression screw and nessa in the right hip. There is anatomic alignment with no complicating factors IMPRESSION: As above
--- NOTE | 2018-10-13 14:13 | RAD ---
Date of service: 10/12/2018 PROCEDURE: Pelvis and left hip HISTORY: s/p left hip IM nail surgery COMPARISON: Fluoroscopic images same day TECHNIQUE: Three views FINDINGS: There is a compression screw and nessa in the left hip. There is anatomic alignment with no complicating factors. IMPRESSION: As above
[2018-10-13] MEDS ORDERED: Morphine 4 mg/ml ISec IVP ONE (18:45)
--- NOTE | 2018-10-14 05:56 | CP.PCM.PCO ---
<Christin Arce - Last Filed: 10/14/18 05:56> Physician Communication Note - Physician Communication Note Physician Communication Note: Locke D/Aldo due to empty locke bag and patient urinating on self <Effie Paredes - Last Filed: 10/14/18 18:03> Attending/Attestation - Attestation I have personally seen and examined this patient.: No I have fully participated in the care of the patient.: Yes I have reviewed all pertinent clinical information: Yes Notes (Text): 10/14/18 18:03 Signed paper only.
[2018-10-14] MEDS: Morphine 2 mg/ml ISec IVP PRN ×3 (06:00→20:02)
[2018-10-14] MEDS: Pantoprazole 40 mg EC Tab PO SCH (06:00)
[2018-10-14] MEDS: cefTRIAXone 1 gm 1 GM/100 ML BAG IVPB SCH (09:11)
[2018-10-14] MEDS: Metoprolol Succinate 25 mg XL Tab PO SCH (11:56)
--- NOTE | 2018-10-14 13:49 | CP.PCM.PN ---
<DarielMatthias - Last Filed: 10/14/18 13:58> Subjective - Date & Time of Evaluation Date of Evaluation: 10/14/18 Time of Evaluation: 09:45 - Subjective Subjective: Pt seen and examined at bedside. Admits hip pain, denies chest pain, SOB, nausea or vomiting. Objective - Vital Signs/Intake and Output Vital Signs (last 24 hours): Temp Pulse Resp BP Pulse Ox 98.3 F 93 H 18 141/104 H 96 10/14/18 06:00 10/14/18 11:56 10/14/18 06:00 10/14/18 11:56 10/14/18 06:00 - Medications Medications: Current Medications Ceftriaxone Sodium (Rocephin 1 Gram Ivpb) 1 gm in 100 mls @ 100 mls/hr IVPB DAILY [facility]; Protocol Stop: 10/16/18 10:01 Last Admin: 10/14/18 09:11 Dose: 100 mls/hr Metoprolol Succinate (Toprol Xl) 25 mg PO BRK [facility] Last Admin: 10/14/18 11:56 Dose: 25 mg Morphine Sulfate (Morphine) 2 mg IVP Q4H PRN PRN Reason: Pain, severe (8-10) Last Admin: 10/14/18 12:04 Dose: 2 mg Pantoprazole Sodium (Protonix Ec Tab) 40 mg PO 0600 [facility] Last Admin: 10/14/18 06:00 Dose: 40 mg - Labs Labs: 10/13/18 07:00 10/13/18 07:00 PT 12.6 SECONDS (9.4-12.5) H 10/11/18 05:00 INR 1.09 10/11/18 05:00 APTT 26.1 Seconds (25.1-36.5) 10/11/18 05:00 - Constitutional Appears: No Acute Distress - Head Exam Head Exam: ATRAUMATIC, NORMOCEPHALIC - Eye Exam Eye Exam: EOMI - ENT Exam ENT Exam: Mucous Membranes Moist - Neck Exam Neck Exam: Full ROM - Respiratory Exam Respiratory Exam: Clear to Ausculation Bilateral, NORMAL BREATHING PATTERN. absent: Accessory Muscle Use - Cardiovascular Exam Cardiovascular Exam: RRR, +S1, +S2. absent: Diastolic murmur, Murmur - GI/Abdominal Exam GI & Abdominal Exam: Soft, Normal Bowel Sounds - Extremities Exam Extremities Exam: absent: Pedal Edema - Neurological Exam Neurological Exam: Alert, Awake, Oriented x3 - Psychiatric Exam Psychiatric exam: Normal Affect, Normal Mood - Skin Skin Exam: Dry, Intact, Warm Assessment and Plan - Assessment and Plan (Free Text) Assessment: Pt is a 63 yo female with a PMH of HTN, hyperthyroidism, intracranial hemorrhage, alcohol abuse, depression, anxiety presents with left hip intertrochanteric fracture. Plan: Left Intertrochanteric Hip Fracture - ORIF of left hip, POD #2 - Morphine for pain UTI - urine cultures, Klebsiella - rocephin Hypertension - metoprolol 25 Subclinical hyperthyroidism - Recheck TSH and T4 in 4-6 weeks Ppx - Protonix - SCDs Pt seen, examined, assessment and plan discussed with Dr Edouard Vieira PGY1, Internal Medicine Resident <Rodolfo Nunn - Last Filed: 10/14/18 14:59> Objective - Vital Signs/Intake and Output Vital Signs (last 24 hours): Temp Pulse Resp BP Pulse Ox 98.3 F 93 H 18 141/104 H 96 10/14/18 06:00 10/14/18 11:56 10/14/18 06:00 10/14/18 11:56 10/14/18 06:00 - Medications Medications: Current Medications Ceftriaxone Sodium (Rocephin 1 Gram Ivpb) 1 gm in 100 mls @ 100 mls/hr IVPB DAILY [facility]; Protocol Stop: 10/16/18 10:01 Last Admin: 10/14/18 09:11 Dose: 100 mls/hr Metoprolol Succinate (Toprol Xl) 25 mg PO BRK [facility] Last Admin: 10/14/18 11:56 Dose: 25 mg Morphine Sulfate (Morphine) 2 mg IVP Q4H PRN PRN Reason: Pain, severe (8-10) Last Admin: 10/14/18 12:04 Dose: 2 mg Pantoprazole Sodium (Protonix Ec Tab) 40 mg PO 0600 [facility] Last Admin: 10/14/18 06:00 Dose: 40 mg - Labs Labs: 10/13/18 07:00 10/13/18 07:00 PT 12.6 SECONDS (9.4-12.5) H 10/11/18 05:00 INR 1.09 10/11/18 05:00 APTT 26.1 Seconds (25.1-36.5) 10/11/18 05:00 Attending/Attestation - Attestation I have personally seen and examined this patient.: Yes I have fully participated in the care of the patient.: Yes I have reviewed all pertinent clinical information, including history, physical exam and plan: Yes Notes (Text): 10/14/18 14:51 Attending note: Patient seen and examined with resident. Patient is alert and awake. Still complaining of left-sided hip pain. Left hip in dressing. Denies any nausea, vomiting. Tolerating diet. Patient is a 63 yo female with a PMH of HTN, hyperthyroidism, intracranial hemorrhage, alcohol abuse, depression, anxiety presents with left hip intertrochanteric fracture. 1. Left Intertrochanteric Hip Fracture Successful ORIF of left hip, POD #2. Morphine for pain. 2.Hypertension; continue metoprolol. 3. DVT prophylaxis with Lovenox. 4. Klebsiella UTI; continue IV Rocephin. Switched to Cipro upon discharge. PT evaluation appreciated. Subacute rehabilitation recommended. We will discuss with telephonic case manager for rehabilitation placement. Upon discharge the patient will follow-up with PMD .
[2018-10-14] MEDS: Enoxaparin 40 mg Syringe SC SCH (16:17)
[2018-10-15] MEDS: Morphine 2 mg/ml ISec IVP PRN (02:35)
[2018-10-15] MEDS: Pantoprazole 40 mg EC Tab PO SCH (06:00)
[2018-10-15 07:54] VITALS: TEMP 98
[2018-10-15] MEDS ORDERED: Morphine 2 mg/ml ISec IVP PRN (07:57)
[2018-10-15] MEDS ORDERED: Ergocalciferol 50,000 Intl Units Cap PO SCH (08:30)
[2018-10-15] MEDS: Enoxaparin 40 mg Syringe SC SCH (09:39)
[2018-10-15] MEDS: cefTRIAXone 1 gm 1 GM/100 ML BAG IVPB SCH (09:40)
[2018-10-15] MEDS: Metoprolol Succinate 25 mg XL Tab PO SCH (09:41)
--- NOTE | 2018-10-15 14:53 | CP.PCM.PN ---
Subjective - Date & Time of Evaluation Date of Evaluation: 10/15/18 Time of Evaluation: 14:53 - Subjective Subjective: Patient seen and examined at bedside. Pain is moderate currently. Able to tolerate PT well yesterday. No acute events over the weekend, no other complaints. Denies CP/SOB/fever/CAR[place]ISLE. Objective - Vital Signs/Intake and Output Vital Signs (last 24 hours): Temp Pulse Resp BP Pulse Ox 98 F 76 18 147/89 95 10/15/18 06:00 10/15/18 09:41 10/15/18 06:00 10/15/18 09:41 10/15/18 06:00 Intake and Output: 10/15/18 10/15/18 06:59 18:59 Intake Total 240 Balance 240 - Medications Medications: Current Medications Amlodipine Besylate (Norvasc) 5 mg PO DAILY [facility] 234 BEDS AT [facility] Last Admin: 10/15/18 09:41 Dose: 5 mg Calcium Carbonate (Oscal) 500 mg PO DAILY [facility] 234 BEDS AT [facility] Last Admin: 10/15/18 09:40 Dose: 500 mg Enoxaparin Sodium (Lovenox) 40 mg SC DAILY [facility] 234 BEDS AT [facility]; Protocol Last Admin: 10/15/18 09:39 Dose: 40 mg Ergocalciferol (Drisdol 50,000 Intl Units Cap) 1 cap PO Q7D [facility]CLUDE 234 BEDS AT [facility] Last Admin: 10/15/18 09:39 Dose: 1 cap Ceftriaxone Sodium (Rocephin 1 Gram Ivpb) 1 gm in 100 mls @ 100 mls/hr IVPB DAILY [facility] 234 B[facility]S AT [facility]; Protocol Stop: 10/16/18 10:01 Last Admin: 10/15/18 09:40 Dose: 100 mls/hr Metoprolol Succinate (Toprol Xl) 25 mg PO BRK [facility] 234 B[facility]S AT [facility] Last Admin: 10/15/18 09:41 Dose: 25 mg Morphine Sulfate (Morphine) 2 mg IVP Q4H PRN PRN Reason: Pain, severe (8-10) Last Admin: 10/15/18 09:42 Dose: 2 mg Pantoprazole Sodium (Protonix Ec Tab) 40 mg PO 0600 [facility] 234 B[facility]S [facility] Last Admin: 10/15/18 06:00 Dose: 40 mg - Labs Labs: 10/13/18 07:00 10/13/18 07:00 PT 12.6 SECONDS (9.4-12.5) H 10/11/18 05:00 INR 1.09 10/11/18 05:00 APTT 26.1 Seconds (25.1-36.5) 10/11/18 05:00 - Extremities Exam Additional comments: LLE: moderate thigh swelling Dressing dry and intact with dry bloody drainage, incisions x 3 clean and dry, no drainage sensation intact SP/DP/TN motor intact EHL/FHL/TA/G, baseline diminished compared to RLE DP/PT pulse intact calves soft NT b/l Assessment and Plan (1) Fracture, intertrochanteric, left femur Assessment & Plan: POD#3 s/p L hip ORIF with IM nail -pain control, oral medications added -PT/OT WBAT -DVT ppx -Dry Dressings changed -orthopedically stable for d/c to rehab -f/u in Dr. Black's office in 7-10 days -above d/w Dr. Black in agreement Status: Acute
[2018-10-15] MEDS ORDERED: Oxycodone/Acetaminophen 5/325 mg Tab PO PRN ×2 (15:19)
[2018-10-15 17:06] VITALS: BP 134/85; PULSE 96; RESP 20; O2SAT 96
--- NOTE | 2018-10-15 20:17 | CP.PCM.DIS ---
<DarielMatthias Jorden - Last Filed: 10/15/18 20:27> Provider - Provider Date of Admission: 10/11/18 02:58 Attending physician: Tiffany Ortega DO Primary care physician: NO PRIMARY CARE PROVIDER Consults: 10/11/18 02:50 Orthopedic Consult Stat Comment: Consulting Provider: Roe Black Consulting Physician: Roe Black Reason for Consult: comminuited hip fracture 10/11/18 03:33 Physician Consult Stat Comment: Consulting Provider: Greyson Lockwood Consulting Physician: Greyson Lockwood Reason for Consult: cardiac clearance for surgery 10/11/18 14:32 Nursing Referral for Palliative Care Routine Comment: nida score Physician Instructions: Reason For Exam: eval Social Work Referral Routine Comment: d/c plan Physician Instructions: Reason For Exam: eval 10/11/18 15:14 Nursing Referral for Wound Care Routine Comment: skin tear r arm multiple abrasions legs arms face Physician Instructions: Reason For Exam: eval Time Spent in preparation of Discharge (in minutes): 35 Diagnosis - Discharge Diagnosis (1) Fracture, intertrochanteric, left femur Status: Acute Priority: High (2) UTI (urinary tract infection) Status: Acute Priority: High (3) HTN (hypertension) Status: Chronic Priority: High (4) Hyperthyroidism Status: Chronic Priority: High Hospital Course - Lab Results Lab Results: Micro Results 10/10/18 23:57 Urine,Clean Catch Urine Culture - Final Klebsiella Pneumoniae Ssp Pneu Most Recent Lab Values WBC 6.8 10^3/uL (4.5-11.0) D 10/13/18 07:00 RBC 3.11 10^6/uL (3.5-6.1) L 10/13/18 07:00 Hgb 8.7 g/dL (12.0-16.0) L 10/13/18 07:00 Hct 28.0 % (36.0-48.0) L 10/13/18 07:00 MCV 90.0 fl (80.0-105.0) 10/13/18 07:00 MCH 28.0 pg (25.0-35.0) 10/13/18 07:00 MCHC 31.1 g/dl (31.0-37.0) 10/13/18 07:00 RDW 13.3 % (11.5-14.5) 10/13/18 07:00 Plt Count 141 10^3/uL (120.0-450.0) 10/13/18 07:00 MPV 9.6 fl (7.0-11.0) 10/13/18 07:00 Gran % 59.3 % (50.0-68.0) 10/11/18 05:00 Lymph % (Auto) 25.1 % (22.0-35.0) 10/11/18 05:00 [place] % (Auto) 13.1 % (1.0-6.0) H 10/11/18 05:00 Eos % (Auto) 2.0 % (1.5-5.0) 10/11/18 05:00 Baso % (Auto) 0.5 % (0.0-3.0) 10/11/18 05:00 Gran # 3.30 (1.4-6.5) 10/11/18 05:00 Lymph # (Auto) 1.4 (1.2-3.4) 10/11/18 05:00 [place] # (Auto) 0.7 (0.1-0.6) H 10/11/18 05:00 Eos # (Auto) 0.1 (0.0-0.7) 10/11/18 05:00 Baso # (Auto) 0.03 K/mm3 (0.0-2.0) 10/11/18 05:00 PT 12.6 SECONDS (9.4-12.5) H 10/11/18 05:00 INR 1.09 10/11/18 05:00 APTT 26.1 Seconds (25.1-36.5) 10/11/18 05:00 Sodium 135 mmol/L (132-148) 10/13/18 07:00 Potassium 3.9 mmol/L (3.6-5.0) 10/13/18 07:00 Chloride 107 mmol/L (98-107) 10/13/18 07:00 Carbon Dioxide 24 mmol/L (21-33) 10/13/18 07:00 Anion Gap 7 (10-20) L 10/13/18 07:00 BUN 11 mg/dL (7-21) 10/13/18 07:00 Creatinine 0.7 mg/dl (0.7-1.2) 10/13/18 07:00 Est GFR ( Amer) > 60 10/13/18 07:00 Est GFR (Non-Af Amer) > 60 10/13/18 07:00 Random Glucose 101 mg/dL (70-110) 10/13/18 07:00 Calcium 8.6 mg/dL (8.4-10.5) 10/13/18 07:00 Phosphorus 3.3 mg/dL (2.5-4.5) 10/13/18 07:00 Magnesium 1.6 mg/dL (1.7-2.2) L 10/13/18 07:00 Total Bilirubin 0.6 mg/dL (0.2-1.3) 10/13/18 07:00 AST 22 U/L (14-36) 10/13/18 07:00 ALT 21 U/L (7-56) 10/13/18 07:00 Alkaline Phosphatase 64 U/L (38-126) 10/13/18 07:00 Troponin I < 0.01 ng/mL 10/11/18 06:35 Total Protein 5.9 g/dL (5.8-8.3) 10/13/18 07:00 Albumin 3.1 g/dL (3.0-4.8) 10/13/18 07:00 Globulin 2.8 gm/dL 10/13/18 07:00 Albumin/Globulin Ratio 1.1 (1.1-1.8) 10/13/18 07:00 25-OH Vitamin D Total 18 ng/mL (30-100) L 10/11/18 04:00 25-Hydroxy Vitamin D2 <4 ng/mL 10/11/18 04:00 25-Hydroxy Vitamin D3 18 ng/mL 10/11/18 04:00 Free T4 1.17 ng/dL (0.78-2.19) 10/11/18 09:06 TSH 3rd Generation 0.29 mIU/mL (0.46-4.68) L 10/11/18 06:35 Urine Color Yellow (YELLOW) 10/10/18 23:05 Urine Appearance Sl cloudy (CLEAR) 10/10/18 23:05 Urine pH 7.0 (4.7-8.0) 10/10/18 23:05 Ur Specific [place] 1.020 (1.005-1.035) 10/10/18 23:05 Urine Protein Negative mg/dL (<30 mg/dL) 10/10/18 23:05 Urine Glucose (UA) Negative mg/dL (NEGATIVE) 10/10/18 23:05 Urine Ketones Negative mg/dL (NEGATIVE) 10/10/18 23:05 Urine Blood Negative (NEGATIVE) 10/10/18 23:05 Urine Nitrate Positive (NEGATIVE) H 10/10/18 23:05 Urine Bilirubin Negative (NEGATIVE) 10/10/18 23:05 Urine Urobilinogen 0.2 E.U./dL (<1 E.U./dL) 10/10/18 23:05 Ur Leukocyte Esterase Negative Joseph/uL (NEGATIVE) 10/10/18 23:05 Urine RBC 0 - 2 /hpf (0-2) 10/10/18 23:05 Urine WBC 0 - 2 /hpf (0-6) 10/10/18 23:05 Ur Epithelial Cells 0 - 2 /hpf (0-5) 10/10/18 23:05 Urine Bacteria Many /hpf (NONE) 10/10/18 23:05 Urine Opiates Screen Positive (NEGATIVE) H 10/11/18 18:00 Urine Methadone Screen Negative (NEGATIVE) 10/11/18 18:00 Ur Barbiturates Screen Negative (NEGATIVE) 10/11/18 18:00 Ur Phencyclidine Scrn Negative (NEGATIVE) 10/11/18 18:00 Ur Amphetamines Screen Negative (NEGATIVE) 10/11/18 18:00 U Benzodiazepines Scrn Negative (NEGATIVE) 10/11/18 18:00 U Oth Cocaine Metabols Negative (NEGATIVE) 10/11/18 18:00 U Cannabinoids Screen Negative (NEGATIVE) 10/11/18 18:00 Alcohol, Quantitative < 10 mg/dL (0-10) 10/11/18 09:06 Blood Type A POSITIVE 10/11/18 06:35 Antibody Screen Negative 10/11/18 06:35 Crossmatch See Detail 10/11/18 06:35 BBK History Checked Patient has bt 10/11/18 06:35 - Hospital Course Hospital Course: Upon Arrival 63 year old female with past medical history of hypertension, hyperthyroidism, intracranial hemorrhage in 03/2018, alcohol abuse, depression, anxiety, prior but no current thought of hurting herself presents status post fall from home. Patient reports that she was trying to charge her phone. Patient usually uses walker, since she had the intracranial episode in 2018 leading to left sided weakness, to ambulate. However, this time, she decided to stand up on her own. She fell on her left hip and denies hitting her head or any other part of her body. Patient was subsequently brought to the hospital. Patient denies any new numbness/tingling down her left leg but reports that her leg feels "achy". Patient denies headache, fever, chest pain, heart palpitations, shortness of breath, nausea, vomiting, constipation, diarrhea, dysuria, hematuria. 12-point ROS was unremarkable except for what was mentioned above. During Hospitalization Pt went to OR after having a screening head CT before undergoing anesthesia. Orthopedic surgery, Dr Craig performed the ORIF. Pt hypertension was controlled with hydralazine. Pt found to have a UTI with urine cultures growing Klebsiella. Pt was treated with rocephin. Discharge Pt advised to please follow up with primary care doctor, Dr. Shah within 3-5 days of discharge from subacute rehab. Also to please follow up with Dr. Black, Orthopedist, within 3-5 days of discharge from subacute rehab. Advised to please continue home medications as prescribed. Pt will need 5 more days of PO antibiotics for urinary tract infection. Pt will need to be on Lovenox 40mg SC for anticoagulation for 2 more weeks. This can be stopped upon discharge from subacute rehab. If symptoms return, please go to the nearest emergency department. - Date & Time of H&P Date of H&P: 10/15/18 Time of H&P: 07:45 Discharge Exam - Head Exam Head Exam: ATRAUMATIC, NORMOCEPHALIC - Eye Exam Eye Exam: EOMI - ENT Exam ENT Exam: Mucous Membranes Moist - Respiratory Exam Respiratory Exam: Accessory Muscle Use. absent: Respiratory Distress - Cardiovascular Exam Cardiovascular Exam: RRR, +S1, +S2. absent: Diastolic murmur, Systolic Murmur - GI/Abdominal Exam GI & Abdominal Exam: Normal Bowel Sounds, Unremarkable - Extremities Exam Extremities exam: tenderness, pedal pulses present - Neurological Exam Neurological exam: Alert, Oriented x3 - Psychiatric Exam Psychiatric exam: Normal Affect, Normal Mood - Skin Skin Exam: Dry, Intact, Warm Discharge Plan - Follow Up Plan Condition: GUARDED Disposition: TRANSF TO SNF Instructions: Hip Fracture (DC), Femur Fracture (DC), Preventing Falls Additional Instructions: Please follow up with your primary care doctor, Dr. Shah within 3-5 days of discharge from subacute rehab. Please follow up with Dr. Black, Orthopedist, within 3-5 days of discharge from subacute rehab. Please continue your home medications as prescribed. You will need 5 more days of PO antibiotics for urinary tract infection. You will need to be on Lovenox 40mg SC for anticoagulation for 2 more weeks. This can be stopped upon discharge from subacute rehab. If your symptoms return, please go to the nearest emergency department. Referrals: Fe Shah DO [Doctor Osteopathy] - Roe Black MD [Staff Provider] - <Vern Calvillo - Last Filed: 10/17/18 16:13> Provider - Provider Date of Admission: 10/11/18 02:58 Attending physician: Tiffany Ortega DO Primary care physician: NO PRIMARY CARE PROVIDER Consults: 10/11/18 02:50 Orthopedic Consult Stat Comment: Consulting Provider: Roe Black Consulting Physician: Roe Black Reason for Consult: comminuited hip fracture 10/11/18 03:33 Physician Consult Stat Comment: Consulting Provider: Greyson Lockwood Consulting Physician: Greyson Lockwood Reason for Consult: cardiac clearance for surgery 10/11/18 14:32 Nursing Referral for Palliative Care Routine Comment: nida score Physician Instructions: Reason For Exam: eval Social Work Referral Routine Comment: d/c plan Physician Instructions: Reason For Exam: eval 10/11/18 15:14 Nursing Referral for Wound Care Routine Comment: skin tear r arm multiple abrasions legs arms face Physician Instructions: Reason For Exam: al Hospital Course - Lab Results Lab Results: Micro Results 10/10/18 23:57 Urine,Clean Catch Urine Culture - Final Klebsiella Pneumoniae Ssp Pneu Most Recent Lab Values WBC 6.8 10^3/uL (4.5-11.0) D 10/13/18 07:00 RBC 3.11 10^6/uL (3.5-6.1) L 10/13/18 07:00 Hgb 8.7 g/dL (12.0-16.0) L 10/13/18 07:00 Hct 28.0 % (36.0-48.0) L 10/13/18 07:00 MCV 90.0 fl (80.0-105.0) 10/13/18 07:00 MCH 28.0 pg (25.0-35.0) 10/13/18 07:00 MCHC 31.1 g/dl (31.0-37.0) 10/13/18 07:00 RDW 13.3 % (11.5-14.5) 10/13/18 07:00 Plt Count 141 10^3/uL (120.0-450.0) 10/13/18 07:00 MPV 9.6 fl (7.0-11.0) 10/13/18 07:00 Gran % 59.3 % (50.0-68.0) 10/11/18 05:00 Lymph % (Auto) 25.1 % (22.0-35.0) 10/11/18 05:00 [place] % (Auto) 13.1 % (1.0-6.0) H 10/11/18 05:00 Eos % (Auto) 2.0 % (1.5-5.0) 10/11/18 05:00 Baso % (Auto) 0.5 % (0.0-3.0) 10/11/18 05:00 Gran # 3.30 (1.4-6.5) 10/11/18 05:00 Lymph # (Auto) 1.4 (1.2-3.4) 10/11/18 05:00 [place] # (Auto) 0.7 (0.1-0.6) H 10/11/18 05:00 Eos # (Auto) 0.1 (0.0-0.7) 10/11/18 05:00 Baso # (Auto) 0.03 K/mm3 (0.0-2.0) 10/11/18 05:00 PT 12.6 SECONDS (9.4-12.5) H 10/11/18 05:00 INR 1.09 10/11/18 05:00 APTT 26.1 Seconds (25.1-36.5) 10/11/18 05:00 Sodium 135 mmol/L (132-148) 10/13/18 07:00 Potassium 3.9 mmol/L (3.6-5.0) 10/13/18 07:00 Chloride 107 mmol/L (98-107) 10/13/18 07:00 Carbon Dioxide 24 mmol/L (21-33) 10/13/18 07:00 Anion Gap 7 (10-20) L 10/13/18 07:00 BUN 11 mg/dL (7-21) 10/13/18 07:00 Creatinine 0.7 mg/dl (0.7-1.2) 10/13/18 07:00 Est GFR ( Amer) > 60 10/13/18 07:00 Est GFR (Non-Af Amer) > 60 10/13/18 07:00 Random Glucose 101 mg/dL (70-110) 10/13/18 07:00 Calcium 8.6 mg/dL (8.4-10.5) 10/13/18 07:00 Phosphorus 3.3 mg/dL (2.5-4.5) 10/13/18 07:00 Magnesium 1.6 mg/dL (1.7-2.2) L 10/13/18 07:00 Total Bilirubin 0.6 mg/dL (0.2-1.3) 10/13/18 07:00 AST 22 U/L (14-36) 10/13/18 07:00 ALT 21 U/L (7-56) 10/13/18 07:00 Alkaline Phosphatase 64 U/L (38-126) 10/13/18 07:00 Troponin I < 0.01 ng/mL 10/11/18 06:35 Total Protein 5.9 g/dL (5.8-8.3) 10/13/18 07:00 Albumin 3.1 g/dL (3.0-4.8) 10/13/18 07:00 Globulin 2.8 gm/dL 10/13/18 07:00 Albumin/Globulin Ratio 1.1 (1.1-1.8) 10/13/18 07:00 25-OH Vitamin D Total 18 ng/mL (30-100) L 10/11/18 04:00 25-Hydroxy Vitamin D2 <4 ng/mL 10/11/18 04:00 25-Hydroxy Vitamin D3 18 ng/mL 10/11/18 04:00 Free T4 1.17 ng/dL (0.78-2.19) 10/11/18 09:06 TSH 3rd Generation 0.29 mIU/mL (0.46-4.68) L 10/11/18 06:35 Urine Color Yellow (YELLOW) 10/10/18 23:05 Urine Appearance Sl cloudy (CLEAR) 10/10/18 23:05 Urine pH 7.0 (4.7-8.0) 10/10/18 23:05 Ur Specific [place] 1.020 (1.005-1.035) 10/10/18 23:05 Urine Protein Negative mg/dL (<30 mg/dL) 10/10/18 23:05 Urine Glucose (UA) Negative mg/dL (NEGATIVE) 10/10/18 23:05 Urine Ketones Negative mg/dL (NEGATIVE) 10/10/18 23:05 Urine Blood Negative (NEGATIVE) 10/10/18 23:05 Urine Nitrate Positive (NEGATIVE) H 10/10/18 23:05 Urine Bilirubin Negative (NEGATIVE) 10/10/18 23:05 Urine Urobilinogen 0.2 E.U./dL (<1 E.U./dL) 10/10/18 23:05 Ur Leukocyte Esterase Negative [place]/uL (NEGATIVE) 10/10/18 23:05 Urine RBC 0 - 2 /hpf (0-2) 10/10/18 23:05 Urine WBC 0 - 2 /hpf (0-6) 10/10/18 23:05 Ur Epithelial Cells 0 - 2 /hpf (0-5) 10/10/18 23:05 Urine Bacteria Many /hpf (NONE) 10/10/18 23:05 Urine Opiates Screen Positive (NEGATIVE) H 10/11/18 18:00 Urine Methadone Screen Negative (NEGATIVE) 10/11/18 18:00 Ur Barbiturates Screen Negative (NEGATIVE) 10/11/18 18:00 Ur Phencyclidine Scrn Negative (NEGATIVE) 10/11/18 18:00 Ur Amphetamines Screen Negative (NEGATIVE) 10/11/18 18:00 U Benzodiazepines Scrn Negative (NEGATIVE) 10/11/18 18:00 U Oth Cocaine Metabols Negative (NEGATIVE) 10/11/18 18:00 U Cannabinoids Screen Negative (NEGATIVE) 10/11/18 18:00 Alcohol, Quantitative < 10 mg/dL (0-10) 01/03/19 09:06 Blood Type A POSITIVE 10/11/18 06:35 Antibody Screen Negative 10/11/18 06:35 Crossmatch See Detail 10/11/18 06:35 BBK History Checked Patient has bt 10/11/18 06:35 Attending/Attestation - Attestation I have personally seen and examined this patient.: Yes I have fully participated in the care of the patient.: Yes I have reviewed all pertinent clinical information, including history, physical exam and plan: Yes
[2018-10-16] MEDS ORDERED: Cefpodoxime (Vantin) 200 mg Tab PO SCH (10:00)
== END 2018-10-15 19:42 | DRG 210 ==
LOC: ED 21:47 → ERH 10-11 02:58 → 5RSO 10-11 05:58 → ERH 10-11 05:59 → 5RSO 10-11 07:10
PROVIDERS: ADMIT Internal Medicine; ATTEND Hospitalist
PROC: 0QS736Z Reposition Left Upper Femur with Intramedullary Internal Fixation Device, Percutaneous Approach (ICD-10-PCS; principal; 2018-10-12 17:00)
DX: S72.142A Displaced intertrochanteric fracture of left femur, initial encounter for closed fracture (principal); N39.0 Urinary tract infection, site not specified; B96.1 Klebsiella pneumoniae [K. pneumoniae] as the cause of diseases classified elsewhere; D50.0 Iron deficiency anemia secondary to blood loss (chronic); E05.90 Thyrotoxicosis, unspecified without thyrotoxic crisis or storm; X50.1XXA Overexertion from prolonged static or awkward postures, initial encounter; F32.9 Major depressive disorder, single episode, unspecified; F41.0 Panic disorder [episodic paroxysmal anxiety]; I10 Essential (primary) hypertension; F44.6 Conversion disorder with sensory symptom or deficit; W01.0XXA Fall on same level from slipping, tripping and stumbling without subsequent striking against object, initial encounter; Y92.009 Unspecified place in unspecified non-institutional (private) residence as the place of occurrence of the external cause; Z72.0 Tobacco use; Z86.73 Personal history of transient ischemic attack (TIA), and cerebral infarction without residual deficits

== ENCOUNTER 2018-10-24 09:53 | Outpatient (CLI) | payer MEDICAID | END 2018-10-24 09:54 | disposition home or self-care (01) | LOC: RAD 09:53 ==